=== PATIENT | female | born 1980 | race Caucasian/White ===

== ENCOUNTER 2020-08-24 21:46 | Emergency (ER) | payer MEDICAID ==
[2020-08-24] MEDS ORDERED: ONDANSETRON 4 MG/2 ML VIAL ONE (22:30)
[2020-08-24] MEDS ORDERED: NA CHLORIDE 0.9% 1,000 ML ONE (22:45)
[2020-08-24 22:52] LABS: Absolute Lymphocytes (CBC) 3.9 K/uL (0.7-4.9); Basophils % 1.1 % (0-1.3); Hematocrit 37.7 % (36.0-45.0); MPV 8.1 fL (7.6-11.3); RBC Red Blood Cell Count 4.06 M/uL (3.86-4.86)
[2020-08-24 23:05] LABS: ALT/SGPT 19 U/L (12-78); AST/SGOT 12 U/L (15-37); Albumin 3.7 g/dL (3.4-5.0); Alkaline Phosphatase 95 U/L (45-117); BUN Blood Urea Nitrogen 17 mg/dL (7-18); Bicarbonate 21 mmol/L (21-32); Bilirubin Direct < 0.1 mg/dL (0-0.2); Bilirubin Total 0.2 mg/dL (0.2-1.0); Glucose Level 115 mg/dL (74-106); Lipase 78 U/L (73-393); Potassium 3.8 mmol/L (3.5-5.1); Sodium Level 143 mmol/L (136-145)
[2020-08-24] MEDS ORDERED: MORPHINE 2 MG/ML SYR ONE ×2 (23:09→23:48)
[2020-08-24] MEDS ORDERED: CEFTRIAXONE/SWI 1gm 1 GM/10 ML SYR ONE ×2 (23:43→23:50)
[2020-08-25 00:19] LABS: Urine Blood TRACE (NEG); Urine Glucose NEGATIVE (NEG); Urine Protein NEGATIVE (NEG); Urine Specific Gravity 1.025 (1.005-1.030); Urine pH 5.5 (5.0-7.0)
--- NOTE | 2020-08-25 00:58 | ER ---
Nurse's Notes [facility] Name: Lauren Chand Age: 40 yrs Sex: Female : 1980 Arrival Date: 08/24/2020 Time: 21:49 Bed 6 Private MD: Diagnosis: Hydronephrosis with renal and ureteral calculous obstruction;Elevated white blood cell count;Urinary tract infection, site not specified Presentation: 08/24 21:56 Chief complaint: Patient states: L flankl pain started 3 hrs [employer], getting worse, ca1 constant, radiating all across the back now. Reports urinary urgency and frequency. Reports N/V. Coronavirus screen: Client denies travel out of the [place] in the last 14 days. nausea, vomiting. Client presents with at least one sign or symptom that may indicate coronavirus-19. Standard/surgical mask placed on the client. Provider contacted for isolation considerations. Ebola Screen: Patient negative for fever greater than or equal to 101.5 degrees Fahrenheit, and additional compatible Ebola Virus Disease symptoms Patient denies exposure to infectious person. Patient denies travel to an Ebola-affected area in the 21 days before illness onset. No symptoms or risks identified at this time. Initial Sepsis Screen: Does the patient meet any 2 criteria? No. Patient's initial sepsis screen is negative. Does the patient have a suspected source of infection? No. Patient's initial sepsis screen is negative. Risk Assessment: Do you want to hurt yourself or someone else? Patient reports no desire to harm self or others. Onset of symptoms was August 24, 2020 at 19:00. 21:56 Method Of Arrival: Wheelchair ca1 21:56 Acuity: CHRISTINE 3 ca1 Triage Assessment: 22:18 General: Appears uncomfortable, Behavior is appropriate for age. Pain: Complains of ea pain in suprapubic area and posterior aspect of left lateral abdomen. Neuro: Level of Consciousness is awake, alert, obeys commands, Oriented to person, place, time, situation. Respiratory: Airway is patent Respiratory effort is even, unlabored, Respiratory pattern is regular, symmetrical. GI: Reports nausea, vomiting, since Pt reports it started this afternoon left flank pain and lower abdominal pain. Derm: Skin is pink, warm \T\ dry. 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 - Social history:: Smoking status: Patient reports the use of cigarette tobacco products, smokes one pack cigarettes per day. - Family history:: not pertinent. Screenin:04 Abuse screen: Denies threats or abuse. Nutritional screening: No deficits noted. ea Tuberculosis screening: No symptoms or risk factors identified. Fall Risk IV access (20 points). Assessment: 22:21 Reassessment: see triage assessment. ea 08/25 02:32 Reassessment: Patient and/or family updated on plan of care and expected duration. Pain ea level reassessed. Patient is alert, oriented x 3, equal unlabored respirations, skin warm/dry/pink. Pt admitted to ER hold. 03:04 Reassessment: Patient and/or family updated on plan of care and expected duration. Pain ea level reassessed. Patient is alert, oriented x 3, equal unlabored respirations, skin warm/dry/pink. Discharge instruction given to patient, verbalized the understanding of instruction, pt left ED via wheelchair per family. Pt tolerating well. Vital Signs: 12/ 21:56 BP 157 / 83; Pulse 74; Resp 16 S; Temp 97.6(TE); Pulse Ox 93% on R/A; Weight 68.04 kg ca1 (R); Height 5 ft. 4 in. (162.56 cm) (R); Pain 9/10; 12 00:00 BP 138 / 82; Pulse 84; Resp 18; Pulse Ox 95% on R/A; ea 03:03 BP 107 / 59; Pulse 80; Resp 18; Temp 97.8; Pulse Ox 98% on R/A; ea 12 21:56 Body Mass Index 25.75 (68.04 kg, 162.56 cm) ca1 ED Course: 12 21:49 Patient arrived in ED. ag3 21:54 Venkata Barry MD is Attending Physician. froy 21:59 Triage completed. ca1 22:01 Arm band placed on right wrist. ca1 22:04 Cr Crisostomo RN is Primary Nurse. rv 22:20 Patient has correct armband on for positive identification. Bed in low position. Call ea light in reach. Side rails up X2. 22:20 Inserted saline lock: 20 gauge in left antecubital area, using aseptic technique. Blood ea collected. 23:26 Chest Single View XRAY In Process Unspecified. EDMS 12 00:04 Urine Culture Sent. ds4 00:27 CT Stone Protocol In Process Unspecified. EDMS 00:57 Torrey Mccullough MD is Hospitalizing Provider. froy 01:21 Javier Woodall DO is Hospitalizing Provider. froy 02:04 CT Abd/Pelvis - IV Contrast Only In Process Unspecified. EDMS 02:25 No provider procedures requiring assistance completed. Patient admitted, IV remains in ea place. 02:49 Dariel De MD is Referral Physician. froy Administered Medications: 08/24 22:21 Drug: Zofran (Ondansetron) 4 mg Route: IVP; Site: left antecubital; ea 23:00 Follow up: Response: No adverse reaction ea 22:33 Drug: NS 0.9% 1000 ml Route: IV; Rate: 1 bolus; Site: left antecubital; ea 08/25 00:30 Follow up: Response: No adverse reaction; IV Status: Completed infusion; IV Intake: ea 1000ml 08/24 22:56 Drug: morphine 2 mg {Note: rass 1.} Route: IVP; Site: left antecubital; rv 23:34 Drug: Rocephin 2 grams Route: IV; Rate: per protocol; Site: left antecubital; ea 08/25 00:00 Follow up: Response: No adverse reaction; IV Status: Completed infusion; IV Intake: 20mlea 08/24 23:50 Drug: morphine 2 mg Route: IVP; Site: left antecubital; ea 08/25 02:32 Follow up: Response: No adverse reaction; Pain is decreased ea 01:38 Drug: Flomax 0.4 mg Route: PO; rv 02:32 Follow up: Response: No adverse reaction ea 02:45 Drug: Nicoderm CQ 21 mg/24 hr 1 patches Route: Transdermal; Site: affected area; ea 02:54 Drug: morphine 2 mg Route: IVP; Site: left antecubital; ea 03:03 Follow up: Response: No adverse reaction; RASS: Alert and Calm (0) ea 02:54 Drug: morphine 2 mg Route: IVP; Site: left antecubital; ea 03:03 Drug: LevOfloxacin 500 mg Route: PO; ea 03:03 Follow up: Response: No adverse reaction ea Intake: 00:00 IV: 20ml; Total: 20ml. ea 00:30 IV: 1000ml; Total: 1020ml. ea Outcome: 00:58 Decision to Hospitalize by Provider. froy 02:25 Admitted to ER Hold. Please see [facility] for further documentation. ea 02:25 Condition: stable 02:25 Instructed on the need for admit, Demonstrated understanding of instructions. 02:50 Discharge ordered by . froy 03:05 Patient left the ED. ea Signatures: Dispatcher [employer] EDMS Los Mclean, RN RN Venkata Garcia MD MD cha Swanson, Donovan ds4 Kenia Hinton RN Cr Tian ea RN Kathia Galicia ag3 Phuong Christie RN RN ca1
--- NOTE | 2020-08-25 00:59 | EDPHYS ---
Physician Documentation [facility] Name: Lauren Chand Age: 40 yrs Sex: Female : 1980 Arrival Date: 08/24/2020 Time: 21:49 Bed 6 Private MD: ANANYA Physician Venkata Barry HPI: 08/24 23:15 This 40 yrs old Female presents to ER via Wheelchair with complaints of Flank froy Pain, Nausea. 23:15 The patient complains of pain in the left low back and left mid back. The pain radiates froy to the left low back and left mid back. Onset: The symptoms/episode began/occurred just prior to arrival, today. Modifying factors: The symptoms are alleviated by nothing. the symptoms are aggravated by nothing. Associated signs and symptoms: The patient has no apparent associated signs or symptoms. Severity of pain: At its worst the pain was moderate in the emergency department the pain is unchanged. The patient has not experienced similar symptoms in the past. 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 - Social history:: Smoking status: Patient reports the use of cigarette tobacco products, smokes one pack cigarettes per day. - Family history:: not pertinent. ROS: 23:15 Constitutional: Negative for fever, chills, and weight loss, Eyes: Negative for injury, froy pain, redness, and discharge, ENT: Negative for injury, pain, and discharge, Neck: Negative for injury, pain, and swelling, Cardiovascular: Negative for chest pain, palpitations, and edema, Respiratory: Negative for shortness of breath, cough, wheezing, and pleuritic chest pain, : Negative for injury, bleeding, discharge, and swelling, MS/Extremity: Negative for injury and deformity, Skin: Negative for injury, rash, and discoloration, Neuro: Negative for headache, weakness, numbness, tingling, and seizure, Psych: Negative for depression, anxiety, suicide ideation, homicidal ideation, and hallucinations, Allergy/Immunology: Negative for hives, rash, and allergies, Endocrine: Negative for neck swelling, polydipsia, polyuria, polyphagia, and marked weight changes, Hematologic/Lymphatic: Negative for swollen nodes, abnormal bleeding, and unusual bruising. 23:15 Abdomen/GI: Positive for abdominal pain, of the posterior aspect of left lateral abdomen, anterior aspect of left lateral abdomen and left upper quadrant. Exam: 23:15 Constitutional: This is a well developed, well nourished patient who is awake, alert, froy and in no acute distress. Head/Face: Normocephalic, atraumatic. Eyes: Pupils equal round and reactive to light, extra-ocular motions intact. Lids and lashes normal. Conjunctiva and sclera are non-icteric and not injected. Cornea within normal limits. Periorbital areas with no swelling, redness, or edema. ENT: Nares patent. No nasal discharge, no septal abnormalities noted. Tympanic membranes are normal and external auditory canals are clear. Oropharynx with no redness, swelling, or masses, exudates, or evidence of obstruction, uvula midline. Mucous membranes moist. Neck: Trachea midline, no thyromegaly or masses palpated, and no cervical lymphadenopathy. Supple, full range of motion without nuchal rigidity, or vertebral point tenderness. No Meningismus. Chest/axilla: Normal chest wall appearance and motion. Nontender with no deformity. No lesions are appreciated. Cardiovascular: Regular rate and rhythm with a normal S1 and S2. No gallops, murmurs, or rubs. Normal PMI, no JVD. No pulse deficits. Abdomen/GI: Soft, non-tender, with normal bowel sounds. No distension or tympany. No guarding or rebound. No evidence of tenderness throughout. Back: No spinal tenderness. No costovertebral tenderness. Full range of motion. Pelvic Exam: Normal external genitalia. Speculum exam with closed cervical os, no discharge or bleeding noted. Bimanual exam with normal adnexa, no adnexal or cervical motion tenderness. Normal uterus. Skin: Warm, dry with normal turgor. Normal color with no rashes, no lesions, and no evidence of cellulitis. MS/ Extremity: Pulses equal, no cyanosis. Neurovascular intact. Full, normal range of motion. Neuro: Awake and alert, GCS 15, oriented to person, place, time, and situation. Cranial nerves II-XII grossly intact. Motor strength 5/5 in all extremities. Sensory grossly intact. Cerebellar exam normal. Normal gait. 23:15 Respiratory: 23:15 Abdomen/GI: Inspection: abdomen appears normal, Bowel sounds: normal, Palpation: mild abdominal tenderness, in the left upper quadrant, Liver: no appreciated palpable abnormalities, Hernia: not appreciated. Vital Signs: 21:56 BP 157 / 83; Pulse 74; Resp 16 S; Temp 97.6(TE); Pulse Ox 93% on R/A; Weight 68.04 kg ca1 (R); Height 5 ft. 4 in. (162.56 cm) (R); Pain 9/10; 08/25 00:00 BP 138 / 82; Pulse 84; Resp 18; Pulse Ox 95% on R/A; ea 03:03 BP 107 / 59; Pulse 80; Resp 18; Temp 97.8; Pulse Ox 98% on R/A; ea 08/24 21:56 Body Mass Index 25.75 (68.04 kg, 162.56 cm) ca1 MDM: 08/24 21:54 Patient medically screened. froy 23:18 Differential diagnosis: nephrolithiasis, pyelonephritis, diverticulitis, pancreatitis. froy Data reviewed: vital signs, nurses notes, lab test result(s), radiologic studies, CT scan, plain films. Data interpreted: hall monitor: rate is 74 beats/min, rhythm is regular, Pulse oximetry: on room air is 93 %. Test interpretation: by ED physician or midlevel provider: plain radiologic studies. Counseling: I had a detailed discussion with the patient and/or guardian regarding: the historical points, exam findings, and any diagnostic results supporting the discharge/admit diagnosis, lab results, radiology results. 08/25 02:51 Physician consultation: Dariel De MD and will see patient in office, no reason to froy admit if pain is controlled, have follow up. 08/24 22:22 Order name: Basic Metabolic Panel ea 08/24 22:22 Order name: CBC with Diff ea 08/24 22:22 Order name: Hepatic Function ea 08/24 22:22 Order name: Lipase ea 08/24 23:06 Order name: Basic Metabolic Panel; Complete Time: 23:10 EDMS 08/24 23:06 Order name: Liver (Hepatic) Function; Complete Time: 23:10 EDMS 08/24 23:06 Order name: Lipase; Complete Time: 23:10 EDIN 08/24 23:09 Order name: CBC with Automated Diff; Complete Time: 23:10 EDMS 08/24 23:10 Order name: Urine Culture [facility] 08/24 23:10 Order name: CT Stone Protocol [facility] 08/24 23:56 Order name: Urine --Ancillary (enter results) ds4 08/24 23:56 Order name: Urine Dipstick--Ancillary (enter results) 4 08/25 00:19 Order name: Urine --Ancillary; Complete Time: 00:21 EDMS 08/25 00:19 Order name: Urine Dipstick-Ancillary; Complete Time: 00:21 EDMS 08/24 22:22 Order name: IV Saline Lock; Complete Time: 22:22 08/24 22:22 Order name: Labs collected and sent; Complete Time: 22:22 08/24 22:25 Order name: Urine Dipstick-Ancillary (obtain specimen); Complete Time: 23:54 08/24 23:12 Order name: Chest Single View XRAY [facility] 08/24 23:15 Order name: Urine Test (obtain specimen); Complete Time: 23:54 [facility] 08/25 00:59 Order name: CT Abd/Pelvis - IV Contrast Only [facility] Administered Medications: 08/24 22:21 Drug: Zofran (Ondansetron) 4 mg Route: IVP; Site: left antecubital; ea 23:00 Follow up: Response: No adverse reaction ea 22:33 Drug: NS 0.9% 1000 ml Route: IV; Rate: 1 bolus; Site: left antecubital; ea 08/25 00:30 Follow up: Response: No adverse reaction; IV Status: Completed infusion; IV Intake: ea 1000ml 08/24 22:56 Drug: morphine 2 mg {Note: rass 1.} Route: IVP; Site: left antecubital; rv 23:34 Drug: Rocephin 2 grams Route: IV; Rate: per protocol; Site: left antecubital; ea 08/25 00:00 Follow up: Response: No adverse reaction; IV Status: Completed infusion; IV Intake: 20mlea 08/24 23:50 Drug: morphine 2 mg Route: IVP; Site: left antecubital; ea 08/25 02:32 Follow up: Response: No adverse reaction; Pain is decreased ea 01:38 Drug: Flomax 0.4 mg Route: PO; rv 02:32 Follow up: Response: No adverse reaction ea 02:45 Drug: Nicoderm CQ 21 mg/24 hr 1 patches Route: Transdermal; Site: affected area; ea 02:54 Drug: morphine 2 mg Route: IVP; Site: left antecubital; ea 03:03 Follow up: Response: No adverse reaction; RASS: Alert and Calm (0) ea 02:54 Drug: morphine 2 mg Route: IVP; Site: left antecubital; ea 03:03 Drug: LevOfloxacin 500 mg Route: PO; ea 03:03 Follow up: Response: No adverse reaction ea Disposition: 08/25/20 02:50 Discharged to Home. Impression: Hydronephrosis with renal and ureteral calculous obstruction, Elevated white blood cell count, Urinary tract infection, site not specified. - Condition is Stable. - Discharge Instructions: Dysuria, Kidney Stones, Urinary Tract Infection, Adult, Kidney Stones, [id number], Urinary Tract Infection, Adult, [id number], Hydronephrosis. - Prescriptions for Levaquin 500 mg Oral Tablet - take 1 tablet by ORAL route once daily for 7 days; 7 tablet. Tylenol- Codeine #3 300-30 mg Oral Tablet - take 2 tablet by ORAL route every 6 hours As needed; 30 tablet. Zofran 4 mg Oral Tablet - take 1 tablet by ORAL route every 12 hours As needed; 20 tablet. Flomax 0.4 mg Oral Capsule, Sust. Release 24 hr - take 1 capsule by ORAL route once daily 1/2 hour following the same meal each day; 30 capsule. - Medication Reconciliation Form, Thank You Letter, Antibiotic Education, Prescription Opioid Use form. - Follow up: Private Physician; When: 2 - 3 days; Reason: Recheck today's complaints, Continuance of care, Re-evaluation by your physician. Follow up: Dariel De MD; When: 2 - 3 days; Reason: Recheck today's complaints, Re-evaluation by your physician. - Problem is new. - Symptoms have improved. Signatures: Dispatcher [employer] EDMS Cheri Nava RN RN mw Gay, Steven, RN RN sg Anderson, Corey, MD MD cha Antunez, Elena, RN RN ea Vicente, Ronaldo RN RN rv Acob, Phuong, RN RN ca1 Corrections: (The following items were deleted from the chart) 01:01 00:58 Hospitalization Ordered by Torrey Mccullough MD for Inpatient Admission. Preliminary mw diagnosis is Acute tubulo-interstitial nephritis; Elevated white blood cell count. Bed requested for Telemetry/MedSurg (Inpatient). Status is Inpatient Admission. Condition is Fair. Problem is new. Symptoms have improved. froy 01:21 01:01 08/25/2020 00:58 Hospitalization Ordered by Torrey Mccullough MD for Inpatient froy Admission. Preliminary diagnosis is Acute tubulo-interstitial nephritis; Elevated white blood cell count. Bed requested for [facility] ER HOLD. Status is Inpatient Admission. Condition is Fair. Problem is new. Symptoms have improved. mw 02:47 01:21 08/25/2020 00:58 Hospitalization Ordered by Javier Woodall DO for Inpatient froy Admission. Preliminary diagnosis is Acute tubulo-interstitial nephritis; Elevated white blood cell count. Bed requested for [facility] ER HOLD. Status is Inpatient Admission. Condition is Fair. Problem is new. Symptoms have improved. froy 03:05 02:50 08/25/2020 02:50 Discharged to Home. Impression: Hydronephrosis with renal and ea ureteral calculous obstruction; Elevated white blood cell count; Urinary tract infection, site not specified. Condition is Stable. Forms are Medication Reconciliation Form, Thank You Letter, Antibiotic Education, Prescription Opioid Use. Follow up: Private Physician; When: 2 - 3 days; Reason: Recheck today's complaints, Continuance of care, Re-evaluation by your physician. Follow up: Dariel De; When: 2 - 3 days; Reason: Recheck today's complaints, Re-evaluation by your physician. Problem is new. Symptoms have improved. froy
[2020-08-25] MEDS ORDERED: TAMSULOSIN 0.4 MG SR CAP ONE (01:41)
[2020-08-25] MEDS ORDERED: NICOTINE 21 MG/PAT TD ONE (02:57)
[2020-08-25] MEDS ORDERED: levoFLOXacin 500 MG TAB ONE (03:08)
[2020-08-25] MEDS ORDERED: MORPHINE 4 MG/ML SYR ONE (03:08)
--- NOTE | 2020-08-25 08:25 | RAD REPORT ---
EXAM DESCRIPTION: RAD - Chest Single View - 08/24/2020 11:26 pm CLINICAL HISTORY: Cough;Pain COMPARISON: Two view chest June 2019 TECHNIQUE: AP portable chest image was obtained 08/24/2020 11:26 pm . FINDINGS: Lung volumes are low. No peripheral mass or consolidation. Interstitial pattern is accentu ated by the low lung volumes. This potentially masks minimal edema or infiltrate though this is not l ikely. Heart and vasculature are normal. No measurable pleural effusion and no pneumothorax. No acute bony abnormality seen. No acute aortic findings suspected. IMPRESSION: Limited portable study without acute cardiopulmonary finding.
--- NOTE | 2020-08-25 10:51 | RAD REPORT ---
EXAM DESCRIPTION: CT - Stone Protocol - 08/25/2020 6:56 am CLINICAL HISTORY: Abdominal pain. Pyelonephritis. COMPARISON: None. TECHNIQUE: Axial unenhanced CT imaging of the abdomen and pelvis performed. Reformatted coronal and sagittal images reviewed. A dose reduction technique was utilized with automated exposure control according to patient size. FINDINGS: Clear lung bases. Heart is normal in size. The liver is normal in size, contour, and attenuation. There are several layering stones within the proximal gallbladder with a small calcified stone in the gallbladder neck. No evidence of cholecys titis or biliary dilatation. 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 The mcguire creas appears normal. Normal adrenal glands. There is mild fullness of the left renal pelvis. AP pelvis is 1 cm. There is a 5 mm calculus in t he left hemipelvis which could be in the left distal ureter or a dystrophic calcification in the danae phery of the left ovary. There is mild left perinephric edema. Normal right kidney. Normal caliber aorta and inferior vena cava. Mild aortic atherosclerosis. No retroperitoneal lymp hadenopathy. Unremarkable stomach. Small bowel loops appear normal. There is a normal caliber appendix in the right lower quadrant with intraluminal appendicoliths without appendicitis. Unremarkable colon. N o ascites or free air. Bladder appears normal with no bladder stone. No adjacent edema. No wall thickening evident. No rmal uterus. The changes are present within the ovaries. There are dystrophic calcifications ann g the periphery of the right ovary. There are pelvic phleboliths present. No perivesicle edema. No pelvic free fluid. Unremarkable cervical spine. Bony pelvis and hips are unremarkable. There is an intramedullary cassy cency in the proximal left femur from prior hardware placement. IMPRESSION: 1. Mild left renal pelvic dilatation and perinephric edema. There are phleboliths in the pelvis. There is a 5 mm calcification along the lateral periphery of the left hemipelvis which could be in the left ureter or within the left ovary. The left renal findings could also be second josse to pyelonephritis which cannot be fully characterized on this unenhanced exam. 2. Cholelithiasis without cholecystitis. Electronically signed by: Stacy Lindsey DO 08/25/2020 12:44 AM SKETCH MAKER Due to temporary technical issues with the PACS/Fluency reporting system, reports are being signed by the in house radiologist without review as a courtesy to ensure prompt reporting. The interpreting r adiologist is fully responsible for the content of the report.
--- NOTE | 2020-08-25 10:52 | RAD REPORT ---
EXAM DESCRIPTION: CT - Abdomen Pelvis W Contrast - 08/25/2020 6:55 am CLINICAL HISTORY: Abdominal pain, flank pain, fever. COMPARISON: CT abdomen and pelvis without contrast 08/25/2020 TECHNIQUE: Axial CT imaging of the abdomen and pelvis performed with intravenous contrast. Reformatt ed coronal and sagittal images reviewed. A dose reduction technique was utilized with automated exposure control according to patient size. FINDINGS: Minimal left lower lobe atelectasis. Normal cardiac contour. Normal attenuation of the liver. The gallbladder contains several calcified stones without cholecys titis. No biliary dilatation. The spleen is absent. Normal pancreas and adrenal glands. Brenna l right kidney. There is persistent dilatation of the left renal pelvis without interval change. AP pelvis is 1 cm. Mild left perinephric edema. There is normal enhancement of the left kidney wi th no evidence of pyelonephritis. Left ureter is mildly dilated diffusely. A 4 mm calcification o verlying the left pelvic sidewall is unchanged in position and may be in the distal left ureter. No renal pelvic stones are seen. Normal aorta and inferior vena cava. Mesenteric vessels appear normal. The stomach, small bowel loops and colon appear normal. There is no ascites. The bladder contains a 3 mm calcification in the dependent right posterior lumen. No bladder wall t hickening or adjacent edema. Normal uterus. There are follicular changes within the ovaries. No acute bony abnormality. IMPRESSION: 1. Stable mild left hydronephrosis with mild left perinephric edema. Possible 4 mm d istal left ureteral stone versus dystrophic ovarian calcification. There is a 3 mm bladder stone wh ich may have recently passed. 2. Cholelithiasis without cholecystitis. Electronically signed by: Stacy Lindsey DO 08/25/2020 2:26 AM CABLE INSTALLATION MANAGER Due to temporary technical issues with the PACS/Fluency reporting system, reports are being signed by the in house radiologist without review as a courtesy to ensure prompt reporting. The interpreting r adiologist is fully responsible for the content of the report.
== END 2020-08-25 03:05 | disposition home or self-care (01) ==
LOC: ER 21:46
DX: N13.2 Hydronephrosis with renal and ureteral calculous obstruction (principal); N39.0 Urinary tract infection, site not specified; D72.829 Elevated white blood cell count, unspecified; F17.210 Nicotine dependence, cigarettes, uncomplicated; Z87.820 Personal history of traumatic brain injury; Z88.5 Allergy status to narcotic agent; Z88.6 Allergy status to analgesic agent
CPT/HCPCS: 87088; 85025; 87086; 80048; 36415; 81025; 80076; 81003; 83690; 76377; 74176; 74177; 71045; Q9967; J2270 ×2; J0696 ×2; J7030; J2405; 96361; 96365; 96375; 99285

== ENCOUNTER 2021-12-15 09:32 | Emergency (ER) | payer OTHER ==
[2021-12-15 10:44] LABS: Urine Blood 2+ (Negative); Urine Glucose Negative (Negative); Urine Protein 1+ (Negative); Urine Specific Gravity >=1.030 (1.005-1.030)
[2021-12-15] MEDS ORDERED: ONDANSETRON 4 MG/2 ML VIAL ONE (10:48)
[2021-12-15] MEDS ORDERED: MORPHINE 4 MG/ML SYR ONE (10:48)
[2021-12-15] MEDS ORDERED: NA CHLORIDE 0.9% 1,000 ML ONE (10:48)
[2021-12-15 11:00] LABS: Absolute Lymphocytes (CBC) 1.7 K/uL (0.7-4.9); Hematocrit 39.4 % (36.0-45.0); Lymphocytes % 7.6 % (15.3-44.8); MPV 6.7 fL (7.6-11.3); RBC Red Blood Cell Count 4.14 M/uL (3.86-4.86)
[2021-12-15 11:21] LABS: Blood Morphology Comment NOT SEEN (NOT SEEN); Platelet Estimate ADEQ
[2021-12-15 11:32] LABS: Urine Specific Gravity/Preg >1.030 (1.005-1.030)
--- NOTE | 2021-12-15 11:55 | RAD REPORT ---
EXAM DESCRIPTION: CT - Stone Protocol - 12/15/2021 11:28 am CLINICAL HISTORY: Abdominal pain. Right flank pain COMPARISON: 2019 TECHNIQUE: Computed axial tomography of the abdomen pelvis was obtained without oral or IV contrast. Lack of IV and oral contrast limits evaluation of solid organs, bowel, and vessels. Coronal reformat junie images were obtained and reviewed. All CT scans are performed using dose optimization technique as appropriate and may include automated exposure control or mA/KV adjustment according to patient size. FINDINGS: Mild to moderate right hydronephrosis. 3 millimeter calculus right UVJ. The right kidney i s enlarged Multiple left renal calculi. No hydronephrosis. Cholelithiasis. Gallbladder wall is not thickened. The liver,, pancreas and adrenals appear grossly normal. Splenectomy There is no evidence of diverticulitis. The appendix appears normal IMPRESSION: 3 millimeter calculus right UVJ resulting [id number] right hydronephrosis
[2021-12-15] MEDS ORDERED: DIPHENHYDRAMINE 50 MG/ML VIAL ONE (12:08)
[2021-12-15] MEDS ORDERED: METOCLOPRAMIDE 10 MG/2mL INJ ONE (12:08)
[2021-12-15] MEDS ORDERED: KETOROLAC 30 MG/ML INJ ONE (12:08)
[2021-12-15] MEDS ORDERED: MORPHINE 2 MG/ML SYR ONE (12:09)
[2021-12-15 12:12] LABS: Albumin 3.7 g/dL (3.4-5.0); Bilirubin Total 0.2 mg/dL (0.2-1.0); Potassium 3.4 mmol/L (3.5-5.1); Protein, Total 7.5 g/dL (6.4-8.2)
[2021-12-15] MEDS ORDERED: TAMSULOSIN 0.4 MG SR CAP ONE (12:37)
[2021-12-15] MEDS ORDERED: CEFTRIAXONE 1000 MG/VIAL ONE (12:37)
--- NOTE | 2021-12-15 14:20 | ER ---
Nurse's Notes [facility] Name: Lauren Chand Age: 41 yrs Sex: Female : 1980 Arrival Date: 12/15/2021 Time: 09:34 Bed 13 Private MD: Diagnosis: Calculus of ureter Presentation: 12/15 09:46 Chief complaint: Patient states: she woke up this morning with right lower back pain. ap3 Patient states this is new onset, sharp pain. Patient reports also having urinary frequency. Coronavirus screen: At this time, the client does not indicate any symptoms associated with coronavirus-19. Ebola Screen: No symptoms or risks identified at this time. Initial Sepsis Screen: Does the patient meet any 2 criteria? No. Patient's initial sepsis screen is negative. Does the patient have a suspected source of infection? No. Patient's initial sepsis screen is negative. Risk Assessment: Do you want to hurt yourself or someone else? Patient reports no desire to harm self or others. Onset of symptoms was December 15, 2021. 09:46 Method Of Arrival: Wheelchair ap3 09:46 Acuity: CHRISTINE 3 ap3 Triage Assessment: 09:49 General: Appears uncomfortable, Behavior is calm, cooperative. Pain: Complains of pain ap3 in right low back Pain currently is 10 out of 10 on a pain scale. Quality of pain is described as sharp, Pain began suddenly, this morning when she woke up. Neuro: Level of Consciousness is awake, alert, obeys commands, Oriented to person, place, time, situation. Cardiovascular: Patient's skin is warm and dry. Respiratory: Airway is patent Respiratory effort is even, unlabored. GI: Reports nausea, vomiting. : Reports urinary frequency. Musculoskeletal: Range of motion: limited in all extremities, from pts hx of TBI. 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 Flu vaccine is not up to date. - Social history:: Smoking status: Patient reports the use of cigarette tobacco products, smokes one pack cigarettes per day. Screenin:50 Abuse screen: Denies threats or abuse. Nutritional screening: No deficits noted. ap3 Tuberculosis screening: No symptoms or risk factors identified. 11:06 Fall Risk No fall in past 12 months (0 pts). Secondary diagnosis (15 points) IV access ab2 (20 points). Ambulatory Aid- None/Bed Rest/Nurse Assist (0 pts). Gait- Normal/Bed Rest/Wheelchair (0 pts) Mental Status- Oriented to own ability (0 pts). Total Acevedo Fall Scale indicates Low Risk Score (25-44 pts). Fall prevention measures have been instituted. Side Rails Up X 2 Frequent Obs/Assesments occuring Family Present and informed to notify staff if they need to leave bedside As available Patient and Family Educated on Fall Prevention Program and strategies. Assessment: 11:04 General: Appears in no apparent distress. uncomfortable, Behavior is calm, cooperative, ab2 appropriate for age. Pain: Complains of pain in right low back. Neuro: Level of Consciousness is awake, alert, obeys commands, Oriented to person, place, time, situation, Appropriate for age. Cardiovascular: No deficits noted. Denies chest pain, shortness of breath, Heart tones S1 S2 present Patient's skin is warm and dry. Respiratory: Airway is patent Respiratory effort is even, unlabored, Respiratory pattern is regular, symmetrical. GI: No deficits noted. Abdomen is round non-distended, Bowel sounds present X 4 quads. : No deficits noted. Urine is cloudy. EENT: No deficits noted. No signs and/or symptoms were reported regarding the EENT system. Derm: Skin is thin, Skin is pale. 12:13 Reassessment: Patient appears in no apparent distress at this time. Pt states pain came ab2 back, another dose of morphine given per order. Pt resting. Lights dimmed. Denies any further needs. 14:12 Reassessment: Patient appears in no apparent distress at this time. Fluids still ab2 infusing, pt tolerating well. friend remains at bedside, denies any needs. Awaiting disposition. Vital Signs: 09:46 BP 125 / 76; Pulse 66; Temp 97.7; Pulse Ox 99% on R/A; Weight 65.77 kg; Height 5 ft. 4 ap3 in. (162.56 cm); Pain 10/10; 11:00 BP 130 / 72; Pulse 84; Resp 17; Pulse Ox 100% on R/A; ab2 12:13 BP 128 / 76; Pulse 77; Resp 17; Pulse Ox 98% on R/A; ab2 13:10 BP 112 / 52; Pulse 74; Resp 16; Pulse Ox 98% ; ab2 14:11 BP 109 / 65; Pulse 87; Resp 16; Pulse Ox 98% on R/A; ab2 09:46 Body Mass Index 24.89 (65.77 kg, 162.56 cm) ap3 ED Course: 09:34 Patient arrived in ED. mr 09:41 Ramses Palacios PA is PHCP. jmm 09:42 Rd Mccullough MD is Attending Physician. jmm 09:48 Triage completed. ap3 09:51 Arm band placed on left wrist. ap3 10:12 Cecelia Hassan, RN is Primary Nurse. weiss 10:48 Initial lab(s) drawn, by me, sent to lab. Inserted saline lock: 22 gauge in left 3 antecubital area, using aseptic technique. Blood collected. 11:06 Patient has correct armband on for positive identification. Bed in low position. Call ab2 light in reach. Side rails up X2. Adult w/ patient. 11:06 No provider procedures requiring assistance completed. ab2 11:07 Notified Nurse Practitioner and/or Physician Switchboard Installer of a critical lab result(s), wbc ab2 22.6. 11:30 CT Stone Protocol In Process Unspecified. EDMS 11:39 Lab(s) recollected, by me, sent to lab. 3 14:18 Dariel De MD is Referral Physician. jmm 14:36 IV discontinued, intact, bleeding controlled, No redness/swelling at site. Pressure ab2 dressing applied. Administered Medications: 10:58 Drug: Zofran (Ondansetron) 4 mg Route: IVP; Site: left antecubital; ab2 12:13 Follow up: Response: No adverse reaction ab2 10:58 Drug: NS 0.9% 1000 ml Route: IV; Rate: 1 bolus; Site: left antecubital; ab2 14:36 Follow up: Response: No adverse reaction; IV Status: Completed infusion ab2 10:59 Drug: morphine 4 mg Route: IVP; Site: left antecubital; ab2 12:13 Follow up: Response: No adverse reaction ab2 12:12 Drug: morphine 2 mg Route: IVP; Site: left antecubital; ab2 12:41 Follow up: Response: No adverse reaction ab2 12:12 Drug: Reglan (metoCLOPramide) 10 mg Route: IVP; Site: left antecubital; ab2 12:41 Follow up: Response: No adverse reaction ab2 12:12 Drug: diphenhydrAMINE 25 mg Route: IVP; Site: left antecubital; ab2 12:41 Follow up: Response: No adverse reaction ab2 12:12 Drug: Ketorolac 30 mg Route: IVP; Site: left antecubital; ab2 12:41 Follow up: Response: No adverse reaction ab2 12:40 Drug: Flomax (tamsulosin) 0.4 mg Route: PO; ab2 12:42 Follow up: Response: No adverse reaction ab2 12:40 Drug: Rocephin (cefTRIAXone) 1 grams Route: IV; Rate: calculated rate; Site: left ab2 antecubital; 12:42 Follow up: Response: No adverse reaction; IV Status: Completed infusion ab2 Outcome: 14:19 Discharge ordered by MD. rivers 14:36 Discharged to home ambulatory. ab2 14:36 Condition: good 14:36 Discharge instructions given to patient, Instructed on discharge instructions, follow up and referral plans. medication usage, Demonstrated understanding of instructions, follow-up care, medications, Prescriptions given X 5 14:36 Patient left the ED. ab2 Signatures: Dispatcher [employer] EDMS Ramses Palacios PA PA jm Maria E Godinez, Janet 3 Martha Cam RN RN ap3 Cecelia Hassan RN RN ha Bleininger, Alexis ab2
--- NOTE | 2021-12-15 14:20 | EDPHYS ---
Physician Documentation [facility] Name: Lauren Chand Age: 41 yrs Sex: Female : 1980 Arrival Date: 12/15/2021 Time: 09:34 Bed 13 Private MD: ED Physician Rd Mccullough HPI: 12/15 10:03 This 41 yrs old Female presents to ER via Wheelchair with complaints of Back Pain. jmm 10:03 The patient presents with pain that is acute. Onset: The symptoms/episode jmm began/occurred acutely, today. The pain radiates to the abdomen. Associated signs and symptoms: Pertinent positives: vomiting, Pertinent negatives: fever. This is a 41 year old female with a history of tbi that presents to the ED with complaints of right flank pain, vomiting. Symptoms began this morning. Patient does have a history of kidney stones. . 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 Flu vaccine is not up to date. - Social history:: Smoking status: Patient reports the use of cigarette tobacco products, smokes one pack cigarettes per day. ROS: 10:03 Constitutional: Negative for fever, chills, and weight loss, Cardiovascular: Negative jmm for chest pain, palpitations, and edema, Respiratory: Negative for shortness of breath, cough, wheezing, and pleuritic chest pain. 10:03 Abdomen/GI: Positive for abdominal pain. 10:03 Back: Positive for flank pain, on the right. 10:03 All other systems are negative. Exam: 10:03 Constitutional: This is a well developed, well nourished patient who is awake, alert, jmm and in no acute distress. Head/Face: atraumatic. Eyes: EOMI, no conjunctival erythema appreciated ENT: Moist Mucus Membranes Neck: Trachea midline, Supple Chest/axilla: Normal chest wall appearance and motion. Cardiovascular: Regular rate and rhythm. No edema appreciated Respiratory: Normal respirations, no respiratory distress appreciated 10:03 Skin: General appearance color normal MS/ Extremity: Moves all extremities, no obvious deformities appreciated, no edema noted to the lower extremities Neuro: Awake and alert Psych: Behavior is normal, Mood is normal, Patient is cooperative and pleasant 10:03 Abdomen/GI: Inspection: abdomen appears normal, Bowel sounds: normal, Palpation: soft, mild abdominal tenderness, in the suprapubic area. 10:03 Back: CVA tenderness, that is moderate, is noted on the right. Vital Signs: 09:46 BP 125 / 76; Pulse 66; Temp 97.7; Pulse Ox 99% on R/A; Weight 65.77 kg; Height 5 ft. 4 ap3 in. (162.56 cm); Pain 10/10; 11:00 BP 130 / 72; Pulse 84; Resp 17; Pulse Ox 100% on R/A; ab2 12:13 BP 128 / 76; Pulse 77; Resp 17; Pulse Ox 98% on R/A; ab2 13:10 BP 112 / 52; Pulse 74; Resp 16; Pulse Ox 98% ; ab2 14:11 BP 109 / 65; Pulse 87; Resp 16; Pulse Ox 98% on R/A; ab2 09:46 Body Mass Index 24.89 (65.77 kg, 162.56 cm) ap3 MDM: 10:03 Patient medically screened. [facility] 14:16 Data reviewed: vital signs, nurses notes. Counseling: I had a detailed discussion with tita the patient and/or guardian regarding: the historical points, exam findings, and any diagnostic results supporting the discharge/admit diagnosis, lab results, radiology results, the need for outpatient follow up, to return to the emergency department if symptoms worsen or persist or if there are any questions or concerns that arise at home. 12/15 10:09 Order name: CBC with Diff; Complete Time: 11:23 [facility] 12/15 10:09 Order name: CMP; Complete Time: 12:27 [facility] 12/15 10:09 Order name: Lipase; Complete Time: 12:27 [facility] 12/15 10:44 Order name: Urine Dipstick-Ancillary; Complete Time: 10:47 [facility] 12/15 11:20 Order name: Urine --Ancillary (enter results); Complete Time: 11:35 em1 12/15 11:21 Order name: Manual Differential; Complete Time: 11:23 [facility] 12/15 10:10 Order name: CT Stone Protocol; Complete Time: 11:57 [facility] 12/15 10:09 Order name: IV Saline Lock; Complete Time: 10:54 [facility] 12/15 10:10 Order name: Labs collected and sent; Complete Time: 10:54 [facility] 12/15 10:10 Order name: Urine Dipstick-Ancillary (obtain specimen); Complete Time: 10:44 [facility] 12/15 10:10 Order name: Urine Test (obtain specimen); Complete Time: 10:44 [facility] Administered Medications: 10:58 Drug: Zofran (Ondansetron) 4 mg Route: IVP; Site: left antecubital; ab2 12:13 Follow up: Response: No adverse reaction ab2 10:58 Drug: NS 0.9% 1000 ml Route: IV; Rate: 1 bolus; Site: left antecubital; ab2 14:36 Follow up: Response: No adverse reaction; IV Status: Completed infusion ab2 10:59 Drug: morphine 4 mg Route: IVP; Site: left antecubital; ab2 12:13 Follow up: Response: No adverse reaction ab2 12:12 Drug: morphine 2 mg Route: IVP; Site: left antecubital; ab2 12:41 Follow up: Response: No adverse reaction ab2 12:12 Drug: Reglan (metoCLOPramide) 10 mg Route: IVP; Site: left antecubital; ab2 12:41 Follow up: Response: No adverse reaction ab2 12:12 Drug: diphenhydrAMINE 25 mg Route: IVP; Site: left antecubital; ab2 12:41 Follow up: Response: No adverse reaction ab2 12:12 Drug: Ketorolac 30 mg Route: IVP; Site: left antecubital; ab2 12:41 Follow up: Response: No adverse reaction ab2 12:40 Drug: Flomax (tamsulosin) 0.4 mg Route: PO; ab2 12:42 Follow up: Response: No adverse reaction ab2 12:40 Drug: Rocephin (cefTRIAXone) 1 grams Route: IV; Rate: calculated rate; Site: left ab2 antecubital; 12:42 Follow up: Response: No adverse reaction; IV Status: Completed infusion ab2 Disposition: 18:47 Co-signature as Attending Physician, Rd Mccullough MD. rn Disposition Summary: 12/15/21 14:19 Discharge Ordered Location: Home [facility] Condition: Stable [facility] Diagnosis - Calculus of ureter [facility] Followup: [facility] - With: Dariel De MD - When: 2 - 3 days - Reason: Recheck today's complaints, Continuance of care, Re-evaluation by your physician Discharge Instructions: - Discharge Summary Sheet [facility] - Kidney Stones [facility] - Dietary Guidelines to Help Prevent Kidney Stones [facility] Forms: - Medication Reconciliation Form [facility] - Thank You Letter [facility] - Antibiotic Education [facility] - Prescription Opioid Use [facility] Prescriptions: - ondansetron 4 mg Oral tablet,disintegrating - place 1 tablet by TRANSLINGUAL route every 4-6 hours; 30 tablet; Refills: 0, [facility] Product Selection Permitted - Cephalexin 500 mg Oral Capsule - take 1 capsule by ORAL route every 8 hours for 10 days; 30 capsule; Refills: 0, [facility] Product Selection Permitted - Flomax 0.4 mg Oral capsule - take 1 capsule by ORAL route once daily 1/2 hour following the same meal each [facility] day; 10 capsule; Refills: 0, Product Selection Permitted - Ibuprofen 800 mg Oral Tablet - take 1 tablet by ORAL route every 8 hours As needed take with food; 30 tablet; [facility] Refills: 0, Product Selection Permitted - orphenadrine citrate 100 mg Oral Tablet Sustained Release - take 1 tablet by ORAL route 2 times per day As needed; 20 tablet; Refills: 0, [facility] Product Selection Permitted Signatures: Dispatcher [employer] Ramses Winkler PA PA [facility] Rd Mccullough MD MD rn Prokisch, Amanda, RN RN ap3 Khanh Trejo
[2021-12-15 15:07] VITALS: TEMP 97.7
[2021-12-15 15:10] VITALS: O2SAT 98
[2021-12-15 15:12] VITALS: BP 109/65
== END 2021-12-15 14:36 | disposition home or self-care (01) ==
LOC: ER 09:32
DX: N20.1 Calculus of ureter (principal); F17.210 Nicotine dependence, cigarettes, uncomplicated; R56.9 Unspecified convulsions; Z87.820 Personal history of traumatic brain injury; Z88.5 Allergy status to narcotic agent; Z88.6 Allergy status to analgesic agent
CPT/HCPCS: 96361; 85025; 36415; 81025; 81003; 83690; 80053; 76377; 74176; 96375; 96374; 99284; J2765; J1200; J2270; J7030; J2405

== ENCOUNTER 2023-03-06 22:31 | Emergency (ER) | payer OTHER ==
--- OUTSIDE RECORDS SUMMARY | 2023-03-06 22:41 | XMS REPORT | Continuity of Care Document ---
:1980 Author Organization [facility] t Address [address] [facility] [address] [place] [address] Care Team Providers Name Role Phone AbhinavDee Dee Davion Primary Care Physician Marisol Crespo MD Attending Clinician MARISOL CRESPO Attending Clinician Unavailable Griffin Thompson MD Attending Clinician [phone] Sergo Mueller MD Attending Clinician Pob, [facility] Main Attending Clinician Unavailable Doctor Unassigned, Mcarthur Attending Clinician Unavailable Brittany Hansen NP Attending Clinician Ultrasound, Emilio-Mfsharon Attending Clinician Unavailable Ashley Crandall DO Attending Clinician ASHLEY CRANDALL Attending Clinician Unavailable Faculty, [facility] Attending Clinician Unavailable Andreea Chu MD Attending Clinician ANDREEA CHU Attending Clinician Unavailable ANDREEA CHU Attending Clinician Unavailable Abe Blas MD Attending Clinician Viktoria Michaels DO Attending Clinician 2, [facility] Attending Clinician Unavailable NEETU DO Attending Clinician Unavailable Neetu Do MD Attending Clinician [phone] Stacey Floyd MD Attending Clinician Haim Huertas MD Attending Clinician DENISE, STACEY Attending Clinician Unavailable HAIM HUERTAS Attending Clinician Unavailable HAIM HUERTAS Attending Clinician Unavailable MARISOL CRESPO Admitting Clinician Unavailable Marisol Crespo MD Admitting Clinician Payers Payer Name Policy Type Policy Number Effective Date Expiration Date S ource Problems Condition Condition Condition Status Onset Resolution Last Treating Co mments Source Name Details Category Date Date Treatment Clinician Date Normal Normal Disease Active Univers labor labor 02-14 ity of 00:00: [place] 00 [facility] 37 weeks 37 weeks Disease Active Unive rs gestation gestation 02-14 ity of of of 00:00: [place] [facility] 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 02-14 ity of 00:00: 00 [facility] Maternal Maternal Disease Active Unive rs tobacco tobacco 02-14 ity of use in use in 00:00: [place] third third 00 Medical trimester trimester Bran ch Chronic Chronic Disease Active Univers post-traum post-traum 02-14 it y of atic atic 00:00: [place] headache, headache, 00 [facility] not not Branch intractabl intractabl e e Liveborn Liveborn Disease Active Unive rs infant of of 31 ity of sextuplet sextuplet 00:[place] [facility] born in born in [facility] by vaginal by vaginal delivery delivery Low lying Low lying Disease Active Uni vers placenta placenta 3-21 ity of nos or nos or 00:00: [place] without without 00 Medical hemorrhage hemorrhage Br anch , second , second trimester trimester 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 Screened positive for intermedi ate allele size detected on [facility] carrier screening Pre-eclamp Pre-eclamp Disease Active U nivers emre in emre in 05-18 ity of third third 00:00: [place] trimester trimester 00 [facility] Elevated Elevated Disease Active Unive rs blood blood 8-28 ity of pressure pressure 00:00: Medical Branch H/O H/O Disease Active Univers splenectom splenectom 05-13 it y of y y 00:00: Medical Branch Seizure Seizure Disease Active Univers disorder disorder 05-13 ity of 00:00: Medical Branch Rubella Rubella Disease Active Univers non-immune non-immune 05-13 it y of status, status, 00:00: [place] antepartum antepartum 00 Me dical Branch History of History of Disease Active U nivers stroke stroke 05-13 ity of 00:00: Medical Branch Headache Headache Disease Active Overview: Un keerthi in in 05-13 Formattin ity of , , 00:00: g of this [place] antepartum antepartum 00 note Me dical might be Branch different from the original. ICD10 Diagnosis Term Drafter Seismograph Utility Esophageal Esophageal Disease Active U nivers reflux reflux 05-13 ity of 00:00: Medical Branch Allergies, Adverse Reactions, Alerts Allergy Allergy Status Severity Reaction(s) Onset Inactive Treating Comm ents Source Name Type Date Date Clinician Aspirin Propensi Active Unknown - Contraind U nivers ty to See comments 05-13 icated ity of adverse 00:00: [place] reaction 00 Medical s Branch Propoxyp Propensi Active Hives Per Pt-- Univ ers hene ty to 05-13 she is ity of N-Acetam adverse 00:00: only [place] inophen reaction 00 allergic Medic al s to Branch Darvocet- given at the dentist. She takes Tylenol and Tylenol PM daily. No allergies to Tylenol per Pt. ASPIRIN DRUG Active Unknown-Cmnt Uni vers INGREDI 05-13 ity of 00:00: Medical Branch PROPOXYP DRUG Active Low Hives Univers HENE 05-13 ity of N-ACETAM 00:00: [place] INOPHEN 00 Medical Branch Social History Social Habit Start Date Stop Date Quantity Comments Source ASSERTION 2022-06-14 University of 00:00:00 [facility] Exposure to 2023-02-04 2023-02-14 Not sure University of SARS-CoV-2 (event) 00:00:00 09:21:00 [facility] Alcohol intake 2023-02-14 2023-02-14 Current University of 00:00:00 00:00:00 non-drinker of [facility] alcohol Branch (finding) Cigarettes smoked 2023-02-14 2023-02-14 Univers ity of current (pack per 00:00:00 00:00:00 [place] ) - Reported Branch Cigarette 2023-02-14 2023-02-14 University of pack-years 00:00:00 00:00:00 [facility] Tobacco use and 2023-02-14 2023-02-14 Smokeless Universit y of exposure 00:00:00 00:00:00 tobacco non-user [facility] of tobacco 2022-04-02 Passive smoker Un iversity of use 00:00:00 [facility] Sex Ass[birth year] At [birth year] Universit y of 00:00:00 00:00:00 [facility] Smoking Status Start Date Stop Date Source Smokes tobacco daily 2023-02-14 00:00:00 Univers ity [facility] Ex-smoker 2022-04-03 00:00:00 2022-04-03 00:00:00 Universi ty [facility] Medications Ordered Filled Start Stop Current Ordering Indication Dosage Frequency Signature Comments Components Source Medication Medication Date Date Medication? Clinician (SIG) Name Name BUTALBITAL- Yes [id number] TAKE ONE Univers ACETAMINOPH 6-08 TABLET BY ity of EN-CAFF 00:00: MOUTH [place] 50-325-40 00 EVERY 4 Medical mg tablet HOURS Branch NEEDED FOR HEADACHES BUTALBITAL- 2022-0 Yes [id number] TAKE ONE Univers ACETAMINOPH 6-08 TABLET BY ity of EN-CAFF 00:00: MOUTH [place] 50-325-40 00 EVERY 4 Medical mg tablet HOURS Branch NEEDED FOR HEADACHES BUTALBITAL- 2022-0 Yes [id number] TAKE ONE Univers ACETAMINOPH 6-08 TABLET BY ity of EN-CAFF 00:00: MOUTH [place] 50-325-40 00 EVERY 4 Medical mg tablet HOURS Branch NEEDED FOR HEADACHES enoxaparin 2022-0 Yes [id number] 40mg inject 0.4 Univers 40 mg/0.4 6-02 mL under ity of mL 00:00: the skin [place] injection 00 in the Medical morning. Branch 0 Yes [id number] 1{tbl} Take 1 Univers vitamin 6-02 tablet by ity of w/FA tablet 00:00: mouth in [place] 00 the Medical morning. Branch docusate 0 Yes [id number] 200mg Take 2 U nivers 100 mg 6-02 capsules ity of capsule 00:00: by mouth [place] 00 once daily Medical as needed Branch for Constipati on. ferrous Yes [id number] 325mg Take 1 Un keerthi sulfate 325 6-02 tablet by ity of mg (65 mg 00:00: mouth in [facility] s iron) 00 the Medical tablet morning Branch and 1 tablet in the evening. ibuprofen Yes [id number] 600mg Take 1 Univers 600 mg 6-02 tablet by ity of tablet 00:00: mouth [place] 00 every 6 Medical (six) Branch hours as needed (Pain). Take with food or milk. norethindro Yes [id number] .35mg Take 1 Univers ne 0.35 mg 6-02 tablet by ity of tablet 00:00: mouth in [place] 00 the Medical morning. Branch enoxaparin Yes [id number] 40mg inject 0.4 Univers 40 mg/0.4 6-02 mL under ity of mL 00:00: the skin [place] injection 00 in the Medical morning. Branch 0 Yes [id number] 1{tbl} Take 1 Univers vitamin 6-02 tablet by ity of w/FA tablet 00:00: mouth [place] 00 the Medical morning. Branch docusate 0 Yes [id number] 200mg Take 2 U nivers 100 mg 6-02 capsules ity of capsule 00:00: by mouth [place] 00 once daily Medical as needed Branch for Constipati on. ferrous 2022-0 Yes [id number] 325mg Take 1 Un keerthi sulfate 325 6-02 tablet by ity of mg (65 mg 00:00: mouth in [facility] iron) 00 the Medical tablet morning Branch and 1 tablet in the evening. ibuprofen 0 Yes [id number] 600mg Take 1 Univers 600 mg 6-02 tablet by ity of tablet 00:00: mouth [place] 00 every 6 Medical (six) Branch hours as needed (Pain). Take with food or milk. norethindro 2022-0 Yes [id number] .35mg Take 1 Univers ne 0.35 mg 6-02 tablet by ity of tablet 00:00: mouth in [place] 00 the Medical morning. Branch enoxaparin 2022-0 Yes [id number] 40mg inject 0.4 Univers 40 mg/0.4 6-02 mL under ity of mL 00:00: the skin [place] injection 00 in the Medical morning. Branch 2022-0 Yes [id number] 1{tbl} Take 1 Univers vitamin 6-02 tablet by ity of w/FA tablet 00:00: mouth [place] 00 the Medical morning. Branch docusate 2022-0 Yes [id number] 200mg Take 2 U nivers 100 mg 6-02 capsules ity of capsule 00:00: by mouth [place] 00 once daily Medical as needed Branch for Constipati on. ferrous 2022-0 Yes [id number] 325mg Take 1 Un keerthi sulfate 325 6-02 tablet by ity of mg (65 mg 00:00: mouth in [facility]) 00 the Medical tablet morning Branch and 1 tablet in the evening. ibuprofen 0 Yes [id number] 600mg Take 1 Univers 600 mg 6-02 tablet by ity of tablet 00:00: mouth [place] 00 every 6 Medical (six) Branch hours as needed (Pain). Take with food or milk. norethindro 0 Yes [id number] .35mg Take 1 Univers ne 0.35 mg 6-02 tablet by ity of tablet 00:00: mouth in [place] 00 the Medical morning. Branch enoxaparin 2022-0 Yes [id number] 40mg inject 0.4 Univers 40 mg/0.4 6-02 mL under ity of mL 00:00: the skin [place] injection 00 in the Medical morning. Branch 2022-0 Yes [id number] 1{tbl} Take 1 Univers vitamin 6-02 tablet by ity of w/FA tablet 00:00: mouth in [place] 00 the Medical morning. Branch docusate 2022-0 Yes [id number] 200mg Take 2 U nivers 100 mg 6-02 capsules ity of capsule 00:00: by mouth [place] 00 once daily Medical as needed Branch for Constipati on. ferrous 2022-0 Yes [id number] 325mg Take 1 Un keerthi sulfate 325 - tablet by ity of mg (65 mg 00:00: mouth in [facility] s iron) 00 the Medical tablet morning Branch and 1 tablet in the evening. ibuprofen 2022-0 Yes [id number] 600mg Take 1 Univers 600 mg -02 tablet by ity of tablet 00:00: mouth [place] 00 every 6 Medical (six) Branch hours as needed (Pain). Take with food or milk. norethindro 202-0 Yes [id number] .35mg Take 1 Univers ne 0.35 mg - tablet by ity of tablet 00:00: mouth in [place] 00 the Medical morning. Branch sodium 2022-0 202- No 30mL 30 mL, Univers citrate-cit 02-15 Oral, ONCE i ty of anju acid 23:15: 23:17 NOW, 1 [place] (BICITRA) 00 :00 dose, On Medica l 500-[address] [facility] 02/15/23 Branch mg/5 mL at 1815, solution 30 Routine mL enoxaparin 2022-0 Yes 40mg 40 mg, Unive rs (LOVENOX) 02-15 Subcutaneo ity of injection 23:00: [place], DAILY, [place] 40 mg 00 First dose Medical on [facility] 02/15/23 at 1800, Until Discontinu ed, Routine pantoprazol 2022-0 Yes 40mg 40 mg, Univ ers e 02-15 Oral, ity of (PROTONIX) 14:00: DAILY, [place] EC tablet 00 First dose Medi [place] 40 mg on [place] [place] 02/15/23 at 0900, Until Discontinu ed, Routine amitriptyli 2022-0 Yes 50mg 50 mg, Univ ers ne (ELAVIL) 02-15 Oral, QHS, it y of tablet 50 02:00: First dose [place] mg 00 on [place] [facility] 02/14/23 at Branch 2100, Until Discontinu ed, Routine ferrous 3-0 Yes 325mg 325 mg, Univer s sulfate 02-15 Oral, BID, ity of tablet 325 01:00: First dose [place] mg 00 on Sun [facility] 02/14/23 at Branch 2000, Until Discontinu ed, Routine ascorbic 3-0 Yes 500mg 500 mg, Unive rs acid 02-15 Oral, BID, ity of (vitamin C) 01:00: First dose [place] (VITAMIN C) 00 on Sun Medica l tablet 500 02/14/23 at [facility] mg 2000, Until Discontinu ed, Routine topiramate 2022-0 Yes 100mg 100 mg, Uni vers (TOPAMAX) 02-14 Oral, BID, ity of tablet 100 23:00: First dose [place] mg 00 on Sun Medical 02/14/23 at Branch 1800, Until Discontinu ed, Routine
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 acetaminoph 2022-0 Yes 1{tbl} 1 tablet, Univers en-codeine 02-14 Oral, ity of (TYLENOL 22:53: Q4HPRN, [place] #3) 300-30 35 Starting Medic al mg tablet 1 on Sun Branch tablet 02/14/23 at 1753, Until Discontinu ed, Routine, Pain (scale 7-10) OXcarbazepi 2022-0 Yes 600mg 600 mg, Un keerthi ne 02-14 Oral, TID, ity of (TRILEPTAL) 20:30: First dose [place] tablet 600 00 on Sun Medical mg 02/14/23 at Branch 1530, Until Discontinu ed, Routine ibuprofen 2022-0 Yes 600mg 600 mg, Univ ers (IBU) 02-14 Oral, ity of tablet 600 20:15: Q6HPRN, [place] mg 23 Starting Medical on Sun Branch 02/14/23 at 1515, Until Discontinu ed, Routine, Pain (scale 4-6) acetaminoph 2022-0 Yes 650mg 650 mg, Un keerthi en 02-14 Oral, ity of (TYLENOL) 20:15: Q6HPRN, [place] tablet 650 23 Starting Medic al mg on Sun Branch 02/14/23 at 1515, Until Discontinu ed, Routine, Pain (scale 1-3) diphenhydrA 2022-0 Yes 25mg 25 mg, Univ ers MINE 02-14 Oral, ity of (BENADRYL) 20:15: Q6HPRN, [place] tablet 25 23 Starting Medica l mg on Sun Branch 02/14/23 at 1515, Until Discontinu ed, Routine, Sleep, Itching ondansetron 2022-0 Yes 4mg 4 mg, Slow Univers (ZOFRAN 02-14 IV Push, ity of (PF)) 20:15: Q8HPRN, [place] injection 4 23 Starting Medi [place] mg on Wed Branch 02/14/23 at 1515, Until Discontinu ed, Routine, Nausea and Vomiting (N/V) simethicone 2022-0 Yes 160mg 160 mg, Un keerthi (GAS RELIEF 02-14 Oral, ity of (SIMETHICON 20:15: PC+HSPRN, [place] E)) 23 Starting Medical chewable on Wed Branch tablet 160 02/14/23 at mg 1515, Until Discontinu ed, Routine, Gas docusate 2022-0 Yes 200mg 200 mg, Unive rs (COLACE) 02-14 Oral, ity of capsule 200 20:15: QDAILYPRN, [place] mg 23 Starting Medical on Wed Branch 02/14/23 at 1515, Until Discontinu ed, Routine, Constipati on magnesium 2022-0 Yes 30mL 30 mL, Univer s hydroxide 02-14 Oral, ity of (MILK OF 20:15: QDAILYPRN, [place] as MAGNESIA) 23 Starting Medica l 400 mg/5 mL on Wed Branch suspension 02/14/23 at 30 mL 1515, Until Discontinu ed, Routine, Constipati on benzocaine- 0 Yes Topical, Un keerthi menthol 02-14 PRN, ity of (DERMOPLAST 20:15: Starting [place] ) 20-0.5 % 23 on Wed Medical topical 02/14/23 at Branch spray 1515, Until Discontinu ed, Routine, Perineum discomfort butalbital- 0 Yes 1{tbl} 1 tablet, Univers acetaminoph 02-14 Oral, ity of en-caff 20:12: [place], [place] (ESGIC) 31 Starting Medical 50-325-40 on Wed Branch mg tablet 1 02/14/23 at tablet 1512, Until Discontinu ed, Routine, Headaches butalbital- 2022- No 1{tbl} 1 tablet, Univers acetaminoph 5-31 05-31 Oral, ity of en-caff 15:21: 20:18 [place], [place] (ESGIC) 01 :23 Starting Medical 50-325-40 on Wed Branch mg tablet 1 02/14/23 at tablet 1021, Until Sun02/14/23 at 1518, Routine, Pain (scale 4-6) oxytocin 2022- No 2mU/min at 2-40 Un keerthi (PITOCIN) 02-14 mL/hr, IV ity of 30 units in 13:15: 20:18 Infusion, [place] NS 500 mL 00 :23 TITRATE, Medica l IV infusion Starting Bran ch on Sun02/14/23 at 0815, Until Sun02/14/23 at 1518, YOLANDA fentaNYL-ro 2022- No Epidural, Univers pivacaine 2 02-14 ONCE INTRA i ty of mcg/mL-0.1 11:29: 23:18 PROCEDURE, [place] % (PF) in 00 :36 Starting Medica l NS 200 mL on Sun Branch epidural 02/14/23 at infusion 0629, RTU Until Discontinu ed, Routine, Intra-op fentaNYL-ro 2022- No Epidural, Univers pivacaine 2 02-14 CONTINUOUS i ty of mcg/mL-0.1 11:29: 23:18 PRN, [place] % (PF) in 00 :36 Starting Medica l NS 200 mL on Sun Branch epidural 02/14/23 at infusion 0629, RTU Until Discontinu ed, Routine, Intra-op fentaNYL-ro 2022- No Epidural, Univers pivacaine 2 02-14 ONCE INTRA i ty of mcg/mL-0.1 11:29: 23:18 PROCEDURE, [place] % (PF) in 00 :36 Starting Medica l NS 200 mL on Sun Branch epidural 02/14/23 at infusion 0629, RTU Until Discontinu ed, Routine, Intra-op fentaNYL-ro 2022- No Epidural, Univers pivacaine 2 02-14 CONTINUOUS i ty of mcg/mL-0.1 11:29: 23:18 PRN, [place] % (PF) in 00 :36 Starting Medica l NS 200 mL on Sun Branch epidural 02/14/23 at infusion 0629, RTU Until Discontinu ed, Routine, Intra-op lidocaine-e 2022- No Intraderma Univers pinephrine 02-14 l, ONCE ity o f (XYLOCAINE 11:22: 23:18 INTRA [place] W/EPINEPHRI 00 :36 PROCEDURE, Me dical NE) 1.5 Starting Branch %-1:200,000 on Sun injection 02/14/23 at 0622, Until Discontinu ed, Routine, Intra-op lidocaine-e 2022- No Intraderma Univers pinephrine 02-14 l, ONCE ity o f (XYLOCAINE 11:22: 23:18 INTRA [place] W/EPINEPHRI 00 :36 PROCEDURE, Me dical NE) 1.5 Starting Branch %-1:200,000 on Sun injection 02/14/23 at 0622, Until Discontinu ed, Routine, Intra-op FENTanyl PF 2022- No 100ug 100 mcg, Univers (SUBLIMAZE 02-14 Slow IV ity o f (PF)) 09:27: 20:18 Push, [place] injection 15 :23 Q1HPRN, Medical 100 mcg Starting Branch on Sun02/14/23 at 0427, Until Sun02/14/23 at 1518, Routine, Pain (scale 4-6), Pain (scale 7-10) lactated 2022- No 500mL at 999 Unive rs ringers IV 02-14 mL/hr, 500 it y of infusion 08:15: 20:18 mL, IV [place] 500 mL 33 :23 Infusion, Medical PRN - SEE Branch INSTRUCTIO NS, Starting on Sun02/14/23 at 0315, Until Sun02/14/23 at 1518, Routine D5W-LR IV 2022- No 1000mL at 1-125 U nivers infusion 02-14 mL/hr, IV ity o f 1,000 mL 08:15: 20:18 Infusion, [place] 33 :23 TITRATE, Medical Starting Branch on Sun02/14/23 at 0315, Until Sun02/14/23 at 1518, Routine butalbital- Yes [id number] 1{tbl} Take 1 Univers acetaminoph 5-10 tablet by ity of en-caff 00:00: mouth [place] (ESGIC) 00 every 4 Medical 50-325-40 (four) Branch mg tablet hours as needed (Headaches ). butalbital- Yes [id number] 1{tbl} Take 1 Univers acetaminoph 5-10 tablet by ity of en-caff 00:00: mouth [place] (ESGIC) 00 every 4 Medical 50-325-40 (four) Branch mg tablet hours as needed (Headaches ). butalbital- Yes [id number] 1{tbl} Take 1 Univers acetaminoph 5-10 tablet by ity of en-caff 00:00: mouth [place] (ESGIC) 00 every 4 Medical 50-325-40 (four) Branch mg tablet hours as needed (Headaches ). butalbital- Yes [id number] 1{tbl} Take 1 Univers acetaminoph 5-10 tablet by ity of en-caff 00:00: mouth [place] (ESGIC) 00 every 4 Medical 50-325-40 (four) Branch mg tablet hours as needed (Headaches ). butalbital- Yes [id number] 1{tbl} Take 1 Univers acetaminoph 5-10 tablet by ity of en-caff 00:00: mouth [place] (ESGIC) 00 every 4 Medical 50-325-40 (four) Branch mg tablet hours as needed (Headaches ). butalbital- Yes [id number] 1{tbl} Take 1 Univers acetaminoph 5-10 tablet by ity of en-caff 00:00: mouth [place] (ESGIC) 00 every 4 Medical 50-325-40 (four) Branch mg tablet hours as needed (Headaches ). butalbital- Yes [id number] 1{tbl} Take 1 Univers acetaminoph 5-10 tablet by ity of en-caff 00:00: mouth [place] (ESGIC) 00 every 4 Medical 50-325-40 (four) Branch mg tablet hours as needed (Headaches ). butalbital- 2022- No [id number] 1{tbl} Take 1 Univers acetaminoph 5-10 06-08 tablet by it y of en-caff 00:00: 00:00 mouth [place] (ESGIC) 00 :00 every 4 Medical 50-325-40 (four) Branch mg tablet hours as needed (Headaches ). butalbital- 2022- No [id number] 1{tbl} Take 1 Univers acetaminoph 5-10 06-08 tablet by it y of en-caff 00:00: 00:00 mouth [place] (ESGIC) 00 :00 every 4 Medical 50-325-40 (four) Branch mg tablet hours as needed (Headaches ). butalbital- Yes [id number] 1{tbl} Take 1 Univers acetaminoph 4-20 tablet by ity of en-caff 00:00: mouth [place] (ESGIC) 00 every 4 Medical 50-325-40 (four) Branch mg tablet hours as needed (Headaches ). butalbital- Yes [id number] 1{tbl} Take 1 Univers acetaminoph 4-20 tablet by ity of en-caff 00:00: mouth [place] (ESGIC) 00 every 4 Medical 50-325-40 (four) Branch mg tablet hours as needed (Headaches ). butalbital- Yes [id number] 1{tbl} Take 1 Univers acetaminoph 4-20 tablet by ity of en-caff 00:00: mouth [place] (ESGIC) 00 every 4 Medical 50-325-40 (four) Branch mg tablet hours as needed (Headaches ). butalbital- Yes [id number] 1{tbl} Take 1 Univers acetaminoph 4-20 tablet by ity of en-caff 00:00: mouth [place] (ESGIC) 00 every 4 Medical 50-325-40 (four) Branch mg tablet hours as needed (Headaches ). butalbital- Yes [id number] 1{tbl} Take 1 Univers acetaminoph 4-20 tablet by ity of en-caff 00:00: mouth [place] (ESGIC) 00 every 4 Medical 50-325-40 (four) Branch mg tablet hours as needed (Headaches ). butalbital- Yes [id number] 1{tbl} Take 1 Univers acetaminoph 4-20 tablet by ity of en-caff 00:00: mouth [place] (ESGIC) 00 every 4 Medical 50-325-40 (four) Branch mg tablet hours as needed (Headaches ). butalbital- 0 2022- No [id number] 1{tbl} Take 1 Univers acetaminoph 4-20 05-10 tablet by it y of en-caff 00:00: 00:00 mouth [place] (ESGIC) 00 :00 every 4 Medical 50-325-40 (four) Branch mg tablet hours as needed (Headaches ). AMITRIPTYLI 2022-0 Yes [id number] TAKE TWO Univers NE 25 mg 4-19 TABLETS BY ity o f tablet 00:00: MOUTH AT [place] BEDTIME Medical Branch AMITRIPTYLI 2022-0 Yes [id number] TAKE TWO Univers NE 25 mg 4-19 TABLETS BY ity o f tablet 00:00: MOUTH AT [place] BEDTIME Medical Branch AMITRIPTYLI 2022-0 Yes [id number] TAKE TWO Univers NE 25 mg 4-19 TABLETS BY ity o f tablet 00:00: MOUTH AT [place] BEDTIME Medical Branch AMITRIPTYLI 2022-0 Yes [id number] TAKE TWO Univers NE 25 mg 4-19 TABLETS BY ity o f tablet 00:00: [facility] [place] [facility] AMITRIPTYLI 2022-0 Yes [id number] TAKE TWO Univers NE 25 mg 4-19 TABLETS BY ity o f tablet 00:00: MOUTH AT [place] [facility] Medical Branch AMITRIPTYLI 2022-0 Yes [id number] TAKE TWO Univers NE 25 mg 4-19 TABLETS BY ity o f tablet 00:00: MOUTH AT [place] [facility] Branch AMITRIPTYLI 2022-0 Yes [id number] TAKE TWO Univers NE 25 mg 4-19 TABLETS BY ity o f tablet 00:00: MOUTH AT [place] [facility] Branch AMITRIPTYLI 2022-0 Yes [id number] TAKE TWO Univers NE 25 mg 4-19 TABLETS BY ity o f tablet 00:00: MOUTH AT [place] BEDTIME Medical Branch AMITRIPTYLI 2022-0 Yes [id number] TAKE TWO Univers NE 25 mg 4-19 TABLETS BY ity o f tablet 00:00: MOUTH AT [place] [facility] Branch AMITRIPTYLI 2022-0 Yes [id number] TAKE TWO Univers NE 25 mg 4-19 TABLETS BY ity o f tablet 00:00: MOUTH AT [place] [facility] Medical Branch AMITRIPTYLI 2022-0 Yes [id number] TAKE TWO Univers NE 25 mg 4-19 TABLETS BY ity o f tablet 00:00: MOUTH AT [place] [facility] Medical Branch AMITRIPTYLI 2022-0 Yes [id number] TAKE TWO Univers NE 25 mg 4-19 TABLETS BY ity o f tablet 00:00: MOUTH AT [place] BEDTIME Medical Branch AMITRIPTYLI 2022-0 Yes [id number] TAKE TWO Univers NE 25 mg 4-19 TABLETS BY ity o f tablet 00:00: MOUTH AT [place] BEDTIME Medical Branch AMITRIPTYLI 2022-0 Yes [id number] TAKE TWO Univers NE 25 mg 4-19 TABLETS BY ity o f tablet 00:00: MOUTH AT [place] BEDTIME Medical Branch AMITRIPTYLI 2022-0 Yes [id number] TAKE TWO Univers NE 25 mg 4-19 TABLETS BY ity o f tablet 00:00: MOUTH AT [place] BEDTIME Medical Branch AMITRIPTYLI 2022-0 Yes [id number] TAKE TWO Univers NE 25 mg 4-19 TABLETS BY ity o f tablet 00:00: MOUTH AT [place] BEDTIME Medical Branch ferrous 2022-0 Yes [id number] 325mg Take 1 Un keerthi sulfate 3-30 tablet by ity of (IRON, 00:00: mouth in [place] FERROUS 00 the Medical SULFATE,) morning Branch 325 mg (65 and 1 mg iron) tablet in tablet the evening. ascorbic 2022-0 Yes [id number] 500mg Take 1 U nivers acid, 3-30 tablet by ity of vitamin C, 00:00: mouth in [facility] as 500 mg 00 the Medical tablet morning Branch and 1 tablet in the evening. ferrous 2022-0 Yes [id number] 325mg Take 1 Un keerthi sulfate 3-30 tablet by ity of (IRON, 00:00: mouth in [place] FERROUS 00 the Medical SULFATE,) morning Branch 325 mg (65 and 1 mg iron) tablet in tablet the evening. ascorbic 2022-0 Yes [id number] 500mg Take 1 U nivers acid, 3-30 tablet by [facility] of vitamin C, 00:00: mouth in [place] 500 mg 00 the Medical tablet morning Branch and 1 tablet in the evening. ferrous 2022-0 Yes [id number] 325mg Take 1 [facility] sulfate 3-30 tablet by ity of (IRON, 00:00: mouth in [place] FERROUS 00 the Medical SULFATE,) morning Branch 325 mg (65 and 1 mg iron) tablet in tablet the evening. ascorbic 202-0 Yes [id number] 500mg Take 1 [facility] acid, 3-30 tablet by it[facility] of vitamin C, 00:00: mouth in [place] 500 mg 00 the Medical tablet morning Branch and 1 tablet in the evening. ferrous 2022-0 Yes [id number] 325mg Take 1 [facility] sulfate 3-30 tablet by [facility] of (IRON, 00:00: mouth in [place] FERROUS 00 the Medical SULFATE,) morning Branch 325 mg (65 and 1 mg iron) tablet in tablet the evening. ascorbic 2022-0 Yes [id number] 500mg Take 1 [facility] acid, 3-30 tablet by ity of vitamin C, 00:00: mouth in [place] 500 mg 00 the Medical tablet morning Branch and 1 tablet in the evening. ferrous 2022-0 Yes [id number] 325mg Take 1 [facility] sulfate 3-30 tablet by [facility] of (IRON, 00:00: mouth in [place] FERROUS 00 the Medical SULFATE,) morning Branch 325 mg (65 and 1 mg iron) tablet in tablet the evening. ascorbic 2022-0 Yes [id number] 500mg Take 1 [facility] acid, 3-30 tablet by [facility] of vitamin C, 00:00: mouth in [place] 500 mg 00 the Medical tablet morning Branch and 1 tablet in the evening. ferrous 2022-0 Yes [id number] 325mg Take 1 [facility] sulfate 3-30 tablet by [facility]y of (IRON, 00:00: mouth in [place] FERROUS 00 the Medical SULFATE,) morning Branch 325 mg (65 and 1 mg iron) tablet in tablet the evening. ascorbic 2022-0 Yes [id number] 500mg Take 1 [facility] acid, 3-30 tablet by [facility] of vitamin C, 00:00: mouth in [place] 500 mg 00 the Medical tablet morning Branch and 1 tablet in the evening. ferrous 2022-0 Yes [id number] 325mg Take 1 [facility] sulfate 3-30 tablet by [facility] of (IRON, 00:00: mouth in [place] FERROUS 00 the Medical SULFATE,) morning Branch 325 mg (65 and 1 mg iron) tablet in tablet the evening. ascorbic 2022-0 Yes [id number] 500mg Take 1 [facility] acid, 3-30 tablet by [facility]y of vitamin C, 00:00: mouth in [place] 500 mg 00 the Medical tablet morning Branch and 1 tablet in the evening. ferrous 202-0 Yes [id number] 325mg Take 1 [facility] sulfate 3-30 tablet by [facility]y of (IRON, 00:00: mouth in [place] FERROUS 00 the Medical SULFATE,) morning Branch 325 mg (65 and 1 mg iron) tablet in tablet the evening. ascorbic 202-0 Yes [id number] 500mg Take 1 [facility] acid, 3-30 tablet by [facility] of vitamin C, 00:00: mouth in [place] 500 mg 00 the Medical tablet morning Branch and 1 tablet in the evening. ferrous 202-0 Yes [id number] 325mg Take 1 [facility] sulfate 3-30 tablet by [facility] of (IRON, 00:00: mouth in [place] FERROUS 00 the Medical SULFATE,) morning Branch 325 mg (65 and 1 mg iron) tablet in tablet the evening. ascorbic 2022-0 Yes [id number] 500mg Take 1 [facility] acid, 3-30 tablet by ity of vitamin C, 00:00: mouth in [place] 500 mg 00 the Medical tablet morning Branch and 1 tablet in the evening. ferrous 2022-0 Yes [id number] 325mg Take 1 [facility] sulfate 3-30 tablet by ity of (IRON, 00:00: mouth in [place] FERROUS 00 the Medical SULFATE,) morning Branch 325 mg (65 and 1 mg iron) tablet in tablet the evening. ascorbic 2022-0 Yes [id number] 500mg Take 1 [facility] acid, 3-30 tablet by [facility]y of vitamin C, 00:00: mouth in [place] 500 mg 00 the Medical tablet morning Branch and 1 tablet in the evening. ferrous 2022-0 Yes [id number] 325mg Take 1 [facility] [place] sulfate 3-30 tablet by [facility]y of (IRON, 00:00: mouth in [place] FERROUS 00 the Medical SULFATE,) morning Branch 325 mg (65 and 1 mg iron) tablet in tablet the evening. ascorbic 2022-0 Yes [id number] 500mg Take 1 [facility] acid, 3-30 tablet by ity of vitamin C, 00:00: mouth in [place] 500 mg 00 the Medical tablet morning Branch and 1 tablet in the evening. ferrous 202-0 Yes [id number] 325mg Take 1 [facility] [place] sulfate 3-30 tablet by ity of (IRON, 00:00: mouth in [place] FERROUS 00 the Medical SULFATE,) morning Branch 325 mg (65 and 1 mg iron) tablet in tablet the evening. ascorbic 2023-0 Yes [id number] 500mg Take 1 [facility] acid, 3-30 tablet by ity of vitamin C, 00:00: mouth in [place] 500 mg 00 the Medical tablet morning Branch and 1 tablet in the evening. ferrous 2022-0 Yes [id number] 325mg Take 1 [facility] [place] sulfate 3-30 tablet by ity of (IRON, 00:00: mouth in [place] FERROUS 00 the Medical SULFATE,) morning Branch 325 mg (65 and 1 mg iron) tablet in tablet the evening. ascorbic 2022-0 Yes [id number] 500mg Take 1 [facility] acid, 3-30 tablet by ity of vitamin C, 00:00: mouth in [place] 500 mg 00 the Medical tablet morning Branch and 1 tablet in the evening. ferrous 2022-0 Yes [id number] 325mg Take 1 [facility] [place] sulfate 3-30 tablet by [facility]y of (IRON, 00:00: mouth in [place] FERROUS 00 the Medical SULFATE,) morning Branch 325 mg (65 and 1 mg iron) tablet in tablet the evening. ascorbic 2022-0 Yes [id number] 500mg Take 1 [facility] acid, 3-30 tablet by ity of vitamin C, 00:00: mouth in [place] 500 mg 00 the Medical tablet morning Branch and 1 tablet in the evening. ferrous 2022-0 Yes [id number] 325mg Take 1 [facility] [place] sulfate 3-30 tablet by [facility] of (IRON, 00:00: mouth in [place] FERROUS 00 the Medical SULFATE,) morning Branch 325 mg (65 and 1 mg iron) tablet in tablet the evening. ascorbic 2022-0 Yes [id number] 500mg Take 1 [facility] acid, 3-30 tablet by it[facility] of vitamin C, 00:00: mouth in [place] 500 mg 00 the Medical tablet morning Branch and 1 tablet in the evening. ferrous 2022-0 Yes [id number] 325mg Take 1 [facility] [place] sulfate 3-30 tablet by [facility]y of (IRON, 00:00: mouth in [place] FERROUS 00 the Medical SULFATE,) morning Branch 325 mg (65 and 1 mg iron) tablet in tablet the evening. ascorbic 2022-0 Yes [id number] 500mg Take 1 [facility] acid, 3-30 tablet by [facility]y of vitamin C, 00:00: mouth in [place] 500 mg 00 the Medical tablet morning Branch and 1 tablet in the evening. ferrous 2022-0 Yes [id number] 325mg Take 1 [facility] [place] sulfate 3-30 tablet by [facility] of (IRON, 00:00: mouth in [place] FERROUS 00 the Medical SULFATE,) morning Branch 325 mg (65 and 1 mg iron) tablet in tablet the evening. ascorbic 2022-0 Yes [id number] 500mg Take 1 [facility] acid, 3-30 tablet by [facility] of vitamin C, 00:00: mouth in [place] 500 mg 00 the Medical tablet morning Branch and 1 tablet in the evening. ferrous 2022-0 Yes [id number] 325mg Take 1 [facility] [place] sulfate 3-30 tablet by [facility] of (IRON, 00:00: mouth in [place] FERROUS 00 the Medical SULFATE,) morning Branch 325 mg (65 and 1 mg iron) tablet in tablet the evening. ascorbic 2022-0 Yes [id number] 500mg Take 1 [facility] acid, 3-30 tablet by [facility]y of vitamin C, 00:00: mouth in [place] 500 mg 00 the Medical tablet morning Branch and 1 tablet in the evening. ferrous 2022-0 Yes [id number] 325mg Take 1 [facility] [place] sulfate 3-30 tablet by [facility]y of (IRON, 00:00: mouth in [place] FERROUS 00 the Medical SULFATE,) morning Branch 325 mg (65 and 1 mg iron) tablet in tablet the evening. ascorbic 0 Yes [id number] 500mg Take 1 [facility] acid, 3-30 tablet by ity of vitamin C, 00:00: mouth in [place] 500 mg 00 the Medical tablet morning Branch and 1 tablet in the evening. ferrous 2022-0 Yes [id number] 325mg Take 1 [facility] [place] sulfate 3-30 tablet by [facility]y of (IRON, 00:00: mouth in [place] FERROUS 00 the Medical SULFATE,) morning Branch 325 mg (65 and 1 mg iron) tablet in tablet the evening. ascorbic Yes [id number] 500mg Take 1 [facility] acid, 3-30 tablet by ity of vitamin C, 00:00: mouth in [place] 500 mg 00 the Medical tablet morning Branch and 1 tablet in the evening. amitriptyli 2022- No [id number] 50mg Take 2 [facility] 25 mg 2-17 -19 tablets by [facility] of tablet 00:00: 04:59 mouth at [place] 00 :00 bedtime Medical for 60 Branch days. amitriptyli 2022- No [id number] 50mg Take 2 [facility] ne 25 mg 2-17 04-19 tablets by ity of tablet 00:00: 04:59 mouth at [place] 00 :00 bedtime Medical for 60 Branch days. amitriptyli 2022- No [id number] 50mg Take 2 [facility] ne 25 mg 2-17 04-19 tablets by [facility]y of tablet 00:00: 04:59 mouth at [place] 00 :00 bedtime Medical for 60 Branch days. amitriptyli 2022- No [id number] 50mg Take 2 [facility] ne 25 mg 2-17 04-19 tablets by ity of tablet 00:00: 04:59 mouth at [place] 00 :00 bedtime Medical for 60 Branch days. amitriptyli 2022- No [id number] 50mg Take 2 [facility] ne 25 mg 2-17 -19 tablets by ity of tablet 00:00: 04:59 mouth at [place] 00 :00 bedtime Medical for 60 Branch days. amitriptyli 2022- No [id number] 50mg Take 2 [facility] ne 25 mg 2-17 -19 tablets by [facility]y of tablet 00:00: 04:59 mouth at [place] 00 :00 bedtime Medical for 60 Branch days. amitriptyli 2022- No [id number] 50mg Take 2 [facility] ne 25 mg 2-17 04-05 tablets by ity of tablet 00:00: 00:00 mouth at [place] 00 :00 bedtime Medical for 60 Branch days. PROMETHAZIN 2022-0 Yes [id number] TAKE ONE [facility] 25 mg 1-17 TABLET BY ity of tablet 00:00: MOUTH [place] 00 EVERY 6 Medical HOURS Branch NEEDED FOR NAUSEA AND VOMITING PROMETHAZIN 2022-0 Yes [id number] TAKE ONE [facility] E 25 mg 1-17 TABLET BY ity of tablet 00:00: MOUTH [place] 00 EVERY 6 Medical HOURS Branch NEEDED FOR NAUSEA AND VOMITING PROMETHAZIN 2022-0 Yes [id number] TAKE ONE [facility] E 25 mg 1-17 TABLET BY ity of tablet 00:00: MOUTH [place] 00 EVERY 6 Medical HOURS Branch NEEDED FOR NAUSEA AND VOMITING PROMETHAZIN 2022-0 Yes [id number] TAKE ONE [facility] E 25 mg 1-17 TABLET BY ity of tablet 00:00: MOUTH [place] 00 EVERY 6 Medical HOURS Branch NEEDED FOR NAUSEA AND VOMITING PROMETHAZIN 2023-0 Yes [id number] TAKE ONE [facility] E 25 mg 1-17 TABLET BY ity of tablet 00:00: MOUTH [place] 00 EVERY 6 Medical HOURS Branch NEEDED FOR NAUSEA AND VOMITING PROMETHAZIN 3-0 Yes [id number] TAKE ONE [facility] E 25 mg 1-17 TABLET BY ity of tablet 00:00: MOUTH [place] 00 EVERY 6 Medical HOURS Branch NEEDED FOR NAUSEA AND VOMITING PROMETHAZIN 3-0 Yes [id number] TAKE ONE [facility] E 25 mg 1-17 TABLET BY ity of tablet 00:00: MOUTH [place] 00 EVERY 6 Medical HOURS Branch NEEDED FOR NAUSEA AND VOMITING PROMETHAZIN 3-0 Yes [id number] TAKE ONE [facility] E 25 mg 1-17 TABLET BY ity of tablet 00:00: MOUTH [place] 00 EVERY 6 Medical HOURS Branch NEEDED FOR NAUSEA AND VOMITING PROMETHAZIN 2022-0 Yes [id number] TAKE ONE [facility] E 25 mg 1-17 TABLET BY ity of tablet 00:00: MOUTH [place] 00 EVERY 6 Medical HOURS Branch NEEDED FOR NAUSEA AND VOMITING PROMETHAZIN 3-0 Yes [id number] TAKE ONE [facility] E 25 mg 1-17 TABLET BY ity of tablet 00:00: MOUTH [place] 00 EVERY 6 Medical HOURS Branch NEEDED FOR NAUSEA AND VOMITING PROMETHAZIN 3-0 Yes [id number] TAKE ONE [facility] E 25 mg 1-17 TABLET BY ity of tablet 00:00: MOUTH [place] 00 EVERY 6 Medical HOURS Branch NEEDED FOR NAUSEA AND VOMITING PROMETHAZIN 3-0 Yes [id number] TAKE ONE [facility] E 25 mg 1-17 TABLET BY ity of tablet 00:00: MOUTH [place] 00 EVERY 6 Medical HOURS Branch NEEDED FOR NAUSEA AND VOMITING PROMETHAZIN 3-0 Yes [id number] TAKE ONE [facility] E 25 mg 1-17 TABLET BY ity of tablet 00:00: MOUTH [place] 00 EVERY 6 Medical HOURS Branch NEEDED FOR NAUSEA AND VOMITING PROMETHAZIN 3-0 Yes [id number] TAKE ONE [facility] E 25 mg 1-17 TABLET BY ity of tablet 00:00: MOUTH [place] 00 EVERY 6 Medical HOURS Branch NEEDED FOR NAUSEA AND VOMITING PROMETHAZIN 3-0 Yes [id number] TAKE ONE [facility] E 25 mg 1-17 TABLET BY ity of tablet 00:00: MOUTH [place] 00 EVERY 6 Medical HOURS Branch NEEDED FOR NAUSEA AND VOMITING PROMETHAZIN 2023-0 Yes [id number] TAKE ONE [facility] E 25 mg 1-17 TABLET BY ity of tablet 00:00: MOUTH [place] 00 EVERY 6 Medical HOURS Branch NEEDED FOR NAUSEA AND VOMITING PROMETHAZIN 2023-0 Yes [id number] TAKE ONE [facility] E 25 mg 1-17 TABLET BY ity of tablet 00:00: MOUTH [place] 00 EVERY 6 Medical HOURS Branch NEEDED FOR NAUSEA AND VOMITING PROMETHAZIN 2023-0 Yes [id number] TAKE ONE [facility] E 25 mg 1-17 TABLET BY ity of tablet 00:00: MOUTH [place] 00 EVERY 6 Medical HOURS Branch NEEDED FOR NAUSEA AND VOMITING PROMETHAZIN 2023-0 Yes [id number] TAKE ONE [facility] E 25 mg 1-17 TABLET BY ity of tablet 00:00: MOUTH [place] 00 EVERY 6 Medical HOURS Branch NEEDED FOR NAUSEA AND VOMITING PROMETHAZIN 3-0 Yes [id number] TAKE ONE [facility] E 25 mg 1-17 TABLET BY ity of tablet 00:00: MOUTH [place] 00 EVERY 6 Medical HOURS Branch NEEDED FOR NAUSEA AND VOMITING PROMETHAZIN 2023-0 Yes [id number] TAKE ONE [facility] E 25 mg 1-17 TABLET BY ity of tablet 00:00: MOUTH [place] 00 EVERY 6 Medical HOURS Branch NEEDED FOR NAUSEA AND VOMITING PROMETHAZIN 2023-0 Yes [id number] TAKE ONE [facility] E 25 mg 1-17 TABLET BY ity of tablet 00:00: MOUTH [place] 00 EVERY 6 Medical HOURS Branch NEEDED FOR NAUSEA AND VOMITING PROMETHAZIN 2023-0 Yes [id number] TAKE ONE [facility] 25 mg 1-17 TABLET BY ity of tablet 00:00: MOUTH [place] 00 EVERY 6 Medical HOURS Branch NEEDED FOR NAUSEA AND VOMITING PROMETHAZIN 2023-0 Yes [id number] TAKE ONE [facility] 25 mg 1-17 TABLET BY ity of tablet 00:00: MOUTH [place] 00 EVERY 6 Medical HOURS Branch NEEDED FOR NAUSEA AND VOMITING PROMETHAZIN 2023-0 Yes [id number] TAKE ONE [facility] 25 mg 1-17 TABLET BY ity of tablet 00:00: MOUTH [place] 00 EVERY 6 Medical HOURS Branch NEEDED FOR NAUSEA AND VOMITING PROMETHAZIN 2023-0 Yes [id number] TAKE ONE [facility] 25 mg 1-17 TABLET BY ity of tablet 00:00: MOUTH [place] 00 EVERY 6 Medical HOURS Branch NEEDED FOR NAUSEA AND VOMITING PROMETHAZIN 2023-0 Yes [id number] TAKE ONE [facility] 25 mg 1-17 TABLET BY ity of tablet 00:00: MOUTH [place] 00 EVERY 6 Medical HOURS Branch NEEDED FOR NAUSEA AND VOMITING PROMETHAZIN 2023-0 Yes [id number] TAKE ONE [facility] 25 mg 1-17 TABLET BY ity of tablet 00:00: MOUTH [place] 00 EVERY 6 Medical HOURS Branch NEEDED FOR NAUSEA AND VOMITING PROMETHAZIN 3-0 Yes [id number] TAKE ONE [facility] E 25 mg 1-17 TABLET BY ity of tablet 00:00: MOUTH [place] 00 EVERY 6 Medical HOURS Branch NEEDED FOR NAUSEA AND VOMITING PROMETHAZIN 2023-0 Yes [id number] TAKE ONE [facility] E 25 mg 1-17 TABLET BY ity of tablet 00:00: MOUTH [place] 00 EVERY 6 Medical HOURS Branch NEEDED FOR NAUSEA AND VOMITING PROMETHAZIN 3-0 Yes [id number] TAKE ONE [facility] E 25 mg 1-17 TABLET BY ity of tablet 00:00: MOUTH [place] 00 EVERY 6 Medical HOURS Branch NEEDED FOR NAUSEA AND VOMITING enoxaparin 2023-0 Yes [id number] 40mg inject 0.4 [facility] 40 mg/0.4 1-10 mL under ity of mL 00:00: the skin [place] injection 00 in the Medical morning. Branch enoxaparin 2023-0 Yes [id number] 40mg inject 0.4 [facility] 40 mg/0.4 1-10 mL under ity of mL 00:00: the skin [place] injection 00 in the Medical morning. Branch enoxaparin 2023-0 Yes [id number] 40mg inject 0.4 [facility] 40 mg/0.4 1-10 mL under ity of mL 00:00: the skin [place] injection 00 in the Medical morning. Branch enoxaparin 2023-0 Yes [id number] 40mg inject 0.4 [facility] 40 mg/0.4 1-10 mL under ity of mL 00:00: the skin [place] injection 00 in the Medical morning. Branch enoxaparin 2023-0 Yes [id number] 40mg inject 0.4 [facility] 40 mg/0.4 1-10 mL under ity of mL 00:00: the skin [place] injection 00 in the Medical morning. Branch enoxaparin 2023-0 Yes [id number] 40mg inject 0.4 [facility] 40 mg/0.4 1-10 mL under ity of mL 00:00: the skin [place] injection 00 in the Medical morning. Branch enoxaparin 2023-0 Yes [id number] 40mg inject 0.4 [facility] 40 mg/0.4 1-10 mL under ity of mL 00:00: the skin [place] injection 00 in the Medical morning. Branch enoxaparin 2023-0 Yes [id number] 40mg inject 0.4 [facility] 40 mg/0.4 1-10 mL under ity of mL 00:00: the skin [place] injection 00 in the Medical morning. Branch enoxaparin 2023-0 Yes [id number] 40mg inject 0.4 [facility] 40 mg/0.4 1-10 mL under ity of mL 00:00: the skin [place] injection 00 in the Medical morning. Branch enoxaparin 2023-0 Yes [id number] 40mg inject 0.4 [facility] 40 mg/0.4 1-10 mL under ity of mL 00:00: the skin [place] injection 00 in the Medical morning. Branch enoxaparin 2023-0 Yes [id number] 40mg inject 0.4 [facility] 40 mg/0.4 1-10 mL under ity of mL 00:00: the skin [place] injection 00 in the Medical morning. Branch enoxaparin 2023-0 Yes [id number] 40mg inject 0.4 [facility] 40 mg/0.4 1-10 mL under ity of mL 00:00: the skin [place] injection 00 in the Medical morning. Branch enoxaparin 2023-0 Yes [id number] 40mg inject 0.4 [facility] 40 mg/0.4 1-10 mL under ity of mL 00:00: the skin [place] injection 00 in the Medical morning. Branch enoxaparin 2023-0 Yes [id number] 40mg inject 0.4 [facility] 40 mg/0.4 1-10 mL under ity of mL 00:00: the skin [place] injection 00 in the Medical morning. Branch enoxaparin 2023-0 Yes [id number] 40mg inject 0.4 [facility] 40 mg/0.4 1-10 mL under ity of mL 00:00: the skin [place] injection 00 in the Medical morning. Branch enoxaparin 2023-0 Yes [id number] 40mg inject 0.4 [facility] 40 mg/0.4 1-10 mL under ity of mL 00:00: the skin [place] injection 00 in the Medical morning. Branch enoxaparin 2023-0 Yes [id number] 40mg inject 0.4 [facility] 40 mg/0.4 1-10 mL under ity of mL 00:00: the skin [place] injection 00 in the Medical morning. Branch enoxaparin 2023-0 Yes [id number] 40mg inject 0.4 [facility] 40 mg/0.4 1-10 mL under ity of mL 00:00: the skin [place] injection 00 in the Medical morning. Branch enoxaparin 2023-0 Yes [id number] 40mg inject 0.4 [facility] 40 mg/0.4 1-10 mL under ity of mL 00:00: the skin [place] injection 00 in the Medical morning. Branch enoxaparin 2023-0 Yes [id number] 40mg inject 0.4 [facility] 40 mg/0.4 1-10 mL under ity of mL 00:00: the skin [place] injection 00 in the Medical morning. Branch enoxaparin 2023-0 Yes [id number] 40mg inject 0.4 [facility] 40 mg/0.4 1-10 mL under ity of mL 00:00: the skin [place] injection 00 in the Medical morning. Branch enoxaparin 2023-0 Yes [id number] 40mg inject 0.4 [facility] 40 mg/0.4 1-10 mL under ity of mL 00:00: the skin [place] injection 00 in the Medical morning. Branch enoxaparin 2023-0 Yes [id number] 40mg inject 0.4 [facility] 40 mg/0.4 1-10 mL under ity of mL 00:00: the skin [place] injection 00 in the Medical morning. Branch enoxaparin 2023-0 Yes [id number] 40mg inject 0.4 [facility] 40 mg/0.4 1-10 mL under ity of mL 00:00: the skin [place] injection 00 in the Medical morning. Branch enoxaparin 2023-0 Yes [id number] 40mg inject 0.4 [facility] 40 mg/0.4 1-10 mL under ity of mL 00:00: the skin [place] injection 00 in the Medical morning. Branch enoxaparin 2023-0 Yes [id number] 40mg inject 0.4 [facility] 40 mg/0.4 1-10 mL under ity of mL 00:00: the skin [place] injection 00 in the Medical morning. Branch enoxaparin 2023-0 Yes [id number] 40mg inject 0.4 [facility] 40 mg/0.4 1-10 mL under ity of mL 00:00: the skin [place] injection 00 in the Medical morning. Branch enoxaparin Yes [id number] 40mg inject 0.4 [facility] 40 mg/0.4 1-10 mL under ity of mL 00:00: the skin [place] injection 00 in the Medical morning. Branch enoxaparin 2022- No [id number] 40mg inject 0.4 [facility] 40 mg/0.4 -10 06-02 mL under ity o f mL 00:00: 00:00 the skin [place] injection 00 :00 in the Medical morning. Branch meningococc 2022- No [id number] .5mL 0.5 mL by [facility] al B 09-26 [facility] ity of vaccine,4-c 00:00: 05:59 lar route [place] omp 00 :00 once now Medical 50-50-50-25 for 1 Branch mcg/0.5 mL dose. injection pneumoc 2022- No [id number] .5mL 0.5 mL by [facility] 20-trinity 09-26 [facility] ity of conj-dip 00:00: 05:59 lar route [place] cr,PF, 0.5 00 :00 once now Medic al mL for 1 Branch injection dose. Diphenhydra 2021-09- No Take by [facility] mine-Acetam 15 11-15 mouth. ity o f inophen 17:55: 00:00 [place] 25-500 mg 22 :00 Medical Tab Branch Diphenhydra 2021-09- No Take by [facility] mine-Acetam -15 11-15 mouth. ity o f inophen 17:55: 00:00 [place] 25-500 mg 22 :00 Medical Tab Branch Diphenhydra 2021-09- No Take by [facility] mine-Acetam -15 11-15 mouth. ity o f inophen 17:55: 00:00 [place] 25-500 mg 22 :00 Medical Tab Branch Diphenhydra 2021-09- No Take by [facility] mine-Acetam 15 11-15 mouth. ity o f inophen 17:55: 00:00 [place] 25-500 mg 22 :00 Medical Tab Branch Diphenhydra 2021-09 No Take by [facility] mine-Acetam 1-15 11-15 mouth. ity o f inophen 17:55: 00:00 [place] 25-500 mg 22 :00 Medical Tab Branch PNV 67-iron 2021-09 Yes [id number] 1{capsu Take 1 [facility] ps-folate 1-15 le} capsule by ity of no.1-dha 00:00: mouth [place] (VITAFOL 00 daily. Medical ULTRA) 29 Branch mg iron- 1 mg-200 mg Cap PNV 67-iron 2021-09 Yes [id number] 1{capsu Take 1 [facility] ps-folate 1-15 le} capsule by ity of no.1-dha 00:00: mouth [place] (VITAFOL 00 daily. Medical ULTRA) 29 Branch mg iron- 1 mg-200 mg Cap PNV 67-iron 2021-09 Yes [id number] 1{capsu Take 1 [facility] ps-folate 1-15 le} capsule by ity of no.1-dha 00:00: mouth [place] (VITAFOL 00 daily. Medical ULTRA) 29 Branch mg iron- 1 mg-200 mg Cap PNV 67-iron 2021-09 Yes [id number] 1{capsu Take 1 [facility] ps-folate 1-15 le} capsule by ity of no.1-dha 00:00: mouth [place] (VITAFOL 00 daily. Medical ULTRA) 29 Branch mg iron- 1 mg-200 mg Cap PNV 67-iron 2021-09 Yes [id number] 1{capsu Take 1 [facility] ps-folate 1-15 le} capsule by ity of no.1-dha 00:00: mouth [place] (VITAFOL 00 daily. Medical ULTRA) 29 Branch mg iron- 1 mg-200 mg Cap PNV 67-iron 2021-09 Yes [id number] 1{capsu Take 1 [facility] ps-folate 1-15 le} capsule by ity of no.1-dha 00:00: mouth [place] (VITAFOL 00 daily. Medical ULTRA) 29 Branch mg iron- 1 mg-200 mg Cap PNV 67-iron 2021-09 Yes [id number] 1{capsu Take 1 [facility] ps-folate 1-15 le} capsule by ity of no.1-dha 00:00: mouth [place] (VITAFOL 00 daily. Medical ULTRA) 29 Branch mg iron- 1 mg-200 mg Cap PNV 67-iron 2021-09 Yes [id number] 1{capsu Take 1 [facility] ps-folate 1-15 le} capsule by ity of no.1-dha 00:00: mouth [place] (VITAFOL 00 daily. Medical ULTRA) 29 Branch mg iron- 1 mg-200 mg Cap PNV 67-iron 2021-09 Yes [id number] 1{capsu Take 1 [facility] ps-folate 1-15 le} capsule by ity of no.1-dha 00:00: mouth [place] (VITAFOL 00 daily. Medical ULTRA) 29 Branch mg iron- 1 mg-200 mg Cap PNV 67-iron 2021-09 Yes [id number] 1{capsu Take 1 [facility] ps-folate 1-15 le} capsule by ity of no.1-dha 00:00: mouth [place] (VITAFOL 00 daily. Medical ULTRA) 29 Branch mg iron- 1 mg-200 mg Cap PNV 67-iron 2021-09 Yes [id number] 1{capsu Take 1 [facility] ps-folate 1-15 le} capsule by ity of no.1-dha 00:00: mouth [place] (VITAFOL 00 daily. Medical ULTRA) 29 Branch mg iron- 1 mg-200 mg Cap PNV 67-iron 2021-09 Yes [id number] 1{capsu Take 1 [facility] ps-folate 1-15 le} capsule by ity of no.1-dha 00:00: mouth [place] (VITAFOL 00 daily. Medical ULTRA) 29 Branch mg iron- 1 mg-200 mg Cap PNV 67-iron 2021-09 Yes [id number] 1{capsu Take 1 [facility] ps-folate 1-15 le} capsule by ity of no.1-dha 00:00: mouth [place] (VITAFOL 00 daily. Medical ULTRA) 29 Branch mg iron- 1 mg-200 mg Cap PNV 67-iron 2021-09 Yes [id number] 1{capsu Take 1 [facility] ps-folate 1-15 le} capsule by ity of no.1-dha 00:00: mouth [place] (VITAFOL 00 daily. Medical ULTRA) 29 Branch mg iron- 1 mg-200 mg Cap PNV 67-iron 2021-09 Yes [id number] 1{capsu Take 1 [facility] ps-folate 1-15 le} capsule by ity of no.1-dha 00:00: mouth [place] (VITAFOL 00 daily. Medical ULTRA) 29 Branch mg iron- 1 mg-200 mg Cap PNV 67-iron 2021-09 Yes [id number] 1{capsu Take 1 [facility] ps-folate 1-15 le} capsule by ity of no.1-dha 00:00: mouth [place] (VITAFOL 00 daily. Medical ULTRA) 29 Branch mg iron- 1 mg-200 mg Cap PNV 67-iron 2021-09 Yes [id number] 1{capsu Take 1 [facility] ps-folate 1-15 le} capsule by ity of no.1-dha 00:00: mouth [place] (VITAFOL 00 daily. Medical ULTRA) 29 Branch mg iron- 1 mg-200 mg Cap PNV 67-iron 2021-09 Yes [id number] 1{capsu Take 1 [facility] ps-folate 1-15 le} capsule by ity of no.1-dha 00:00: mouth [place] (VITAFOL 00 daily. Medical ULTRA) 29 Branch mg iron- 1 mg-200 mg Cap PNV 67-iron 2021-09 Yes [id number] 1{capsu Take 1 [facility] ps-folate 1-15 le} capsule by ity of no.1-dha 00:00: mouth [place] (VITAFOL 00 daily. Medical ULTRA) 29 Branch mg iron- 1 mg-200 mg Cap PNV 67-iron 2021-09 Yes [id number] 1{capsu Take 1 [facility] ps-folate 1-15 le} capsule by ity of no.1-dha 00:00: mouth [place] (VITAFOL 00 daily. Medical ULTRA) 29 Branch mg iron- 1 mg-200 mg Cap PNV 67-iron 2021-09 Yes [id number] 1{capsu Take 1 [facility] ps-folate 1-15 le} capsule by ity of no.1-dha 00:00: mouth [place] (VITAFOL 00 daily. Medical ULTRA) 29 Branch mg iron- 1 mg-200 mg Cap PNV 67-iron 2021-09 Yes [id number] 1{capsu Take 1 [facility] ps-folate 1-15 le} capsule by ity of no.1-dha 00:00: mouth [place] (VITAFOL 00 daily. Medical ULTRA) 29 Branch mg iron- 1 mg-200 mg Cap PNV 67-iron 2021-09 Yes [id number] 1{capsu Take 1 [facility] ps-folate 1-15 le} capsule by ity of no.1-dha 00:00: mouth [place] (VITAFOL 00 daily. Medical ULTRA) 29 Branch mg iron- 1 mg-200 mg Cap PNV 67-iron 2021-09 Yes [id number] 1{capsu Take 1 [facility] ps-folate 1-15 le} capsule by ity of no.1-dha 00:00: mouth [place] (VITAFOL 00 daily. Medical ULTRA) 29 Branch mg iron- 1 mg-200 mg Cap PNV 67-iron 2021-09 Yes [id number] 1{capsu Take 1 [facility] ps-folate 1-15 le} capsule by [facility] of no.1-dha 00:00: mouth [place] (VITAFOL 00 daily. Medical ULTRA) 29 Branch mg iron- 1 mg-200 mg Cap PNV 67-iron 2021-09 Yes [id number] 1{capsu Take 1 [facility] ps-folate 1-15 le} capsule by ity of no.1-dha 00:00: mouth [place] (VITAFOL 00 daily. Medical ULTRA) 29 Branch mg iron- 1 mg-200 mg Cap PNV 67-iron 2021-09 Yes [id number] 1{capsu Take 1 [facility] ps-folate 1-15 le} capsule by ity of no.1-dha 00:00: mouth [place] (VITAFOL 00 daily. Medical ULTRA) 29 Branch mg iron- 1 mg-200 mg Cap proMETHazin 2021-09 Yes [id number] 25mg Take 1 [facility] e 25 mg 1-15 tablet by ity of tablet 00:00: mouth [place] 00 every 6 Medical (six) Branch hours as needed for Nausea and Vomiting (N/V). PNV 67-iron 2021-09 Yes [id number] 1{capsu Take 1 [facility] ps-folate 1-15 le} capsule by ity of no.1-dha 00:00: mouth [place] (VITAFOL 00 daily. Medical ULTRA) 29 Branch mg iron- 1 mg-200 mg Cap proMETHazin 2021-09 Yes [id number] 25mg Take 1 [facility] e 25 mg 1-15 tablet by ity of tablet 00:00: mouth [place] 00 every 6 Medical (six) Branch hours as needed for Nausea and Vomiting (N/V). PNV 67-iron 2021-09 Yes [id number] 1{capsu Take 1 [facility] ps-folate 1-15 le} capsule by ity of no.1-dha 00:00: mouth [place] (VITAFOL 00 daily. Medical ULTRA) 29 Branch mg iron- 1 mg-200 mg Cap proMETHazin 2021-09 Yes [id number] 25mg Take 1 [facility] e 25 mg 1-15 tablet by ity of tablet 00:00: mouth [place] 00 every 6 Medical (six) Branch hours as needed for Nausea and Vomiting (N/V). PNV 67-iron 2021-09 Yes [id number] 1{capsu Take 1 [facility] ps-folate 1-15 le} capsule by ity of no.1-dha 00:00: mouth [place] (VITAFOL 00 daily. Medical ULTRA) 29 Branch mg iron- 1 mg-200 mg Cap proMETHazin 2021-09 Yes [id number] 25mg Take 1 [facility] e 25 mg 1-15 tablet by ity of tablet 00:00: mouth [place] 00 every 6 Medical (six) Branch hours as needed for Nausea and Vomiting (N/V). PNV 67-iron 2021-09 Yes [id number] 1{capsu Take 1 [facility] ps-folate 1-15 le} capsule by ity of no.1-dha 00:00: mouth [place] (VITAFOL 00 daily. Medical ULTRA) 29 Branch mg iron- 1 mg-200 mg Cap proMETHazin 2021-09 Yes [id number] 25mg Take 1 [facility] e 25 mg 1-15 tablet by ity of tablet 00:00: mouth [place] 00 every 6 Medical (six) Branch hours as needed for Nausea and Vomiting (N/V). PNV 67-iron 2021-09 Yes [id number] 1{capsu Take 1 [facility] ps-folate 1-15 le} capsule by ity of no.1-dha 00:00: mouth [place] (VITAFOL 00 daily. Medical ULTRA) 29 Branch mg iron- 1 mg-200 mg Cap proMETHazin 2021-09 Yes [id number] 25mg Take 1 [facility] e 25 mg 1-15 tablet by ity of tablet 00:00: mouth [place] 00 every 6 Medical (six) Branch hours as needed for Nausea and Vomiting (N/V). PNV 67-iron 2021-09 Yes [id number] 1{capsu Take 1 [facility] ps-folate 1-15 le} capsule by ity of no.1-dha 00:00: mouth [place] (VITAFOL 00 daily. Medical ULTRA) 29 Branch mg iron- 1 mg-200 mg Cap proMETHazin 2021-09 Yes [id number] 25mg Take 1 [facility] e 25 mg 1-15 tablet by ity of tablet 00:00: mouth [place] 00 every 6 Medical (six) Branch hours as needed for Nausea and Vomiting (N/V). PNV 67-iron 2021-09 Yes [id number] 1{capsu Take 1 [facility] ps-folate 1-15 le} capsule by ity of no.1-dha 00:00: mouth [place] (VITAFOL 00 daily. Medical ULTRA) 29 Branch mg iron- 1 mg-200 mg Cap proMETHazin 2021-09 Yes [id number] 25mg Take 1 [facility] e 25 mg 1-15 tablet by ity of tablet 00:00: mouth [place] 00 every 6 Medical (six) Branch hours as needed for Nausea and Vomiting (N/V). PNV 67-iron 2021-09 Yes [id number] 1{capsu Take 1 [facility] ps-folate 1-15 le} capsule by ity of no.1-dha 00:00: mouth [place] (VITAFOL 00 daily. Medical ULTRA) 29 Branch mg iron- 1 mg-200 mg Cap proMETHazin 2021-09 Yes [id number] 25mg Take 1 [facility] e 25 mg 1-15 tablet by ity of tablet 00:00: mouth [place] 00 every 6 Medical (six) Branch hours as needed for Nausea and Vomiting (N/V). PNV 67-iron 2021-09 Yes [id number] 1{capsu Take 1 [facility] ps-folate 1-15 le} capsule by ity of no.1-dha 00:00: mouth [place] (VITAFOL 00 daily. Medical ULTRA) 29 Branch mg iron- 1 mg-200 mg Cap proMETHazin 2021-09 Yes [id number] 25mg Take 1 [facility] e 25 mg 1-15 tablet by ity of tablet 00:00: mouth [place] 00 every 6 Medical (six) Branch hours as needed for Nausea and Vomiting (N/V). PNV 67-iron 2021-09 Yes [id number] 1{capsu Take 1 [facility] ps-folate 1-15 le} capsule by ity of no.1-dha 00:00: mouth [place] (VITAFOL 00 daily. Medical ULTRA) 29 Branch mg iron- 1 mg-200 mg Cap proMETHazin 2021-09 Yes [id number] 25mg Take 1 [facility] e 25 mg 1-15 tablet by ity of tablet 00:00: mouth [place] 00 every 6 Medical (six) Branch hours as needed for Nausea and Vomiting (N/V). PNV 67-iron 2021-09 Yes [id number] 1{capsu Take 1 [facility] ps-folate 1-15 le} capsule by [facility] of no.1-dha 00:00: mouth [place] (VITAFOL 00 daily. Medical ULTRA) 29 Branch mg iron- 1 mg-200 mg Cap proMETHazin 2021-09 Yes [id number] 25mg Take 1 [facility] e 25 mg 1-15 tablet by ity of tablet 00:00: mouth [place] 00 every 6 Medical (six) Branch hours as needed for Nausea and Vomiting (N/V). PNV 67-iron 2021-09 Yes [id number] 1{capsu Take 1 [facility] ps-folate 1-15 le} capsule by ity of no.1-dha 00:00: mouth [place] (VITAFOL 00 daily. Medical ULTRA) 29 Branch mg iron- 1 mg-200 mg Cap proMETHazin 2021-09 Yes [id number] 25mg Take 1 [facility] e 25 mg 1-15 tablet by ity of tablet 00:00: mouth [place] 00 every 6 Medical (six) Branch hours as needed for Nausea and Vomiting (N/V). PNV 67-iron 2021-09 Yes [id number] 1{capsu Take 1 [facility] ps-folate 1-15 le} capsule by ity of no.1-dha 00:00: mouth [place] (VITAFOL 00 daily. Medical ULTRA) 29 Branch mg iron- 1 mg-200 mg Cap proMETHazin 2021-09 Yes [id number] 25mg Take 1 [facility] e 25 mg 1-15 tablet by ity of tablet 00:00: mouth [place] 00 every 6 Medical (six) Branch hours as needed for Nausea and Vomiting (N/V). PNV 67-iron 2021-09 Yes [id number] 1{capsu Take 1 [facility] ps-folate 1-15 le} capsule by ity of no.1-dha 00:00: mouth [place] (VITAFOL 00 daily. Medical ULTRA) 29 Branch mg iron- 1 mg-200 mg Cap proMETHazin 2021-09 Yes [id number] 25mg Take 1 [facility] e 25 mg 1-15 tablet by ity of tablet 00:00: mouth [place] 00 every 6 Medical (six) Branch hours as needed for Nausea and Vomiting (N/V). PNV 67-iron 2021-09 Yes [id number] 1{capsu Take 1 [facility] ps-folate 1-15 le} capsule by ity of no.1-dha 00:00: mouth [place] (VITAFOL 00 daily. Medical ULTRA) 29 Branch mg iron- 1 mg-200 mg Cap proMETHazin 2021-09 Yes [id number] 25mg Take 1 [facility] e 25 mg 1-15 tablet by ity of tablet 00:00: mouth [place] 00 every 6 Medical (six) Branch hours as needed for Nausea and Vomiting (N/V). PNV 67-iron 2021-09 Yes [id number] 1{capsu Take 1 [facility] ps-folate 1-15 le} capsule by ity of no.1-dha 00:00: mouth [place] (VITAFOL 00 daily. Medical ULTRA) 29 Branch mg iron- 1 mg-200 mg Cap proMETHazin 2021-09 Yes [id number] 25mg Take 1 [facility] e 25 mg 1-15 tablet by ity of tablet 00:00: mouth [place] 00 every 6 Medical (six) Branch hours as needed for Nausea and Vomiting (N/V). PNV 67-iron 2021-09 Yes [id number] 1{capsu Take 1 [facility] ps-folate 1-15 le} capsule by ity of no.1-dha 00:00: mouth [place] (VITAFOL 00 daily. Medical ULTRA) 29 Branch mg iron- 1 mg-200 mg Cap proMETHazin 2021-09 Yes [id number] 25mg Take 1 [facility] e 25 mg 1-15 tablet by ity of tablet 00:00: mouth [place] 00 every 6 Medical (six) Branch hours as needed for Nausea and Vomiting (N/V). PNV 67-iron 2021-09 Yes [id number] 1{capsu Take 1 [facility] ps-folate 1-15 le} capsule by ity of no.1-dha 00:00: mouth [place] (VITAFOL 00 daily. Medical ULTRA) 29 Branch mg iron- 1 mg-200 mg Cap proMETHazin 2021-09 Yes [id number] 25mg Take 1 [facility] e 25 mg 1-15 tablet by ity of tablet 00:00: mouth [place] 00 every 6 Medical (six) Branch hours as needed for Nausea and Vomiting (N/V). PNV 67-iron 2021-09 Yes [id number] 1{capsu Take 1 [facility] ps-folate 1-15 le} capsule by ity of no.1-dha 00:00: mouth [place] (VITAFOL 00 daily. Medical ULTRA) 29 Branch mg iron- 1 mg-200 mg Cap proMETHazin 2021-09 Yes [id number] 25mg Take 1 [facility] e 25 mg 1-15 tablet by ity of tablet 00:00: mouth [place] 00 every 6 Medical (six) Branch hours as needed for Nausea and Vomiting (N/V). PNV 67-iron 2021-09 Yes [id number] 1{capsu Take 1 [facility] ps-folate 1-15 le} capsule by ity of no.1-dha 00:00: mouth [place] (VITAFOL 00 daily. Medical ULTRA) 29 Branch mg iron- 1 mg-200 mg Cap proMETHazin 2021-09 Yes [id number] 25mg Take 1 [facility] e 25 mg 1-15 tablet by ity of tablet 00:00: mouth [place] 00 every 6 Medical (six) Branch hours as needed for Nausea and Vomiting (N/V). PNV 67-iron 2021-09 Yes [id number] 1{capsu Take 1 [facility] ps-folate 1-15 le} capsule by ity of no.1-dha 00:00: mouth [place] (VITAFOL 00 daily. Medical ULTRA) 29 Branch mg iron- 1 mg-200 mg Cap PNV 67-iron 2021-09 Yes [id number] 1{capsu Take 1 [facility] ps-folate 1-15 le} capsule by ity of no.1-dha 00:00: mouth [place] (VITAFOL 00 daily. Medical ULTRA) 29 Branch mg iron- 1 mg-200 mg Cap PNV 67-iron 2021-09 Yes [id number] 1{capsu Take 1 [facility] ps-folate 1-15 le} capsule by ity of no.1-dha 00:00: mouth [place] (VITAFOL 00 daily. Medical ULTRA) 29 Branch mg iron- 1 mg-200 mg Cap PNV 67-iron 2021-09 Yes [id number] 1{capsu Take 1 [facility] ps-folate 1-15 le} capsule by ity of no.1-dha 00:00: mouth [place] (VITAFOL 00 daily. Medical ULTRA) 29 Branch mg iron- 1 mg-200 mg Cap PNV 67-iron 2021-09 Yes [id number] 1{capsu Take 1 [facility] ps-folate 1-15 le} capsule by ity of no.1-dha 00:00: mouth [place] (VITAFOL 00 daily. Medical ULTRA) 29 Branch mg iron- 1 mg-200 mg Cap proMETHazin 2021-09- No [id number] 25mg Take 1 [facility] e 25 mg 1-15 01-17 tablet by ity of tablet 00:00: 00:00 mouth [place] 00 :00 every 6 Medical (six) Branch hours as needed for Nausea and Vomiting (N/V). ibuprofen Yes [id number] 600mg Take 1 [facility] 600 mg 7-22 tablet by ity of tablet 00:00: mouth [place] 00 every 6 Medical (six) Branch hours as needed for Pain (scale 1-3). ibuprofen Yes [id number] 600mg Take 1 [facility] n[facility] 600 mg 7-22 tablet by ity of tablet 00:00: mouth [place] 00 every 6 Medical (six) Branch hours as needed for Pain (scale 1-3). ibuprofen 2021- No [id number] 600mg Take 1 [facility] 600 mg 7-22 11-15 tablet by ity of tablet 00:00: 00:00 mouth [place] 00 :00 every 6 Medical (six) Branch hours as needed for Pain (scale 1-3). ibuprofen 2021- No [id number] 600mg Take 1 [facility] 600 mg 7-22 11-15 tablet by ity of tablet 00:00: 00:00 mouth [place] 00 :00 every 6 Medical (six) Branch hours as needed for Pain (scale 1-3). ibuprofen 2021- No [id number] 600mg Take 1 [facility] 600 mg 7-22 11-15 tablet by ity of tablet 00:00: 00:00 mouth [place] 00 :00 every 6 Medical (six) Branch hours as needed for Pain (scale 1-3). ibuprofen 2021- No [id number] 600mg Take 1 [facility] 600 mg 7-22 11-15 tablet by ity of tablet 00:00: 00:00 mouth [place] 00 :00 every 6 Medical (six) Branch hours as needed for Pain (scale 1-3). ibuprofen 2021- No [id number] 600mg Take 1 [facility] 600 mg 7-22 11-15 tablet by ity of tablet 00:00: 00:00 mouth [place] 00 :00 every 6 Medical (six) Branch hours as needed for Pain (scale 1-3). acetaminoph 2021- No [id number] 1{tbl} Take 1 U nivers en-codeine 04-07 07-30 tablet by ity of (TYLENOL-CO 00:00: 04:59 [place] DEINE #3[place] 00 :00 every 4 Medical 300-30 mg (four) Branch tablet hours as needed for Pain (scale 7-10) for up to 7 days. Indication s: acute pain Diphenhydra Yes Take by [facility] vers mine-Acetam 7-18 mouth. ity of inophen 09:25: [place] (TYLENOL PM 10 Medical EXTRA Branch STRENGTH) 25-500 mg Tab Diphenhydra Yes Take by [facility] vers mine-Acetam 7-18 mouth. ity of inophen 09:25: [place] (TYLENOL PM 10 Medical EXTRA Branch STRENGTH) 25-500 mg Tab pyridoxine, Yes [id number] 25mg Take 1 [facility] VITAMIN 7-18 tablet by ity of B-6, 25 mg 00:00: mouth in [place] tablet 00 the Medical morning Branch and 1 tablet at noon and 1 tablet in the evening. doxylamine Yes [id number] 25mg Take 1 [facility] nivers 25 mg 7-18 tablet by ity of tablet 00:00: mouth at [place] 00 bedtime. Medical Branch pyridoxine, Yes [id number] 25mg Take 1 [facility] VITAMIN 7-18 tablet by ity of B-6, 25 mg 00:00: mouth in [place] as tablet 00 the Medical morning Branch and 1 tablet at noon and 1 tablet in the evening. doxylamine Yes [id number] 25mg Take 1 [facility] nivers 25 mg 7-18 tablet by ity of tablet 00:00: mouth at [place] 00 bedtime. Medical Branch pyridoxine, 2021- No [id number] 25mg Take 1 [facility] VITAMIN 7-18 11-15 tablet by ity of B-6, 25 mg 00:00: 00:00 mouth in [place] tablet 00 :00 the Medical morning Branch and 1 tablet at noon and 1 tablet in the evening. doxylamine 2021- No [id number] 25mg Take 1 [facility] 25 mg 7-18 11-15 tablet by ity of tablet 00:00: 00:00 mouth at [place] 00 :00 bedtime. Medical Branch pyridoxine, 2021- No [id number] 25mg Take 1 [facility] VITAMIN 7-18 11-15 tablet by ity of B-6, 25 mg 00:00: 00:00 mouth in [place] tablet 00 :00 the Medical morning Branch and 1 tablet at noon and 1 tablet in the evening. doxylamine 2021- No [id number] 25mg Take 1 [facility] 25 mg 7-18 11-15 tablet by ity of tablet 00:00: 00:00 mouth at [place] 00 :00 bedtime. Medical Branch pyridoxine, 2021- No [id number] 25mg Take 1 [facility] VITAMIN 7-18 11-15 tablet by ity of B-6, 25 mg 00:00: 00:00 mouth in [place] tablet 00 :00 the Medical morning Branch and 1 tablet at noon and 1 tablet in the evening. doxylamine 2021- No [id number] 25mg Take 1 [facility] 25 mg 7-18 11-15 tablet by ity of tablet 00:00: 00:00 mouth at [place] 00 :00 bedtime. Medical Branch pyridoxine, 2021- No [id number] 25mg Take 1 [facility] VITAMIN 7-18 11-15 tablet by ity of B-6, 25 mg 00:00: 00:00 mouth in [place] tablet 00 :00 the Medical morning Branch and 1 tablet at noon and 1 tablet in the evening. doxylamine 2021- No [id number] 25mg Take 1 [facility] 25 mg 7-18 11-15 tablet by ity of tablet 00:00: 00:00 mouth at [place] 00 :00 bedtime. Medical Branch pyridoxine, 2021- No [id number] 25mg Take 1 [facility] VITAMIN 7-18 11-15 tablet by ity of B-6, 25 mg 00:00: 00:00 mouth in [place] tablet 00 :00 the Medical morning Branch and 1 tablet at noon and 1 tablet in the evening. doxylamine 0 2- No [id number] 25mg Take 1 [facility] 25 mg 7-18 11-15 tablet by ity of tablet 00:00: 00:00 mouth at [place] 00 :00 bedtime. [facility] Branch foLIC acid 2021-0 2- No [id number] 4mg Take 4 Univers 1 mg tablet 18 08-18 tablets by i ty of 00:00: 04:59 mouth in [place] 00 :00 the Medical morning Branch for 30 days. pantoprazol 2021-0 Yes Univer s e 40 mg EC 6-04 ity of tablet 00:00: [place] [facility] Branch pantoprazol 2021-0 Yes Univer s e 40 mg EC 6-04 ity of tablet 00:00: [address] Branch pantoprazol 2021-0 Yes Univer s e 40 mg EC 6-04 ity of tablet 00:00: [address] Branch pantoprazol 2021-0 Yes Univer s e 40 mg EC 6-04 ity of tablet 00:00: [address] Branch pantoprazol 2021-0 Yes Univer s e 40 mg EC 6-04 ity of tablet 00:00: [address] Branch pantoprazol 2021-0 Yes Univer s e 40 mg EC 6-04 ity of tablet 00:00: [address] pantoprazol 2021-0 Yes Univer s e 40 mg EC 6-04 ity of tablet 00:00: [address] Branch pantoprazol 2021-0 Yes Univer s e 40 mg EC 6-04 ity of tablet 00:00: [address] Branch pantoprazol 2021-0 Yes Univer s e 40 mg EC 6-04 ity of tablet 00:00: [address] Branch pantoprazol 2021-0 Yes Univer s e 40 mg EC 6-04 ity of tablet 00:00: [address] pantoprazol 2021-0 Yes Univer s e 40 mg EC 6-04 ity of tablet 00:00: [address] Branch pantoprazol 2021-0 Yes Univer s e 40 mg EC 6-04 ity of tablet 00:00: [address] Branch pantoprazol 2022-0 Yes Univer s e 40 mg EC 6-04 ity of tablet 00:00: [place] 00 Medical Branch pantoprazol 2022-0 Yes Univer s e 40 mg EC 6-04 ity of tablet 00:00: [place] 00 Medical Branch pantoprazol 2022-0 Yes Univer s e 40 mg EC 6-04 ity of tablet 00:00: [place] [facility] Branch pantoprazol 2022-0 Yes Univer s e 40 mg EC 6-04 ity of tablet 00:00: [place] 00 Medical Branch pantoprazol 2022-0 Yes Univer s e 40 mg EC 6-04 ity of tablet 00:00: [place] [facility] Branch pantoprazol 2022-0 Yes Univer s e 40 mg EC 6-04 ity of tablet 00:00: [place] [facility] Branch pantoprazol 2022-0 Yes Univer s e 40 mg EC 6-04 ity of tablet 00:00: [place] [facility] Branch pantoprazol 2022-0 Yes Univer s e 40 mg EC 6-04 ity of tablet 00:00: [place] [facility] Branch pantoprazol 2022-0 Yes Univer s e 40 mg EC 6-04 ity of tablet 00:00: [place] [facility] Branch pantoprazol 2022-0 Yes Univer s e 40 mg EC 6-04 ity of tablet 00:00: [place] [facility] Branch pantoprazol 2022-0 Yes Univer s e 40 mg EC 6-04 ity of tablet 00:00: [place] [facility] Branch pantoprazol 2022-0 Yes Univer s e 40 mg EC 6-04 ity of tablet 00:00: [place] [facility] Branch pantoprazol 2022-0 Yes Univer s e 40 mg EC 6-04 ity of tablet 00:00: [place] [facility] Branch pantoprazol 2022-0 Yes Univer s e 40 mg EC 6-04 ity of tablet 00:00: [place] [facility] Branch pantoprazol 2022-0 Yes Univer s e 40 mg EC 6-04 ity of tablet 00:00: [place] [facility] Branch pantoprazol 2022-0 Yes Univer s e 40 mg EC 6-04 ity of tablet 00:00: [place] [facility] Branch pantoprazol 2022-0 Yes Univer s e 40 mg EC 6-04 ity of tablet 00:00: [place] 00 Medical Branch pantoprazol 2022-0 Yes Univer s e 40 mg EC 6-04 ity of tablet 00:00: [place] 00 Medical Branch pantoprazol 2022-0 Yes Univer s e 40 mg EC 6-04 ity of tablet 00:00: [place] [facility] Branch pantoprazol 2022-0 Yes Univer s e 40 mg EC 6-04 ity of tablet 00:00: [place] [facility] Branch pantoprazol 2022-0 Yes Univer s e 40 mg EC 6-04 ity of tablet 00:00: [place] [facility] Branch pantoprazol 2022-0 Yes Univer s e 40 mg EC 6-04 ity of tablet 00:00: [place] [facility] Branch pantoprazol 2022-0 Yes Univer s e 40 mg EC 6-04 ity of tablet 00:00: [place] [facility] Branch pantoprazol 2022-0 Yes Univer s e 40 mg EC 6-04 ity of tablet 00:00: [place] [facility] Branch pantoprazol 2022-0 Yes Univer s e 40 mg EC 6-04 ity of tablet 00:00: [place] [facility] Branch pantoprazol 2022-0 Yes Univer s e 40 mg EC 6-04 ity of tablet 00:00: [place] [facility] Branch pantoprazol 2022-0 Yes Univer s e 40 mg EC 6-04 ity of tablet 00:00: [place] [facility] Branch pantoprazol 2022-0 Yes Univer s e 40 mg EC 6-04 ity of tablet 00:00: [place] [facility] Branch pantoprazol 2022-0 Yes Univer s e 40 mg EC 6-04 ity of tablet 00:00: [place] [facility] Branch pantoprazol 2022-0 Yes Univer s e 40 mg EC 6-04 ity of tablet 00:00: [place] [facility] Branch pantoprazol 2022-0 Yes Univer s e 40 mg EC 6-04 ity of tablet 00:00: [place] [facility] Branch pantoprazol 2022-0 Yes Univer s e 40 mg EC 6-04 ity of tablet 00:00: [place] [facility] Branch pantoprazol 2022-0 Yes Univer s e 40 mg EC 6-04 ity of tablet 00:00: [place] [facility] Branch pantoprazol 2022-0 Yes Univer s e 40 mg EC 6-04 ity of tablet 00:00: [place] 00 Medical Branch pantoprazol 2022-0 Yes Univer s e 40 mg EC 6-04 ity of tablet 00:00: [place] [facility] Branch pantoprazol 2022-0 Yes Univer s e 40 mg EC 6-04 ity of tablet 00:00: [place] [facility] Branch pantoprazol 2022-0 Yes Univer s e 40 mg EC 6-04 ity of tablet 00:00: [place] [facility] Branch pantoprazol 2022-0 Yes Univer s e 40 mg EC 6-04 ity of tablet 00:00: [place] [facility] Branch pantoprazol 2022-0 Yes Univer s e 40 mg EC 6-04 ity of tablet 00:00: [place] [facility] Branch pantoprazol 2022-0 Yes Univer s e 40 mg EC 6-04 ity of tablet 00:00: [place] [facility] Branch pantoprazol 2022-0 Yes Univer s e 40 mg EC 6-04 ity of tablet 00:00: [place] [facility] Branch pantoprazol 2022-0 Yes Univer s e 40 mg EC 6-04 ity of tablet 00:00: [place] [facility] Branch OXcarbazepi 2021-0 Yes [id number] TAKE ONE [facility] ne 600 mg 8-18 TABLET BY ity o f tablet 00:00: [facility] EVERY Medical MORNING Branch AND TAKE TWO TABLETS BY MOUTH EVERY NIGHT AT BEDTIME OXcarbazepi 2021-0 Yes [id number] TAKE ONE [facility] ne 600 mg 8-18 TABLET BY ity o f tablet 00:00: [facility] EVERY Medical MORNING Branch AND TAKE TWO TABLETS BY MOUTH EVERY NIGHT AT BEDTIME OXcarbazepi 2021-0 Yes [id number] TAKE ONE [facility] ne 600 mg 8-18 TABLET BY ity o f tablet 00:00: MOUTH [place] EVERY Medical MORNING Branch AND TAKE TWO TABLETS BY MOUTH EVERY NIGHT AT BEDTIME OXcarbazepi 2021-0 Yes [id number] TAKE ONE [facility] ne 600 mg 8-18 TABLET BY ity o f tablet 00:00: [facility] EVERY Medical MORNING Branch AND TAKE TWO TABLETS BY MOUTH EVERY NIGHT AT BEDTIME OXcarbazepi 2021-0 Yes [id number] TAKE ONE [facility] ne 600 mg 8-18 TABLET BY ity o f tablet 00:00: MOUTH [place] 00 EVERY Medical MORNING Branch AND TAKE TWO TABLETS BY MOUTH EVERY NIGHT AT BEDTIME OXcarbazepi 2021-0 Yes [id number] TAKE ONE [facility] ne 600 mg 8-18 TABLET BY ity o f tablet 00:00: MOUTH [place] 00 EVERY Medical MORNING Branch AND TAKE TWO TABLETS BY MOUTH EVERY NIGHT AT BEDTIME OXcarbazepi 2021-0 Yes [id number] TAKE ONE [facility] ne 600 mg 8-18 TABLET BY ity o f tablet 00:00: MOUTH [place] 00 EVERY Medical MORNING Branch AND TAKE TWO TABLETS BY MOUTH EVERY NIGHT AT BEDTIME OXcarbazepi 2021-0 Yes [id number] TAKE ONE [facility] ne 600 mg 8-18 TABLET BY ity o f tablet 00:00: MOUTH [place] 00 EVERY Medical MORNING Branch AND TAKE TWO TABLETS BY MOUTH EVERY NIGHT AT BEDTIME OXcarbazepi 2021-0 Yes [id number] TAKE ONE [facility] ne 600 mg 8-18 TABLET BY ity o f tablet 00:00: MOUTH [place] 00 EVERY Medical MORNING Branch AND TAKE TWO TABLETS BY MOUTH EVERY NIGHT AT BEDTIME OXcarbazepi 2021-0 Yes [id number] TAKE ONE [facility] ne 600 mg 8-18 TABLET BY ity o f tablet 00:00: MOUTH [place] 00 EVERY Medical MORNING Branch AND TAKE TWO TABLETS BY MOUTH EVERY NIGHT AT BEDTIME OXcarbazepi 2021-0 Yes [id number] TAKE ONE [facility] ne 600 mg 8-18 TABLET BY ity o f tablet 00:00: MOUTH [place] 00 EVERY Medical MORNING Branch AND TAKE TWO TABLETS BY MOUTH EVERY NIGHT AT BEDTIME OXcarbazepi 2021-0 Yes [id number] TAKE ONE [facility] ne 600 mg 8-18 TABLET BY ity o f tablet 00:00: MOUTH [place] 00 EVERY Medical MORNING Branch AND TAKE TWO TABLETS BY MOUTH EVERY NIGHT AT BEDTIME OXcarbazepi 2021-0 Yes [id number] TAKE ONE [facility] ne 600 mg 8-18 TABLET BY ity o f tablet 00:00: MOUTH [place] 00 EVERY Medical MORNING Branch AND TAKE TWO TABLETS BY MOUTH EVERY NIGHT AT BEDTIME OXcarbazepi 2021-0 Yes [id number] TAKE ONE [facility] ne 600 mg 8-18 TABLET BY ity o f tablet 00:00: MOUTH [place] 00 EVERY Medical MORNING Branch AND TAKE TWO TABLETS BY MOUTH EVERY NIGHT AT BEDTIME OXcarbazepi 2021-0 Yes [id number] TAKE ONE [facility] ne 600 mg 8-18 TABLET BY ity o f tablet 00:00: MOUTH [place] 00 EVERY Medical MORNING Branch AND TAKE TWO TABLETS BY MOUTH EVERY NIGHT AT BEDTIME OXcarbazepi 2021-0 Yes [id number] TAKE ONE [facility] ne 600 mg 8-18 TABLET BY ity o f tablet 00:00: MOUTH [place] 00 EVERY Medical MORNING Branch AND TAKE TWO TABLETS BY MOUTH EVERY NIGHT AT BEDTIME OXcarbazepi 2021-0 Yes [id number] TAKE ONE [facility] ne 600 mg 8-18 TABLET BY ity o f tablet 00:00: MOUTH [place] 00 EVERY Medical MORNING Branch AND TAKE TWO TABLETS BY MOUTH EVERY NIGHT AT BEDTIME OXcarbazepi 2021-0 Yes [id number] TAKE ONE [facility] ne 600 mg 8-18 TABLET BY ity o f tablet 00:00: MOUTH [place] 00 EVERY Medical MORNING Branch AND TAKE TWO TABLETS BY MOUTH EVERY NIGHT AT BEDTIME OXcarbazepi 2021-0 Yes [id number] TAKE ONE [facility] ne 600 mg 8-18 TABLET BY ity o f tablet 00:00: MOUTH [place] 00 EVERY Medical MORNING Branch AND TAKE TWO TABLETS BY MOUTH EVERY NIGHT AT BEDTIME OXcarbazepi 2021-0 Yes [id number] TAKE ONE [facility] ne 600 mg 8-18 TABLET BY ity o f tablet 00:00: MOUTH [place] 00 EVERY Medical MORNING Branch AND TAKE TWO TABLETS BY MOUTH EVERY NIGHT AT BEDTIME OXcarbazepi 2021-0 Yes [id number] TAKE ONE [facility] ne 600 mg 8-18 TABLET BY ity o f tablet 00:00: MOUTH [place] 00 EVERY Medical MORNING Branch AND TAKE TWO TABLETS BY MOUTH EVERY NIGHT AT BEDTIME OXcarbazepi 2021-0 Yes [id number] TAKE ONE [facility] ne 600 mg 8-18 TABLET BY ity o f tablet 00:00: MOUTH [place] 00 EVERY Medical MORNING Branch AND TAKE TWO TABLETS BY MOUTH EVERY NIGHT AT BEDTIME OXcarbazepi 2021-0 Yes [id number] TAKE ONE [facility] ne 600 mg 8-18 TABLET BY ity o f tablet 00:00: MOUTH [place] 00 EVERY Medical MORNING Branch AND TAKE TWO TABLETS BY MOUTH EVERY NIGHT AT BEDTIME OXcarbazepi 2021-0 Yes [id number] TAKE ONE [facility] ne 600 mg 8-18 TABLET BY ity o f tablet 00:00: MOUTH [place] 00 EVERY Medical MORNING Branch AND TAKE TWO TABLETS BY MOUTH EVERY NIGHT AT BEDTIME OXcarbazepi 2021-0 Yes [id number] TAKE ONE [facility] ne 600 mg 8-18 TABLET BY ity o f tablet 00:00: MOUTH [place] 00 EVERY Medical MORNING Branch AND TAKE TWO TABLETS BY MOUTH EVERY NIGHT AT BEDTIME OXcarbazepi 2021-0 Yes [id number] TAKE ONE [facility] ne 600 mg 8-18 TABLET BY ity o f tablet 00:00: MOUTH [place] 00 EVERY Medical MORNING Branch AND TAKE TWO TABLETS BY MOUTH EVERY NIGHT AT BEDTIME OXcarbazepi 2021-0 Yes [id number] TAKE ONE [facility] 600 mg 8-18 TABLET BY [facility] o f tablet 00:00: MOUTH [place] 00 EVERY Medical MORNING Branch AND TAKE TWO TABLETS BY MOUTH EVERY NIGHT AT BEDTIME OXcarbazepi 2021-0 Yes [id number] TAKE ONE [facility] 600 mg 8-18 TABLET BY ity o f tablet 00:00: MOUTH [place] 00 EVERY Medical MORNING Branch AND TAKE TWO TABLETS BY MOUTH EVERY NIGHT AT BEDTIME OXcarbazepi 2021-0 Yes [id number] TAKE ONE [facility] 600 mg 8-18 TABLET BY ity o f tablet 00:00: MOUTH [place] 00 EVERY Medical MORNING Branch AND TAKE TWO TABLETS BY MOUTH EVERY NIGHT AT BEDTIME OXcarbazepi 2021-0 Yes [id number] TAKE ONE [facility] 600 mg 8-18 TABLET BY ity o f tablet 00:00: MOUTH [place] 00 EVERY Medical MORNING Branch AND TAKE TWO TABLETS BY MOUTH EVERY NIGHT AT BEDTIME OXcarbazepi 2021-0 Yes [id number] TAKE ONE [facility] 600 mg 8-18 TABLET BY ity o f tablet 00:00: MOUTH [place] 00 EVERY Medical MORNING Branch AND TAKE TWO TABLETS BY MOUTH EVERY NIGHT AT BEDTIME OXcarbazepi 2021-0 Yes [id number] TAKE ONE [facility] 600 mg 8-18 TABLET BY ity o f tablet 00:00: MOUTH [place] 00 EVERY Medical MORNING Branch AND TAKE TWO TABLETS BY MOUTH EVERY NIGHT AT BEDTIME OXcarbazepi 2021-0 Yes [id number] TAKE ONE [facility] 600 mg 8-18 TABLET BY ity o f tablet 00:00: MOUTH [place] 00 EVERY Medical MORNING Branch AND TAKE TWO TABLETS BY MOUTH EVERY NIGHT AT BEDTIME OXcarbazepi 2021-0 Yes [id number] TAKE ONE [facility] 600 mg 8-18 TABLET BY ity o f tablet 00:00: MOUTH [place] 00 EVERY Medical MORNING Branch AND TAKE TWO TABLETS BY MOUTH EVERY NIGHT AT BEDTIME OXcarbazepi 2021-0 Yes [id number] TAKE ONE [facility] 600 mg 8-18 TABLET BY ity o f tablet 00:00: MOUTH [place] 00 EVERY Medical MORNING Branch AND TAKE TWO TABLETS BY MOUTH EVERY NIGHT AT BEDTIME OXcarbazepi 2021-0 Yes [id number] TAKE ONE [facility] 600 mg 8-18 TABLET BY ity o f tablet 00:00: MOUTH [place] 00 EVERY Medical MORNING Branch AND TAKE TWO TABLETS BY MOUTH EVERY NIGHT AT BEDTIME OXcarbazepi 2021-0 Yes [id number] TAKE ONE [facility] 600 mg 8-18 TABLET BY ity o f tablet 00:00: MOUTH [place] 00 EVERY Medical MORNING Branch AND TAKE TWO TABLETS BY MOUTH EVERY NIGHT AT BEDTIME OXcarbazepi 2021-0 Yes [id number] TAKE ONE [facility] 600 mg 8-18 TABLET BY ity o f tablet 00:00: MOUTH [place] 00 EVERY Medical MORNING Branch AND TAKE TWO TABLETS BY MOUTH EVERY NIGHT AT BEDTIME OXcarbazepi 2021-0 Yes [id number] TAKE ONE [facility] 600 mg 8-18 TABLET BY ity o f tablet 00:00: MOUTH [place] 00 EVERY Medical MORNING Branch AND TAKE TWO TABLETS BY MOUTH EVERY NIGHT AT BEDTIME OXcarbazepi 2021-0 Yes [id number] TAKE ONE [facility] 600 mg 8-18 TABLET BY ity o f tablet 00:00: MOUTH [place] 00 EVERY Medical MORNING Branch AND TAKE TWO TABLETS BY MOUTH EVERY NIGHT AT BEDTIME OXcarbazepi 2021-0 Yes [id number] TAKE ONE [facility] 600 mg 8-18 TABLET BY ity o f tablet 00:00: MOUTH [place] 00 EVERY Medical MORNING Branch AND TAKE TWO TABLETS BY MOUTH EVERY NIGHT AT BEDTIME OXcarbazepi 2021-0 Yes [id number] TAKE ONE [facility] 600 mg 8-18 TABLET BY ity o f tablet 00:00: MOUTH [place] 00 EVERY Medical MORNING Branch AND TAKE TWO TABLETS BY MOUTH EVERY NIGHT AT BEDTIME OXcarbazepi 2021-0 Yes [id number] TAKE ONE [facility] 600 mg 8-18 TABLET BY ity o f tablet 00:00: MOUTH [place] 00 EVERY Medical MORNING Branch AND TAKE TWO TABLETS BY MOUTH EVERY NIGHT AT BEDTIME OXcarbazepi 2021-0 Yes [id number] TAKE ONE [facility] 600 mg 8-18 TABLET BY ity o f tablet 00:00: MOUTH [place] 00 EVERY Medical MORNING Branch AND TAKE TWO TABLETS BY MOUTH EVERY NIGHT AT BEDTIME OXcarbazepi 2021-0 Yes [id number] TAKE ONE [facility] 600 mg 8-18 TABLET BY ity o f tablet 00:00: MOUTH [place] 00 EVERY Medical MORNING Branch AND TAKE TWO TABLETS BY MOUTH EVERY NIGHT AT BEDTIME OXcarbazepi 2021-0 Yes [id number] TAKE ONE [facility] 600 mg 8-18 TABLET BY ity o f tablet 00:00: MOUTH [place] 00 EVERY Medical MORNING Branch AND TAKE TWO TABLETS BY MOUTH EVERY NIGHT AT BEDTIME OXcarbazepi 2021-0 Yes [id number] TAKE ONE [facility] 600 mg 8-18 TABLET BY ity o f tablet 00:00: MOUTH [place] 00 EVERY Medical MORNING Branch AND TAKE TWO TABLETS BY MOUTH EVERY NIGHT AT BEDTIME OXcarbazepi 2021-0 Yes [id number] TAKE ONE [facility] 600 mg 8-18 TABLET BY ity o f tablet 00:00: MOUTH [place] 00 EVERY Medical MORNING Branch AND TAKE TWO TABLETS BY MOUTH EVERY NIGHT AT BEDTIME OXcarbazepi 2021-0 Yes [id number] TAKE ONE [facility] 600 mg 8-18 TABLET BY ity o f tablet 00:00: MOUTH [place] 00 EVERY Medical MORNING Branch AND TAKE TWO TABLETS BY MOUTH EVERY NIGHT AT BEDTIME OXcarbazepi 2021-0 Yes [id number] TAKE ONE [facility] 600 mg 8-18 TABLET BY ity o f tablet 00:00: MOUTH [place] 00 EVERY Medical MORNING Branch AND TAKE TWO TABLETS BY MOUTH EVERY NIGHT AT BEDTIME OXcarbazepi 2021-0 Yes [id number] TAKE ONE [facility] 600 mg 8-18 TABLET BY ity o f tablet 00:00: MOUTH [place] 00 EVERY Medical MORNING Branch AND TAKE TWO TABLETS BY MOUTH EVERY NIGHT AT BEDTIME OXcarbazepi 2021-0 Yes [id number] TAKE ONE [facility] 600 mg 8-18 TABLET BY ity o f tablet 00:00: MOUTH [place] 00 EVERY Medical MORNING Branch AND TAKE TWO TABLETS BY MOUTH EVERY NIGHT AT BEDTIME OXcarbazepi 2021-0 Yes [id number] TAKE ONE [facility] 600 mg 8-18 TABLET BY ity o f tablet 00:00: MOUTH [place] 00 EVERY Medical MORNING Branch AND TAKE TWO TABLETS BY MOUTH EVERY NIGHT AT BEDTIME OXcarbazepi 2020-0 Yes [id number] TAKE ONE [facility] 600 mg 8-18 TABLET BY ity o f tablet 00:00: MOUTH [place] 00 EVERY Medical MORNING Branch AND TAKE TWO TABLETS BY MOUTH EVERY NIGHT AT BEDTIME amitriptyli 2020-0 Yes [id number] 50mg Take 2 [facility] ne 25 mg 7-07 tablets by it[facility] o f tablet 00:00: mouth at [place] 00 bedtime. [facility] amitriptyli 2020-0 Yes [id number] 50mg Take 2 [facility] 25 mg 7-07 tablets by it[facility] o f tablet 00:00: mouth at [place] 00 bedtime. [facility] amitriptyli 2020-0 Yes [id number] 50mg Take 2 [facility] 25 mg 7-07 tablets by [facility]y o f tablet 00:00: mouth at [place] [address] bedtime. [facility] amitriptyli 2020-0 Yes [id number] 50mg Take 2 [facility] 25 mg 7-07 tablets by [facility] o f tablet 00:00: mouth at [place] [address] bedtime. [facility] amitriptyli 2020-0 Yes [id number] 50mg Take 2 [facility] 25 mg 7-07 tablets by [facility] o f tablet 00:00: mouth at [place] [address] bedtime. [facility] amitriptyli 2020-0 Yes [id number] 50mg Take 2 [facility] 25 mg 7-07 tablets by [facility] o f tablet 00:00: mouth at [place] [address] bedtime. [facility] amitriptyli 2020-0 Yes [id number] 50mg Take 2 [facility] 25 mg 7-07 tablets by [facility] o f tablet 00:00: mouth at [place] [address] bedtime. [facility] amitriptyli 2020-0 Yes [id number] 50mg Take 2 [facility] 25 mg 7-07 tablets by [facility] o f tablet 00:00: mouth at [place] [address] bedtime. [facility] amitriptyli 2020-0 Yes [id number] 50mg Take 2 [facility] 25 mg 7-07 tablets by [facility] o f tablet 00:00: mouth at [place] [address] bedtime. [facility] amitriptyli 2020-0 Yes [id number] 50mg Take 2 [facility] 25 mg 7-07 tablets by [facility] o f tablet 00:00: mouth at [place] 00 bedtime. [facility] amitriptyli 0 Yes [id number] 50mg Take 2 [facility] 25 mg 7-07 tablets by [facility] o f tablet 00:00: mouth at [place] 00 bedtime. [facility] amitriptyli 2020-0 Yes [id number] 50mg Take 2 [facility] 25 mg 7-07 tablets by [facility] o [facility] tablet 00:00: mouth at [place] 00 bedtime. [facility] amitriptyli 2020-0 Yes [id number] 50mg Take 2 [facility] 25 mg 7-07 tablets by [facility] o [facility] tablet 00:00: mouth at [place] 00 bedtime. [facility] amitriptyli 2020- Yes [id number] 50mg Take 2 [facility] 25 mg 7-07 tablets by [facility] o [facility] tablet 00:00: mouth at [place] 00 bedtime. [facility] amitriptyli Yes [id number] 50mg Take 2 [facility] 25 mg 7-07 tablets by [facility] o [facility] tablet 00:00: mouth at [place] 00 bedtime. [facility] amitriptyli 0 Yes [id number] 50mg Take 2 [facility] 25 mg 7-07 tablets by [facility] o f tablet 00:00: mouth at [place] [address] bedtime. [facility] amitriptyli 0 Yes [id number] 50mg Take 2 [facility] 25 mg 7-07 tablets by [facility] o f tablet 00:00: mouth at [place] [address] bedtime. [facility] amitriptyli 0 Yes [id number] 50mg Take 2 [facility] 25 mg 7-07 tablets by [facility] o f tablet 00:00: mouth at [place] [address] bedtime. [facility] amitriptyli 2020-0 Yes [id number] 50mg Take 2 [facility] 25 mg 7-07 tablets by [facility] o f tablet 00:00: mouth at [place] 00 bedtime. [facility] amitriptyli 2020-0 Yes [id number] 50mg Take 2 [facility] 25 mg 7-07 tablets by [facility] o f tablet 00:00: mouth at [place] 00 bedtime. [facility] amitriptyli 2020-0 Yes [id number] 50mg Take 2 [facility] 25 mg 7-07 tablets by [facility] o f tablet 00:00: mouth at [place] 00 bedtime. [facility] amitriptyli 2020-0 Yes [id number] 50mg Take 2 [facility] 25 mg 7-07 tablets by [facility] o f tablet 00:00: mouth at [place] 00 bedtime. [facility] amitriptyli 2020-0 Yes [id number] 50mg Take 2 [facility] 25 mg 7-07 tablets by [facility] o f tablet 00:00: mouth at [place] 00 bedtime. [facility] amitriptyli 2020-0 Yes [id number] 50mg Take 2 [facility] 25 mg 7-07 tablets by [facility] o f tablet 00:00: mouth at [place] 00 bedtime. [facility] amitriptyli 2020-0 Yes [id number] 50mg Take 2 [facility] 25 mg 7-07 tablets by [facility] o f tablet 00:00: mouth at [place] 00 bedtime. [facility] amitriptyli 2020-0 Yes [id number] 50mg Take 2 [facility] 25 mg 7-07 tablets by [facility] o f tablet 00:00: mouth at [place] 00 bedtime. [facility] amitriptyli 2020-0 Yes [id number] 50mg Take 2 [facility] 25 mg 7-07 tablets by [facility] o f tablet 00:00: mouth at [place] 00 bedtime. [facility] amitriptyli 2020-0 Yes [id number] 50mg Take 2 [facility] 25 mg 7-07 tablets by [facility] o f tablet 00:00: mouth at [place] 00 bedtime. [facility] amitriptyli 2020-0 Yes [id number] 50mg Take 2 [facility] 25 mg 7-07 tablets by [facility] o f tablet 00:00: mouth at [place] 00 bedtime. [facility] amitriptyli 2020-0 Yes [id number] 50mg Take 2 [facility] 25 mg 7-07 tablets by [facility] o f tablet 00:00: mouth at [place] 00 bedtime. [facility] amitriptyli 2020-0 Yes [id number] 50mg Take 2 [facility] 25 mg 7-07 tablets by [facility] o f tablet 00:00: mouth at [place] 00 bedtime. [facility] amitriptyli 2020-0 Yes [id number] 50mg Take 2 [facility] 25 mg 7-07 tablets by [facility] o f tablet 00:00: mouth at [place] 00 bedtime. [facility] amitriptyli 2020-0 Yes [id number] 50mg Take 2 [facility] 25 mg 7-07 tablets by [facility] o f tablet 00:00: mouth at [place] [address] bedtime. [facility] amitriptyli 2020-0 Yes [id number] 50mg Take 2 [facility] 25 mg 7-07 tablets by [facility]y o f tablet 00:00: mouth at [place] 00 bedtime. [facility] amitriptyli 2020-0 Yes [id number] 50mg Take 2 [facility] 25 mg 7-07 tablets by [facility]y o f tablet 00:00: mouth at [place] [address] bedtime. [facility] amitriptyli 2020-0 Yes [id number] 50mg Take 2 [facility] 25 mg 7-07 tablets by [facility] o f tablet 00:00: mouth at [place] [address] bedtime. [facility] amitriptyli 2020-0 Yes [id number] 50mg Take 2 [facility] 25 mg 7-07 tablets by [facility]y o f tablet 00:00: mouth at [place] [address] bedtime. [facility] amitriptyli 2020-0 3- No [id number] 50mg Take 2 [facility] 25 mg 7-07 04-19 tablets by [facility]y of tablet 00:00: 00:00 mouth at [place] 00 :00 bedtime. [facility] amitriptyli 2020-0 3- No [id number] 50mg Take 2 [facility] 25 mg 7-07 04-19 tablets by [facility] of tablet 00:00: 00:00 mouth at [place] 00 :00 bedtime. [facility] topiramate 1-0 Yes [facility] 100 mg 4-12 ity of tablet 00:00: [place] 00 [facility] topiramate 2021-0 Yes [facility] 100 mg 4-12 ity of tablet 00:00: [place] 00 [facility] topiramate 1-0 Yes [facility] 100 mg 4-12 ity of tablet 00:00: [place] 00 [facility] topiramate 2021-0 Yes [facility] 100 mg 4-12 ity of tablet 00:00: [place] 00 [facility] topiramate 2021-0 Yes [facility] 100 mg 4-12 ity of tablet 00:00: [place] 00 [facility] topiramate 2021-0 Yes [facility] 100 mg 4-12 ity of tablet 00:00: [place] 00 [facility] topiramate 2021-0 Yes [facility] 100 mg 4-12 ity of tablet 00:00: [place] 00 [facility] topiramate 2021-0 Yes [facility] 100 mg 4-12 ity of tablet 00:00: [place] 00 [facility] topiramate 2021-0 Yes [facility] 100 mg 4-12 ity of tablet 00:00: [place] [facility] topiramate 2021-0 Yes [facility] 100 mg 4-12 ity of tablet 00:00: [place] [facility] topiramate 2021-0 Yes [facility] 100 mg 4-12 ity of tablet 00:00: [place] [facility] topiramate 2021-0 Yes [facility] 100 mg 4-12 ity of tablet 00:00: [place] [facility] topiramate 2021-0 Yes [facility] 100 mg 4-12 ity of tablet 00:00: [place] [facility] topiramate 2021-0 Yes [facility] 100 mg 4-12 ity of tablet 00:00: [place] [facility] topiramate 2021-0 Yes [facility] 100 mg 4-12 ity of tablet 00:00: [place] [facility] topiramate 2021-0 Yes [facility] 100 mg 4-12 ity of tablet 00:00: [place] [facility] topiramate 2021-0 Yes [facility] 100 mg 4-12 ity of tablet 00:00: [place] [facility] topiramate 2021-0 Yes [facility] 100 mg 4-12 ity of tablet 00:00: [place] [facility] topiramate 2021-0 Yes [facility] 100 mg 4-12 ity of tablet 00:00: [place] [facility] topiramate 2021-0 Yes [facility] 100 mg 4-12 ity of tablet 00:00: [place] [address] [facility] Branch topiramate 2021-0 Yes [facility] 100 mg 4-12 ity of tablet 00:00: [place] [facility] topiramate 2021-0 Yes [facility] 100 mg 4-12 ity of tablet 00:00: [place] [facility] topiramate 2021-0 Yes [facility] 100 mg 4-12 ity of tablet 00:00: [place] [facility] topiramate 2021-0 Yes [facility] 100 mg 4-12 ity of tablet 00:00: [place] [facility] topiramate 2021-0 Yes [facility] 100 mg 4-12 ity of tablet 00:00: [place] [facility] topiramate 2021-0 Yes [facility] 100 mg 4-12 ity of tablet 00:00: [place] [facility] topiramate 2021-0 Yes [facility] 100 mg 4-12 ity of tablet 00:00: [place] [address] [facility] Branch topiramate 2021-0 Yes [facility] 100 mg 4-12 ity of tablet 00:00: [place] [facility] topiramate 2021-0 Yes [facility] 100 mg 4-12 ity of tablet 00:00: [place] [facility] topiramate 2021-0 Yes [facility] 100 mg 4-12 ity of tablet 00:00: [place] [facility] topiramate 2021-0 Yes [facility] 100 mg 4-12 ity of tablet 00:00: [place] [facility] topiramate 2021-0 Yes [facility] 100 mg 4-12 ity of tablet 00:00: [place] [facility] topiramate 2021-0 Yes [facility] 100 mg 4-12 ity of tablet 00:00: [place] [facility] topiramate 2021-0 Yes [facility] 100 mg 4-12 ity of tablet 00:00: [place] [facility] topiramate 2021-0 Yes [facility] 100 mg 4-12 ity of tablet 00:00: [place] [facility] topiramate 2021-0 Yes [facility] 100 mg 4-12 ity of tablet 00:00: [place] [facility] topiramate 2021-0 Yes [facility] 100 mg 4-12 ity of tablet 00:00: [place] [facility] topiramate 2021-0 Yes [facility] 100 mg 4-12 ity of tablet 00:00: [place] [facility] topiramate 2021-0 Yes [facility] 100 mg 4-12 ity of tablet 00:00: [place] [facility] topiramate 2021-0 Yes [facility] 100 mg 4-12 ity of tablet 00:00: [place] [facility] topiramate 2021-0 Yes [facility] 100 mg 4-12 ity of tablet 00:00: [place] [facility] topiramate 2021-0 Yes [facility] 100 mg 4-12 ity of tablet 00:00: [place] [facility] topiramate 2021-0 Yes [facility] 100 mg 4-12 ity of tablet 00:00: [place] [facility] topiramate 2021-0 Yes [facility] 100 mg 4-12 ity of tablet 00:00: [place] [facility] topiramate 2021-0 Yes [facility] 100 mg 4-12 ity of tablet 00:00: [place] [facility] topiramate 2021-0 Yes [facility] 100 mg 4-12 ity of tablet 00:00: [place] [facility] topiramate 2021-0 Yes [facility] 100 mg 4-12 ity of tablet 00:00: [place] [facility] topiramate 2020-0 Yes [facility] 100 mg 4-12 ity of tablet 00:00: [facility] topiramate 2020-0 Yes [facility] 100 mg 4-12 ity of tablet 00:00: [place] [facility] topiramate 2020-0 Yes [facility] 100 mg 4-12 ity of tablet 00:00: [place] [facility] topiramate 2020-0 Yes [facility] 100 mg 4-12 ity of tablet 00:00: [facility] topiramate 2020-0 Yes [facility] 100 mg 4-12 ity of tablet 00:00: [place] [facility] topiramate 2020-0 Yes [facility] 100 mg 4-12 ity of tablet 00:00: [place] [facility] topiramate 2020-0 Yes [facility] 100 mg 4-12 ity of tablet 00:00: [place] [facility] atorvastati 2020-0 Yes Univer s n 40 mg 4-09 ity of tablet 00:00: [place] [facility] atorvastati 2020-0 Yes Un[facility] s n 40 mg 4-09 ity of tablet 00:00: [place] [facility] atorvastati 2020-0 Yes Un[facility] s n 40 mg 4-09 ity of tablet 00:00: [place] [facility] atorvastati 2020-0 Yes Un[facility] s n 40 mg 4-09 ity of tablet 00:00: [place] [facility] atorvastati 2020-0 Yes Un[facility] s n 40 mg 4-09 ity of tablet 00:00: [place] [facility] atorvastati 2020-0 Yes Un[facility] s n 40 mg 4-09 ity of tablet 00:00: [place] [facility] atorvastati 2020-0 Yes Un[facility] s n 40 mg 4-09 ity of tablet 00:00: [place] [facility] atorvastati 2020-0 Yes Un[facility] s n 40 mg 4-09 ity of tablet 00:00: [place] [facility] atorvastati 2020-0 Yes Un[facility] s n 40 mg 4-09 ity of tablet 00:00: [place] [facility] atorvastati 2020-0 Yes Univer s n 40 mg 4-09 ity of tablet 00:00: [place] [address] [facility] Branch atorvastati 2020-0 Yes Univer s n 40 mg 4-09 ity of tablet 00:00: [place] [facility] atorvastati 2020-0 Yes Univer s n 40 mg 4-09 ity of tablet 00:00: [place] [facility] atorvastati 2020-0 Yes Un[facility] s n 40 mg 4-09 ity of tablet 00:00: [place] [facility] atorvastati 2020-0 Yes Un[facility] s n 40 mg 4-09 ity of tablet 00:00: [place] [facility] atorvastati 2020-0 Yes Un[facility] s n 40 mg 4-09 ity of tablet 00:00: [place] [facility] atorvastati 2020-0 Yes Un[facility] s n 40 mg 4-09 ity of tablet 00:00: [place] [facility] atorvastati 2020-0 Yes Un[facility] s n 40 mg 4-09 ity of tablet 00:00: [place] [facility] atorvastati 2020-0 Yes Un[facility] s n 40 mg 4-09 ity of tablet 00:00: [place] [facility] atorvastati 2020-0 Yes Un[facility] s n 40 mg 4-09 ity of tablet 00:00: [place] [facility] atorvastati 2020-0 Yes Un[facility] s n 40 mg 4-09 ity of tablet 00:00: [place] [facility] atorvastati 2020-0 Yes Univer s n 40 mg 4-09 ity of tablet 00:00: [place] [facility] atorvastati 2020-0 Yes Un[facility] s n 40 mg 4-09 ity of tablet 00:00: [place] [facility] atorvastati 2020-0 Yes Univer s n 40 mg 4-09 ity of tablet 00:00: [place] [facility] atorvastati 2020-0 Yes Un[facility] s n 40 mg 4-09 ity of tablet 00:00: [place] [facility] atorvastati 2020-0 Yes Univer s n 40 mg 4-09 ity of tablet 00:00: [place] [facility] atorvastati 2020-0 Yes Un[facility] s n 40 mg 4-09 ity of tablet 00:00: [place] [facility] atorvastati 2020-0 Yes Un[facility] s n 40 mg 4-09 ity of tablet 00:00: [place] 00 [facility] atorvastati 2020-0 Yes Univer s n 40 mg 4-09 ity of tablet 00:00: [place] [facility] atorvastati 2020-0 Yes Univer s n 40 mg 4-09 ity of tablet 00:00: [place] [facility] atorvastati 2020-0 Yes Un[facility] s n 40 mg 4-09 ity of tablet 00:00: [place] [facility] atorvastati 2020-0 Yes [facility] s n 40 mg 4-09 ity of tablet 00:00: [place] [facility] atorvastati 2020-0 Yes Un[facility] s n 40 mg 4-09 ity of tablet 00:00: [place] [facility] atorvastati 2020-0 Yes [facility] s n 40 mg 4-09 ity of tablet 00:00: [place] [facility] atorvastati 2020-0 Yes [facility] s n 40 mg 4-09 ity of tablet 00:00: [place] [facility] atorvastati 2020-0 Yes [facility] n 40 mg 4-09 ity of tablet 00:00: [place] [facility] atorvastati 2020-0 Yes [facility] s n 40 mg 4-09 ity of tablet 00:00: [place] [facility] atorvastati 2020-0 Yes [facility] n 40 mg 4-09 ity of tablet 00:00: [place] [facility] atorvastati 2020-0 Yes [facility] s n 40 mg 4-09 ity of tablet 00:00: [place] [facility] atorvastati 2020-0 Yes [facility] n 40 mg 4-09 ity of tablet 00:00: [place] [facility] atorvastati 2020-0 Yes [facility] n 40 mg 4-09 ity of tablet 00:00: [place] [facility] atorvastati 2020-0 Yes [facility] s n 40 mg 4-09 ity of tablet 00:00: [place] [facility] atorvastati 2020-0 Yes Un[facility] s n 40 mg 4-09 ity of tablet 00:00: [place] [facility] atorvastati 2020-0 Yes [facility] s n 40 mg 4-09 ity of tablet 00:00: [place] [facility] atorvastati 2020-0 Yes [facility] n 40 mg 4-09 ity of tablet 00:00: 00 [facility] atorvastati 2020-0 Yes [facility] s n 40 mg 4-09 ity of tablet 00:00: [facility] atorvastati 2020-0 Yes [facility] n 40 mg 4-09 ity of tablet 00:00: [facility] atorvastati 2020-0 Yes [facility] n 40 mg 4-09 ity of tablet 00:00: [facility] atorvastati 2020-0 Yes [facility] n 40 mg 4-09 ity of tablet 00:00: [facility] atorvastati 2020-0 Yes [facility] n 40 mg 4-09 ity of tablet 00:00: [facility] atorvastati 2020-0 Yes [facility] s n 40 mg -09 ity of tablet 00:00: [facility] atorvastati 2020-0 3- No Unive rs n 40 mg -02-16 ity of tablet 00:00: 00:00 [place] 00 :00 [facility] Branch BUTALBITAL- 0 Yes TAKE ONE [facility] ACETAMINOPH 1-11 CAPSULE BY it y of EN-CAFF 00:00: MOUTH [place] 50-300-40 00 EVERY 6 Medical mg per HOURS Branch capsule NEEDED FOR PAIN (SCALE 7-10) BUTALBITAL- Yes TAKE ONE [facility] ACETAMINOPH 1-11 CAPSULE BY it y of EN-CAFF 00:00: MOUTH [place] 50-300-40 00 EVERY 6 Medical mg per HOURS Branch capsule NEEDED FOR PAIN (SCALE 7-10) BUTALBITAL- 0 Yes TAKE ONE [facility] ACETAMINOPH 1-11 CAPSULE BY it y of EN-CAFF 00:00: MOUTH [place] 50-300-40 00 EVERY 6 Medical mg per HOURS Branch capsule NEEDED FOR PAIN (SCALE 7-10) BUTALBITAL- 0 Yes TAKE ONE [facility] ACETAMINOPH 1-11 CAPSULE BY it y of EN-CAFF 00:00: MOUTH [place] 50-300-40 00 EVERY 6 Medical mg per HOURS Branch capsule NEEDED FOR PAIN (SCALE 7-10) BUTALBITAL- 0 Yes TAKE ONE [facility] ACETAMINOPH 1-11 CAPSULE BY it y of EN-CAFF 00:00: MOUTH [place] 50-300-40 00 EVERY 6 Medical mg per HOURS Branch capsule NEEDED FOR PAIN (SCALE 7-10) BUTALBITAL- 202-0 Yes TAKE ONE [facility] ACETAMINOPH 1-11 CAPSULE BY it y of EN-CAFF 00:00: MOUTH [place] 50-300-40 00 EVERY 6 Medical mg per HOURS Branch capsule NEEDED FOR PAIN (SCALE 7-10) BUTALBITAL- 2020-0 Yes TAKE ONE [facility] ACETAMINOPH 1-11 CAPSULE BY it y of EN-CAFF 00:00: MOUTH [place] 50-300-40 00 EVERY 6 Medical mg per HOURS Branch capsule NEEDED FOR PAIN (SCALE 7-10) BUTALBITAL- 202-0 Yes TAKE ONE [facility] ACETAMINOPH 1-11 CAPSULE BY it y of EN-CAFF 00:00: MOUTH [place] 50-300-40 00 EVERY 6 Medical mg per HOURS Branch capsule NEEDED FOR PAIN (SCALE 7-10) BUTALBITAL- 2020-0 Yes TAKE ONE [facility] ACETAMINOPH 1-11 CAPSULE BY it y of EN-CAFF 00:00: MOUTH [place] 50-300-40 00 EVERY 6 Medical mg per HOURS Branch capsule NEEDED FOR PAIN (SCALE 7-10) BUTALBITAL- 202-0 Yes TAKE ONE [facility] ACETAMINOPH 1-11 CAPSULE BY it y of EN-CAFF 00:00: MOUTH [place] 50-300-40 00 EVERY 6 Medical mg per HOURS Branch capsule NEEDED FOR PAIN (SCALE 7-10) BUTALBITAL- 202-0 Yes TAKE ONE [facility] ACETAMINOPH 1-11 CAPSULE BY it y of EN-CAFF 00:00: MOUTH [place] 50-300-40 00 EVERY 6 Medical mg per HOURS Branch capsule NEEDED FOR PAIN (SCALE 7-10) BUTALBITAL- 202-0 Yes TAKE ONE [facility] ACETAMINOPH 1-11 CAPSULE BY it y of EN-CAFF 00:00: MOUTH [place] 50-300-40 00 EVERY 6 Medical mg per HOURS Branch capsule NEEDED FOR PAIN (SCALE 7-10) BUTALBITAL- 2020-0 Yes TAKE ONE [facility] ACETAMINOPH 1-11 CAPSULE BY it y of EN-CAFF 00:00: MOUTH [place] 50-300-40 00 EVERY 6 Medical mg per HOURS Branch capsule NEEDED FOR PAIN (SCALE 7-10) BUTALBITAL- 202-0 Yes TAKE ONE [facility] ACETAMINOPH 1-11 CAPSULE BY it y of EN-CAFF 00:00: MOUTH [place] 50-300-40 00 EVERY 6 Medical mg per HOURS Branch capsule NEEDED FOR PAIN (SCALE 7-10) BUTALBITAL- 2020-0 Yes TAKE ONE [facility] ACETAMINOPH 1-11 CAPSULE BY it y of EN-CAFF 00:00: MOUTH [place] 50-300-40 00 EVERY 6 Medical mg per HOURS Branch capsule NEEDED FOR PAIN (SCALE 7-10) BUTALBITAL- 2020-0 Yes TAKE ONE [facility] ACETAMINOPH 1-11 CAPSULE BY it y of EN-CAFF 00:00: MOUTH [place] 50-300-40 00 EVERY 6 Medical mg per HOURS Branch capsule NEEDED FOR PAIN (SCALE 7-10) BUTALBITAL- 2020-0 Yes TAKE ONE [facility] ACETAMINOPH 1-11 CAPSULE BY it y of EN-CAFF 00:00: MOUTH [place] 50-300-40 00 EVERY 6 Medical mg per HOURS Branch capsule NEEDED FOR PAIN (SCALE 7-10) BUTALBITAL- 2020-0 Yes TAKE ONE [facility] ACETAMINOPH 1-11 CAPSULE BY it y of EN-CAFF 00:00: MOUTH [place] 50-300-40 00 EVERY 6 Medical mg per HOURS Branch capsule NEEDED FOR PAIN (SCALE 7-10) BUTALBITAL- 2020-0 Yes TAKE ONE [facility] ACETAMINOPH 1-11 CAPSULE BY it y of EN-CAFF 00:00: MOUTH [place] 50-300-40 00 EVERY 6 Medical mg per HOURS Branch capsule NEEDED FOR PAIN (SCALE 7-10) BUTALBITAL- 2020-0 Yes TAKE ONE Un keerthi ACETAMINOPH 1-11 CAPSULE BY it y of EN-CAFF 00:00: MOUTH [place] 50-300-40 00 EVERY 6 Medical mg per HOURS Branch capsule NEEDED FOR PAIN (SCALE 7-10) BUTALBITAL- 2020-0 Yes TAKE ONE Un keerthi ACETAMINOPH 1-11 CAPSULE BY it y of EN-CAFF 00:00: MOUTH [place] 50-300-40 00 EVERY 6 Medical mg per HOURS Branch capsule NEEDED FOR PAIN (SCALE 7-10) BUTALBITAL- 2020-0 Yes TAKE ONE Un keerthi ACETAMINOPH 1-11 CAPSULE BY it y of EN-CAFF 00:00: MOUTH [place] 50-300-40 00 EVERY 6 Medical mg per HOURS Branch capsule NEEDED FOR PAIN (SCALE 7-10) BUTALBITAL- 2020-0 Yes TAKE ONE Un keerthi ACETAMINOPH 1-11 CAPSULE BY it y of EN-CAFF 00:00: MOUTH [place] 50-300-40 00 EVERY 6 Medical mg per HOURS Branch capsule NEEDED FOR PAIN (SCALE 7-10) BUTALBITAL- 2020-0 Yes TAKE ONE Un keerthi ACETAMINOPH 1-11 CAPSULE BY it y of EN-CAFF 00:00: MOUTH [place] 50-300-40 00 EVERY 6 Medical mg per HOURS Branch capsule NEEDED FOR PAIN (SCALE 7-10) BUTALBITAL- 2020-0 Yes TAKE ONE Un keerthi ACETAMINOPH 1-11 CAPSULE BY it y of EN-CAFF 00:00: MOUTH [place] 50-300-40 00 EVERY 6 Medical mg per HOURS Branch capsule NEEDED FOR PAIN (SCALE 7-10) BUTALBITAL- 2020-0 Yes TAKE ONE Un keerthi ACETAMINOPH 1-11 CAPSULE BY it y of EN-CAFF 00:00: MOUTH [place] 50-300-40 00 EVERY 6 Medical mg per HOURS Branch capsule NEEDED FOR PAIN (SCALE 7-10) BUTALBITAL- 2020-0 Yes TAKE ONE Un keerthi ACETAMINOPH 1-11 CAPSULE BY it y of EN-CAFF 00:00: MOUTH [place] 50-300-40 00 EVERY 6 Medical mg per HOURS Branch capsule NEEDED FOR PAIN (SCALE 7-10) BUTALBITAL- 2020-0 Yes TAKE ONE Un keerthi ACETAMINOPH 1-11 CAPSULE BY it y of EN-CAFF 00:00: MOUTH [place] 50-300-40 00 EVERY 6 Medical mg per HOURS Branch capsule NEEDED FOR PAIN (SCALE 7-10) BUTALBITAL- 2020-0 Yes TAKE ONE Un keerthi ACETAMINOPH 1-11 CAPSULE BY it y of EN-CAFF 00:00: MOUTH [place] 50-300-40 00 EVERY 6 Medical mg per HOURS Branch capsule NEEDED FOR PAIN (SCALE 7-10) BUTALBITAL- 2020-0 Yes TAKE ONE Un keerthi ACETAMINOPH 1-11 CAPSULE BY it y of EN-CAFF 00:00: MOUTH [place] 50-300-40 00 EVERY 6 Medical mg per HOURS Branch capsule NEEDED FOR PAIN (SCALE 7-10) BUTALBITAL- 2020-0 2022- No TAKE ONE U nivers ACETAMINOPH 1-11 03-07 CAPSULE BY i ty of EN-CAFF 00:00: 00:00 MOUTH [place] 50-300-40 00 :00 EVERY 6 Medical mg per HOURS Branch capsule NEEDED FOR PAIN (SCALE 7-10) topiramate 0 Yes Univers 25 mg 8-28 ity of tablet 00:00: [place] 00 Medical Branch topiramate 2018-0 Yes Univers 25 mg 8-28 ity of tablet 00:00: [place] 00 Medical Branch topiramate 2018-0 2021- No Univer s 25 mg 8-28 11-15 ity of tablet 00:00: 00:00 [place] 00 :00 Medical Branch topiramate 2019-0 2021- No Univer s 25 mg 8-28 11-15 ity of tablet 00:00: 00:00 [place] 00 :00 Medical Branch topiramate 2019-0 2021- No Univer s 25 mg 8-28 11-15 ity of tablet 00:00: 00:00 [place] 00 :00 Medical Branch topiramate 2019-0 2021- No Univer s 25 mg 8-28 11-15 ity of tablet 00:00: 00:00 [place] 00 :00 Medical Branch topiramate 2019-0 2021- No Univer s 25 mg 8-28 11-15 ity of tablet 00:00: 00:00 [place] 00 :00 Medical Branch docusate 0 Yes 240mg Take 1 Cap Un keerthi calcium 9-03 by mouth ity of (SURFAK) 00:00: once daily Vivek as 240 mg 00 as needed Medical capsule for Branch Constipati on. docusate Yes 240mg Take 1 Cap Un keerthi calcium 9-03 by mouth ity of (SURFAK) 00:00: once daily Vivek as 240 mg 00 as needed Medical capsule for Branch Constipati on. docusate Yes 240mg Take 1 Cap Un keerthi calcium 9-03 by mouth ity of (SURFAK) 00:00: once daily Vivek as 240 mg 00 as needed Medical capsule for Branch Constipati on. docusate Yes 240mg Take 1 Cap Un keerthi calcium 9-03 by mouth ity of (SURFAK) 00:00: once daily Vivek as 240 mg 00 as needed Medical capsule for Branch Constipati on. docusate 0 Yes 240mg Take 1 Cap Un keerthi calcium 9-03 by mouth ity of (SURFAK) 00:00: once daily Vivek as 240 mg 00 as needed Medical capsule for Branch Constipati on. docusate Yes 240mg Take 1 Cap Un keerthi calcium 9-03 by mouth ity of (SURFAK) 00:00: once daily Vivek as 240 mg 00 as needed Medical capsule for Branch Constipati on. docusate Yes 240mg Take 1 Cap Un keerthi calcium 9-03 by mouth ity of (SURFAK) 00:00: once daily Vivek as 240 mg 00 as needed Medical capsule for Branch Constipati on. docusate Yes 240mg Take 1 Cap Un keerthi calcium 9-03 by mouth ity of (SURFAK) 00:00: once daily Vivek as 240 mg 00 as needed Medical capsule for Branch Constipati on. docusate Yes 240mg Take 1 Cap Un keerthi calcium 9-03 by mouth ity of (SURFAK) 00:00: once daily Vivek as 240 mg 00 as needed Medical capsule for Branch Constipati on. docusate Yes 240mg Take 1 Cap Un ke[place]thi calcium 9-03 by mouth ity of (SURFAK) 00:00: once daily Vivek as 240 mg 00 as needed Medical capsule for Branch Constipati on. docusate Yes 240mg Take 1 Cap Un ke[place]thi calcium 9-03 by mouth ity of (SURFAK) 00:00: once daily Vivek as 240 mg 00 as needed Medical capsule for Branch Constipati on. docusate 0 Yes 240mg Take 1 Cap Un keerthi calcium 9-03 by mouth ity of (SURFAK) 00:00: once daily Vivek as 240 mg 00 as needed Medical capsule for Branch Constipati on. docusate 0 Yes 240mg Take 1 Cap Un keerthi calcium 9-03 by mouth ity of (SURFAK) 00:00: once daily Vivek as 240 mg 00 as needed Medical capsule for Branch Constipati on. docusate 2014-0 Yes 240mg Take 1 Cap Un keerthi calcium 9-03 by mouth ity of (SURFAK) 00:00: once daily Vivek as 240 mg 00 as needed Medical capsule for Branch Constipati on. docusate Yes 240mg Take 1 Cap Un keerthi calcium 9-03 by mouth ity of (SURFAK) 00:00: once daily Vivek as 240 mg 00 as needed Medical capsule for Branch Constipati on. docusate 0 Yes 240mg Take 1 Cap Un keerthi calcium 9-03 by mouth ity of (SURFAK) 00:00: once daily Vivek as 240 mg 00 as needed Medical capsule for Branch Constipati on. docusate Yes 240mg Take 1 Cap Un keerthi calcium 9-03 by mouth ity of (SURFAK) 00:00: once daily Vivek as 240 mg 00 as needed Medical capsule for Branch Constipati on. docusate Yes 240mg Take 1 Cap Un keerthi calcium 9-03 by mouth ity of (SURFAK) 00:00: once daily Vivek as 240 mg 00 as needed Medical capsule for Branch Constipati on. docusate Yes 240mg Take 1 Cap Un keerthi calcium 9-03 by mouth ity of (SURFAK) 00:00: once daily Vivek as 240 mg 00 as needed Medical capsule for Branch Constipati on. docusate 0 Yes 240mg Take 1 Cap Un keerthi calcium 9-03 by mouth ity of (SURFAK) 00:00: once daily Vivek as 240 mg 00 as needed Medical capsule for Branch Constipati on. docusate 0 Yes 240mg Take 1 Cap Un [place]thi calcium 9-03 by mouth ity of (SURFAK) 00:00: once daily Vive[place] as 240 mg 00 as needed Medical capsule for Branch Constipati on. docusate 0 Yes 240mg Take 1 Cap Un keerthi calcium 9-03 by mouth ity of (SURFAK) 00:00: once daily Vivek as 240 mg 00 as needed Medical capsule for Branch Constipati on. docusate 0 Yes 240mg Take 1 Cap Un keerthi calcium 9-03 by mouth ity of (SURFAK) 00:00: once daily Vivek as 240 mg 00 as needed Medical capsule for Branch Constipati on. docusate 0 Yes 240mg Take 1 Cap Un keerthi calcium 9-03 by mouth ity of (SURFAK) 00:00: once daily Vivek as 240 mg 00 as needed Medical capsule for Branch Constipati on. docusate Yes 240mg Take 1 Cap Un keerthi calcium 9-03 by mouth ity of (SURFAK) 00:00: once daily Vivek as 240 mg 00 as needed Medical capsule for Branch Constipati on. docusate Yes 240mg Take 1 Cap Un keerthi calcium 9-03 by mouth ity of (SURFAK) 00:00: once daily Vivek as 240 mg 00 as needed Medical capsule for Branch Constipati on. docusate Yes 240mg Take 1 Cap Un keerthi calcium 9-03 by mouth ity of (SURFAK) 00:00: once daily Vivek as 240 mg 00 as needed Medical capsule for Branch Constipati on. docusate Yes 240mg Take 1 Cap Un keerthi calcium 9-03 by mouth ity of (SURFAK) 00:00: once daily Vivek as 240 mg 00 as needed Medical capsule for Branch Constipati on. docusate Yes 240mg Take 1 Cap Un keerthi calcium 9-03 by mouth ity of (SURFAK) 00:00: once daily Vivek as 240 mg 00 as needed Medical capsule for Branch Constipati on. docusate Yes 240mg Take 1 Cap Un keerthi calcium 9-03 by mouth ity of (SURFAK) 00:00: once daily Vivek as 240 mg 00 as needed Medical capsule for Branch Constipati on. docusate 2022- No 240mg Take 1 Cap U nivers calcium 9-03 03-07 by mouth ity of (SURFAK) 00:00: 00:00 [place] 240 mg 00 :00 as needed Medical capsule for Branch Constipati on. Vital Signs Vital Name Observation Time Observation Value Comments Source Systolic blood 2023-02-16 13:00:00 119 mm[Hg] [facility] [place] Diastolic blood 2023-02-16 13:00:00 76 mm[Hg] [facility] Body temperature 2023-02-16 13:00:00 36.5 Rocio [facility] Respiratory rate 2023-02-16 13:00:00 18 /min [facility] Oxygen saturation 2023-02-16 13:00:00 100 /min Uni versity of in Arterial blood [facility] by Pulse oximetry Branch Heart rate 2023-02-16 02:00:00 92 /min Universi ty of [facility] Body height 2023-02-14 08:18:00 162.6 cm Universi ty of [place] [facility] Body weight 2023-02-14 08:18:00 74.844 kg Universi ty of [facility] Branch BMI 2023-02-14 08:18:00 28.32 kg/m2 Universi ty of [facility] Branch Systolic blood 2023-02-09 21:19:00 108 mm[Hg] Univer sity of pressure [facility] Branch Diastolic blood 2023-02-09 21:19:00 68 mm[Hg] Unive rsity of pressure [facility] Branch Heart rate 2023-02-09 21:19:00 89 /min Universi ty of [facility] Branch Respiratory rate 2023-02-09 21:19:00 19 /min Univ ersity of [facility] Body height 2023-02-09 21:19:00 162.6 cm Universi ty of [place] [facility] Systolic blood 2023-01-24 18:38:00 111 mm[Hg] Univer sity of pressure [place] [facility] Diastolic blood 2023-01-24 18:38:00 65 mm[Hg] Unive rsity of pressure [place] [facility] Heart rate 2023-01-24 18:38:00 112 /min Universi ty of [place] [facility] Respiratory rate 2023-01-24 18:38:00 18 /min Univ ersity of [facility] Body height 2023-01-24 18:38:00 162.6 cm Universi ty of [place] [facility] Body weight 2023-01-24 18:38:00 73.029 kg Universi ty of [place] [facility] BMI 2023-01-24 18:38:00 27.64 kg/m2 Universi ty of [place] [facility] Systolic blood 2023-01-03 18:25:00 128 mm[Hg] Univer sity of pressure [place] [facility] Diastolic blood 2023-01-03 18:25:00 73 mm[Hg] Unive rsity of pressure [facility] Branch Heart rate 2023-01-03 18:25:00 93 /min Universi ty of [place] [facility] Respiratory rate 2023-01-03 18:25:00 18 /min Univ ersity of [facility] Branch Systolic blood 2022-12-19 18:02:00 102 mm[Hg] Univer sity of pressure [place] [facility] Diastolic blood 2022-12-19 18:02:00 68 mm[Hg] Unive rsity of pressure [facility] Branch Heart rate 2022-12-19 18:02:00 89 /min Universi ty of [facility] Branch Respiratory rate 2022-12-19 18:02:00 16 /min Univ ersity of [place] [facility] Body height 2022-12-19 18:02:00 162.6 cm Universi ty of [facility] Oxygen saturation 2022-12-19 18:02:00 96 /min Uni versity of in Arterial blood [facility] by Pulse oximetry Branch Systolic blood 2022-12-05 16:08:00 102 mm[Hg] Univer sity of pressure [facility] Branch Diastolic blood 2022-12-05 16:08:00 60 mm[Hg] Unive rsity of pressure [facility] Branch Heart rate 2022-12-05 16:08:00 93 /min Universi ty of [place] [facility] Body temperature 2022-12-05 16:08:00 36.72 Rocio Univ ersity of [facility] Branch Respiratory rate 2022-12-05 16:08:00 16 /min Univ ersity of [facility] Body height 2022-12-05 16:08:00 162.6 cm Universi ty of [facility] Body weight 2022-12-05 16:08:00 67.132 kg Universi ty of [facility] Branch BMI 2022-12-05 16:08:00 25.40 kg/m2 Universi ty of [facility] Branch Systolic blood 2022-11-01 17:05:00 128 mm[Hg] Univer sity of pressure [facility] Branch Diastolic blood 2022-11-01 17:05:00 78 mm[Hg] Unive rsity of pressure [facility] Branch Heart rate 2022-11-01 17:05:00 85 /min Universi ty of [place] [facility] Body temperature 2022-11-01 17:05:00 36.72 Rocio Univ ersity of [facility] Branch Respiratory rate 2022-11-01 17:05:00 18 /min Univ ersity of [facility] Body height 2022-11-01 17:05:00 162.6 cm Universi ty of [place] [facility] Systolic blood 2022-09-26 16:36:00 122 mm[Hg] Univer sity of pressure [facility] Branch Diastolic blood 2022-09-26 16:36:00 66 mm[Hg] Unive rsity of pressure [facility] Branch Heart rate 2022-09-26 16:36:00 92 /min Universi ty of [facility] Body temperature 2022-09-26 16:36:00 36.67 Rocio Univ ersity of [facility] Branch Respiratory rate 2022-09-26 16:36:00 18 /min Univ ersity of [facility] Body height 2022-09-26 16:36:00 162.6 cm Universi ty of [facility] Systolic blood 2022-08-29 17:24:00 110 mm[Hg] Univer sity of pressure [facility] Diastolic blood 2022-08-29 17:24:00 66 mm[Hg] Unive rsity of [facility] Heart rate 2022-08-29 17:24:00 95 /min Universi ty of [facility] Body temperature 2022-08-29 17:24:00 36.94 Rocio Univ ersity of [facility] Respiratory rate 2022-08-29 17:24:00 16 /min Univ ersity of [facility] Body height 2022-08-29 17:24:00 162.6 cm Universi ty of [facility] Body weight 2022-08-29 17:24:00 60.419 kg Universi ty of [facility] BMI 2022-08-29 17:24:00 22.86 kg/m2 Universi ty of [facility] Oxygen saturation 2022-08-29 17:24:00 99 /min Uni versity of in Arterial blood [facility] by Pulse oximetry Branch Systolic blood 2022-08-28 19:31:00 116 mm[Hg] Univer sity of pressure [facility] Diastolic blood 2022-08-28 19:31:00 71 mm[Hg] Unive rsity of pressure [facility] Heart rate 2022-08-28 19:31:00 90 /min Universi ty of [facility] Body temperature 2022-08-28 19:31:00 36.56 Rocio Univ ersity of [facility] Respiratory rate 2022-08-28 19:31:00 18 /min [facility] 2022-08-28 19:31:00 162.6 cm [facility] Systolic blood 2022-08-01 20:45:00 115 mm[Hg] Univer sity of pressure [facility] Diastolic blood 2022-08-01 20:45:00 74 mm[Hg] Unive rsity of pressure [facility] Heart rate 2022-08-01 20:45:00 94 /min [facility] Body temperature 2022-08-01 20:45:00 36.67 Rocio [facility] Respiratory rate 2022-08-01 20:45:00 18 /min [facility] Body height 2022-08-01 20:45:00 162.6 cm [facility] Body weight 2022-08-01 20:45:00 68.04 kg per partner [facility] BMI 2022-08-01 20:45:00 25.75 kg/m2 [facility] Procedures Procedure Date / Time Performing Clinician Source Performed CBC WITH DIFF 2023-02-15 11:13:00 Adum, Marisol Lua [facility] CENTRAL NEURAXIAL BLOCK 2023-02-14 11:00:[facility] 2023-02-14 10:05:00 Adum, Marisol Lua [facility] SCREEN CBC WITH DIFF 2023-02-14 09:25:00 Adum, Marisol Lua [facility] HEPATITIS B SURFACE 2023-02-14 09:25:00 Adum, Marisol Lua [facility] ANTIGEN [facility] HB ABO GROUPING 2023-02-14 09:25:00 Adum, Marisol Lua [facility] ADC OR BAKARI ONLY - 2023-02-14 09:25:00 [facility] HIV 1/2 AG-AB WITH 2023-02-14 09:25:00 Adum, Marisol Lua [facility] REFLEX Medical Branch POCT URINALYSIS W/O 2023-02-09 21:24:00 [facility] SPECIFIC GRAVITY [facility] DSU PRE-OP 2023-02-09 05:01:00 Doctor Unassigned, Ely kaur [facility] POCT URINALYSIS W/O 2023-01-24 00:00:00 Adum, [facility] SPECIFIC [place] [facility] URINE CULTURE 2023-01-03 21:31:00 Adum, Marisol Lua [facility] POCT URINALYSIS W/O 2023-01-03 21:30:00 Adum, [facility] [place]CIFIC [place] Medical Branch POCT URINALYSIS W/O 2023-01-03 19:21:00 Adum, [facility] SPECIFIC GRAVITY [facility] POCT URINALYSIS W/O 2022-12-19 00:00:00 [facility]um[facility] 3 HR GLUCOSE TOLERANCE 2022-12-12 16:55:00 [facility] GLUCOSE TOLERANCE 2022-12-12 15:53:00 Britt[facility] HB ABO GROUPING 2022-12-12 15:00:00 Adum, Marisol Lua [place] [facility] 1 HR GLUCOSE TOLERANCE 2022-12-12 15:00:00 [facility] 2022-12-12 13:49:00 Brittany Hansen Universi ty [facility] CBC WITH DIFF 2022-12-12 13:49:00 Brittany Hansen Universi ty [facility] 3 HR GLUCOSE TOLERANCE 2022-12-12 13:49:00 [facility] PANEL [facility] HIV 1/2 AG-AB WITH 2022-12-12 13:49:00 Brittany Hansen Unive [facility] REFLEX [facility] Branch POCT URINALYSIS W/O 2022-12-05 00:00:00 Adum, [facility] SPECIFIC GRAVITY Medical Branch POCT URINALYSIS W/O 2022-11-01 00:00:00 Brittany Hansen [facility] SPECIFIC GRAVITY [facility] AUTHORIZATION FOR 2022-10-09 06:01:00 Doctor Unassigned, No Univ [facility] RELEASE OF PHI Name Medical Branch POCT URINALYSIS W/O 2022-09-26 00:00:00 Adum, Marisol Lua [facility] SPECIFIC [facility] 1 HR GLUCOSE TOLERANCE 2022-08-28 16:55:00 Adum, Marisol [facility]ua [facility] TEST [facility] GLUCOSE FASTING 2022-08-28 15:49:00 Adum, Marisol Lua [facility] CONSENT/REFUSAL FOR 2022-08-28 14:58:00 Doctor Unassigned, No [facility] DIAGNOSIS AND TREATMENT Name [facility] GLUCOSE 1 HOUR POST 2022-08-03 19:22:00 Adum, Marisol Lua [facility] URINE CULTURE 2022-08-03 19:18:00 Adum, Marisol Lua [facility] CREATININE U 24 HR 2022-08-03 18:16:00 Adum, Marisol Lua [facility] PROTEIN QUANT U/24H 2022-08-03 18:16:00 Adum, Marisol Lua [facility] CBC WITH DIFF 2022-08-03 18:16:00 Adum, Marisol Lua [facility] LACTATE DEHYDROGENASE 2022-08-03 18:16:00 Adum, Marisol Lua [facility] URIC ACID 2022-08-03 18:16:00 Adum, Marisol Lua [facility] COMP. METABOLIC PANEL 2022-08-03 18:16:00 Adum, Marisol Lua [facility] ([id number]) [facility] URINE DRUG (IMMUNOASSAY) 2022-08-03 18:16:00 Adum, Marisol Lua [facility] DRUG Medical [facility] nc SCREEN RUBELLA SCREEN IGG 2022-08-03 18:16:00 Adum, Marisol Lua [facility] VZV ANTIBODY SCREEN 2022-08-03 18:16:00 Adum, Marisol Lua [facility] HEPATITIS B SURFACE 2022-08-03 18:16:00 Adum, Marisol Lua [facility] ANTIGEN [facility] HCV ANTIBODY 2022-08-03 18:16:00 Adum, Marisol Lua [facility] ADC OR BAKARI ONLY - 2022-08-03 18:16:00 Adum, Marisol Lua [facility] RPR [facility] HIV 1/2 AG-AB WITH 2022-08-03 18:16:00 Adum, Marisol Lua [facility] REFLEX [facility] HB ABO GROUPING 2022-08-03 18:11:00 Adum, Marisol Lua [facility] US OB TRANSVAGINAL 2022-08-01 23:58:59 Adum, Marisol Lua [facility] GC & CHLAMYDIA AMPLIFIED 2022-08-01 22:24:00 Adum, Marisol L[facility] 2022-08-01 22:24:00 Adum, Marisol Lua [facility] FL[facility] ULTRASOUND 2022-08-01 06:01:00 Doctor Unassigned, No [facility] POCT TEST 2022-08-01 00:00:00 Adum, Marisol Lua [facility] POCT URINALYSIS W/O 2022-08-01 00:00:00 Adum, Marisol Lua [facility] SPECIFIC GRAVITY [facility] Encounters Start End Encounter Admission Attending Care Care Encounter Source Date/Time Date/Time Type Type Clinicians Facility Department ID 2023-02-23 2023-02-23 Telephone Adum, [facility] 1..[id number] Univers 00:00:00 00:00:00 Marisol DAVIS [id number] ity [facility] [place] [phone] [place] dical [address] BUILDING 2023-02-20 2023-02-20 [facility] [id number] Univers 00:00:00 00:00:00 Marisol GUTIÉRREZ [id number] i ty of [place] [id number] [facility] [address] 2023-02-14 2023-02-[address] [facility], [facility] REZA [id number] Univers 02:39:00 13:30:00 MARISOL álvarez [facility] 2023-02-14 2023-02-16 Hospital [facility] [id number] Univers 02:39:00 13:30:00 Encounter Marisol DAVIS [id number] ity of [facility] 4.2.7.2.686 [facility] [id number] [place] [id number] [place] 2023-02-14 2023-02-14 Anesthesia Griffin Thompson [facility] [id number] Univers 05:35:00 18:10:00 Event Sergo Mueller 350.1.13. 10 ity of [facility] 4.2.7.2.686 [facility] [id number] [address] 2023-02-09 2023-02-09 Application Spec Margy, Chip Lab Main [facility] [id number] Univers 17:15:00 17:30:00 Visit ZakKavithaMarisol Chanell DAVIS [id number] ity of [facility] 4.2.7.2.686 [facility] PROFESSIO [id number] Me dical NAL [address] [facility] 2023-02-09 2023-02-09 [facility] [id number] Univers 16:00:00 17:07:46 MARISOL álvarez [facility] 2023-02-09 2023-02-09 [facility] [id number] Univers 16:00:00 17:07:46 Marisol DAVIS [id number] ity of Visit MARCUS HOOK 4.2.7.2.686 [facility] PROFESSIO [phone] Me dical NAL 134 [facility] 2023-02-09 2023-02-09 Orders Doctor KIRK [id number] Univers 00:00:00 00:00:00 Only Unassigned, MISAEL [id number] ity of [place] [facility] 4.2.7.2.686 Vivek as [id number] [address] 2023-01-24 2023-01-24 [facility]patient [facility] [id number] Univers 13:15:00 14:06:27 MARISOL ity [facility] 2023-01-24 2023-01-24 [facility] [id number] Univers 13:15:00 14:06:27 Marisol GUTIÉRREZ [id number] ity of [place] [facility] [id number] [address] 2023-01-17 2023-01-17 [facility] [id number] Univers 10:00:00 10:00:00 MARISOL [facility] 2023-01-16 Telephone [place] [address].2.840.11 [id number] Univers 00:00:00 00:00:00 Brittany GUTIÉRREZ 350.1.13.10 it y of [place] [id number] [address] 2023-01-08 2023-01-08 Application Spec [facility], [facility] 1.2 .840.114 [id number] Univers 08:00:00 08:45:00 Visit Ashley Crandall FLIGHT CONTROLS ENGINEER 350.1.13.10 ity of REGIONAL 4.2.7.2.686 [place] as MATERNAL [phone] Med ical & CHILD [address] [place] [address] 2023-01-08 2023-01-08 Outpatient P ASHLEY CRANDALL [facility] [id number] Univers 08:00:00 08:00:00 ASHLEY CRANDALL itnancy [facility] 2023-01-08 2023-01-08 [facility] 1.2.840.114 [id number] Univers 00:00:00 00:00:00 Marisol GUTIÉRREZ 350.1.13.10 i ty of [place] [id number] [address] 2023-01-03 2023-01-03 [facility] [id number] Univers 13:15:00 14:20:40 MARISOL álvarez [facility] 2023-01-03 2023-01-03 [facility] 1.2.340.010 [id number] Univers 13:15:00 14:20:40 Marisol GUTIÉRREZ 350.1.13.10 ity of [place] [id number] [address] 2022-12-29 2022-12-29 Refill [facility] 1.2.840.114 [id number] Univers 00:00:00 00:00:00 Brittany GUTIÉRREZ 350.1.13.10 it y of [place] [id number] [address] 2022-12-19 2022-12-19 [facility] [id number] Univers 13:15:00 14:05:06 MARISOL álvarez [facility] 2022-12-19 2022-12-19 Routine [facility] 1.2.662.886 [id number] Univers 13:15:00 14:05:06 Marisol Lua BROCK 350.1.13.10 ity of [place] [id number] [address] 2022-12-14 2022-12-14 Telephone [facility] 12.840.11 4 [id number] Univers 00:00:00 00:00:00 Brittany GUTIÉRREZ 350.1.13.10 it y of [place] [id number] [address] 2022-12-14 2022-12-14 Telephone [facility] 1.2.840.11 4 [id number] Univers 00:00:00 00:00:00 Brittany GUTIÉRREZ 350.1.13.10 it y of [place] [id number] [address] 2022-12-12 2022-12-12 Application Spec Margy, Chip [facility] Main [facility] 1.2.8 40.114 [id number] Univers 08:45:00 09:00:00 Visit Adum, Marisol DAVIS 350.1.13.10 ity of [place] [id number] Ga dical [address] 2022-12-12 2022-12-12 Outpatient R ADUM, [facility] [id number] Univers 08:45:00 08:45:00 MARISOL álvarez [facility] 2022-12-06 2022-12-06 [address] [facility] 1.2.840.114 10 [id number] Univers 00:00:00 00:00:00 Marisol GUTIÉRREZ 350.1.13.10 i [place] [id number] [address] 2022-12-05 2022-12-05 Outpatient R ADUM, [facility] [id number] Univers 11:00:00 11:40:54 MARISOL álvarez [facility] 2022-12-05 2022-12-05 Routine Adum, [facility] 1.2.812.734 [id number] Univers 11:00:00 11:40:54 Marisol GUTIÉRRZE 350.1.13.10 ity of [place] [id number] [address] 2022-11-29 2022-11-29 Outpatient R ADUM, [facility] [id number] Univers 10:30:00 10:30:00 MARISOL álvarez [facility] 2022-11-01 2022-11-01 Routine Tritschler, [facility] 1.2. 840.114 [id number] Univers 10:45:00 11:52:50 AdumMarisol 350.1.13.10 ity of Visit [place] [id number] [address] 2022-11-01 2022-11-01 Outpatient R ZAK [facility] [id number] Univers 10:45:00 11:52:50 MARISOL ity [facility] 2022-11-01 2022-11-01 Telephone Tyrone [facility] 1.2.840.11 4 [id number] Univers 00:00:00 00:00:00 Brittany GUTIÉRREZ 350.1.13.10 it y of [place] 4.2.[place].2.[place] [id number] [address] 2022-10-25 2022-10-25 Outpatient R ZAK [facility] [id number] Univers 10:30:00 10:30:00 [facility] 2022-10-09 2022-10-09 Telemedici Faculty, Emilio [facility] 1..840.114 [id number] Univers 13:00:00 13:30:00 ne Visit Andreea Chu FLIGHT CONTROLS ENGINEER 350.1.13.10 ity of [facility] 4.2.7.2.686 [place]ivek as MATERNAL [id number] Med ical & CHILD 107 [facility] 2022-10-09 2022-10-09 Outpatient R ANDREEA CHU [facility] [id number] Univers 13:00:00 13:00:00 ANDREEA CHU [facility] 2022-10-09 2022-10-09 Application Spec [facility]trasound, [facility] 1.2 .840.114 [id number] Univers 10:00:00 11:15:00 Visit Andreea Chu FLIGHT CONTROLS ENGINEER 350.1.13.10 ity of [place] Blas [place] 4.2.7.2.686 [place] MATERNAL [phone] Med ical & CHILD 369 [facility] 2022-10-09 2022-10-09 Orders Doctor KIRK 1.2.840.114 [id number] Univers 00:00:00 00:00:00 Only Unassigned, MISAEL 350.1.13.10 ity of [place] [facility] 4.2.7.2.686 Vivek as [id number] [address] 2022-09-28 2022-09-28 [facility] 1.2.464.701 [id number] Univers 00:00:00 00:00:00 Marisol GUTIÉRREZ 350.1.13.10 i ty of [place] [id number] [address] 2022-09-26 2022-09-26 Outpatient R AD, [facility] [id number] Univers 10:45:00 11:17:04 MARISOL ity of [facility] 2022-09-26 2022-09-26 [address] [facility] 1.2.967.437 [id number] Univers 10:45:00 11:17:04 Marisol GUTIÉRREZ 350.1.13.10 ity of [place] [id number] [address] 2022-09-20 2022-09-20 Telephone [facility] 1.2.840.114 [id number] Univers 00:00:00 00:00:00 Marisol GUTIÉRREZ 350.1.13.10 i ty [place] [id number] [address] 2022-09-13 2022-09-13 Telephone [facility] 1.2.840.114 [id number] Univers 00:00:00 00:00:00 Marisol GUTIÉRREZ 350.1.13.10 i ty [place] [id number] [address] 2022-09-06 2022-09-06 Telephone [facility] 1.2.680.983 [id number] Univers 00:00:00 00:00:00 Viktoria FLIGHT CONTROLS ENGINEER 350.1.13.10 it y of REGIONAL 4.2.7.2.686 [place] as MATERNAL [id number] [facility] ical & CHILD [address] [place] [address] 2022-09-04 2022-09-04 Application Spec 2, Adc Lab [facility] 1.2.840.114 [id number] Univers 10:45:00 10:52:52 Visit AdMarisol montelongo SUSAN 350.1.13.10 ity of [place] [id number] Ga dical [address] 2022-09-04 2022-09-04 Outpatient R ADUM, [facility] [id number] Univers 10:45:00 10:45:00 MARISOL itnancy [facility] 2022-09-01 2022-09-01 [facility] 1.2.102.110 [id number] Univers 00:00:00 00:00:00 Viktoria FLIGHT CONTROLS ENGINEER 350.1.13.10 it y of [facility] 4.2.7.2.686 [place]ivek as MATERNAL [id number] Med ical & CHILD 124 [facility] 2022-08-29 2022-08-29 Outpatient R ZAK, [facility] [id number] Univers 10:30:00 11:57:49 MARISOL itnancy [facility] 2022-08-29 2022-08-29 Routine Adum, [facility] 1.2.345.501 [id number] Univers 10:30:00 11:57:49 Marisol Lua BROCK 350.1.13.10 ity of [place] [id number] [address] 2022-08-28 2022-08-28 Outpatient R ERNESTINA [facility] [id number] Univers 13:00:00 14:38:27 NEETU ity [facility] 2022-08-28 2022-08-28 Office Faculty, Emilio Naranjo [facility] 1.2 .840.114 [id number] Univers 13:00:00 14:38:27 Visit Ernestina Nashnancy Dudley FLIGHT CONTROLS ENGINEER 350.1. 13.10 ity of [facility] 4.2.7.2.686 [place]k as MATERNAL [id number] Med ical & CHILD 107 [facility] 2022-08-28 2022-08-28 Application Spec Margy, Adc Lab Main [facility] 1.2.8 40.114 [id number] Univers 09:00:00 09:15:00 Visit Adum, Marisol DAVIS 350.1.13.10 ity [facility] [place] [id number] [facility] 353 [facility] 2022-08-28 2022-08-28 Orders Doctor REAGAN 1.2.840.114 [id number] Univers 00:00:00 00:00:00 Only Unassigned, MISAEL 350.1.13.10 ity of [place] [facility] 4.2.7.2.686 V[place] as [id number] [address] 2022-08-18 2022-08-18 Case Adum, [facility] 1.2.840.114 [id number] Univers 00:00:00 00:00:00 Management Marisol Chanell DAVIS 350.1.13.10 ity of [facility] [place].2.[place] [id number] [facility] 134 [facility] 2022-08-18 2022-08-18 [address] [facility] 1.2.840.114 [id number] Univers 00:00:00 00:00:00 Marisol GUTIÉRREZ 350.1.13.10 i ty of [place] [id number] [facility] [address] 2022-08-03 2022-08-03 Application Spec Margy, Adc Lab Main [facility] 1.2.8 40.114 [id number] Univers 12:15:00 12:30:00 Visit Adum, Marisol DAVILAKAILEE 350.1.13.10 ity of [facility] 4.2.7.2.[place] [id number] [facility] 353 [facility] 2022-08-03 2022-08-03 [facility] [id number] Univers 12:15:00 12:15:00 MARISOL álvarez [facility] 2022-08-01 2022-08-01 [facility] [id number] Univers 14:30:00 16:17:41 MARISOL álvarez [facility] 2022-08-01 2022-08-01 Initial Adum, [facility] 1.2.136.909 [id number] Univers 14:30:00 16:17:41 Marisol GUTIÉRREZ 350.1.13.10 ity of [place] [id number] [address] 2022-08-01 2022-08-01 Orders Doctor REAGAN 1.2.840.114 [id number] Univers 00:00:00 00:00:00 Only Unassigned, MISAEL 350.1.13.10 ity of [place] [facility] 4.2.7.2.686 [place] as [id number] [address] 2022-07-26 2022-07-26 Outpatient R ADUM, [facility] [id number] Univers 14:00:00 14:00:00 MARISOL álvarez [facility] 2022-04-29 2022-04-[address] [facility] 1.2.840.114 [id number] Univers 00:00:00 00:00:00 BROCK 350.1.13.10 it y [place] [id number] [address] 2022-04-10 2022-04-[address] [facility] 1.2.840.114 [id number] Univers 00:00:00 00:00:00 BROCK 350.1.13.10 it y [place] [id number] [address] 2022-04-10 2022-04-[address] [facility] 1.2.840.114 [id number] Univers 00:00:00 00:00:00 BROCK 350.1.13.10 it y of [place] [id number] [address] 2022-04-10 2022-04-[address] [facility] 1.2.840.11 4 [id number] Univers 00:00:00 00:00:00 BROCK 350.1.13.10 it y of [place] 4[place] [id number] [address] 2022-04-07 2022-04-07 Telephone Stacey Floyd [place] 1.2.840.11 4 [id number] Univers 00:00:00 00:00:00 BROCK 350.1.13.10 it y of [place] [id number] [address] 2022-04-06 2022-04-06 Case Stacey Floyd [place] 1.2.840.114 [id number] Univers 00:00:00 00:00:00 Management BROCK 350.1.13.10 it[place] [id number] [address] 2022-04-06 2022-04-06 Telephone Stacey Floyd CAJULIET [place] 1.2.840.11 4 [id number] Univers 00:00:00 00:00:00 BROCK 350.1.13.10 it y of [place] [id number] [address] 2022-04-05 2022-04-05 Telephone Aleksandar [facility] 1.2.840.114 [id number] Univers 00:00:00 00:00:00 [facility] 350.1.13.10 ity of [place] 4.2.7.2.686 Vivek as JOSHUA?BLEA [id number] Ga maya MARIALUISA [address] [place] [address] MEDICAL OFFICE BUILDING 2022-04-03 2022-04-03 Outpatient R STACEY FLOYD [facility] [id number] Univers 09:30:00 10:18:14 ity of [facility] 2022-04-03 2022-04-03 Initial Stacey Floyd CAJULIET [place] 1.2.840.114 [id number] Univers 09:30:00 10:18:14 BROCK 350.1.13.10 i ty of Visit [place] [id number] [address] 2022-04-03 2022-04-03 Outpatient R STACEY FLOYD [facility] [id number] Univers 09:30:00 10:18:14 ity of [facility] 2022-04-03 2022-04-03 Orders Doctor KIRK 1.2.840.114 [id number] Univers 00:00:00 00:00:00 Only Unassigned, MISAEL 350.1.13.10 [facility] 4.2.7.2.686 V[place]k as [id number] [facility] [address] 2021-05-04 2021-05-04 [facility] 1.2.840.114 [id number] Univers 00:00:00 00:00:00 Haim Davis 350.1.13.10 ity of [place] [id number] Ga dic[address] 2021-03-17 2021-03-17 [facility]karsten [facility] 1.2.840.114 [id number] Univers 00:00:00 00:00:00 Haim Davis 350.1.13.10 ity of [place] [id number] [address] 2021-01-03 2021-01-03 Office Aleksandar [facility] 1.2.840.114 [id number] Univers 10:48:34 11:40:47 Visit Haim Davis 350.1.13.10 ity of [place] [id number] Ga dic[address] 2021-01-03 2021-01-03 Outpatient R HAIM HUERTAS [facility] [id number] Univers 11:00:00 11:00:00 HAIM HUERTAS of [facility] 2020-12-31 2020-12-31 Refkarsten Huertas [facility] 1.2.840.114 [id number] Univers 00:00:00 00:00:00 Haim Davis 350.1.13.10 ity of [place] [id number] Ga dicde nal 2 [facility] 2020-12-28 2020-12-28 Outpatient HAIM WATERS [facility] [id number] Univers 11:00:00 11:00:00 HAIM HUERTAS [facility] 2020-12-21 2020-12-21 Outpatient HAIM WATERS [facility] [id number] Univers 15:40:00 15:40:00 HAIM HUERTAS nancy [facility] 2020-12-15 2020-12-15 [facility] 1.2.840.114 [id number] Univers 00:00:00 00:00:00 Haim Davis 350.1.13.10 ity of [place] [id number] [address] 2020-09-26 2020-09-26 [facility] 1.2.840.114 [id number] Univers 00:00:00 00:00:00 Haim Davis 350.1.13.10 ity of [place] [id number] [address] 2020-04-14 2020-04-14 Cal [facility] 1.2.840.114 [id number] Univers 00:00:00 00:00:00 Haim Davis 350.1.13.10 ity of [place] [phone] Ga dicde nal [address] [place] [address] 2020-04-13 2020-04-13 Cal [facility] 1.2.840.114 [id number] Univers 00:00:00 00:00:00 Haim Davis 350.1.13.10 ity of [place] [id number] [address] 2020-02-20 2020-02-20 Telemedici [facility] 1.2.840.114 [id number] Univers 09:53:16 10:13:16 ne Visit Haim Davis 350.1.13.10 ity of [place] [id number] [address] 2020-02-20 2020-02-20 Luis Antonio KESSLERHAIM Hassan [facility] [id number] Univers 09:40:00 09:40:00 ALEKSANDAR, HAIM ity [facility] 2020-02-13 2020-02-13 Telephone Aleksandar [facility] 1.2.840.114 [id number] Univers 00:00:00 00:00:00 Haim Davis 350.1.13.10 ity of [place] [id number] [address] 2020-02-13 2020-02-13 Refkarsten [facility] 1.2.840.114 [id number] Univers 00:00:00 00:00:00 Haim Davis 350.1.13.10 ity of [place] [phone] [address] 2019-12-05 2019-12-05 Refkarsten [facility] 1.2.840.114 [id number] Univers 00:00:00 00:00:00 Haim Davis 350.1.13.10 ity of [place] [phone] [address] 2019-10-03 2019-10-03 Refkarsten [facility] 1.2.840.114 [id number] Univers 00:00:00 00:00:00 Haim Davis 350.1.13.10 ity of [place] [phone] [address] Results Test Description Test Time Test Comments Results Result Comments Source CBC with Differential 2023-02-15 11:44:36 Test Item Value Reference Range Interpretation Comme nts WBC (test code = 6690-2) 16.75 See_Comment H [A utomated message] The system which ge nerated this result transmit junie reference range: 4.30 - 1 1.10 10*3/?L. The reference r julia was not used to interpr et this result as normal/abnor mal. RBC (test code = 789-8) 2.99 See_Comment L [Au tomated message] The system which Zipcar nerated this result transmit junie reference range: 3.93 - 5 .25 10*6/?L. The reference r julia was not used to interpr et this result as normal/abnor mal. HGB (test code = 718-7) 9.4 g/dL 11.6-15.0 L HCT (test code = 4544-3) 28.8 % 35.7-45.2 L MCV (test code = 787-2) 96.3 fL 80.6-95.5 H MCH (test code = 785-6) 31.4 pg 25.9-32.8 MCHC (test code = 786-4) 32.6 g/dL 31.6-35.1 RDW-SD (test code = 86604-2) 49.9 fL 39.0-49.9 RDW-CV (test code = 788-0) 14.2 % 12.0-15.5 PLT (test code = 777-3) 359 See_Comment H [Au tomated message] The system which Zipcar nerated this result transmit junie reference range: 166 - 35 8 10*3/?L. The reference range was not used to interpret th is result as normal/abnormal . MPV (test code = 21189-3) 10.9 fL 9.5-12.9 NRBC/100 WBC (test code = 0.0 See_Comment [ Automated message] The [id number]) system which Zipcar nerated this result transmit junie reference range: 0.0 - 10 .0 /100 WBCs. The reference r julia was not used to interpr et this result as normal/abnor mal. NRBC x10^3 (test code = See_Comment [Au tomated message] The [id number]) system which Zipcar nerated this result transmit junie reference range: 10*3/?L. The reference range was not u sed to interpret this result as normal/abnormal . GRAN MAT (NEUT) % (test code 71.7 % = 770-8) IMM GRAN % (test code = 0.70 % [id number]) LYMPH % (test code = 736-9) 18.0 % MONO % (test code = 5905-5) 7.8 % EOS % (test code = 713-8) 1.3 % BASO % (test code = 706-2) 0.5 % GRAN MAT x10^3(ANC) (test 12.02 10*3/uL 1.88-7.09 H code = 3480288137) IMM GRAN x10^3 (test code = 0.11 10*3/uL 0.00-0.06 H 6334133972) LYMPH x10^3 (test code = 3.02 10*3/uL 1.32-3.29 731-0) MONO x10^3 (test code = 1.30 10*3/uL 0.33-0.92 H 742-7) EOS x10^3 (test code = 0.21 10*3/uL 0.03-0.39 711-2) BASO x10^3 (test code = 0.09 10*3/uL 0.01-0.07 H 704-7) Lab Interpretation (test Abnormal code = 69856-7) [facility] BAKARI CARLOS - [id number] 09:36:38 Test Item Value Reference Range Interpretation Comments RPR (Qualitative) (test code = Nonreactive Nonreactive 73134-9) Lab Interpretation (test code = Normal 06300-6) [facility] [id number] 15:51:25 Test Item Value Reference Range Interpretation Comments HBsAg Semi-Quantitative (test code = 0.05 Negative 5195-3) [facility] AG-AB WITH [id number] 11:40:44 Test Item Value Reference Range Interpretation Comments HIV 0.10 Negative Semi-quantitative (test code = 85741-0) PILAR (test code = Non-reactive for HIV-1 PILAR) antigen and HIV-1/HIV-2 antibodies. ?No laboratory evidence of HIV infection. ?Repeat in 2-4 weeks if acute HIV infection is suspected. [facility] with [id number] 09:53:55 Test Item Value Reference Range Interpretation Comments WBC (test code = 10.82 See_Comment [Automated 6690-2) message] The sy stem which generated this result transmitted reference range : 4.30 - 11.10 10*3/?L. The reference range was not used to interpret this result as normal/abnormal . RBC (test code = 3.37 See_Comment L [Automated 789-8) message] The sy stem which generated this result transmitted reference range : 3.93 - 5.25 10*6/?L. The reference range was not used to interpret this result as normal/abnormal . HGB (test code = 10.6 g/dL 11.6-15.0 L 718-7) HCT (test code = 34.1 % 35.7-45.2 L 4544-3) MCV (test code = 101.2 fL 80.6-95.5 H 787-2) MCH (test code = 31.5 pg 25.9-32.8 785-6) MCHC (test code = 31.1 g/dL 31.6-35.1 L 786-4) RDW-SD (test code = 53.7 fL 39.0-49.9 H 75094-9) RDW-CV (test code = 14.5 % 12.0-15.5 788-0) PLT (test code = 369 See_Comment H [Automated 777-3) message] The sy stem which generated this result transmitted reference range : 166 - 358 10*3/ ?L. The reference r julia was not used to interpret this result as normal/abnormal . MPV (test code = 10.5 fL 9.5-12.9 47344-6) NRBC/100 WBC (test 0.2 See_Comment [Automat ed code = [id number]) message] The system which generated this result transmitted reference range : 0.0 - 10.0 /100 WBCs. The refer ence range was not u sed to interpret th is result as normal/abnormal . NRBC x10^3 (test code 0.02 See_Comment [Auto mated = [id number]) message] The s ystem which generated this result transmitted reference range : 10*3/?L. The reference range was not used to interpret this result as normal/abnormal . GRAN MAT (NEUT) % 67.1 % (test code = 770-8) IMM GRAN % (test code 1.20 % = [id number]) LYMPH % (test code = 22.3 % 736-9) MONO % (test code = 7.9 % 5905-5) EOS % (test code = 1.0 % 713-8) BASO % (test code = 0.5 % 706-2) GRAN MAT x10^3(ANC) 7.26 10*3/uL 1.88-7.09 H (test code = [id number]) IMM GRAN x10^3 (test 0.13 10*3/uL 0.00-0.06 H code = [id number]) LYMPH x10^3 (test code 2.41 10*3/uL 1.32-3.29 = 731-0) MONO x10^3 (test code 0.86 10*3/uL 0.33-0.92 = 742-7) EOS x10^3 (test code = 0.11 10*3/uL 0.03-0.39 711-2) BASO x10^3 (test code 0.05 10*3/uL 0.01-0.07 = 704-7) Lab Interpretation Abnormal (test code = 61517-5) [facility] [id number] 09:51:00 Test Item Value Reference Range Interpretation Comments ABO & RH (test code = 20) O Positive IAT (test code = 1185) Negative [facility]/O SPECIFIC [id number] 21:30:00 Test Item Value Reference Range Interpretation Comments POCT PH U (test code = 3254) n/a 5-8 POCT U LEUK EST (test code = n/a Negative - Negative 3263) POCT U NIT (test code = 3262) n/a Negative - Negative POCT U PROT (test code = 3259) negative Negative - Negative POCT U GLU (test code = 3256) negative Negative - Negative POCT U KETONE (test code = 3258) n/a Negative - Negative POCT U BLD (test code = 3257) n/a Negative - Negative Lab Interpretation (test code = Normal 26871-0) [facility] URINALYSIS W/O SPECIFIC [id number] 19:03:00 Test Item Value Reference Range Interpretation Comments POCT PH U (test code = 3254) N/A 5-8 POCT U LEUK EST (test code = N/A Negative - Negative 3263) POCT U NIT (test code = 3262) N/A Negative - Negative POCT U PROT (test code = 3259) Negative Negative - Negative POCT U GLU (test code = 3256) Negative Negative - Negative POCT U KETONE (test code = 3258) N/A Negative - Negative POCT U BLD (test code = 3257) N/A Negative - Negative [facility] URINALYSIS W/O SPECIFIC [id number] 21:30:00 Test Item Value Reference Range Interpretation Comments POCT PH U (test code = 6 mg/dl 5-8 3254) POCT U LEUK EST (test 1+ Negative - code = 3263) Negative POCT U NIT (test code negative Negative - = 3262) Negative POCT U PROT (test code negative Negative - = 3259) Negative POCT U GLU (test code negative Negative - = 3256) Negative POCT U KETONE (test negative Negative - code = 3258) Negative POCT U BLD (test code trace Negative - = 3257) Negative PILAR (test code = PILAR) accurate development and interpretation of all internal controls' Lab Interpretation Abnormal (test code = 27609-8) [facility] URINALYSIS W/O SPECIFIC [id number] 19:22:00 Test Item Value Reference Range Interpretation Comments POCT PH U (test code = na 5-8 3254) POCT U LEUK EST (test na Negative - code = 3263) Negative POCT U NIT (test code na Negative - = 3262) Negative POCT U PROT (test code negative Negative - = 3259) Negative POCT U GLU (test code negative Negative - = 3256) Negative POCT U KETONE (test na Negative - code = 3258) Negative POCT U BLD (test code na Negative - = 3257) Negative PILAR (test code = PILAR) accurate development and interpretation of all internal controls Lab Interpretation Normal (test code = 81599-8) [facility]/O SPECIFIC [id number] 18:12:00 Test Item Value Reference Range Interpretation Comments POCT PH U (test code = 3254) n/a 5-8 POCT U LEUK EST (test code = n/a Negative - Negative 3263) POCT U NIT (test code = 3262) n/a Negative - Negative POCT U PROT (test code = 3259) negative Negative - Negative POCT U GLU (test code = 3256) negative Negative - Negative POCT U KETONE (test code = 3258) n/a Negative - Negative POCT U BLD (test code = 3257) n/a Negative - Negative [facility] HR GLUCOSE TOLERANCE [id number] 18:01:01 Test Item Value Reference Range Interpretation Comments GLUC 3 HR (test code = 8542899147) 106 mg/dL 70-110 Lab Interpretation (test code = Normal 91424-4) [facility] HR GLUCOSE TOLERANCE [id number] 17:15:55 Test Item Value Reference Range Interpretation Comments GLUC 2 HR (test code = 5708594224) 103 mg/dL 70-120 Lab Interpretation (test code = Normal 14124-4) [facility] HR GLUCOSE TOLERANCE [id number] 16:22:51 Test Item Value Reference Range Interpretation Comments GLUC 1 HR (test code = 1578707639) 153 mg/dL 120-170 Lab Interpretation (test code = Normal 53663-9) [facility] AG-AB WITH [id number] 16:06:07 Test Item Value Reference Range Interpretation Comments HIV 0.09 Negative Semi-quantitative (test code = 28100-8) PILAR (test code = Non-reactive for HIV-1 PILAR) antigen and HIV-1/HIV-2 antibodies. ?No laboratory evidence of HIV infection. ?Repeat in 2-4 weeks if acute HIV infection is suspected. [facility] WITH [id number] 15:56:44 Test Item Value Reference Range Interpretation Comments WBC (test code = 17.52 See_Comment H [Automated 9771-2) message] The system which generated this result transmit junie reference range : 4.30 - 11.10 10*3/?L. The reference range was not used to interpret this result as normal/abnormal . RBC (test code = 3.06 See_Comment L [Automated 789-8) message] The system which generated this result transmit junie reference range : 3.93 - 5.25 10*6/?L. The reference range was not used to interpret this result as normal/abnormal . HGB (test code = 9.7 g/dL 11.6-15.0 L 718-7) HCT (test code = 29.0 % 35.7-45.2 L 4544-3) MCV (test code = 94.8 fL 80.6-95.5 787-2) MCH (test code = 31.7 pg 25.9-32.8 785-6) MCHC (test code = 33.4 g/dL 31.6-35.1 786-4) RDW-SD (test code = 43.8 fL 39.0-49.9 77063-9) RDW-CV (test code = 12.7 % 12.0-15.5 788-0) PLT (test code = 460 See_Comment H [Automated 777-3) message] The system which generated this result transmit junie reference range : 166 - 358 10*3/ ?L. The reference range was not u sed to interpret th is result as normal/abnormal . MPV (test code = 9.1 fL 9.5-12.9 L 81499-5) NRBC/100 WBC (test 0.0 See_Comment [Automat ed code = 3648828559) message] The system which generated this result transmit junie reference range : 0.0 - 10.0 /100 WBCs. The reference range was not used to interpret this result as normal/abnormal . NRBC x10^3 (test code See_Comment [Auto mated = 1343349466) message] The system which generated this result transmit junie reference range : 10*3/?L. The reference range was not used to interpret this result as normal/abnormal . GRAN MAT (NEUT) % 69.1 % (test code = 770-8) IMM GRAN % (test code 1.00 % = 1497208416) LYMPH % (test code = 19.3 % 736-9) MONO % (test code = 8.7 % 5905-5) EOS % (test code = 1.3 % 713-8) BASO % (test code = 0.6 % 706-2) GRAN MAT x10^3(ANC) 12.11 10*3/uL 1.88-7.09 H (test code = 4253570836) IMM GRAN x10^3 (test 0.17 10*3/uL 0.00-0.06 H code = 2405698278) LYMPH x10^3 (test code 3.39 10*3/uL 1.32-3.29 H = 731-0) MONO x10^3 (test code 1.52 10*3/uL 0.33-0.92 H = 742-7) EOS x10^3 (test code = 0.22 10*3/uL 0.03-0.39 711-2) BASO x10^3 (test code 0.11 10*3/uL 0.01-0.07 H = 704-7) ACANTHOCYTES (test 2+ See_Comment A [Automat ed code = 7789-1) message] The system which generated this result transmit junie reference range : 1+. The referen ce range was not u sed to interpret th is result as normal/abnormal . JACKIE CELLS (test code 2+ See_Comment A [Auto mated = 7790-9) message] The system which generated this result transmit junie reference range : (none). The reference range was not used to interpret this result as normal/abnormal . BANDS (test code = Increased A 2436769935) REACT LYMPHS (test Rare code = 1812601034) TOXIC CHANGES (test Present A code = 803-7) GIANT PLATELETS (test Present See_Comment A [Auto mated code = 5908-9) message] The system which generated this result transmit junie reference range : (none). The reference range was not used to interpret this result as normal/abnormal . Lab Interpretation Abnormal (test code = 76888-6) [facility] TaylorGLUCOSE [id number] 15:27:02 Test Item Value Reference Range Interpretation Comments GLU FASTNG (test code = 5432526343) 81 mg/dL 70-110 Lab Interpretation (test code = Normal 34697-6) [facility] TaylorPRENAT[facility] WORKUP, BLOOD [id number] 15:00:00 Test Item Value Reference Range Interpretation Comments ABO & RH (test code = 20) O Positive IAT (test code = 1185) Negative [facility] URINALYSIS W/O SPECIFIC [id number] 16:31:00 Test Item Value Reference Range Interpretation Comments POCT PH U (test code = 3254) n/a 5-8 POCT U LEUK EST (test code = n/a Negative - Negative 3263) POCT U NIT (test code = 3262) n/a Negative - Negative POCT U PROT (test code = 3259) negative Negative - Negative POCT U GLU (test code = 3256) negative Negative - Negative POCT U KETONE (test code = 3258) n/a Negative - Negative POCT U BLD (test code = 3257) n/a Negative - Negative [facility] TaylorPONE URINALYSIS W/O SPECIFIC [id number] 17:09:00 Test Item Value Reference Range Interpretation Comments POCT PH U (test code = 3254) 6 mg/dl 5-8 POCT U LEUK EST (test code = negative Negative - Negative 3263) POCT U NIT (test code = 3262) negative Negative - Negative POCT U PROT (test code = 3259) negative Negative - Negative POCT U GLU (test code = 3256) negative Negative - Negative POCT U KETONE (test code = 3258) negative Negative - Negative POCT U BLD (test code = 3257) negative Negative - Negative [facility] W/O SPECIFIC [id number] 16:35:00 Test Item Value Reference Range Interpretation Comments POCT PH U (test code = 3254) N/A 5-8 POCT U LEUK EST (test code = N/A Negative - Negative 3263) POCT U NIT (test code = 3262) N/A Negative - Negative POCT U PROT (test code = 3259) Negative Negative - Negative POCT U GLU (test code = 3256) Negative Negative - Negative POCT U KETONE (test code = 3258) N/A Negative - Negative POCT U BLD (test code = 3257) N/A Negative - Negative [facility] HR GLUCOSE TOLERANCE [id number] 18:07:41 Test Item Value Reference Range Interpretation Comments GLUC 1 HR (test code = 5806522044) 178 mg/dL 120-170 H Lab Interpretation (test code = Abnormal 94105-4) [facility] TaylorGLUCOSE [id number] 16:53:30 Test Item Value Reference Range Interpretation Comments GLU FASTNG (test code = 0221883723) 88 mg/dL 70-110 Lab Interpretation (test code = Normal 00200-0) [facility] TaylorRUBELLA SCREEN [id number] 17:44:14 Test Item Value Reference Range Interpretation Comments Rubella screen IgG Negative Negative (test code = 1911482089) PILAR (test code = PILAR) Positive - Indicates the patient was exposed to Rubella through infection or vaccination.Negative - Indicates the patient could be susceptible to Rubella infection.Equivocal - A second specimen should be sent. [facility] TaylorVZV ANTIBODY [id number] 17:44:14 Test Item Value Reference Range Interpretation Comments VZV IgG antibody Negative Negative (test code = 10186-3) PILAR (test code = PILAR) Positive - Indicates the patient was exposed to VZV through infection or vaccination.Negative - Indicates the patient could be susceptible to VZV infection.Equivocal - A second specimen should be sent for testing. [facility] TaylorADC OR [facility] ONLY - [id number] 09:25:53 Test Item Value Reference Range Interpretation Comments RPR (Qualitative) (test code = Nonreactive Nonreactive 48991-7) Lab Interpretation (test code = Normal 58826-7) [facility] TaylorHCV [id number] 22:43:11 Test Item Value Reference Range Interpretation Comments HCV Ab (test code = 31924-6) Negative HCV Semi-Quantitative (test code = 13794-7) [facility] TaylorHEPATITIS B SURFACE [id number] 22:26:11 Test Item Value Reference Range Interpretation Comments HBsAg Semi-Quantitative (test code = Negative Negative 5195-3) [facility] TaylorHI [facility]/2 AG-AB WITH [id number] 20:40:15 Test Item Value Reference Range Interpretation Comments HIV Negative Negative Semi-quantitative (test code = 35567-2) PILAR (test code = Non-reactive for HIV-1 PILAR) antigen and HIV-1/HIV-2 antibodies. ?No laboratory evidence of HIV infection. ?Repeat in 2-4 weeks if acute HIV infection is suspected. [facility] TaylorPRENAT[facility] WORK[facility], BLOOD [id number] 20:17:21 Test Item Value Reference Range Interpretation Comments ABO & RH (test code O Positive Performe d at [facility] = 20) Laboratory Serv [facility] [address] [place], [place] [id number] Free: [phone] A No. [id number] IAT (test code = Negative Performed a t [facility] 1185) Laboratory Serv [facility] [address] [place], [place] [address]Toll Free: [phone] A No. [id number] [facility] TaylorCOMP. METABOLIC PANEL (43425)2022-08-03 20:01:30 Test Item Value Reference Range Interpretation Comments NA (test code = 139 mmol/L 135-145 4433046948) K (test code = 4.7 mmol/L 3.5-5.0 8726717194) CL (test code = 109 mmol/L 98-108 H 6945795667) CO2 TOTAL (test code = 22 mmol/L 23-31 L 7188521240) AGAP (test code = 2-16 9059267771) BUN (test code = 7 mg/dL 7-23 4073476952) GLUCOSE (test code = 87 mg/dL 70-110 7633426013) CREATININE (test code = 0.45 mg/dL 0.50-1.04 L 2120051026) TOTAL BILI (test code = 0.3 mg/dL 0.1-1.1 9664519676) CALCIUM (test code = 10.3 mg/dL 8.6-10.6 6961964125) T PROTEIN (test code = 7.2 g/dL 6.3-8.2 8094794376) ALBUMIN (test code = 4.3 g/dL 3.5-5.0 7253298794) ALK PHOS (test code = 69 U/L 34-122 9360472067) ALTv (test code = 17 U/L 5-35 1742-6) AST(SGOT) (test code = 17 U/L 13-40 2030497594) eGFR (test code = mL/min/1.73m2 7138101943) PILAR (test code = PILAR) Association of Glomerular Filtration Rate (GFR) and Staging of Kidney Disease* + --+ --+ ------+| GFR (mL/min/1.73 m2) ?| With Kidney Damage ?| ?Without Kidney Damage+ --------+ --------+ +| ?>90 ?| ?Stage one ?| ? Normal ?+ ---+ ---+ -------+| ?60-89 ?| ?Stage two ?| ? Decreased GFR ? + --+ --+ ------+| ?30-59 ?| ?Stage three ?| ? Stage three ? + --+ --+ ------+| ?15-29 ?| ?Stage four ? | ? Stage four ?+ ---+ ---+ -------+| ?<15 (or dialysis) ? ?| ?Stage five ? | ? Stage five ?+ ---+ ---+ -------+ *Each stage assumes the associated GFR level has been in effect for at least three months. ?Stages 1 to 5, with or without kidney disease, indicate chronic kidney disease. Notes: Determination of stages one and two (with eGFR >59mL/min/1.73 m2) requires estimation of kidney damage for at least three months as defined by structural or functional abnormalities of the kidney, manifested by either:Pathological abnormalities or Markers of kidney damage (including abnormalities in the composition of the blood or urine or abnormalities in imaging tests). Lab Interpretation Abnormal (test code = 86206-1) [facility] TaylorURIC [id number] 20:01:10 Test Item Value Reference Range Interpretation Comments URIC ACID (test code = 7101388814) 1.6 mg/dL 2.9-6.0 L Lab Interpretation (test code = Abnormal 66544-4) [facility] TaylorLACTATE [id number] 19:59:29 Test Item Value Reference Range Interpretation Comments LDH (test code = 4047788032) 144 U/L 120-246 Lab Interpretation (test code = Normal 22490-6) [facility] WITH [id number] 18:37:17 Test Item Value Reference Range Interpretation Comments WBC (test code = See_Comment H [Automated 2690-2) message] The sy stem which generated this result transmitted reference range : 4.30 - 11.10 10*3/?L. The reference range was not used to interpret this result as normal/abnormal . RBC (test code = See_Comment [Automated 789-8) message] The sy stem which generated this result transmitted reference range : 3.93 - 5.25 10*6/?L. The reference range was not used to interpret this result as normal/abnormal . HGB (test code = 13.0 g/dL 11.6-15.0 718-7) HCT (test code = 37.8 % 35.7-45.2 4544-3) MCV (test code = 92.4 fL 80.6-95.5 787-2) MCH (test code = 31.8 pg 25.9-32.8 785-6) MCHC (test code = 34.4 g/dL 31.6-35.1 786-4) RDW-SD (test code = 46.0 fL 39.0-49.9 38022-8) RDW-CV (test code = 13.5 % 12.0-15.5 788-0) PLT (test code = See_Comment H [Automated 777-3) message] The sy stem which generated this result transmitted reference range : 166 - 358 10*3/ ?L. The reference r julia was not used to interpret this result as normal/abnormal . MPV (test code = 9.1 fL 9.5-12.9 L 92942-7) NRBC/100 WBC (test See_Comment [Automat ed code = 3860282757) message] The system which generated this result transmitted reference range : 0.0 - 10.0 /100 WBCs. The refer ence range was not u sed to interpret th is result as normal/abnormal . NRBC x10^3 (test code See_Comment [Auto mated = 9462390657) message] The s ystem which generated this result transmitted reference range : 10*3/?L. The reference range was not used to interpret this result as normal/abnormal . GRAN MAT (NEUT) % 68.1 % (test code = 770-8) IMM GRAN % (test code 0.40 % = 8781763097) LYMPH % (test code = 23.3 % 736-9) MONO % (test code = 6.6 % 5905-5) EOS % (test code = 1.0 % 713-8) BASO % (test code = 0.6 % 706-2) GRAN MAT x10^3(ANC) 8.86 10*3/uL 1.88-7.09 H (test code = 8765999699) IMM GRAN x10^3 (test 0.05 10*3/uL 0.00-0.06 code = 0837995751) LYMPH x10^3 (test code 3.04 10*3/uL 1.32-3.29 = 731-0) MONO x10^3 (test code 0.86 10*3/uL 0.33-0.92 = 742-7) EOS x10^3 (test code = 0.13 10*3/uL 0.03-0.39 711-2) BASO x10^3 (test code 0.08 10*3/uL 0.01-0.07 H = 704-7) Lab Interpretation Abnormal (test code = 46967-1) [facility] WITH [id number] 18:37:17 Test Item Value Reference Range Interpretation Comments WBC (test code = See_Comment H [Automated 6290-2) message] The sy stem which generated this result transmitted reference range : 4.30 - 11.10 10*3/?L. The reference range was not used to interpret this result as normal/abnormal . RBC (test code = See_Comment [Automated 559-8) message] The sy stem which generated this result transmitted reference range : 3.93 - 5.25 10*6/?L. The reference range was not used to interpret this result as normal/abnormal . HGB (test code = 13.0 g/dL 11.6-15.0 718-7) HCT (test code = 37.8 % 35.7-45.2 4544-3) MCV (test code = 92.4 fL 80.6-95.5 787-2) MCH (test code = 31.8 pg 25.9-32.8 785-6) MCHC (test code = 34.4 g/dL 31.6-35.1 786-4) RDW-SD (test code = 46.0 fL 39.0-49.9 12237-0) RDW-CV (test code = 13.5 % 12.0-15.5 788-0) PLT (test code = See_Comment H [Automated 777-3) message] The sy stem which generated this result transmitted reference range : 166 - 358 10*3/ ?L. The reference r julia was not used to interpret this result as normal/abnormal . MPV (test code = 9.1 fL 9.5-12.9 L 37688-3) NRBC/100 WBC (test See_Comment [Automat ed code = 2980200139) message] The system which generated this result transmitted reference range : 0.0 - 10.0 /100 WBCs. The refer ence range was not u sed to interpret th is result as normal/abnormal . NRBC x10^3 (test code See_Comment [Auto mated = 3402001966) message] The s ystem which generated this result transmitted reference range : 10*3/?L. The reference range was not used to interpret this result as normal/abnormal . GRAN MAT (NEUT) % 68.1 % (test code = 770-8) IMM GRAN % (test code 0.40 % = 8110774973) LYMPH % (test code = 23.3 % 736-9) MONO % (test code = 6.6 % 5905-5) EOS % (test code = 1.0 % 713-8) BASO % (test code = 0.6 % 706-2) GRAN MAT x10^3(ANC) 8.86 10*3/uL 1.88-7.09 H (test code = 0499923753) IMM GRAN x10^3 (test 0.05 10*3/uL 0.00-0.06 code = 6145095284) LYMPH x10^3 (test code 3.04 10*3/uL 1.32-3.29 = 731-0) MONO x10^3 (test code 0.86 10*3/uL 0.33-0.92 = 742-7) EOS x10^3 (test code = 0.13 10*3/uL 0.03-0.39 711-2) BASO x10^3 (test code 0.08 10*3/uL 0.01-0.07 H = 704-7) Lab Interpretation Abnormal (test code = 52881-4) [facility] [id number] 21:11:00 Test Item Value Reference Range Interpretation Comments POCT PREG (test code = 1605) Positive On board controls acceptable with C No Line (test code = 3574) POCT PREG LOT # (test code = 3575) POCT PREG TEST DATE (test code = 3576) [facility] [id number] 21:11:00 Test Item Value Reference Range Interpretation Comments POCT PREG (test code = 1605) Positive On board controls acceptable with C No Line (test code = 3574) POCT PREG LOT # (test code = 3575) POCT PREG TEST DATE (test code = 3576) [facility] [id number] 21:11:00 Test Item Value Reference Range Interpretation Comments POCT PREG (test code = 1605) Positive On board controls acceptable with C No Line (test code = 3574) POCT PREG LOT # (test code = 3575) POCT PREG TEST DATE (test code = 3576) [facility] [id number] 21:11:00 Test Item Value Reference Range Interpretation Comments POCT PREG (test code = 1605) Positive On board controls acceptable with C No Line (test code = 3574) POCT PREG LOT # (test code = 3575) POCT PREG TEST DATE (test code = 3576) [facility] [id number] 21:11:00 Test Item Value Reference Range Interpretation Comments POCT PREG (test code = 1605) Positive On board controls acceptable with C No Line (test code = 3574) POCT PREG LOT # (test code = 3575) POCT PREG TEST DATE (test code = 3576) [facility] URINALYSIS W/O SPECIFIC [id number] 21:10:00 Test Item Value Reference Range Interpretation Comments POCT PH U (test code = 3254) N/A 5-8 POCT U LEUK EST (test code = N/A Negative - Negative 3263) POCT U NIT (test code = 3262) N/A Negative - Negative POCT U PROT (test code = 3259) Negative Negative - Negative POCT U GLU (test code = 3256) Negative Negative - Negative POCT U KETONE (test code = 3258) N/A Negative - Negative POCT U BLD (test code = 3257) N/A Negative - Negative [facility] URINALYSIS W/O SPECIFIC [id number] 21:10:00 Test Item Value Reference Range Interpretation Comments POCT PH U (test code = 3254) N/A 5-8 POCT U LEUK EST (test code = N/A Negative - Negative 3263) POCT U NIT (test code = 3262) N/A Negative - Negative POCT U PROT (test code = 3259) Negative Negative - Negative POCT U GLU (test code = 3256) Negative Negative - Negative POCT U KETONE (test code = 3258) N/A Negative - Negative POCT U BLD (test code = 3257) N/A Negative - Negative [facility] URINALYSIS W/O SPECIFIC [id number] 21:10:00 Test Item Value Reference Range Interpretation Comments POCT PH U (test code = 3254) N/A 5-8 POCT U LEUK EST (test code = N/A Negative - Negative 3263) POCT U NIT (test code = 3262) N/A Negative - Negative POCT U PROT (test code = 3259) Negative Negative - Negative POCT U GLU (test code = 3256) Negative Negative - Negative POCT U KETONE (test code = 3258) N/A Negative - Negative POCT U BLD (test code = 3257) N/A [facility] [id number] 21:10:00 Test Item Value Reference Range Interpretation Comments POCT PH U (test code = 3254) N/A 5-8 POCT U LEUK EST (test code = N/A Negative - Negative 3263) POCT U NIT (test code = 3262) N/A Negative - Negative POCT U PROT (test code = 3259) Negative Negative - Negative POCT U GLU (test code = 3256) Negative Negative - Negative POCT U KETONE (test code = 3258) N/A Negative - Negative POCT U BLD (test code = 3257) N/A Negative - Negative [facility]/O SPECIFIC [id number] 21:10:00 Test Item Value Reference Range Interpretation Comments POCT PH U (test code = 3254) N/A 5-8 POCT U LEUK EST (test code = N/A Negative - Negative 3263) POCT U NIT (test code = 3262) N/A Negative - Negative POCT U PROT (test code = 3259) Negative Negative - Negative POCT U GLU (test code = 3256) Negative Negative - Negative POCT U KETONE (test code = 3258) N/A Negative - Negative POCT U BLD (test code = 3257) N/A Negative - Negative [facility]
--- NOTE | 2023-03-06 22:47 | EDPHYS ---
Physician Documentation [facility] Name: Lauren Chand Age: 42 yrs Sex: Female : 1980 Arrival Date: 03/06/2023 Time: 22:31 Bed IW1 Private MD: ED Physician Noemi Akins HPI: 03/06 23:19 This 42 yrs old Female presents to ER via Ambulatory with complaints of Hives. kb 23:19 The patient's rash thought to be caused by an unknown cause. The rash is located on the kb scattered. The rash can be described as urticarial. Onset: The symptoms/episode began/occurred 1.5 week(s) ago. Associated signs and symptoms: Pertinent positives: itching. Severity of symptoms: At their worst the symptoms were moderate in the emergency department the symptoms are unchanged. The patient has not experienced similar symptoms in the past. The patient has not recently seen a physician. 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 - Social history:: Smoking status: Patient reports the use of cigarette tobacco products, smokes .5 packs per day, Patient/guardian denies using alcohol, street drugs. - : The history from the nurse's notes was reviewed. ROS: 23:13 Constitutional: Negative for fever, chills, and weight loss. kb 23:13 Skin: Positive for rash, diffusely. 23:13 All other systems are negative. Exam: 23:13 Constitutional: This is a well developed, well nourished patient who is awake, alert, kb and in no acute distress. Head/Face: Normocephalic, atraumatic. ENT: Moist Mucous membranes Cardiovascular: Regular rate and rhythm with a normal S1 and S2. No gallops, murmurs, or rubs. No pulse deficits. Respiratory: Respirations even and unlabored. No increased work of breathing. Talking in full sentences MS/ Extremity: Pulses equal, no cyanosis. Neurovascular intact. Full, normal range of motion. Neuro: Awake and alert, GCS 15, oriented to person, place, time, and situation. Moves all extremities. Normal gait. 23:13 Skin: consistent with urticaria, on the scattered. Vital Signs: 22:40 BP 146 / 89; Pulse 89; Resp 18; Temp 97.9; Pulse Ox 98% ; Weight 68.04 kg; Height 5 ft. jj7 4 in. ; Pain 0/10; 22:40 Body Mass Index 25.75 (68.04 kg, 162.56 cm) jj7 22:40 Pain Scale: Adult jj7 MDM: 22:35 Patient medically screened. kb 23:13 Data reviewed: vital signs, nurses notes. kb 23:19 Differential diagnosis: impetigo, allergic reaction. 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 Administered Medications: 22:50 Drug: predniSONE PO 40 mg Route: PO; jj7 23:00 Follow up: Response: No adverse reaction jj7 22:50 Drug: Famotidine PO 20 mg Route: PO; jj7 23:00 Follow up: Response: No adverse reaction jj7 22:55 Drug: diphenhydrAMINE PO 25 mg Route: PO; jj7 23:00 Follow up: Response: No adverse reaction jj7 Disposition Summary: 03/06/23 22:46 Discharge Ordered Location: Home kb Condition: Stable kb Diagnosis - Urticaria, unspecified kb Followup: kb - With: Emergency Department - When: As needed - Reason: Worsening of condition Followup: kb - With: Private Physician - When: 2 - 3 days - Reason: Recheck today's complaints, Continuance of care, Re-evaluation by your physician Discharge Instructions: - Discharge Summary Sheet kb - Hives, Cybu-ty-Vlps kb Forms: - Medication Reconciliation Form kb - Thank You Letter kb - Antibiotic Education kb - Prescription Opioid Use kb Prescriptions: - Pepcid 20 mg Oral Tablet - take 1 tablet by ORAL route every 12 hours for 5 days; 10 tablet; Refills: 0, kb Product Selection Permitted - Prednisone 20 mg Oral Tablet - take 2 tablets by ORAL route once daily for 5 days; 10 tablet; Refills: 0, kb Product Selection Permitted Signatures: Radha Loomis FNP-C TERRITORY SALES EXECUTIVE-Clarence Delgado RN RN jj7 Corrections: (The following items were deleted from the chart) 23:13 The history from the nurse's notes was reviewed. kellee jj7 23:17 Immunization history: Adult Immunizations unknown, jj7 jj7 23:17 Social history: Smoking status: Patient reports the use of cigarette tobacco jj7 products, smokes .5 packs per day, Patient/guardian denies using alcohol, street drugs, jj7
[2023-03-06] MEDS ORDERED: predniSONE 20 MG TAB ONE (23:00)
[2023-03-06] MEDS ORDERED: FAMOTIDINE 20 MG TAB ONE (23:00)
[2023-03-06] MEDS ORDERED: DIPHENHYDRAMINE 25 MG TAB/CAP ONE (23:00)
--- NOTE | 2023-03-06 23:32 | ER ---
Nurse's Notes [facility] Name: Luaren Chand Age: 42 yrs Sex: Female : 1980 Arrival Date: 03/06/2023 Time: 22:31 Bed IW1 Private MD: Diagnosis: Urticaria, unspecified Presentation: 03/06 22:40 Chief complaint: Patient states: HIVES ON ARMS AND LEGS. THINKS IT COULD BE FROM [facility]. Coronavirus screen: At this time, the client does not indicate any symptoms associated with coronavirus-19. Ebola Screen: No symptoms or risks identified at this time. Onset: The symptoms/episode began/occurred 1 week(s) ago. Anaphylaxis evaluation, no signs or symptoms of anaphylaxis were noted. Initial Sepsis Screen: Does the patient meet any 2 criteria? No. Patient's initial sepsis screen is negative. Does the patient have a suspected source of infection? No. Patient's initial sepsis screen is negative. Risk Assessment: Do you want to hurt yourself or someone else? Patient reports no desire to harm self or others. Onset of symptoms was February 28, 2023. 22:40 Method Of Arrival: Ambulatory [facility] 22:40 Acuity: CHRISTINE 4 j7 22:40 Acuity: CHRISTINE 5 j7 Triage Assessment: 22:40 General: Appears in no apparent distress. comfortable, Behavior is calm, cooperative, jj7 appropriate for age. Pain: Denies pain. 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 - Social history:: Smoking status: Patient reports the use of cigarette tobacco products, smokes .5 packs per day, Patient/guardian denies using alcohol, street drugs. - : The history from the nurse's notes was reviewed. Screenin:40 [facility] ED Fall Risk Assessment (Adult) History of falling in the last 3 months, jj7 including since admission No falls in past 3 months (0 pts) Confusion or Disorientation No (0 pts) Intoxicated or Sedated No (0 pts) Impaired Gait No (0 pts) Mobility Assist Device Used No (0 pt) Altered Elimination No (0 pt) Score/Fall Risk Level 0 - 2 = Low Risk Oriented to surroundings, Maintained a safe environment. Abuse screen: Denies threats or abuse. Nutritional screening: No deficits noted. Tuberculosis screening: No symptoms or risk factors identified. Assessment: 22:40 Reassessment: SEE TRIAGE ASSESSMENT. jj7 23:00 Respiratory: Airway is patent Respiratory effort is even, unlabored. jj7 Vital Signs: 22:40 BP 146 / 89; Pulse 89; Resp 18; Temp 97.9; Pulse Ox 98% ; Weight 68.04 kg; Height 5 ft. jj7 4 in. ; Pain 0/10; 22:40 Body Mass Index 25.75 (68.04 kg, 162.56 cm) jj7 22:40 Pain Scale: Adult jj7 ED Course: 22:34 Patient arrived in ED. ag3 22:35 Radha Loomis FNP-C is PHCP. kb 22:35 Noemi Akins MD is Attending Physician. kb 22:40 Triage completed. jj7 22:40 Arm band placed on right wrist. jj7 22:40 Patient has correct armband on for positive identification. jj7 22:40 No provider procedures requiring assistance completed. Patient did not have IV access jj7 during this emergency room visit. Administered Medications: 22:50 Drug: predniSONE PO 40 mg Route: PO; jj7 23:00 Follow up: Response: No adverse reaction jj7 22:50 Drug: Famotidine PO 20 mg Route: PO; jj7 23:00 Follow up: Response: No adverse reaction jj7 22:55 Drug: diphenhydrAMINE PO 25 mg Route: PO; jj7 23:00 Follow up: Response: No adverse reaction jj7 Medication: 22:40 VIS not applicable for this client. jj7 Outcome: 22:46 Discharge ordered by . kb 23:00 Discharged to home via wheelchair, with significant other. jj7 23:00 Condition: good 23:00 Discharge instructions given to patient, significant other, Instructed on discharge instructions, medication usage. 23:00 Prescriptions given X 2. jj7 23:32 Patient left the ED. jj7 Signatures: Radha Loomis, INSTRUCTOR APPAREL MANUFACTURE-C INSTRUCTOR APPAREL MANUFACTURE-Ckb Kathia Hines ag3 Clarence Schmitt RN RN jj7 Corrections: (The following items were deleted from the chart) 23:24 23:13 The history from the nurse's notes was reviewed. kb jj7 : 23:17 Immunization history: Adult Immunizations unknown, jj7 jj7 23:17 Social history: Smoking status: Patient reports the use of cigarette tobacco jj7 products, smokes .5 packs per day, Patient/guardian denies using alcohol, street drugs, jj7 : 23:17 General: Appears in no apparent distress. comfortable, Behavior is calm, jj7 cooperative, appropriate for age, jj7 :25 23:17 Pain: Denies pain. jj7 jj7 23:30 23:17 Triage completed. jj7 jj7
[2023-03-06 23:42] VITALS: BP 146/89; TEMP 97.9; O2SAT 98
== END 2023-03-06 23:32 | disposition home or self-care (01) ==
LOC: ER 22:31
DX: L50.9 Urticaria, unspecified (principal); F17.210 Nicotine dependence, cigarettes, uncomplicated; Z88.5 Allergy status to narcotic agent; Z88.6 Allergy status to analgesic agent
CPT/HCPCS: J7512

== ENCOUNTER 2023-03-11 16:21 | Emergency (ER) | payer OTHER ==
--- OUTSIDE RECORDS SUMMARY | 2023-03-11 16:30 | XMS REPORT | Continuity of Care Document ---
:1980 Author Organization [facility] t Address [address] [facility] [address] [place] [address] Care Team Providers Name Role Phone AbhinavDee Dee downs [place] Primary Care Physician Marisol Crespo MD Attending Clinician MARISOL CRESPO Attending Clinician Unavailable Griffin Thompson MD Attending Clinician [phone] Sergo Mueller MD Attending Clinician Pob, [facility] Main Attending Clinician Unavailable Doctor Unassigned, [place] Attending Clinician Unavailable Brittany Hansen NP Attending Clinician Ultrasound, Ang-Mfsharon Attending Clinician Unavailable Venkata Crandall DO Attending Clinician VENKATA CRADNALL Attending Clinician Unavailable Faculty, [facility] Attending Clinician Unavailable Marcus Chu MD Attending Clinician MARCUS CHU Attending Clinician Unavailable MARCUS CHU Attending Clinician Unavailable Abe Blas MD Attending Clinician Viktoria Michaels DO Attending Clinician 2, [facility] Attending Clinician Unavailable MAHSA DO Attending Clinician Unavailable Mahsa Do MD Attending Clinician [phone] Stacey Floyd MD Attending Clinician Haim [...] labor 02-14 ity of 00:00: [place] 00 [facility] 37 weeks 37 weeks Disease Active Unive rs gestation gestation 02-14 ity of of of 00:00: [place] [facility] 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 02-14 ity of 00:00: 00 [facility] Maternal Maternal Disease Active Unive rs tobacco tobacco 02-14 ity of use in use in 00:00: [place] third third 00 Medical trimester trimester Bran ch Chronic Chronic Disease Active Univers post-traum post-traum 02-14 it y of atic atic 00:00: [place] headache, headache, 00 [facility] not not Branch intractabl intractabl e e Liveborn Liveborn Disease Active Unive rs infant of of 02-14 ity of sextup[place] [facility] born [place] born in [facility] by vaginal by vaginal delivery delivery Low [...] for intermedi ate allele size detected on [employer] carrier screening Pre-eclamp Pre-eclamp Disease Active U nivers emre in emre in 05-18 ity of third third 00:00: [place] trimester trimester 00 [facility] Elevated Elevated Disease Active Unive rs [...] different from the original. 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 Esophageal Esophageal Disease Active U nivers [...] Comments Source ASSERTION 2022-06-14 University of 00:00:00 [facility] Exposure to 2023-02-04 2023-02-14 Not sure University of SARS-CoV-2 (event) 00:00:00 09:21:00 [place] [facility] Alcohol intake 2023-02-14 2023-02-14 Current University of 00:00:00 00:00:00 non-drinker of [facility] [place] alcohol Branch (finding) Cigarettes smoked 2023-02-14 2023-02-14 Univers ity of current (pack per 00:00:00 00:00:00 [place] ) - Reported Branch Cigarette 2023-02-14 2023-02-14 University of pack-years 00:00:00 00:00:00 [facility] Tobacco use and 2023-02-14 2023-02-14 Smokeless Universit y of exposure 00:00:00 00:00:00 tobacco [facility]-user [facility] History of tobacco 2022-04-02 Passive smoker Un iversity of use 00:00:00 [facility] [birth year] [place] [facility]00 [facility] Smoking Status Start Date Stop Date Source Smokes tobacco daily 2023-02-14 00:00:00 Univers ity [facility] Ex-smoker 2022-04-03 00:00:00 2022-04-03 00:00:00 Universi ty [facility] Medications Ordered Filled Start Stop Current Ordering Indication Dosage Frequency Signature Comments Components Source Medication Medication Date Date Medication? Clinician (SIG) Name Name BUTALBITAL- 0 Yes [id number] TAKE ONE Univers ACETAMINOPH 6-08 TABLET BY ity of EN-CAFF 00:00: MOUTH [place] 50-325-40 00 EVERY 4 Medical mg tablet HOURS Branch NEEDED FOR HEADACHES BUTALBITAL- 2022-0 Yes [id number] TAKE ONE Univers ACETAMINOPH 6-08 TABLET BY ity of EN-CAFF 00:00: MOUTH [place] 50-325-40 00 EVERY 4 Medical mg tablet HOURS Branch NEEDED FOR HEADACHES BUTALBITAL- 2022-0 Yes [id number] TAKE ONE Univers ACETAMINOPH 6-08 TABLET BY ity of EN-CAFF 00:00: MOUTH [place] 50-325-40 00 EVERY 4 Medical mg tablet HOURS Branch NEEDED FOR HEADACHES enoxaparin 2022-0 Yes [id number] 40mg inject 0.4 Univers 40 mg/0.4 6-02 mL under ity of mL 00:00: the skin [place] injection 00 in the Medical morning. Branch 0 Yes [id number] 1{tbl} Take 1 Univers vitamin 6-02 tablet by ity of w/FA tablet 00:00: mouth [place] 00 the Medical morning. Branch docusate 0 Yes [id number] 200mg Take 2 U nivers 100 mg 6-02 capsules ity of capsule 00:00: by mouth [place] 00 once daily Medical as needed Branch for Constipati on. ferrous 0 Yes [id number] 325mg Take 1 Un keerthi sulfate 325 6-02 tablet by ity of mg (65 mg 00:00: mouth in [place] [facility] the Medical tablet morning Branch and 1 tablet in the evening. ibuprofen Yes [id number] 600mg Take 1 Univers 600 mg 6-02 tablet by ity of tablet 00:00: mouth [place] 00 every 6 Medical (six) Branch hours as needed (Pain). Take with food or milk. norethindro Yes [id number] .35mg Take 1 Univers ne 0.35 mg 6-02 tablet by ity of tablet 00:00: mouth in [place] 00 the Medical morning. Branch enoxaparin Yes [id number] 40mg inject 0.4 Univers 40 mg/0.4 6-02 mL under ity of mL 00:00: the skin [place] injection 00 in the Medical morning. Branch 0 Yes [id number] 1{tbl} Take 1 Univers vitamin 6-02 tablet by ity of w/FA tablet 00:00: mouth [place] 00 the Medical morning. Branch docusate 0 Yes [id number] 200mg Take 2 U nivers 100 mg 6-02 capsules ity of capsule 00:00: by mouth [place] 00 once daily Medical as needed Branch for Constipati on. ferrous 2022-0 Yes [id number] 325mg Take 1 Un [place] sulfate 325 6-02 tablet by ity of mg (65 mg 00:00: [place] 00 the Medical tablet morning Branch and 1 tablet in the evening. ibuprofen 2022-0 Yes [id number] 600mg Take 1 Univers 600 mg 6-02 tablet by ity of tablet 00:00: mouth [place] 00 every 6 Medical (six) Branch hours as needed (Pain). Take with food or milk. norethindro 2022-0 Yes [id number] .35mg Take 1 Univers ne 0.35 mg 6-02 tablet by ity of tablet 00:00: mouth in [place] 00 the Medical morning. Branch enoxaparin 2022-0 Yes [id number] 40mg inject 0.4 Univers 40 mg/0.4 6-02 mL under ity of mL 00:00: the skin [place] injection 00 in the Medical morning. Branch 2022-0 Yes [id number] 1{tbl} Take 1 Univers vitamin 6-02 tablet by ity of w/FA tablet 00:00: mouth [place] 00 the Medical morning. Branch docusate 2022-0 Yes [id number] 200mg Take 2 U nivers 100 mg 6-02 capsules ity of capsule 00:00: by mouth [place] 00 once daily Medical as needed Branch for Constipati on. ferrous 2022-0 Yes [id number] 325mg Take 1 Un keerthi sulfate 325 6-02 tablet by ity of mg (65 mg 00:00: mouth in [facility]) 00 the Medical tablet morning Branch and 1 tablet in the evening. ibuprofen 2022-0 Yes [id number] 600mg Take 1 Univers 600 mg 6-02 tablet by ity of tablet 00:00: mouth [place] 00 every 6 Medical (six) Branch hours as needed (Pain). Take with food or milk. norethindro 2022-0 Yes [id number] .35mg Take 1 Univers ne 0.35 mg 6-02 tablet by ity of tablet 00:00: mouth in [place] 00 the Medical morning. Branch enoxaparin 2022-0 Yes [id number] 40mg inject 0.4 Univers 40 mg/0.4 6-02 mL under ity of mL 00:00: the skin [place] injection 00 in the Medical morning. Branch 2022-0 Yes [id number] 1{tbl} Take 1 Univers vitamin 6-02 tablet by ity of w/FA tablet 00:00: mouth in [place] 00 the Medical morning. Branch docusate 2022-0 Yes [id number] 200mg Take 2 U nivers 100 mg 6-02 capsules ity of capsule 00:00: by mouth [place] 00 once daily Medical as needed Branch for Constipati on. ferrous 2022-0 Yes [id number] 325mg Take 1 Un keerthi sulfate 325 - tablet by ity of mg (65 mg 00:00: mouth in [facility] s iron) 00 the Medical tablet morning Branch and 1 tablet in the evening. ibuprofen 2022-0 Yes [id number] 600mg Take 1 Univers 600 mg -02 tablet by ity of tablet 00:00: mouth [place] 00 every 6 Medical (six) Branch hours as needed (Pain). Take with food or milk. norethindro 2023-0 Yes [id number] .35mg Take 1 Univers ne 0.35 mg -02 tablet by ity of tablet 00:00: mouth in [place] 00 the Medical morning. Branch sodium 2022-0 202- No 30mL 30 mL, Univers citrate-cit 02-15 Oral, ONCE i ty of anju acid 23:15: 23:17 NOW, 1 [place] (BICITRA) 00 :00 dose, On Medica l [id number] [facility] 02/15/23 Branch mg/5 mL at 1815, solution 30 Routine mL enoxaparin 2022-0 Yes 40mg 40 mg, Unive rs (LOVENOX) 02-15 Subcutaneo ity of injection 23:00: [place], DAILY, [place] 40 mg 00 First dose Medical on Ysabel Cardinal 02/15/23 at 1800, Until Discontinu ed, Routine pantoprazol 2022-0 Yes 40mg 40 mg, Univ ers e 02-15 Oral, ity of (PROTONIX) 14:00: DAILY, [place] EC tablet 00 First dose Medi [place] 40 mg on Ysabel Cardinal 02/15/23 at 0900, Until Discontinu ed, Routine amitriptyli 2022-0 Yes 50mg 50 mg, Univ ers ne (ELAVIL) 02-15 Oral, QHS, it y of tablet 50 02:00: First dose [place] mg 00 on Sun [facility] 02/14/23 at Branch 2100, Until Discontinu ed, Routine ferrous 3-0 Yes 325mg 325 mg, Univer s sulfate 02-15 Oral, BID, ity of tablet 325 01:00: First dose [place] mg 00 on Sun [facility] 02/14/23 at Branch 2000, Until Discontinu ed, Routine ascorbic 3-0 Yes 500mg 500 mg, Unive rs acid 02-15 Oral, BID, ity of (vitamin C) 01:00: First dose [place] (VITAMIN C) 00 on Sun Medica l tablet 500 02/14/23 at [facility] mg 2000, Until Discontinu ed, Routine topiramate 2022-0 Yes 100mg 100 mg, Uni vers (TOPAMAX) 02-14 Oral, BID, ity of tablet 100 23:00: First dose [place] mg 00 on Sun Medical 02/14/23 at Branch 1800, Until Discontinu ed, Routine
cafe team member approving Restricted medication : LOSS PREVENTION LEAD acetaminoph 2022-0 Yes 1{tbl} 1 tablet, Univers en-codeine 02-14 Oral, ity of (TYLENOL 22:53: Q4HPRN, [place] #3) 300-30 35 Starting Medic al mg [...] 02-14 Oral, ity of (TYLENOL) 20:15: Q6HPRN, [place] tablet 650 23 Starting Medic al mg [...] IV Push, ity of (PF)) 20:15: Q8HPRN, [place] injection 4 23 Starting Medi [place] mg on Wed Branch 02/14/23 at 1515, Until Discontinu ed, Routine, Nausea and Vomiting (N/V) simethicone 3-0 Yes 160mg 160 mg, Un keerthi (GAS RELIEF 02-14 Oral, ity of (SIMETHICON 20:15: PC+HSPRN, [place] E)) 23 Starting Medical chewable on Sun Branch tablet 160 02/14/23 at mg 1515, Until Discontinu ed, Routine, Gas docusate 2022-0 Yes 200mg 200 mg, Unive rs (COLACE) 02-14 Oral, ity of capsule 200 20:15: QDAILYPRN, [place] mg 23 Starting Medical on Wed Branch 02/14/23 at 1515, Until Discontinu ed, Routine, Constipati on magnesium 2022-0 Yes 30mL 30 mL, Univer s hydroxide 02-14 Oral, ity of (MILK OF 20:15: QDAILYPRN, [place] as MAGNESIA) 23 Starting Medica l 400 mg/5 mL on Sun Branch suspension 02/14/23 at 30 mL 1515, Until Discontinu ed, Routine, Constipati on benzocaine- 0 Yes Topical, Un keerthi menthol 02-14 PRN, ity of (DERMOPLAST 20:15: [place] ) 20-0.5 % 23 on Sun Medical topical 02/14/23 at Branch spray 1515, Until Discontinu ed, Routine, Perineum discomfort butalbital- 0 Yes 1{tbl} 1 tablet, Univers acetaminoph 02-14 Oral, ity of en-caff 20:12: Q4HPRNDrumright, [place] (ESGIC) 31 Starting Medical 50-325-40 on Wed Branch mg tablet 1 02/14/23 at tablet 1512, Until Discontinu ed, Routine, Headaches butalbital- 2022-0 2022- No 1{tbl} 1 tablet, Univers acetaminoph 5-31 05-31 Oral, ity of en-caff 15:21: 20:18 Q4HPRNDrumright, [place] (ESGIC) 01 :23 Starting Medical 50-325-40 [...] Until Sun02/14/23 at 1518, Routine butalbital- Yes [id number] 1{tbl} Take 1 Univers acetaminoph 5-10 tablet by ity of en-caff 00:00: mouth [place] (ESGIC) 00 every 4 Medical 50-325-40 (four) Branch mg tablet hours as needed (Headaches ). butalbital- Yes [id number] 1{tbl} Take 1 Univers acetaminoph 5-10 tablet by ity of en-caff 00:00: mouth [place] (ESGIC) 00 every 4 Medical 50-325-40 (four) Branch mg tablet hours as needed (Headaches ). butalbital- Yes [id number] 1{tbl} Take 1 Univers acetaminoph 5-10 tablet by ity of en-caff 00:00: mouth [place] (ESGIC) 00 every 4 Medical 50-325-40 (four) Branch mg tablet hours as needed (Headaches ). butalbital- Yes [id number] 1{tbl} Take 1 Univers acetaminoph 5-10 tablet by ity of en-caff 00:00: mouth [place] (ESGIC) 00 every 4 Medical 50-325-40 (four) Branch mg tablet hours as needed (Headaches ). butalbital- Yes [id number] 1{tbl} Take 1 Univers acetaminoph 5-10 tablet by ity of en-caff 00:00: mouth [place] (ESGIC) 00 every 4 Medical 50-325-40 (four) Branch mg tablet hours as needed (Headaches ). butalbital- Yes [id number] 1{tbl} Take 1 Univers acetaminoph 5-10 tablet by ity of en-caff 00:00: mouth [place] (ESGIC) 00 every 4 Medical 50-325-40 (four) Branch mg tablet hours as needed (Headaches ). butalbital- Yes [id number] 1{tbl} Take 1 Univers acetaminoph 5-10 tablet by ity of en-caff 00:00: mouth [place] (ESGIC) 00 every 4 Medical 50-325-40 (four) Branch mg tablet hours as needed (Headaches ). butalbital- 0 2022- No [id number] 1{tbl} Take 1 Univers acetaminoph 5-10 06-08 tablet by it y of en-caff 00:00: 00:00 mouth [place] (ESGIC) 00 :00 every 4 Medical 50-325-40 (four) Branch mg tablet hours as needed (Headaches ). butalbital- 2022-0 2022- No [id number] 1{tbl} Take 1 Univers acetaminoph 5-10 06-08 tablet by it y of en-caff 00:00: 00:00 mouth [place] (ESGIC) 00 :00 every 4 Medical 50-325-40 (four) Branch mg tablet hours as needed (Headaches ). butalbital- Yes [id number] 1{tbl} Take 1 Univers acetaminoph 4-20 tablet by ity of en-caff 00:00: mouth [place] (ESGIC) 00 every 4 Medical 50-325-40 (four) Branch mg tablet hours as needed (Headaches ). butalbital- Yes [id number] 1{tbl} Take 1 Univers acetaminoph 4-20 tablet by ity of en-caff 00:00: mouth [place] (ESGIC) 00 every 4 Medical 50-325-40 (four) Branch mg tablet hours as needed (Headaches ). butalbital- Yes [id number] 1{tbl} Take 1 Univers acetaminoph 4-20 tablet by ity of en-caff 00:00: mouth [place] (ESGIC) 00 every 4 Medical 50-325-40 (four) Branch mg tablet hours as needed (Headaches ). butalbital- Yes [id number] 1{tbl} Take 1 Univers acetaminoph 4-20 tablet by ity of en-caff 00:00: mouth [place] (ESGIC) 00 every 4 Medical 50-325-40 (four) Branch mg tablet hours as needed (Headaches ). butalbital- Yes [id number] 1{tbl} Take 1 Univers acetaminoph 4-20 tablet by ity of en-caff 00:00: mouth [place] (ESGIC) 00 every 4 Medical 50-325-40 (four) Branch mg tablet hours as needed (Headaches ). butalbital- Yes [id number] 1{tbl} Take 1 Univers acetaminoph 4-20 tablet by ity of en-caff 00:00: mouth [place] (ESGIC) 00 every 4 Medical 50-325-40 (four) Branch mg tablet hours as needed (Headaches ). butalbital- 0 2022- No [id number] 1{tbl} Take 1 Univers acetaminoph 4-20 05-10 tablet by it y of en-caff 00:00: 00:00 mouth [place] (ESGIC) 00 :00 every 4 Medical 50-325-40 (four) Branch mg tablet hours as needed (Headaches ). AMITRIPTYLI 2022-0 Yes [id number] TAKE TWO Univers NE 25 mg 4-19 TABLETS BY ity o f tablet 00:00: MOUTH AT [place] BEDTIME Medical Branch AMITRIPTYLI 2022-0 Yes [id number] TAKE TWO Univers NE 25 mg 4-19 TABLETS BY ity o f tablet 00:00: MOUTH AT [place] BEDTIME Medical Branch AMITRIPTYLI 2022-0 Yes [id number] TAKE TWO Univers NE 25 mg 4-19 TABLETS BY ity o f tablet 00:00: MOUTH AT [place] BEDTIME Medical Branch AMITRIPTYLI 2022-0 Yes [id number] TAKE TWO Univers NE 25 mg 4-19 TABLETS BY ity o f tablet 00:00: MOUTH AT [place] BEDTIME Medical Branch AMITRIPTYLI 2022-0 Yes [id number] TAKE TWO Univers NE 25 mg 4-19 TABLETS BY ity o f tablet 00:00: MOUTH AT [place] [facility] Medical Branch AMITRIPTYLI 2022-0 Yes [id number] TAKE TWO Univers NE 25 mg 4-19 TABLETS BY ity o f tablet 00:00: [facility]TH AT [place] [facility] AMITRIPTYLI 2022-0 Yes [id number] TAKE TWO Univers NE 25 mg 4-19 TABLETS BY ity o f tablet 00:00: MOUTH AT [place] [facility] AMITRIPTYLI 2022-0 Yes [id number] TAKE TWO Univers NE 25 mg 4-19 TABLETS BY ity o f tablet 00:00: MOUTH AT [place] [facility] AMITRIPTYLI 2022-0 Yes [id number] TAKE TWO Univers NE 25 mg 4-19 TABLETS BY ity o f tablet 00:00: MOUTH AT [place] [facility] AMITRIPTYLI 2022-0 Yes [id number] TAKE TWO Univers NE 25 mg 4-19 TABLETS BY ity o f tablet 00:00: MOUTH AT [place] [facility] Medical Branch AMITRIPTYLI 2022-0 Yes [id number] TAKE TWO Univers NE 25 mg 4-19 TABLETS BY ity o f tablet 00:00: [facility] [place] [facility] AMITRIPTYLI 2022-0 Yes [id number] TAKE TWO Univers NE 25 mg 4-19 TABLETS BY ity o f tablet 00:00: MOUTH AT [place] BEDTIME Medical Branch AMITRIPTYLI 2022-0 Yes [id number] TAKE TWO Univers NE 25 mg 4-19 TABLETS BY ity o f tablet 00:00: MOUTH AT [place] BEDTIME Medical Branch AMITRIPTYLI 2022-0 Yes [id number] TAKE TWO Univers NE 25 mg 4-19 TABLETS BY ity o f tablet 00:00: MOUTH AT [place] BEDTIME Medical Branch AMITRIPTYLI 2022-0 Yes [id number] TAKE TWO Univers NE 25 mg 4-19 TABLETS BY ity o f tablet 00:00: MOUTH AT [place] BEDTIME Medical Branch AMITRIPTYLI 2022-0 Yes [id number] TAKE TWO Univers NE 25 mg 4-19 TABLETS BY ity o f tablet 00:00: MOUTH AT [place] BEDTIME Medical Branch ferrous 2022-0 Yes [id number] 325mg Take 1 Un keerthi sulfate 3-30 tablet by ity of (IRON, 00:00: mouth in [place] FERROUS 00 the Medical SULFATE,) morning Branch 325 mg (65 and 1 mg iron) tablet in tablet the evening. ascorbic 2022-0 Yes [id number] 500mg Take 1 U nivers acid, 3-30 tablet by ity of vitamin C, 00:00: mouth in [place] [facility] as 500 mg 00 the Medical tablet morning Branch and 1 tablet in the evening. ferrous 2022-0 Yes [id number] 325mg Take 1 Un keerthi sulfate 3-30 tablet by ity of (IRON, 00:00: mouth in [place] FERROUS 00 the Medical SULFATE,) morning Branch 325 mg (65 and 1 mg iron) tablet in tablet the evening. ascorbic 2022-0 Yes [id number] 500mg Take 1 U nivers acid, 3-30 tablet by ity of vitamin C, 00:00: mouth in [place] 500 mg 00 the Medical tablet morning Branch and 1 tablet in the evening. ferrous 2022-0 Yes [id number] 325mg Take 1 Un keerthi sulfate 3-30 tablet by ity of (IRON, 00:00: mouth in [place] FERROUS 00 the Medical SULFATE,) morning Branch 325 mg (65 and 1 mg iron) tablet in tablet the evening. ascorbic 2023-0 Yes [id number] 500mg Take 1 U nivers acid, 3-30 tablet by ity of vitamin C, 00:00: mouth in [place] 500 mg 00 the Medical tablet morning Branch and 1 tablet in the evening. ferrous 2023-0 Yes [id number] 325mg Take 1 Un keerthi sulfate 3-30 tablet by ity of (IRON, 00:00: mouth in [place] FERROUS 00 the Medical SULFATE,) morning Branch 325 mg (65 and 1 mg iron) tablet in tablet the evening. ascorbic 2022-0 Yes [id number] 500mg Take 1 U nivers acid, 3-30 tablet by ity of vitamin C, 00:00: mouth in [place] 500 mg 00 the Medical tablet morning Branch and 1 tablet in the evening. ferrous 2022-0 Yes [id number] 325mg Take 1 Un keerthi sulfate 3-30 tablet by ity of (IRON, 00:00: mouth in [place] FERROUS 00 the Medical SULFATE,) morning Branch 325 mg (65 and 1 mg iron) tablet in tablet the evening. ascorbic 2022-0 Yes [id number] 500mg Take 1 U nivers acid, 3-30 tablet by ity of vitamin C, 00:00: mouth in [place] 500 mg 00 the Medical tablet morning Branch and 1 tablet in the evening. ferrous 2022-0 Yes [id number] 325mg Take 1 Un keerthi sulfate 3-30 tablet by ity of (IRON, 00:00: mouth in [place] FERROUS 00 the Medical SULFATE,) morning Branch 325 mg (65 and 1 mg iron) tablet in tablet the evening. ascorbic 2022-0 Yes [id number] 500mg Take 1 U nivers acid, 3-30 tablet by ity of vitamin C, 00:00: mouth in [place] 500 mg 00 the Medical tablet morning Branch and 1 tablet in the evening. ferrous 2022-0 Yes [id number] 325mg Take 1 Un keerthi sulfate 3-30 tablet by ity of (IRON, 00:00: mouth in [place] FERROUS 00 the Medical SULFATE,) morning Branch 325 mg (65 and 1 mg iron) tablet in tablet the evening. ascorbic 2022-0 Yes [id number] 500mg Take 1 U nivers acid, 3-30 tablet by ity of vitamin C, 00:00: mouth in [place] 500 mg 00 the Medical tablet morning Branch and 1 tablet in the evening. ferrous 2023-0 Yes [id number] 325mg Take 1 Un keerthi sulfate 3-30 tablet by ity of (IRON, 00:00: mouth in [place] FERROUS 00 the Medical SULFATE,) morning Branch 325 mg (65 and 1 mg iron) tablet in tablet the evening. ascorbic 2022-0 Yes [id number] 500mg Take 1 U nivers acid, 3-30 tablet by ity of vitamin C, 00:00: mouth in [place] 500 mg 00 the Medical tablet morning Branch and 1 tablet in the evening. ferrous 2022-0 Yes [id number] 325mg Take 1 Un keerthi sulfate 3-30 tablet by ity of (IRON, 00:00: mouth in [place] FERROUS 00 the Medical SULFATE,) morning Branch 325 mg (65 and 1 mg iron) tablet in tablet the evening. ascorbic 2022-0 Yes [id number] 500mg Take 1 U nivers acid, 3-30 tablet by ity of vitamin C, 00:00: mouth in [place] 500 mg 00 the Medical tablet morning Branch and 1 tablet in the evening. ferrous 2022-0 Yes [id number] 325mg Take 1 Un keerthi sulfate 3-30 tablet by ity of (IRON, 00:00: mouth in [place] FERROUS 00 the Medical SULFATE,) morning Branch 325 mg (65 and 1 mg iron) tablet in tablet the evening. ascorbic 2022-0 Yes [id number] 500mg Take 1 U nivers acid, 3-30 tablet by ity of vitamin C, 00:00: mouth in [place] 500 mg 00 the Medical tablet morning Branch and 1 tablet in the evening. ferrous 2022-0 Yes [id number] 325mg Take 1 Un keerthi sulfate 3-30 tablet by ity of (IRON, 00:00: mouth in [place] FERROUS 00 the Medical SULFATE,) morning Branch 325 mg (65 and 1 mg iron) tablet in tablet the evening. ascorbic 2022-0 Yes [id number] 500mg Take 1 U nivers acid, 3-30 tablet by ity of vitamin C, 00:00: mouth in [place] 500 mg 00 the Medical tablet morning Branch and 1 tablet in the evening. ferrous 2022-0 Yes [id number] 325mg Take 1 Un keerthi sulfate 3-30 tablet by ity of (IRON, 00:00: mouth in [place] FERROUS 00 the Medical SULFATE,) morning Branch 325 mg (65 and 1 mg iron) tablet in tablet the evening. ascorbic 2023-0 Yes [id number] 500mg Take 1 U nivers acid, 3-30 tablet by ity of vitamin C, 00:00: mouth in [place] 500 mg 00 the Medical tablet morning Branch and 1 tablet in the evening. ferrous 2022-0 Yes [id number] 325mg Take 1 Un keerthi sulfate 3-30 tablet by ity of (IRON, 00:00: mouth in [place] FERROUS 00 the Medical SULFATE,) morning Branch 325 mg (65 and 1 mg iron) tablet in tablet the evening. ascorbic 2022-0 Yes [id number] 500mg Take 1 U nivers acid, 3-30 tablet by ity of vitamin C, 00:00: mouth in [place] 500 mg 00 the Medical tablet morning Branch and 1 tablet in the evening. ferrous 2022-0 Yes [id number] 325mg Take 1 Un keerthi sulfate 3-30 tablet by ity of (IRON, 00:00: mouth in [place] FERROUS 00 the Medical SULFATE,) morning Branch 325 mg (65 and 1 mg iron) tablet in tablet the evening. ascorbic 2022-0 Yes [id number] 500mg Take 1 U nivers acid, 3-30 tablet by ity of vitamin C, 00:00: mouth in [place] 500 mg 00 the Medical tablet morning Branch and 1 tablet in the evening. ferrous 2022-0 Yes [id number] 325mg Take 1 Un keerthi sulfate 3-30 tablet by ity of (IRON, 00:00: mouth in [place] FERROUS 00 the Medical SULFATE,) morning Branch 325 mg (65 and 1 mg iron) tablet in tablet the evening. ascorbic 2022-0 Yes [id number] 500mg Take 1 U nivers acid, 3-30 tablet by ity of vitamin C, 00:00: mouth in [place] 500 mg 00 the Medical tablet morning Branch and 1 tablet in the evening. ferrous 2022-0 Yes [id number] 325mg Take 1 Un keerthi sulfate 3-30 tablet by ity of (IRON, 00:00: mouth in [place] FERROUS 00 the Medical SULFATE,) morning Branch 325 mg (65 and 1 mg iron) tablet in tablet the evening. ascorbic 2022-0 Yes [id number] 500mg Take 1 U nivers acid, 3-30 tablet by ity of vitamin C, 00:00: mouth in [place] 500 mg 00 the Medical tablet morning Branch and 1 tablet in the evening. ferrous 202-0 Yes [id number] 325mg Take 1 [facility] keerthi sulfate 3-30 tablet by [facility] of (IRON, 00:00: mouth in [place] FERROUS 00 the Medical SULFATE,) morning Branch 325 mg (65 and 1 mg iron) tablet in tablet the evening. ascorbic 2022-0 Yes [id number] 500mg Take 1 U nivers acid, 3-30 tablet by ity of vitamin C, 00:00: mouth in [place] as 500 mg 00 the Medical tablet morning Branch and 1 tablet in the evening. ferrous 2022-0 Yes [id number] 325mg Take 1 Un keerthi sulfate 3-30 tablet by ity of (IRON, 00:00: mouth in [place] FERROUS 00 the Medical SULFATE,) morning Branch 325 mg (65 and 1 mg iron) tablet in tablet the evening. ascorbic Yes [id number] 500mg Take 1 U nivers acid, 3-30 tablet by ity of vitamin C, 00:00: mouth in [place] as 500 mg 00 the Medical tablet morning Branch and 1 tablet in the evening. ferrous 2022-0 Yes [id number] 325mg Take 1 Un keerthi sulfate 3-30 tablet by ity of (IRON, 00:00: mouth in [place] FERROUS 00 the Medical SULFATE,) morning Branch 325 mg (65 and 1 mg iron) tablet in tablet the evening. ascorbic Yes [id number] 500mg Take 1 U nivers acid, 3-30 tablet by ity of vitamin C, 00:00: mouth in [place] as 500 mg 00 the Medical tablet morning Branch and 1 tablet in the evening. ferrous Yes [id number] 325mg Take 1 Un keerthi sulfate 3-30 tablet by ity of (IRON, 00:00: mouth in [place] FERROUS 00 the Medical SULFATE,) morning Branch 325 mg (65 and 1 mg iron) tablet in tablet the evening. ascorbic Yes [id number] 500mg Take 1 U nivers acid, 3-30 tablet by ity of vitamin C, 00:00: mouth in [place] as 500 mg 00 the Medical tablet morning Branch and 1 tablet in the evening. amitriptyli 2022- No [id number] 50mg Take 2 [facility] 25 mg 2-01 01- tablets by ity of tablet 00:00: 04:59 mouth at [place] 00 :00 bedtime Medical for 60 Branch days. amitriptyli 2022- No [id number] 50mg Take 2 [facility] ne 25 mg 2-17 04-19 tablets by ity of tablet 00:00: 04:59 mouth at [place] 00 :00 bedtime Medical for 60 Branch days. amitriptyli 2022- No [id number] 50mg Take 2 [facility] ne 25 mg 2-17 04-19 tablets by ity of tablet 00:00: 04:59 mouth at [place] 00 :00 bedtime Medical for 60 Branch days. amitriptyli 2022- No [id number] 50mg Take 2 [facility] ne 25 mg 2-17 04-19 tablets by ity of tablet 00:00: 04:59 mouth at [place] 00 :00 bedtime Medical for 60 Branch days. amitriptyli 2022- No [id number] 50mg Take 2 [facility] ne 25 mg 2-17 04-19 tablets by ity of tablet 00:00: 04:59 mouth at [place] 00 :00 bedtime Medical for 60 Branch days. amitriptyli 2022- No [id number] 50mg Take 2 [facility] ne 25 mg 2-17 -19 tablets by ity of tablet 00:00: 04:59 mouth at [place] 00 :00 bedtime Medical for 60 Branch days. amitriptyli 2022- No [id number] 50mg Take 2 [facility] ne 25 mg 2-17 04-05 tablets by ity of tablet 00:00: 00:00 mouth at [place] 00 :00 bedtime Medical for 60 Branch days. PROMETHAZIN 2022-0 Yes [id number] TAKE ONE [facility] 25 mg 1-17 TABLET BY it[facility] of tablet 00:00: MOUTH [place] 00 EVERY 6 Medical HOURS Branch NEEDED FOR NAUSEA AND VOMITING PROMETHAZIN 2022-0 Yes [id number] TAKE ONE [facility] E 25 mg 1-17 TABLET BY it[facility] of tablet 00:00: MOUTH [place] 00 EVERY 6 Medical HOURS Branch NEEDED FOR NAUSEA AND VOMITING PROMETHAZIN 2022-0 Yes [id number] TAKE ONE [facility] E 25 mg 1-17 TABLET BY ity of tablet 00:00: MOUTH [place] 00 EVERY 6 Medical HOURS Branch NEEDED FOR NAUSEA AND VOMITING PROMETHAZIN 2022-0 Yes [id number] TAKE ONE [facility] E 25 mg 1-17 TABLET BY ity of tablet 00:00: MOUTH [place] 00 EVERY 6 Medical HOURS Branch NEEDED FOR NAUSEA AND VOMITING PROMETHAZIN 2023-0 Yes [id number] TAKE ONE [facility] E 25 mg 1-17 TABLET BY ity of tablet 00:00: MOUTH [place] 00 EVERY 6 Medical HOURS Branch NEEDED FOR NAUSEA AND VOMITING PROMETHAZIN 3-0 Yes [id number] TAKE ONE [facility] E 25 mg 1-17 TABLET BY ity of tablet 00:00: MOUTH [place] 00 EVERY 6 Medical HOURS Branch NEEDED FOR NAUSEA AND VOMITING PROMETHAZIN 3-0 Yes [id number] TAKE ONE [facility] E 25 mg 1-17 TABLET BY ity of tablet 00:00: MOUTH [place] 00 EVERY 6 Medical HOURS Branch NEEDED FOR NAUSEA AND VOMITING PROMETHAZIN 3-0 Yes [id number] TAKE ONE [facility] E 25 mg 1-17 TABLET BY ity of tablet 00:00: MOUTH [place] 00 EVERY 6 Medical HOURS Branch NEEDED FOR NAUSEA AND VOMITING PROMETHAZIN 2022-0 Yes [id number] TAKE ONE [facility] E 25 mg 1-17 TABLET BY ity of tablet 00:00: MOUTH [place] 00 EVERY 6 Medical HOURS Branch NEEDED FOR NAUSEA AND VOMITING PROMETHAZIN 3-0 Yes [id number] TAKE ONE [facility] E 25 mg 1-17 TABLET BY ity of tablet 00:00: MOUTH [place] 00 EVERY 6 Medical HOURS Branch NEEDED FOR NAUSEA AND VOMITING PROMETHAZIN 3-0 Yes [id number] TAKE ONE [facility] 25 mg 1-17 TABLET BY ity of tablet 00:00: MOUTH [place] 00 EVERY 6 Medical HOURS Branch NEEDED FOR NAUSEA AND VOMITING PROMETHAZIN 3-0 Yes [id number] TAKE ONE [facility] 25 mg 1-17 TABLET BY ity of tablet 00:00: MOUTH [place] 00 EVERY 6 Medical HOURS Branch NEEDED FOR NAUSEA AND VOMITING PROMETHAZIN 3-0 Yes [id number] TAKE ONE [facility] 25 mg 1-17 TABLET BY ity of tablet 00:00: MOUTH [place] 00 EVERY 6 Medical HOURS Branch NEEDED FOR NAUSEA AND VOMITING PROMETHAZIN 3-0 Yes [id number] TAKE ONE [facility] 25 mg 1-17 TABLET BY ity of tablet 00:00: MOUTH [place] 00 EVERY 6 Medical HOURS Branch NEEDED FOR NAUSEA AND VOMITING PROMETHAZIN 3-0 Yes [id number] TAKE ONE [facility] 25 mg 1-17 TABLET BY ity of tablet 00:00: MOUTH [place] 00 EVERY 6 Medical HOURS Branch NEEDED FOR NAUSEA AND VOMITING PROMETHAZIN 3-0 Yes [id number] TAKE ONE [facility] E 25 mg 1-17 TABLET BY ity of tablet 00:00: MOUTH [place] 00 EVERY 6 Medical HOURS Branch NEEDED FOR NAUSEA AND VOMITING PROMETHAZIN 2023-0 Yes [id number] TAKE ONE [facility] 25 mg 1-17 TABLET BY ity of tablet 00:00: MOUTH [place] 00 EVERY 6 Medical HOURS Branch NEEDED FOR NAUSEA AND VOMITING PROMETHAZIN 2023-0 Yes [id number] TAKE ONE [facility] 25 mg 1-17 TABLET BY ity of tablet 00:00: MOUTH [place] 00 EVERY 6 Medical HOURS Branch NEEDED FOR NAUSEA AND VOMITING PROMETHAZIN 2023-0 Yes [id number] TAKE ONE [facility] 25 mg 1-17 TABLET BY ity of tablet 00:00: MOUTH [place] 00 EVERY 6 Medical HOURS Branch NEEDED FOR NAUSEA AND VOMITING PROMETHAZIN 3-0 Yes [id number] TAKE ONE [facility] 25 mg 1-17 TABLET BY ity of tablet 00:00: MOUTH [place] 00 EVERY 6 Medical HOURS Branch NEEDED FOR NAUSEA AND VOMITING PROMETHAZIN 2023-0 Yes [id number] TAKE ONE [facility] 25 mg 1-17 TABLET BY ity of tablet 00:00: MOUTH [place] 00 EVERY 6 Medical HOURS Branch NEEDED FOR NAUSEA AND VOMITING PROMETHAZIN 2023-0 Yes [id number] TAKE ONE [facility] 25 mg 1-17 TABLET BY ity of tablet 00:00: MOUTH [place] 00 EVERY 6 Medical HOURS Branch NEEDED FOR NAUSEA AND VOMITING PROMETHAZIN 2023-0 Yes [id number] TAKE ONE [facility] 25 mg 1-17 TABLET BY ity of tablet 00:00: MOUTH [place] 00 EVERY 6 Medical HOURS Branch NEEDED FOR NAUSEA AND VOMITING PROMETHAZIN 2023-0 Yes [id number] TAKE ONE [facility] 25 mg 1-17 TABLET BY it[facility] of tablet 00:00: MOUTH [place] 00 EVERY 6 Medical HOURS Branch NEEDED FOR NAUSEA AND VOMITING PROMETHAZIN 2023-0 Yes [id number] TAKE ONE [facility] 25 mg 1-17 TABLET BY it[facility] of tablet 00:00: MOUTH [place] 00 EVERY 6 Medical HOURS Branch NEEDED FOR NAUSEA AND VOMITING PROMETHAZIN 2023-0 Yes [id number] TAKE ONE [facility] 25 mg 1-17 TABLET BY it[facility] of tablet 00:00: MOUTH [place] 00 EVERY 6 Medical HOURS Branch NEEDED FOR NAUSEA AND VOMITING PROMETHAZIN 2023-0 Yes [id number] TAKE ONE [facility] 25 mg 1-17 TABLET BY it[facility] of tablet 00:00: MOUTH [place] 00 EVERY 6 Medical HOURS Branch NEEDED FOR NAUSEA AND VOMITING PROMETHAZIN 2023-0 Yes [id number] TAKE ONE [facility] 25 mg 1-17 TABLET BY it[facility] of tablet 00:00: MOUTH [place] 00 EVERY 6 Medical HOURS Branch NEEDED FOR NAUSEA AND VOMITING PROMETHAZIN 2023-0 Yes [id number] TAKE ONE [facility] 25 mg 1-17 TABLET BY it[facility] of tablet 00:00: MOUTH [place] 00 EVERY 6 Medical HOURS Branch NEEDED FOR NAUSEA AND VOMITING PROMETHAZIN 2023-0 Yes [id number] TAKE ONE [facility] E 25 mg 1-17 TABLET BY ity of tablet 00:00: MOUTH [place] 00 EVERY 6 Medical HOURS Branch NEEDED FOR NAUSEA AND VOMITING PROMETHAZIN 3-0 Yes [id number] TAKE ONE [facility] E 25 mg 1-17 TABLET BY it[facility] of tablet 00:00: MOUTH [place] 00 EVERY 6 Medical HOURS Branch NEEDED FOR NAUSEA AND VOMITING enoxaparin 2023-0 Yes [id number] 40mg inject 0.4 [facility] 40 mg/0.4 1-10 mL under ity of mL 00:00: the skin [place] injection 00 in the Medical morning. Branch enoxaparin 2023-0 Yes [id number] 40mg inject 0.4 [facility] 40 mg/0.4 1-10 mL under ity of mL 00:00: the skin [place] injection 00 in the Medical morning. Branch enoxaparin 2023-0 Yes [id number] 40mg inject 0.4 [facility] 40 mg/0.4 1-10 mL under ity of mL 00:00: the skin [place] injection 00 in the Medical morning. Branch enoxaparin 2023-0 Yes [id number] 40mg inject 0.4 [facility] 40 mg/0.4 1-10 mL under ity of mL 00:00: the skin [place] injection 00 in the Medical morning. Branch enoxaparin 2023-0 Yes [id number] 40mg inject 0.4 [facility] 40 mg/0.4 1-10 mL under ity of mL 00:00: the skin [place] injection 00 in the Medical morning. Branch enoxaparin 2023-0 Yes [id number] 40mg inject 0.4 [facility] 40 mg/0.4 1-10 mL under ity of mL 00:00: the skin [place] injection 00 in the Medical morning. Branch enoxaparin 2023-0 Yes [id number] 40mg inject 0.4 [facility] 40 mg/0.4 1-10 mL under ity of mL 00:00: the skin [place] injection 00 in the Medical morning. Branch enoxaparin 2023-0 Yes [id number] 40mg inject 0.4 [facility] 40 mg/0.4 1-10 mL under ity of mL 00:00: the skin [place] injection 00 in the Medical morning. Branch enoxaparin 2023-0 Yes [id number] 40mg inject 0.4 [facility] 40 mg/0.4 1-10 mL under ity of mL 00:00: the skin [place] injection 00 in the Medical morning. Branch enoxaparin 2023-0 Yes [id number] 40mg inject 0.4 [facility] 40 mg/0.4 1-10 mL under ity of mL 00:00: the skin [place] injection 00 in the Medical morning. Branch enoxaparin 2023-0 Yes [id number] 40mg inject 0.4 [facility] 40 mg/0.4 1-10 mL under ity of mL 00:00: the skin [place] injection 00 in the Medical morning. Branch enoxaparin 2023-0 Yes [id number] 40mg inject 0.4 [facility] 40 mg/0.4 1-10 mL under ity of mL 00:00: the skin [place] injection 00 in the Medical morning. Branch enoxaparin 2023-0 Yes [id number] 40mg inject 0.4 [facility] 40 mg/0.4 1-10 mL under ity of mL 00:00: the skin [place] injection 00 in the Medical morning. Branch enoxaparin 2023-0 Yes [id number] 40mg inject 0.4 [facility] 40 mg/0.4 1-10 mL under ity of mL 00:00: the skin [place] injection 00 in the Medical morning. Branch enoxaparin 2023-0 Yes [id number] 40mg inject 0.4 [facility] 40 mg/0.4 1-10 mL under ity of mL 00:00: the skin [place] injection 00 in the Medical morning. Branch enoxaparin 2023-0 Yes [id number] 40mg inject 0.4 [facility] 40 mg/0.4 1-10 mL under ity of mL 00:00: the skin [place] injection 00 in the Medical morning. Branch enoxaparin 2023-0 Yes [id number] 40mg inject 0.4 [facility] 40 mg/0.4 1-10 mL under ity of mL 00:00: the skin [place] injection 00 in the Medical morning. Branch enoxaparin 2023-0 Yes [id number] 40mg inject 0.4 [facility] 40 mg/0.4 1-10 mL under ity of mL 00:00: the skin [place] injection 00 in the Medical morning. Branch enoxaparin 2023-0 Yes [id number] 40mg inject 0.4 [facility] 40 mg/0.4 1-10 mL under ity of mL 00:00: the skin [place] injection 00 in the Medical morning. Branch enoxaparin 2023-0 Yes [id number] 40mg inject 0.4 [facility] 40 mg/0.4 1-10 mL under ity of mL 00:00: the skin [place] injection 00 in the Medical morning. Branch enoxaparin 2023-0 Yes [id number] 40mg inject 0.4 [facility] 40 mg/0.4 1-10 mL under ity of mL 00:00: the skin [place] injection 00 in the Medical morning. Branch enoxaparin 2023-0 Yes [id number] 40mg inject 0.4 [facility] 40 mg/0.4 1-10 mL under ity of mL 00:00: the skin [place] injection 00 in the Medical morning. Branch enoxaparin 2023-0 Yes [id number] 40mg inject 0.4 [facility] 40 mg/0.4 1-10 mL under ity of mL 00:00: the skin [place] injection 00 in the Medical morning. Branch enoxaparin 2023-0 Yes [id number] 40mg inject 0.4 [facility] 40 mg/0.4 1-10 mL under ity of mL 00:00: the skin [place] injection 00 in the Medical morning. Branch enoxaparin 2023-0 Yes [id number] 40mg inject 0.4 [facility] 40 mg/0.4 1-10 mL under ity of mL 00:00: the skin [place] injection 00 in the Medical morning. Branch enoxaparin 2023-0 Yes [id number] 40mg inject 0.4 [facility] 40 mg/0.4 1-10 mL under ity of mL 00:00: the skin [place] injection 00 in the Medical morning. Branch enoxaparin 2023-0 Yes [id number] 40mg inject 0.4 [facility] 40 mg/0.4 1-10 mL under ity of mL 00:00: the skin [place] injection 00 in the Medical morning. Branch enoxaparin Yes [id number] 40mg inject 0.4 [facility] 40 mg/0.4 1-10 mL under ity of mL 00:00: the skin [place] injection 00 in the Medical morning. Branch enoxaparin 2022- No [id number] 40mg inject 0.4 [facility] 40 mg/0.4 -10 06-02 mL under ity o f mL 00:00: 00:00 the skin [place] injection 00 :00 in the Medical morning. Branch meningococc 2022- No [id number] .5mL 0.5 mL by [facility] al B 09-26 [facility] ity of vaccine,4-c 00:00: 05:59 lar route [place] omp 00 :00 once now Medical 50-50-50-25 for 1 Branch mcg/0.5 mL dose. injection pneumoc 2022- No [id number] .5mL 0.5 mL by [facility] 20-trinity 09-26 [facility] ity of conj-dip 00:00: [...] Medical Tab Branch PNV 67-iron 2021-09 Yes [id number] 1{capsu Take 1 [facility] ps-folate 1-15 le} capsule by ity of no.1-dha 00:00: mouth [place] (VITAFOL 00 daily. Medical ULTRA) 29 Branch mg iron- 1 mg-200 mg Cap PNV 67-iron 2021-09 Yes [id number] 1{capsu Take 1 [facility] ps-folate 1-15 le} capsule by ity of no.1-dha 00:00: mouth [place] (VITAFOL 00 daily. Medical ULTRA) 29 Branch mg iron- 1 mg-200 mg Cap PNV 67-iron 2021-09 Yes [id number] 1{capsu Take 1 [facility] ps-folate 1-15 le} capsule by ity of no.1-dha 00:00: mouth [place] (VITAFOL 00 daily. Medical ULTRA) 29 Branch mg iron- 1 mg-200 mg Cap PNV 67-iron 2021-09 Yes [id number] 1{capsu Take 1 [facility] ps-folate 1-15 le} capsule by ity of no.1-dha 00:00: mouth [place] (VITAFOL 00 daily. Medical ULTRA) 29 Branch mg iron- 1 mg-200 mg Cap PNV 67-iron 2021-09 Yes [id number] 1{capsu Take 1 [facility] ps-folate 1-15 le} capsule by ity of no.1-dha 00:00: mouth [place] (VITAFOL 00 daily. Medical ULTRA) 29 Branch mg iron- 1 mg-200 mg Cap PNV 67-iron 2021-09 Yes [id number] 1{capsu Take 1 [facility] ps-folate 1-15 le} capsule by ity of no.1-dha 00:00: mouth [place] (VITAFOL 00 daily. Medical ULTRA) 29 Branch mg iron- 1 mg-200 mg Cap PNV 67-iron 2021-09 Yes [id number] 1{capsu Take 1 [facility] ps-folate 1-15 le} capsule by ity of no.1-dha 00:00: mouth [place] (VITAFOL 00 daily. Medical ULTRA) 29 Branch mg iron- 1 mg-200 mg Cap PNV 67-iron 2021-09 Yes [id number] 1{capsu Take 1 [facility] ps-folate 1-15 le} capsule by ity of no.1-dha 00:00: mouth [place] (VITAFOL 00 daily. Medical ULTRA) 29 Branch mg iron- 1 mg-200 mg Cap PNV 67-iron 2021-09 Yes [id number] 1{capsu Take 1 [facility] ps-folate 1-15 le} capsule by ity of no.1-dha 00:00: mouth [place] (VITAFOL 00 daily. Medical ULTRA) 29 Branch mg iron- 1 mg-200 mg Cap PNV 67-iron 2021-09 Yes [id number] 1{capsu Take 1 [facility] ps-folate 1-15 le} capsule by ity of no.1-dha 00:00: mouth [place] (VITAFOL 00 daily. Medical ULTRA) 29 Branch mg iron- 1 mg-200 mg Cap PNV 67-iron 2021-09 Yes [id number] 1{capsu Take 1 [facility] ps-folate 1-15 le} capsule by ity of no.1-dha 00:00: mouth [place] (VITAFOL 00 daily. Medical ULTRA) 29 Branch mg iron- 1 mg-200 mg Cap PNV 67-iron 2021-09 Yes [id number] 1{capsu Take 1 [facility] ps-folate 1-15 le} capsule by ity of no.1-dha 00:00: mouth [place] (VITAFOL 00 daily. Medical ULTRA) 29 Branch mg iron- 1 mg-200 mg Cap PNV 67-iron 2021-09 Yes [id number] 1{capsu Take 1 [facility] ps-folate 1-15 le} capsule by ity of no.1-dha 00:00: mouth [place] (VITAFOL 00 daily. Medical ULTRA) 29 Branch mg iron- 1 mg-200 mg Cap PNV 67-iron 2021-09 Yes [id number] 1{capsu Take 1 [facility] ps-folate 1-15 le} capsule by ity of no.1-dha 00:00: mouth [place] (VITAFOL 00 daily. Medical ULTRA) 29 Branch mg iron- 1 mg-200 mg Cap PNV 67-iron 2021-09 Yes [id number] 1{capsu Take 1 [facility] ps-folate 1-15 le} capsule by ity of no.1-dha 00:00: mouth [place] (VITAFOL 00 daily. Medical ULTRA) 29 Branch mg iron- 1 mg-200 mg Cap PNV 67-iron 2021-09 Yes [id number] 1{capsu Take 1 [facility] ps-folate 1-15 le} capsule by ity of no.1-dha 00:00: mouth [place] (VITAFOL 00 daily. Medical ULTRA) 29 Branch mg iron- 1 mg-200 mg Cap PNV 67-iron 2021-09 Yes [id number] 1{capsu Take 1 [facility] ps-folate 1-15 le} capsule by ity of no.1-dha 00:00: mouth [place] (VITAFOL 00 daily. Medical ULTRA) 29 Branch mg iron- 1 mg-200 mg Cap PNV 67-iron 2021-09 Yes [id number] 1{capsu Take 1 [facility] ps-folate 1-15 le} capsule by ity of no.1-dha 00:00: mouth [place] (VITAFOL 00 daily. Medical ULTRA) 29 Branch mg iron- 1 mg-200 mg Cap PNV 67-iron 2021-09 Yes [id number] 1{capsu Take 1 [facility] ps-folate 1-15 le} capsule by ity of no.1-dha 00:00: mouth [place] (VITAFOL 00 daily. Medical ULTRA) 29 Branch mg iron- 1 mg-200 mg Cap PNV 67-iron 2021-09 Yes [id number] 1{capsu Take 1 [facility] ps-folate 1-15 le} capsule by ity of no.1-dha 00:00: mouth [place] (VITAFOL 00 daily. Medical ULTRA) 29 Branch mg iron- 1 mg-200 mg Cap PNV 67-iron 2021-09 Yes [id number] 1{capsu Take 1 [facility] ps-folate 1-15 le} capsule by ity of no.1-dha 00:00: mouth [place] (VITAFOL 00 daily. Medical ULTRA) 29 Branch mg iron- 1 mg-200 mg Cap PNV 67-iron 2021-09 Yes [id number] 1{capsu Take 1 [facility] ps-folate 1-15 le} capsule by ity of no.1-dha 00:00: mouth [place] (VITAFOL 00 daily. Medical ULTRA) 29 Branch mg iron- 1 mg-200 mg Cap PNV 67-iron 2021-09 Yes [id number] 1{capsu Take 1 [facility] ps-folate 1-15 le} capsule by ity of no.1-dha 00:00: mouth [place] (VITAFOL 00 daily. Medical ULTRA) 29 Branch mg iron- 1 mg-200 mg Cap PNV 67-iron 2021-09 Yes [id number] 1{capsu Take 1 [facility] ps-folate 1-15 le} capsule by ity of no.1-dha 00:00: mouth [place] (VITAFOL 00 daily. Medical ULTRA) 29 Branch mg iron- 1 mg-200 mg Cap PNV 67-iron 2021-09 Yes [id number] 1{capsu Take 1 [facility] ps-folate 1-15 le} capsule by ity of no.1-dha 00:00: mouth [place] (VITAFOL 00 daily. Medical ULTRA) 29 Branch mg iron- 1 mg-200 mg Cap PNV 67-iron 2021-09 Yes [id number] 1{capsu Take 1 [facility] ps-folate 1-15 le} capsule by ity of no.1-dha 00:00: mouth [place] (VITAFOL 00 daily. Medical ULTRA) 29 Branch mg iron- 1 mg-200 mg Cap PNV 67-iron 2021-09 Yes [id number] 1{capsu Take 1 [facility] ps-folate 1-15 le} capsule by ity of no.1-dha 00:00: mouth [place] (VITAFOL 00 daily. Medical ULTRA) 29 Branch mg iron- 1 mg-200 mg Cap proMETHazin 2021-09 Yes [id number] 25mg Take 1 [facility] e 25 mg 1-15 tablet by ity of tablet 00:00: mouth [place] 00 every 6 Medical (six) Branch hours as needed for Nausea and Vomiting (N/V). PNV 67-iron 2021-09 Yes [id number] 1{capsu Take 1 [facility] ps-folate 1-15 le} capsule by ity of no.1-dha 00:00: mouth [place] (VITAFOL 00 daily. Medical ULTRA) 29 Branch mg iron- 1 mg-200 mg Cap proMETHazin 2021-09 Yes [id number] 25mg Take 1 [facility] e 25 mg 1-15 tablet by ity of tablet 00:00: mouth [place] 00 every 6 Medical (six) Branch hours as needed for Nausea and Vomiting (N/V). PNV 67-iron 2021-09 Yes [id number] 1{capsu Take 1 [facility] ps-folate 1-15 le} capsule by ity of no.1-dha 00:00: mouth [place] (VITAFOL 00 daily. Medical ULTRA) 29 Branch mg iron- 1 mg-200 mg Cap proMETHazin 2021-09 Yes [id number] 25mg Take 1 [facility] e 25 mg 1-15 tablet by ity of tablet 00:00: mouth [place] 00 every 6 Medical (six) Branch hours as needed for Nausea and Vomiting (N/V). PNV 67-iron 2021-09 Yes [id number] 1{capsu Take 1 [facility] ps-folate 1-15 le} capsule by ity of no.1-dha 00:00: mouth [place] (VITAFOL 00 daily. Medical ULTRA) 29 Branch mg iron- 1 mg-200 mg Cap proMETHazin 2021-09 Yes [id number] 25mg Take 1 [facility] e 25 mg 1-15 tablet by ity of tablet 00:00: mouth [place] 00 every 6 Medical (six) Branch hours as needed for Nausea and Vomiting (N/V). PNV 67-iron 2021-09 Yes [id number] 1{capsu Take 1 [facility] ps-folate 1-15 le} capsule by ity of no.1-dha 00:00: mouth [place] (VITAFOL 00 daily. Medical ULTRA) 29 Branch mg iron- 1 mg-200 mg Cap proMETHazin 2021-09 Yes [id number] 25mg Take 1 [facility] e 25 mg 1-15 tablet by ity of tablet 00:00: mouth [place] 00 every 6 Medical (six) Branch hours as needed for Nausea and Vomiting (N/V). PNV 67-iron 2021-09 Yes [id number] 1{capsu Take 1 [facility] ps-folate 1-15 le} capsule by ity of no.1-dha 00:00: mouth [place] (VITAFOL 00 daily. Medical ULTRA) 29 Branch mg iron- 1 mg-200 mg Cap proMETHazin 2021-09 Yes [id number] 25mg Take 1 [facility] e 25 mg 1-15 tablet by ity of tablet 00:00: mouth [place] 00 every 6 Medical (six) Branch hours as needed for Nausea and Vomiting (N/V). PNV 67-iron 2021-09 Yes [id number] 1{capsu Take 1 [facility] ps-folate 1-15 le} capsule by ity of no.1-dha 00:00: mouth [place] (VITAFOL 00 daily. Medical ULTRA) 29 Branch mg iron- 1 mg-200 mg Cap proMETHazin 2021-09 Yes [id number] 25mg Take 1 [facility] e 25 mg 1-15 tablet by ity of tablet 00:00: mouth [place] 00 every 6 Medical (six) Branch hours as needed for Nausea and Vomiting (N/V). PNV 67-iron 2021-09 Yes [id number] 1{capsu Take 1 [facility] ps-folate 1-15 le} capsule by ity of no.1-dha 00:00: mouth [place] (VITAFOL 00 daily. Medical ULTRA) 29 Branch mg iron- 1 mg-200 mg Cap proMETHazin 2021-09 Yes [id number] 25mg Take 1 [facility] e 25 mg 1-15 tablet by ity of tablet 00:00: mouth [place] 00 every 6 Medical (six) Branch hours as needed for Nausea and Vomiting (N/V). PNV 67-iron 2021-09 Yes [id number] 1{capsu Take 1 [facility] ps-folate 1-15 le} capsule by ity of no.1-dha 00:00: mouth [place] (VITAFOL 00 daily. Medical ULTRA) 29 Branch mg iron- 1 mg-200 mg Cap proMETHazin 2021-09 Yes [id number] 25mg Take 1 [facility] e 25 mg 1-15 tablet by ity of tablet 00:00: mouth [place] 00 every 6 Medical (six) Branch hours as needed for Nausea and Vomiting (N/V). PNV 67-iron 2021-09 Yes [id number] 1{capsu Take 1 [facility] ps-folate 1-15 le} capsule by ity of no.1-dha 00:00: mouth [place] (VITAFOL 00 daily. Medical ULTRA) 29 Branch mg iron- 1 mg-200 mg Cap proMETHazin 2021-09 Yes [id number] 25mg Take 1 [facility] e 25 mg 1-15 tablet by ity of tablet 00:00: mouth [place] 00 every 6 Medical (six) Branch hours as needed for Nausea and Vomiting (N/V). PNV 67-iron 2021-09 Yes [id number] 1{capsu Take 1 [facility] ps-folate 1-15 le} capsule by ity of no.1-dha 00:00: mouth [place] (VITAFOL 00 daily. Medical ULTRA) 29 Branch mg iron- 1 mg-200 mg Cap proMETHazin 2021-09 Yes [id number] 25mg Take 1 [facility] e 25 mg 1-15 tablet by ity of tablet 00:00: mouth [place] 00 every 6 Medical (six) Branch hours as needed for Nausea and Vomiting (N/V). PNV 67-iron 2021-09 Yes [id number] 1{capsu Take 1 [facility] ps-folate 1-15 le} capsule by ity of no.1-dha 00:00: mouth [place] (VITAFOL 00 daily. Medical ULTRA) 29 Branch mg iron- 1 mg-200 mg Cap proMETHazin 2021-09 Yes [id number] 25mg Take 1 [facility] e 25 mg 1-15 tablet by ity of tablet 00:00: mouth [place] 00 every 6 Medical (six) Branch hours as needed for Nausea and Vomiting (N/V). PNV 67-iron 2021-09 Yes [id number] 1{capsu Take 1 [facility] ps-folate 1-15 le} capsule by ity of no.1-dha 00:00: mouth [place] (VITAFOL 00 daily. Medical ULTRA) 29 Branch mg iron- 1 mg-200 mg Cap proMETHazin 2021-09 Yes [id number] 25mg Take 1 [facility] e 25 mg 1-15 tablet by ity of tablet 00:00: mouth [place] 00 every 6 Medical (six) Branch hours as needed for Nausea and Vomiting (N/V). PNV 67-iron 2021-09 Yes [id number] 1{capsu Take 1 [facility] ps-folate 1-15 le} capsule by ity of no.1-dha 00:00: mouth [place] (VITAFOL 00 daily. Medical ULTRA) 29 Branch mg iron- 1 mg-200 mg Cap proMETHazin 2021-09 Yes [id number] 25mg Take 1 [facility] e 25 mg 1-15 tablet by ity of tablet 00:00: mouth [place] 00 every 6 Medical (six) Branch hours as needed for Nausea and Vomiting (N/V). PNV 67-iron 2021-09 Yes [id number] 1{capsu Take 1 [facility] ps-folate 1-15 le} capsule by ity of no.1-dha 00:00: mouth [place] (VITAFOL 00 daily. Medical ULTRA) 29 Branch mg iron- 1 mg-200 mg Cap proMETHazin 2021-09 Yes [id number] 25mg Take 1 [facility] e 25 mg 1-15 tablet by ity of tablet 00:00: mouth [place] 00 every 6 Medical (six) Branch hours as needed for Nausea and Vomiting (N/V). PNV 67-iron 2021-09 Yes [id number] 1{capsu Take 1 [facility] ps-folate 1-15 le} capsule by ity of no.1-dha 00:00: mouth [place] (VITAFOL 00 daily. Medical ULTRA) 29 Branch mg iron- 1 mg-200 mg Cap proMETHazin 2021-09 Yes [id number] 25mg Take 1 [facility] e 25 mg 1-15 tablet by ity of tablet 00:00: mouth [place] 00 every 6 Medical (six) Branch hours as needed for Nausea and Vomiting (N/V). PNV 67-iron 2021-09 Yes [id number] 1{capsu Take 1 [facility] ps-folate 1-15 le} capsule by ity of no.1-dha 00:00: mouth [place] (VITAFOL 00 daily. Medical ULTRA) 29 Branch mg iron- 1 mg-200 mg Cap proMETHazin 2021-09 Yes [id number] 25mg Take 1 [facility] e 25 mg 1-15 tablet by ity of tablet 00:00: mouth [place] 00 every 6 Medical (six) Branch hours as needed for Nausea and Vomiting (N/V). PNV 67-iron 2021-09 Yes [id number] 1{capsu Take 1 [facility] ps-folate 1-15 le} capsule by ity of no.1-dha 00:00: mouth [place] (VITAFOL 00 daily. Medical ULTRA) 29 Branch mg iron- 1 mg-200 mg Cap proMETHazin 2021-09 Yes [id number] 25mg Take 1 [facility] e 25 mg 1-15 tablet by ity of tablet 00:00: mouth [place] 00 every 6 Medical (six) Branch hours as needed for Nausea and Vomiting (N/V). PNV 67-iron 2021-09 Yes [id number] 1{capsu Take 1 [facility] ps-folate 1-15 le} capsule by ity of no.1-dha 00:00: mouth [place] (VITAFOL 00 daily. Medical ULTRA) 29 Branch mg iron- 1 mg-200 mg Cap proMETHazin 2021-09 Yes [id number] 25mg Take 1 [facility] e 25 mg 1-15 tablet by ity of tablet 00:00: mouth [place] 00 every 6 Medical (six) Branch hours as needed for Nausea and Vomiting (N/V). PNV 67-iron 2021-09 Yes [id number] 1{capsu Take 1 [facility] ps-folate 1-15 le} capsule by ity of no.1-dha 00:00: mouth [place] (VITAFOL 00 daily. Medical ULTRA) 29 Branch mg iron- 1 mg-200 mg Cap proMETHazin 2021-09 Yes [id number] 25mg Take 1 [facility] e 25 mg 1-15 tablet by ity of tablet 00:00: mouth [place] 00 every 6 Medical (six) Branch hours as needed for Nausea and Vomiting (N/V). PNV 67-iron 2021-09 Yes [id number] 1{capsu Take 1 [facility] ps-folate 1-15 le} capsule by ity of no.1-dha 00:00: mouth [place] (VITAFOL 00 daily. Medical ULTRA) 29 Branch mg iron- 1 mg-200 mg Cap proMETHazin 2021-09 Yes [id number] 25mg Take 1 [facility] e 25 mg 1-15 tablet by ity of tablet 00:00: mouth [place] 00 every 6 Medical (six) Branch hours as needed for Nausea and Vomiting (N/V). PNV 67-iron 2021-09 Yes [id number] 1{capsu Take 1 [facility] ps-folate 1-15 le} capsule by ity of no.1-dha 00:00: mouth [place] (VITAFOL 00 daily. Medical ULTRA) 29 Branch mg iron- 1 mg-200 mg Cap PNV 67-iron 2021-09 Yes [id number] 1{capsu Take 1 [facility] ps-folate 1-15 le} capsule by ity of no.1-dha 00:00: mouth [place] (VITAFOL 00 daily. Medical ULTRA) 29 Branch mg iron- 1 mg-200 mg Cap PNV 67-iron 2021-09 Yes [id number] 1{capsu Take 1 [facility] ps-folate 1-15 le} capsule by ity of no.1-dha 00:00: mouth [place] (VITAFOL 00 daily. Medical ULTRA) 29 Branch mg iron- 1 mg-200 mg Cap PNV 67-iron 2021-09 Yes [id number] 1{capsu Take 1 [facility] ps-folate 1-15 le} capsule by ity of no.1-dha 00:00: mouth [place] (VITAFOL 00 daily. Medical ULTRA) 29 Branch mg iron- 1 mg-200 mg Cap PNV 67-iron 2021-09 Yes [id number] 1{capsu Take 1 [facility] ps-folate 1-15 le} capsule by ity of no.1-dha 00:00: mouth [place] (VITAFOL 00 daily. Medical ULTRA) 29 Branch mg iron- 1 mg-200 mg Cap proMETHazin 2021-09- No [id number] 25mg Take 1 [facility] e 25 mg 1-15 -17 tablet by ity of tablet 00:00: 00:00 mouth [place] 00 :00 every 6 Medical (six) Branch hours as needed for Nausea and Vomiting (N/V). ibuprofen Yes [id number] 600mg Take 1 [facility] 600 mg 7-22 tablet by ity of tablet 00:00: mouth [place] 00 every 6 Medical (six) Branch hours as needed for Pain (scale 1-3). ibuprofen Yes [id number] 600mg Take 1 [facility] 600 mg 7-22 tablet by ity of tablet 00:00: mouth [place] 00 every 6 Medical (six) Branch hours as needed for Pain (scale 1-3). ibuprofen 2021- No [id number] 600mg Take 1 [facility] 600 mg 7-22 11-15 tablet by ity of tablet 00:00: 00:00 mouth [place] 00 :00 every 6 Medical (six) Branch hours as needed for Pain (scale 1-3). ibuprofen 2021- No [id number] 600mg Take 1 [facility] 600 mg 7-22 11-15 tablet by ity of tablet 00:00: 00:00 mouth [place] 00 :00 every 6 Medical (six) Branch hours as needed for Pain (scale 1-3). ibuprofen 2021- No [id number] 600mg Take 1 [facility] 600 mg 7-22 11-15 tablet by ity of tablet 00:00: 00:00 mouth [place] 00 :00 every 6 Medical (six) Branch hours as needed for Pain (scale 1-3). ibuprofen 2021- No [id number] 600mg Take 1 [facility] 600 mg 7-22 11-15 tablet by ity of tablet 00:00: 00:00 mouth [place] 00 :00 every 6 Medical (six) Branch hours as needed for Pain (scale 1-3). ibuprofen 2021- No [id number] 600mg Take 1 [facility] 600 mg 7-22 11-15 tablet by ity of tablet 00:00: 00:00 mouth [place] 00 :00 every 6 Medical (six) Branch hours as needed for Pain (scale 1-3). acetaminoph 2021- No [id number] 1{tbl} Take 1 U nivers en-codeine 22 07-30 tablet by ity of (TYLENOL-CO 00:00: [...] Branch STRENGTH) 25-500 mg Tab pyridoxine, Yes [id number] 25mg Take 1 [facility] VITAMIN 7-18 tablet by ity of B-6, 25 mg 00:00: mouth in [place] tablet 00 the Medical morning Branch and 1 tablet at noon and 1 tablet in the evening. doxylamine Yes [id number] 25mg Take 1 [facility] n[facility] 25 mg 7-18 tablet by ity of tablet 00:00: mouth at [place] 00 bedtime. Medical Branch pyridoxine, Yes [id number] 25mg Take 1 [facility] VITAMIN 7-18 tablet by ity of B-6, 25 mg 00:00: mouth in [place] tablet 00 the Medical morning Branch and 1 tablet at noon and 1 tablet in the evening. doxylamine Yes [id number] 25mg Take 1 [facility] 25 mg 7-18 tablet by ity of tablet 00:00: mouth at [place] 00 bedtime. Medical Branch pyridoxine, 2021- No [id number] 25mg Take 1 [facility] VITAMIN 7-18 11-15 tablet by ity of B-6, 25 mg 00:00: 00:00 mouth in [place] tablet 00 :00 the Medical morning Branch and 1 tablet at noon and 1 tablet in the evening. doxylamine 2021- No [id number] 25mg Take 1 [facility] 25 mg 7-18 11-15 tablet by ity of tablet 00:00: 00:00 mouth at [place] 00 :00 bedtime. Medical Branch pyridoxine, 2021- No [id number] 25mg Take 1 [facility] VITAMIN 7-18 11-15 tablet by ity of B-6, 25 mg 00:00: 00:00 mouth in [place] tablet 00 :00 the Medical morning Branch and 1 tablet at noon and 1 tablet in the evening. doxylamine 2021- No [id number] 25mg Take 1 [facility] 25 mg 7-18 11-15 tablet by ity of tablet 00:00: 00:00 mouth at [place] 00 :00 bedtime. Medical Branch pyridoxine, 2021- No [id number] 25mg Take 1 [facility] VITAMIN 7-18 11-15 tablet by ity of B-6, 25 mg 00:00: 00:00 mouth in [place] tablet 00 :00 the Medical morning Branch and 1 tablet at noon and 1 tablet in the evening. doxylamine 2021- No [id number] 25mg Take 1 [facility] 25 mg 7-18 11-15 tablet by ity of tablet 00:00: 00:00 mouth at [place] 00 :00 bedtime. Medical Branch pyridoxine, 2021- No [id number] 25mg Take 1 [facility] VITAMIN 7-18 11-15 tablet by ity of B-6, 25 mg 00:00: 00:00 mouth in [place] tablet 00 :00 the Medical morning Branch and 1 tablet at noon and 1 tablet in the evening. doxylamine 2021- No [id number] 25mg Take 1 [facility] 25 mg 7-18 11-15 tablet by ity of tablet 00:00: 00:00 mouth at [place] 00 :00 bedtime. Medical Branch pyridoxine, 2021- No [id number] 25mg Take 1 [facility] VITAMIN 7-18 11-15 tablet by ity of B-6, 25 mg 00:00: 00:00 mouth in [place] tablet 00 :00 the Medical morning Branch and 1 tablet at noon and 1 tablet in the evening. doxylamine 0 2- No [id number] 25mg Take 1 [facility] 25 mg 7-18 11-15 tablet by ity of tablet 00:00: 00:00 mouth at [place] 00 :00 bedtime. [facility] Branch foLIC acid 2021-0 2- No [id number] 4mg Take 4 [facility] 1 mg tablet 18 08-18 tablets by i ty of 00:00: 04:59 mouth in [place] 00 :00 the Medical morning Branch for 30 days. pantoprazol 2021-0 Yes Univer s e 40 mg EC 6-04 ity of tablet 00:00: [place] [facility] Branch pantoprazol 2021-0 Yes Univer s e 40 mg EC 6-04 ity of tablet 00:00: [address] Branch pantoprazol 2021-0 Yes Un[facility] s e 40 mg EC 6-04 ity of tablet 00:00: [address] Branch pantoprazol 2021-0 Yes Un[facility] s e 40 mg EC 6-04 ity of tablet 00:00: [address] Branch pantoprazol 2021-0 Yes Univer s e 40 mg EC 6-04 ity of tablet 00:00: [address] Branch pantoprazol 2021-0 Yes Univer s e 40 mg EC 6-04 ity of tablet 00:00: [address] Branch pantoprazol 2021-0 Yes Un[facility] s e 40 mg EC 6-04 ity of tablet 00:00: [address] Branch pantoprazol 2021-0 Yes Un[facility] s e 40 mg EC 6-04 ity of tablet 00:00: [address] Branch pantoprazol 2021-0 Yes Univer s e 40 mg EC 6-04 ity of tablet 00:00: [address] Branch pantoprazol 2021-0 Yes Univer s e 40 mg EC 6-04 ity of tablet 00:00: [address] Branch pantoprazol 2021-0 Yes Un[facility] s e 40 mg EC 6-04 ity of tablet 00:00: [address] Branch pantoprazol 2021-0 Yes Un[facility] s e 40 mg EC 6-04 ity of tablet 00:00: [address] Branch pantoprazol 2022-0 Yes Univer s e 40 mg EC 6-04 ity of tablet 00:00: [place] 00 Medical Branch pantoprazol 2022-0 Yes Univer s e 40 mg EC 6-04 ity of tablet 00:00: [place] 00 Medical Branch pantoprazol 2022-0 Yes Univer s e 40 mg EC 6-04 ity of tablet 00:00: [place] 00 Medical Branch pantoprazol 2022-0 Yes Univer s e 40 mg EC 6-04 ity of tablet 00:00: [place] 00 Medical Branch pantoprazol 2022-0 Yes Univer s e 40 mg EC 6-04 ity of tablet 00:00: [place] 00 Medical Branch pantoprazol 2022-0 Yes Univer s e 40 mg EC 6-04 ity of tablet 00:00: [place] Medical Branch pantoprazol 2022-0 Yes Univer s e 40 mg EC 6-04 ity of tablet 00:00: [place] [facility] Branch pantoprazol 2022-0 Yes Univer s e 40 mg EC 6-04 ity of tablet 00:00: [place] 00 Medical Branch pantoprazol 2022-0 Yes Univer s e 40 mg EC 6-04 ity of tablet 00:00: [place] 00 Medical Branch pantoprazol 2022-0 Yes Univer s e 40 mg EC 6-04 ity of tablet 00:00: [place] Medical Branch pantoprazol 2022-0 Yes Univer s e 40 mg EC 6-04 ity of tablet 00:00: [place] [facility] Branch pantoprazol 2022-0 Yes Univer s e 40 mg EC 6-04 ity of tablet 00:00: [place] 00 Medical Branch pantoprazol 2022-0 Yes Univer s e 40 mg EC 6-04 ity of tablet 00:00: [place] 00 Medical Branch pantoprazol 2022-0 Yes Univer s e 40 mg EC 6-04 ity of tablet 00:00: [place] 00 Medical Branch pantoprazol 2022-0 Yes Univer s e 40 mg EC 6-04 ity of tablet 00:00: [place] 00 Medical Branch pantoprazol 2022-0 Yes Univer s e 40 mg EC 6-04 ity of tablet 00:00: [place] 00 Medical Branch pantoprazol 2022-0 Yes Univer s e 40 mg EC 6-04 ity of tablet 00:00: [place] 00 Medical Branch pantoprazol 2022-0 Yes Univer s e 40 mg EC 6-04 ity of tablet 00:00: [place] [facility] Branch pantoprazol 2022-0 Yes Univer s e 40 mg EC 6-04 ity of tablet 00:00: [place] [facility] Branch pantoprazol 2022-0 Yes Univer s e 40 mg EC 6-04 ity of tablet 00:00: [place] [facility] Branch pantoprazol 2022-0 Yes Univer s e 40 mg EC 6-04 ity of tablet 00:00: [place] [facility] Branch pantoprazol 2022-0 Yes Univer s e 40 mg EC 6-04 ity of tablet 00:00: [place] [facility] Branch pantoprazol 2022-0 Yes Univer s e 40 mg EC 6-04 ity of tablet 00:00: [place] [facility] Branch pantoprazol 2022-0 Yes Univer s e 40 mg EC 6-04 ity of tablet 00:00: [place] [facility] Branch pantoprazol 2022-0 Yes Univer s e 40 mg EC 6-04 ity of tablet 00:00: [place] [facility] Branch pantoprazol 2022-0 Yes Univer s e 40 mg EC 6-04 ity of tablet 00:00: [place] [facility] Branch pantoprazol 2022-0 Yes Univer s e 40 mg EC 6-04 ity of tablet 00:00: [place] [facility] Branch pantoprazol 2022-0 Yes Univer s e 40 mg EC 6-04 ity of tablet 00:00: [place] [facility] Branch pantoprazol 2022-0 Yes Univer s e 40 mg EC 6-04 ity of tablet 00:00: [place] [facility] Branch pantoprazol 2022-0 Yes Univer s e 40 mg EC 6-04 ity of tablet 00:00: [place] [facility] Branch pantoprazol 2022-0 Yes Univer s e 40 mg EC 6-04 ity of tablet 00:00: [place] [facility] Branch pantoprazol 2022-0 Yes Univer s e 40 mg EC 6-04 ity of tablet 00:00: [place] [facility] Branch pantoprazol 2022-0 Yes Univer s e 40 mg EC 6-04 ity of tablet 00:00: [place] [facility] Branch pantoprazol 2022-0 Yes Univer s e 40 mg EC 6-04 ity of tablet 00:00: [place] 00 Medical Branch pantoprazol 2022-0 Yes Univer s e 40 mg EC 6-04 ity of tablet 00:00: [place] [facility] Branch pantoprazol 2022-0 Yes Univer s e 40 mg EC 6-04 ity of tablet 00:00: [place] [facility] Branch pantoprazol 2022-0 Yes Univer s e 40 mg EC 6-04 ity of tablet 00:00: [place] [facility] Branch pantoprazol 2022-0 Yes Univer s e 40 mg EC 6-04 ity of tablet 00:00: [place] [facility] Branch pantoprazol 2022-0 Yes Univer s e 40 mg EC 6-04 ity of tablet 00:00: [place] [facility] Branch pantoprazol 2022-0 Yes Univer s e 40 mg EC 6-04 ity of tablet 00:00: [place] [facility] Branch pantoprazol 2022-0 Yes Univer s e 40 mg EC 6-04 ity of tablet 00:00: [place] [facility] Branch pantoprazol 2022-0 Yes Univer s e 40 mg EC 6-04 ity of tablet 00:00: [place] [facility] Branch OXcarbazepi 2021-0 Yes [id number] TAKE ONE Univers ne 600 mg 8-18 TABLET BY ity o f tablet 00:00: [facility] EVERY Medical MORNING Branch AND TAKE TWO TABLETS BY MOUTH EVERY NIGHT AT BEDTIME OXcarbazepi 2021-0 Yes [id number] TAKE ONE Univers ne 600 mg 8-18 TABLET BY ity o f tablet 00:00: [facility] EVERY Medical MORNING Branch AND TAKE TWO TABLETS BY MOUTH EVERY NIGHT AT BEDTIME OXcarbazepi 2021-0 Yes [id number] TAKE ONE Univers ne 600 mg 8-18 TABLET BY ity o f tablet 00:00: [facility] EVERY Medical MORNING Branch AND TAKE TWO TABLETS BY MOUTH EVERY NIGHT AT BEDTIME OXcarbazepi 2021-0 Yes [id number] TAKE ONE Univers ne 600 mg 8-18 TABLET BY ity o f tablet 00:00: [facility] EVERY Medical MORNING Branch AND TAKE TWO TABLETS BY MOUTH EVERY NIGHT AT BEDTIME OXcarbazepi 2021-0 Yes [id number] TAKE ONE Univers ne 600 mg 8-18 TABLET BY ity o f tablet 00:00: MOUTH [place] 00 EVERY Medical MORNING Branch AND TAKE TWO TABLETS BY MOUTH EVERY NIGHT AT BEDTIME OXcarbazepi 2021-0 Yes [id number] TAKE ONE Univers ne 600 mg 8-18 TABLET BY ity o f tablet 00:00: MOUTH [place] 00 EVERY Medical MORNING Branch AND TAKE TWO TABLETS BY MOUTH EVERY NIGHT AT BEDTIME OXcarbazepi 2021-0 Yes [id number] TAKE ONE Univers ne 600 mg 8-18 TABLET BY ity o f tablet 00:00: MOUTH [place] 00 EVERY Medical MORNING Branch AND TAKE TWO TABLETS BY MOUTH EVERY NIGHT AT BEDTIME OXcarbazepi 2021-0 Yes [id number] TAKE ONE [facility] ne 600 mg 8-18 TABLET BY ity o f tablet 00:00: MOUTH [place] 00 EVERY Medical MORNING Branch AND TAKE TWO TABLETS BY MOUTH EVERY NIGHT AT BEDTIME OXcarbazepi 2021-0 Yes [id number] TAKE ONE [facility] ne 600 mg 8-18 TABLET BY ity o f tablet 00:00: MOUTH [place] 00 EVERY Medical MORNING Branch AND TAKE TWO TABLETS BY MOUTH EVERY NIGHT AT BEDTIME OXcarbazepi 2021-0 Yes [id number] TAKE ONE [facility] ne 600 mg 8-18 TABLET BY ity o f tablet 00:00: MOUTH [place] 00 EVERY Medical MORNING Branch AND TAKE TWO TABLETS BY MOUTH EVERY NIGHT AT BEDTIME OXcarbazepi 2021-0 Yes [id number] TAKE ONE Univers ne 600 mg 8-18 TABLET BY ity o f tablet 00:00: MOUTH [place] 00 EVERY Medical MORNING Branch AND TAKE TWO TABLETS BY MOUTH EVERY NIGHT AT BEDTIME OXcarbazepi 2021-0 Yes [id number] TAKE ONE Univers ne 600 mg 8-18 TABLET BY ity o f tablet 00:00: MOUTH [place] 00 EVERY Medical MORNING Branch AND TAKE TWO TABLETS BY MOUTH EVERY NIGHT AT BEDTIME OXcarbazepi 2021-0 Yes [id number] TAKE ONE Univers ne 600 mg 8-18 TABLET BY ity o f tablet 00:00: MOUTH [place] 00 EVERY Medical MORNING Branch AND TAKE TWO TABLETS BY MOUTH EVERY NIGHT AT BEDTIME OXcarbazepi 2021-0 Yes [id number] TAKE ONE Univers ne 600 mg 8-18 TABLET BY ity o f tablet 00:00: MOUTH [place] 00 EVERY Medical MORNING Branch AND TAKE TWO TABLETS BY MOUTH EVERY NIGHT AT BEDTIME OXcarbazepi 2021-0 Yes [id number] TAKE ONE [facility] ne 600 mg 8-18 TABLET BY ity o f tablet 00:00: MOUTH [place] 00 EVERY Medical MORNING Branch AND TAKE TWO TABLETS BY MOUTH EVERY NIGHT AT BEDTIME OXcarbazepi 2021-0 Yes [id number] TAKE ONE [facility] ne 600 mg 8-18 TABLET BY ity o f tablet 00:00: MOUTH [place] 00 EVERY Medical MORNING Branch AND TAKE TWO TABLETS BY MOUTH EVERY NIGHT AT BEDTIME OXcarbazepi 2021-0 Yes [id number] TAKE ONE [facility] ne 600 mg 8-18 TABLET BY ity o f tablet 00:00: MOUTH [place] 00 EVERY Medical MORNING Branch AND TAKE TWO TABLETS BY MOUTH EVERY NIGHT AT BEDTIME OXcarbazepi 2021-0 Yes [id number] TAKE ONE Univers ne 600 mg 8-18 TABLET BY ity o f tablet 00:00: MOUTH [place] 00 EVERY Medical MORNING Branch AND TAKE TWO TABLETS BY MOUTH EVERY NIGHT AT BEDTIME OXcarbazepi 2021-0 Yes [id number] TAKE ONE [facility] ne 600 mg 8-18 TABLET BY ity o f tablet 00:00: MOUTH [place] 00 EVERY Medical MORNING Branch AND TAKE TWO TABLETS BY MOUTH EVERY NIGHT AT BEDTIME OXcarbazepi 2021-0 Yes [id number] TAKE ONE Univers ne 600 mg 8-18 TABLET BY ity o f tablet 00:00: MOUTH [place] 00 EVERY Medical MORNING Branch AND TAKE TWO TABLETS BY MOUTH EVERY NIGHT AT BEDTIME OXcarbazepi 2021-0 Yes [id number] TAKE ONE [facility] ne 600 mg 8-18 TABLET BY ity o f tablet 00:00: MOUTH [place] 00 EVERY Medical MORNING Branch AND TAKE TWO TABLETS BY MOUTH EVERY NIGHT AT BEDTIME OXcarbazepi 2021-0 Yes [id number] TAKE ONE Univers ne 600 mg 8-18 TABLET BY ity o f tablet 00:00: MOUTH [place] 00 EVERY Medical MORNING Branch AND TAKE TWO TABLETS BY MOUTH EVERY NIGHT AT BEDTIME OXcarbazepi 2021-0 Yes [id number] TAKE ONE Univers ne 600 mg 8-18 TABLET BY ity o f tablet 00:00: MOUTH [place] 00 EVERY Medical MORNING Branch AND TAKE TWO TABLETS BY MOUTH EVERY NIGHT AT BEDTIME OXcarbazepi 2021-0 Yes [id number] TAKE ONE [facility] ne 600 mg 8-18 TABLET BY ity o f tablet 00:00: MOUTH [place] 00 EVERY Medical MORNING Branch AND TAKE TWO TABLETS BY MOUTH EVERY NIGHT AT BEDTIME OXcarbazepi 2021-0 Yes [id number] TAKE ONE [facility] ne 600 mg 8-18 TABLET BY ity o f tablet 00:00: MOUTH [place] 00 EVERY Medical MORNING Branch AND TAKE TWO TABLETS BY MOUTH EVERY NIGHT AT BEDTIME OXcarbazepi 2021-0 Yes [id number] TAKE ONE [facility] ne 600 mg 8-18 TABLET BY ity o f tablet 00:00: MOUTH [place] 00 EVERY Medical MORNING Branch AND TAKE TWO TABLETS BY MOUTH EVERY NIGHT AT BEDTIME OXcarbazepi 2021-0 Yes [id number] TAKE ONE [facility] ne 600 mg 8-18 TABLET BY ity o f tablet 00:00: MOUTH [place] 00 EVERY Medical MORNING Branch AND TAKE TWO TABLETS BY MOUTH EVERY NIGHT AT BEDTIME OXcarbazepi 2021-0 Yes [id number] TAKE ONE [facility] ne 600 mg 8-18 TABLET BY ity o f tablet 00:00: MOUTH [place] 00 EVERY Medical MORNING Branch AND TAKE TWO TABLETS BY MOUTH EVERY NIGHT AT BEDTIME OXcarbazepi 2021-0 Yes [id number] TAKE ONE Univers ne 600 mg 8-18 TABLET BY ity o f tablet 00:00: MOUTH [place] 00 EVERY Medical MORNING Branch AND TAKE TWO TABLETS BY MOUTH EVERY NIGHT AT BEDTIME OXcarbazepi 2021-0 Yes [id number] TAKE ONE Univers ne 600 mg 8-18 TABLET BY ity o f tablet 00:00: MOUTH [place] 00 EVERY Medical MORNING Branch AND TAKE TWO TABLETS BY MOUTH EVERY NIGHT AT BEDTIME OXcarbazepi 2021-0 Yes [id number] TAKE ONE [facility] ne 600 mg 8-18 TABLET BY ity o f tablet 00:00: MOUTH [place] 00 EVERY Medical MORNING Branch AND TAKE TWO TABLETS BY MOUTH EVERY NIGHT AT BEDTIME OXcarbazepi 2021-0 Yes [id number] TAKE ONE [facility] ne 600 mg 8-18 TABLET BY ity o f tablet 00:00: MOUTH [place] 00 EVERY Medical MORNING Branch AND TAKE TWO TABLETS BY MOUTH EVERY NIGHT AT BEDTIME OXcarbazepi 2021-0 Yes [id number] TAKE ONE [facility] ne 600 mg 8-18 TABLET BY ity o f tablet 00:00: MOUTH [place] 00 EVERY Medical MORNING Branch AND TAKE TWO TABLETS BY MOUTH EVERY NIGHT AT BEDTIME OXcarbazepi 2021-0 Yes [id number] TAKE ONE [facility] ne 600 mg 8-18 TABLET BY ity o f tablet 00:00: MOUTH [place] 00 EVERY Medical MORNING Branch AND TAKE TWO TABLETS BY MOUTH EVERY NIGHT AT BEDTIME OXcarbazepi 2021-0 Yes [id number] TAKE ONE [facility] ne 600 mg 8-18 TABLET BY ity o f tablet 00:00: MOUTH [place] 00 EVERY Medical MORNING Branch AND TAKE TWO TABLETS BY MOUTH EVERY NIGHT AT BEDTIME OXcarbazepi 2021-0 Yes [id number] TAKE ONE [facility] ne 600 mg 8-18 TABLET BY ity o f tablet 00:00: MOUTH [place] 00 EVERY Medical MORNING Branch AND TAKE TWO TABLETS BY MOUTH EVERY NIGHT AT BEDTIME OXcarbazepi 2021-0 Yes [id number] TAKE ONE [facility] ne 600 mg 8-18 TABLET BY ity o f tablet 00:00: MOUTH [place] 00 EVERY Medical MORNING Branch AND TAKE TWO TABLETS BY MOUTH EVERY NIGHT AT BEDTIME OXcarbazepi 2021-0 Yes [id number] TAKE ONE [facility] ne 600 mg 8-18 TABLET BY ity o f tablet 00:00: MOUTH [place] 00 EVERY Medical MORNING Branch AND TAKE TWO TABLETS BY MOUTH EVERY NIGHT AT BEDTIME OXcarbazepi 2021-0 Yes [id number] TAKE ONE [facility] ne 600 mg 8-18 TABLET BY ity o f tablet 00:00: MOUTH [place] 00 EVERY Medical MORNING Branch AND TAKE TWO TABLETS BY MOUTH EVERY NIGHT AT BEDTIME OXcarbazepi 2021-0 Yes [id number] TAKE ONE [facility] ne 600 mg 8-18 TABLET BY ity o f tablet 00:00: MOUTH [place] 00 EVERY Medical MORNING Branch AND TAKE TWO TABLETS BY MOUTH EVERY NIGHT AT BEDTIME OXcarbazepi 2021-0 Yes [id number] TAKE ONE [facility] ne 600 mg 8-18 TABLET BY ity o f tablet 00:00: MOUTH [place] 00 EVERY Medical MORNING Branch AND TAKE TWO TABLETS BY MOUTH EVERY NIGHT AT BEDTIME OXcarbazepi 2021-0 Yes [id number] TAKE ONE [facility] ne 600 mg 8-18 TABLET BY ity o f tablet 00:00: MOUTH [place] 00 EVERY Medical MORNING Branch AND TAKE TWO TABLETS BY MOUTH EVERY NIGHT AT BEDTIME OXcarbazepi 2021-0 Yes [id number] TAKE ONE [facility] ne 600 mg 8-18 TABLET BY ity o f tablet 00:00: MOUTH [place] 00 EVERY Medical MORNING Branch AND TAKE TWO TABLETS BY MOUTH EVERY NIGHT AT BEDTIME OXcarbazepi 2021-0 Yes [id number] TAKE ONE [facility] ne 600 mg 8-18 TABLET BY ity o f tablet 00:00: MOUTH [place] 00 EVERY Medical MORNING Branch AND TAKE TWO TABLETS BY MOUTH EVERY NIGHT AT BEDTIME OXcarbazepi 2021-0 Yes [id number] TAKE ONE [facility] ne 600 mg 8-18 TABLET BY ity o f tablet 00:00: MOUTH [place] 00 EVERY Medical MORNING Branch AND TAKE TWO TABLETS BY MOUTH EVERY NIGHT AT BEDTIME OXcarbazepi 2021-0 Yes [id number] TAKE ONE [facility] ne 600 mg 8-18 TABLET BY ity o f tablet 00:00: MOUTH [place] 00 EVERY Medical MORNING Branch AND TAKE TWO TABLETS BY MOUTH EVERY NIGHT AT BEDTIME OXcarbazepi 2021-0 Yes [id number] TAKE ONE [facility] ne 600 mg 8-18 TABLET BY ity o f tablet 00:00: MOUTH [place] 00 EVERY Medical MORNING Branch AND TAKE TWO TABLETS BY MOUTH EVERY NIGHT AT BEDTIME OXcarbazepi 2021-0 Yes [id number] TAKE ONE [facility] ne 600 mg 8-18 TABLET BY ity o f tablet 00:00: MOUTH [place] 00 EVERY Medical MORNING Branch AND TAKE TWO TABLETS BY MOUTH EVERY NIGHT AT BEDTIME OXcarbazepi 2021-0 Yes [id number] TAKE ONE [facility] ne 600 mg 8-18 TABLET BY ity o f tablet 00:00: MOUTH [place] 00 EVERY Medical MORNING Branch AND TAKE TWO TABLETS BY MOUTH EVERY NIGHT AT BEDTIME OXcarbazepi 2021-0 Yes [id number] TAKE ONE [facility] ne 600 mg 8-18 TABLET BY ity o f tablet 00:00: MOUTH [place] 00 EVERY Medical MORNING Branch AND TAKE TWO TABLETS BY MOUTH EVERY NIGHT AT BEDTIME OXcarbazepi 2021-0 Yes [id number] TAKE ONE [facility] ne 600 mg 8-18 TABLET BY ity o f tablet 00:00: MOUTH [place] 00 EVERY Medical MORNING Branch AND TAKE TWO TABLETS BY MOUTH EVERY NIGHT AT BEDTIME OXcarbazepi 2021-0 Yes [id number] TAKE ONE [facility] ne 600 mg 8-18 TABLET BY ity o f tablet 00:00: MOUTH [place] 00 EVERY Medical MORNING Branch AND TAKE TWO TABLETS BY MOUTH EVERY NIGHT AT BEDTIME OXcarbazepi 2021-0 Yes [id number] TAKE ONE [facility] ne 600 mg 8-18 TABLET BY ity o f tablet 00:00: MOUTH [place] 00 EVERY Medical MORNING Branch AND TAKE TWO TABLETS BY MOUTH EVERY NIGHT AT BEDTIME OXcarbazepi 2020-0 Yes [id number] TAKE ONE [facility] ne 600 mg 8-18 TABLET BY ity o f tablet 00:00: MOUTH 00 EVERY Medical MORNING Branch AND TAKE TWO TABLETS BY MOUTH EVERY NIGHT AT BEDTIME amitriptyli 2020-0 Yes [id number] 50mg Take 2 [facility] ne 25 mg 7-07 tablets by ity o f tablet 00:00: mouth at [place] 00 bedtime. Medical Branch amitriptyli 2020-0 Yes [id number] 50mg Take 2 [facility] ne 25 mg 7-07 tablets by ity o f tablet 00:00: mouth at [place] 00 bedtime. Medical Branch amitriptyli 2020-0 Yes [id number] 50mg Take 2 [facility] ne 25 mg 7-07 tablets by ity o f tablet 00:00: mouth at [place] [address] bedtime. Medical Branch amitriptyli 2020-0 Yes [id number] 50mg Take 2 [facility] ne 25 mg 7-07 tablets by ity o f tablet 00:00: mouth at [place] [address] bedtime. Medical Branch amitriptyli 2020-0 Yes [id number] 50mg Take 2 [facility] ne 25 mg 7-07 tablets by ity o f tablet 00:00: mouth at [place] [address] bedtime. Medical Branch amitriptyli 2020-0 Yes [id number] 50mg Take 2 [facility] ne 25 mg 7-07 tablets by ity o f tablet 00:00: mouth at [place] [address] bedtime. Medical Branch amitriptyli 2020-0 Yes [id number] 50mg Take 2 [facility] ne 25 mg 7-07 tablets by ity o f tablet 00:00: mouth at [place] [address] bedtime. Medical Branch amitriptyli 2020-0 Yes [id number] 50mg Take 2 [facility] ne 25 mg 7-07 tablets by ity o f tablet 00:00: mouth at [place] 00 bedtime. Medical Branch amitriptyli 2020-0 Yes [id number] 50mg Take 2 Univers ne 25 mg 7-07 tablets by ity o f tablet 00:00: mouth at [place] [address] bedtime. [facility] Branch amitriptyli 2020-0 Yes [id number] 50mg Take 2 Univers ne 25 mg 7-07 tablets by ity o f tablet 00:00: mouth at [place] 00 bedtime. [facility] amitriptyli 2020-0 Yes [id number] 50mg Take 2 Univers ne 25 mg 7-07 tablets by ity o f tablet 00:00: mouth at [place] 00 bedtime. [facility] amitriptyli 2020-0 Yes [id number] 50mg Take 2 Univers ne 25 mg 7-07 tablets by ity o f tablet 00:00: mouth at [place] 00 bedtime. [facility] amitriptyli 2020-0 Yes [id number] 50mg Take 2 Univers ne 25 mg 7-07 tablets by ity o f tablet 00:00: mouth at [place] 00 bedtime. [facility] amitriptyli Yes [id number] 50mg Take 2 Univers ne 25 mg 7-07 tablets by ity o f tablet 00:00: mouth at [place] [address] bedtime. [facility] amitriptyli Yes [id number] 50mg Take 2 Univers ne 25 mg 7-07 tablets by ity o f tablet 00:00: mouth at [place] [address] bedtime. [facility] amitriptyli 0 Yes [id number] 50mg Take 2 Univers ne 25 mg 7-07 tablets by ity o f tablet 00:00: mouth at [place] [address] bedtime. [facility] amitriptyli 0 Yes [id number] 50mg Take 2 Univers ne 25 mg 7-07 tablets by ity o f tablet 00:00: mouth at [place] [address] bedtime. [facility] amitriptyli Yes [id number] 50mg Take 2 Univers ne 25 mg 7-07 tablets by ity o f tablet 00:00: mouth at [place] [address] bedtime. [facility] amitriptyli 2020-0 Yes [id number] 50mg Take 2 Univers ne 25 mg 7-07 tablets by ity o f tablet 00:00: mouth at [place] 00 bedtime. [facility] amitriptyli 0 Yes [id number] 50mg Take 2 Univers ne 25 mg 7-07 tablets by ity o f tablet 00:00: mouth at [place] [address] bedtime. [facility] amitriptyli 2020-0 Yes [id number] 50mg Take 2 Univers ne 25 mg 7-07 tablets by ity o f tablet 00:00: mouth at [place] 00 bedtime. [facility] amitriptyli 2020-0 Yes [id number] 50mg Take 2 Univers ne 25 mg 7-07 tablets by ity o f tablet 00:00: mouth at [place] 00 bedtime. [facility] amitriptyli 2020-0 Yes [id number] 50mg Take 2 [facility] ne 25 mg 7-07 tablets by ity o f tablet 00:00: mouth at [place] 00 bedtime. [facility] amitriptyli 2020-0 Yes [id number] 50mg Take 2 [facility] ne 25 mg 7-07 tablets by ity o f tablet 00:00: mouth at [place] 00 bedtime. [facility] amitriptyli 2020-0 Yes [id number] 50mg Take 2 [facility] ne 25 mg 7-07 tablets by ity o f tablet 00:00: mouth at [place] 00 bedtime. [facility] amitriptyli 2020-0 Yes [id number] 50mg Take 2 [facility] ne 25 mg 7-07 tablets by ity o f tablet 00:00: mouth at [place] 00 bedtime. [facility] amitriptyli 2020-0 Yes [id number] 50mg Take 2 [facility] ne 25 mg 7-07 tablets by ity o f tablet 00:00: mouth at [place] 00 bedtime. [facility] amitriptyli 2020-0 Yes [id number] 50mg Take 2 [facility] ne 25 mg 7-07 tablets by ity o f tablet 00:00: mouth at [place] 00 bedtime. [facility] amitriptyli 2020-0 Yes [id number] 50mg Take 2 [facility] ne 25 mg 7-07 tablets by ity o f tablet 00:00: mouth at [place] 00 bedtime. [facility] amitriptyli 2020-0 Yes [id number] 50mg Take 2 [facility] ne 25 mg 7-07 tablets by ity o f tablet 00:00: mouth at [place] 00 bedtime. [facility] amitriptyli 2020-0 Yes [id number] 50mg Take 2 [facility] ne 25 mg 7-07 tablets by ity o f tablet 00:00: mouth at [place] 00 bedtime. [facility] amitriptyli 2020-0 Yes [id number] 50mg Take 2 [facility] ne 25 mg 7-07 tablets by ity o f tablet 00:00: mouth at [place] 00 bedtime. [facility] amitriptyli 2020-0 Yes [id number] 50mg Take 2 [facility] ne 25 mg 7-07 tablets by ity o f tablet 00:00: mouth at [place] [address] bedtime. [facility] amitriptyli 2020-0 Yes [id number] 50mg Take 2 [facility] ne 25 mg 7-07 tablets by ity o f tablet 00:00: mouth at [place] 00 bedtime. [facility] amitriptyli 2020-0 Yes [id number] 50mg Take 2 [facility] ne 25 mg 7-07 tablets by ity o f tablet 00:00: mouth at [place] [address] bedtime. [facility] amitriptyli 2020-0 Yes [id number] 50mg Take 2 [facility] ne 25 mg 7-07 tablets by ity o f tablet 00:00: mouth at [place] [address] bedtime. [facility] amitriptyli 2020-0 Yes [id number] 50mg Take 2 [facility] ne 25 mg 7-07 tablets by ity o f tablet 00:00: mouth at [place] [address] bedtime. [facility] amitriptyli 2020-0 3- No [id number] 50mg Take 2 [facility] ne 25 mg 7-07 04-19 tablets by ity of tablet 00:00: 00:00 mouth at [place] 00 :00 bedtime. [facility] amitriptyli 2020-0 3- No [id number] 50mg Take 2 [facility] ne 25 mg 7-07 04-19 tablets by ity of tablet 00:00: 00:00 mouth at [place] 00 :00 bedtime. [facility] topiramate 1-0 Yes Univers 100 mg 4-12 ity of tablet 00:00: [place] 00 [facility] topiramate 1-0 Yes Univers 100 mg 4-12 ity of tablet 00:00: [place] 00 [facility] topiramate 1-0 Yes Univers 100 mg 4-12 ity of tablet 00:00: [place] 00 [facility] topiramate 1-0 Yes Univers 100 mg 4-12 ity of tablet 00:00: [place] 00 [facility] topiramate 2021-0 Yes [facility] 100 mg 4-12 ity of tablet 00:00: [place] 00 [facility] topiramate 1-0 Yes Univers 100 mg 4-12 ity of tablet 00:00: [place] 00 [facility] topiramate 2021-0 Yes Univers 100 mg 4-12 ity of tablet 00:00: [place] 00 [facility] topiramate 2021-0 Yes Univers 100 mg 4-12 ity of tablet 00:00: [place] [facility] topiramate 2021-0 Yes [facility] 100 mg 4-12 ity of tablet 00:00: [place] [facility] topiramate 2021-0 Yes [facility] 100 mg 4-12 ity of tablet 00:00: [place] [facility] topiramate 2021-0 Yes [facility] 100 mg 4-12 ity of tablet 00:00: [place] [facility] topiramate 2021-0 Yes [facility] 100 mg 4-12 ity of tablet 00:00: [place] [facility] topiramate 2021-0 Yes [facility] 100 mg 4-12 ity of tablet 00:00: [place] [facility] topiramate 2021-0 Yes [facility] 100 mg 4-12 ity of tablet 00:00: [place] [facility] topiramate 2021-0 Yes [facility] 100 mg 4-12 ity of tablet 00:00: [place] [facility] topiramate 2021-0 Yes [facility] 100 mg 4-12 ity of tablet 00:00: [place] [facility] topiramate 2021-0 Yes [facility] 100 mg 4-12 ity of tablet 00:00: [place] [facility] topiramate 2021-0 Yes [facility] 100 mg 4-12 ity of tablet 00:00: [place] [facility] topiramate 2021-0 Yes [facility] 100 mg 4-12 ity of tablet 00:00: [place] [facility] topiramate 2021-0 Yes [facility] 100 mg 4-12 ity of tablet 00:00: [place] [facility] topiramate 2021-0 Yes [facility] 100 mg 4-12 ity of tablet 00:00: [place] [facility] topiramate 2021-0 Yes [facility] 100 mg 4-12 ity of tablet 00:00: [place] [facility] topiramate 2021-0 Yes [facility] 100 mg 4-12 ity of tablet 00:00: [place] [facility] topiramate 2021-0 Yes [facility] 100 mg 4-12 ity of tablet 00:00: [place] [facility] topiramate 2021-0 Yes [facility] 100 mg 4-12 ity of tablet 00:00: [place] [facility] topiramate 2021-0 Yes [facility] 100 mg 4-12 ity of tablet 00:00: [place] [facility] topiramate 2021-0 Yes [facility] 100 mg 4-12 ity of tablet 00:00: [place] [address] [facility] Branch topiramate 2021-0 Yes [facility] 100 mg 4-12 ity of tablet 00:00: [place] [facility] topiramate 2021-0 Yes [facility] 100 mg 4-12 ity of tablet 00:00: [place] [facility] topiramate 2021-0 Yes [facility] 100 mg 4-12 ity of tablet 00:00: [place] [facility] topiramate 2021-0 Yes [facility] 100 mg 4-12 ity of tablet 00:00: [place] [facility] topiramate 2021-0 Yes [facility] 100 mg 4-12 ity of tablet 00:00: [place] [facility] topiramate 2021-0 Yes [facility] 100 mg 4-12 ity of tablet 00:00: [place] [facility] topiramate 2021-0 Yes [facility] 100 mg 4-12 ity of tablet 00:00: [place] [facility] topiramate 2021-0 Yes [facility] 100 mg 4-12 ity of tablet 00:00: [place] [facility] topiramate 2021-0 Yes [facility] 100 mg 4-12 ity of tablet 00:00: [place] [facility] topiramate 2021-0 Yes [facility] 100 mg 4-12 ity of tablet 00:00: [place] [facility] topiramate 2021-0 Yes [facility] 100 mg 4-12 ity of tablet 00:00: [place] [facility] topiramate 2021-0 Yes [facility] 100 mg 4-12 ity of tablet 00:00: [place] [facility] topiramate 2021-0 Yes [facility] 100 mg 4-12 ity of tablet 00:00: [place] [facility] topiramate 2021-0 Yes [facility] 100 mg 4-12 ity of tablet 00:00: [place] [facility] topiramate 2021-0 Yes [facility] 100 mg 4-12 ity of tablet 00:00: [place] [facility] topiramate 2021-0 Yes [facility] 100 mg 4-12 ity of tablet 00:00: [place] [facility] topiramate 2021-0 Yes [facility] 100 mg 4-12 ity of tablet 00:00: [place] [facility] topiramate 2021-0 Yes [facility] 100 mg 4-12 ity of tablet 00:00: [place] [facility] topiramate 2021-0 Yes [facility] 100 mg 4-12 ity of tablet 00:00: [place] [address] [facility] Branch topiramate 2021-0 Yes [facility] 100 mg 4-12 ity of tablet 00:00: [place] [facility] topiramate 202-0 Yes [facility] 100 mg 4-12 ity of tablet 00:00: [facility] Branch topiramate 2020-0 Yes [facility] 100 mg 4-12 ity of tablet 00:00: [place] [facility] topiramate 2020-0 Yes [facility] 100 mg 4-12 ity of tablet 00:00: [place] [facility] topiramate 2020-0 Yes [facility] 100 mg 4-12 ity of tablet 00:00: [place] [facility] topiramate 2020-0 Yes [facility] 100 mg 4-12 ity of tablet 00:00: [place] [facility] topiramate 2020-0 Yes [facility] 100 mg 4-12 ity of tablet 00:00: [place] [facility] topiramate 2020-0 Yes [facility] 100 mg 4-12 ity of tablet 00:00: [place] [facility] atorvastati 2020-0 Yes Univer s n 40 mg 4-09 ity of tablet 00:00: [place] [facility] atorvastati 2020-0 Yes Univer s n 40 mg 4-09 ity of tablet 00:00: [place] [facility] atorvastati 2020-0 Yes Univer s n 40 mg 4-09 ity of tablet 00:00: [place] [facility] atorvastati 2020-0 Yes Univer s n 40 mg 4-09 ity of tablet 00:00: [place] [address] [facility] Branch atorvastati 2020-0 Yes Univer s n 40 mg 4-09 ity of tablet 00:00: [place] [facility] atorvastati 2020-0 Yes Univer s n 40 mg 4-09 ity of tablet 00:00: [place] [facility] atorvastati 2020-0 Yes Univer s n 40 mg 4-09 ity of tablet 00:00: [place] [facility] atorvastati 2020-0 Yes Univer s n 40 mg 4-09 ity of tablet 00:00: [place] [facility] atorvastati 2020-0 Yes Univer s n 40 mg 4-09 ity of tablet 00:00: [place] [facility] atorvastati 2020-0 Yes Univer s n 40 mg 4-09 ity of tablet 00:00: [place] [address] [facility] Branch atorvastati 2020-0 Yes Univer s n 40 mg 4-09 ity of tablet 00:00: [place] [facility] atorvastati 2020-0 Yes Univer s n 40 mg 4-09 ity of tablet 00:00: [facility] Branch atorvastati 2020-0 Yes Univer s n 40 mg 4-09 ity of tablet 00:00: [place] [facility] atorvastati 2020-0 Yes Univer s n 40 mg 4-09 ity of tablet 00:00: [place] [facility] atorvastati 2020-0 Yes Univer s n 40 mg 4-09 ity of tablet 00:00: [place] [facility] atorvastati 2020-0 Yes Univer s n 40 mg 4-09 ity of tablet 00:00: [place] [facility] atorvastati 2020-0 Yes Univer s n 40 mg 4-09 ity of tablet 00:00: [place] [facility] atorvastati 2020-0 Yes Univer s n 40 mg 4-09 ity of tablet 00:00: [place] [facility] atorvastati 2020-0 Yes Univer s n 40 mg 4-09 ity of tablet 00:00: [place] [facility] atorvastati 2020-0 Yes Univer s n 40 mg 4-09 ity of tablet 00:00: [place] [facility] atorvastati 2020-0 Yes Univer s n 40 mg 4-09 ity of tablet 00:00: [place] [facility] atorvastati 2020-0 Yes Univer s n 40 mg 4-09 ity of tablet 00:00: [place] [facility] atorvastati 2020-0 Yes Univer s n 40 mg 4-09 ity of tablet 00:00: [place] [facility] atorvastati 2020-0 Yes Univer s n 40 mg 4-09 ity of tablet 00:00: [place] [facility] atorvastati 2020-0 Yes Univer s n 40 mg 4-09 ity of tablet 00:00: [place] [facility] atorvastati 2020-0 Yes Univer s n 40 mg 4-09 ity of tablet 00:00: [place] [facility] atorvastati 2020-0 Yes Univer s n 40 mg 4-09 ity of tablet 00:00: [place] 00 [facility] atorvastati 2020-0 Yes Univer s n 40 mg 4-09 ity of tablet 00:00: [place] [facility] atorvastati 2020-0 Yes Univer s n 40 mg 4-09 ity of tablet 00:00: [place] [facility] atorvastati 2020-0 Yes Univer s n 40 mg 4-09 ity of tablet 00:00: [place] [facility] atorvastati 2020-0 Yes Univer s n 40 mg 4-09 ity of tablet 00:00: [place] [facility] atorvastati 2020-0 Yes Univer s n 40 mg 4-09 ity of tablet 00:00: [place] [facility] atorvastati 2020-0 Yes Univer s n 40 mg 4-09 ity of tablet 00:00: [place] [facility] atorvastati 2020-0 Yes Univer s n 40 mg 4-09 ity of tablet 00:00: [place] [facility] atorvastati 2020-0 Yes Univer s n 40 mg 4-09 ity of tablet 00:00: [place] [facility] atorvastati 2020-0 Yes Univer s n 40 mg 4-09 ity of tablet 00:00: [place] [facility] atorvastati 2020-0 Yes Univer s n 40 mg 4-09 ity of tablet 00:00: [place] [facility] atorvastati 2020-0 Yes Univer s n 40 mg 4-09 ity of tablet 00:00: [place] [facility] atorvastati 2020-0 Yes Univer s n 40 mg 4-09 ity of tablet 00:00: [place] [facility] atorvastati 2020-0 Yes Univer s n 40 mg 4-09 ity of tablet 00:00: [place] [facility] atorvastati 2020-0 Yes Univer s n 40 mg 4-09 ity of tablet 00:00: [place] [facility] atorvastati 2020-0 Yes Univer s n 40 mg 4-09 ity of tablet 00:00: [place] [facility] atorvastati 2020-0 Yes Univer s n 40 mg 4-09 ity of tablet 00:00: [place] [facility] atorvastati 2020-0 Yes Univer s [...] BY it y of EN-CAFF 00:00: MOUTH [place] 50-300-40 00 EVERY 6 Medical mg per HOURS Branch capsule NEEDED FOR PAIN (SCALE 7-10) BUTALBITAL- 2020-0 2022- No TAKE ONE U nivers ACETAMINOPH 1-11 03-07 CAPSULE BY i ty of EN-CAFF 00:00: 00:00 MOUTH [place] 50-300-40 00 :00 EVERY 6 Medical mg per HOURS Branch capsule NEEDED FOR PAIN (SCALE 7-10) topiramate 0 Yes Univers 25 mg 8-28 ity of tablet 00:00: [place] 00 [facility] Branch topiramate 2018-0 Yes Univers 25 mg 8-28 ity of tablet 00:00: [place] 00 [facility] topiramate 2019-0 2021- No Univer s 25 mg 8-28 11-15 ity of tablet 00:00: 00:00 [place] 00 :00 [facility] Branch topiramate 2019-0 2021- No Univer s 25 mg 8-28 11-15 ity of tablet 00:00: 00:00 [place] 00 :00 Medical Branch topiramate 2019-0 2021- No Univer s 25 mg 8-28 11-15 ity of tablet 00:00: 00:00 [place] 00 :00 Medical Branch topiramate 2019-0 2021- No Univer s 25 mg 8-28 11-15 ity of tablet 00:00: 00:00 [place] 00 :00 Medical Branch topiramate 2019-0 2021- No Univer s 25 mg 8-28 11-15 ity of tablet 00:00: 00:00 [place] 00 :00 Medical Branch docusate Yes 240mg Take 1 Cap Un keerthi calcium 9-03 by mouth ity of (SURFAK) 00:00: once daily Vivke as 240 mg 00 as needed Medical [...] Medical capsule for Branch Constipati on. docusate 2013-0 Yes 240mg Take 1 Cap Un keerthi calcium 9-03 by mouth ity of (SURFAK) 00:00: once daily Vivek as 240 mg 00 as needed Medical capsule for Branch Constipati on. docusate 2013-0 Yes 240mg Take 1 Cap Un keerthi [...] Source Systolic blood 2023-02-16 13:00:00 119 mm[Hg] [facility] Diastolic blood 2023-02-16 13:00:00 76 mm[Hg] [facility] Body temperature 2023-02-16 13:00:00 36.5 Rocio [facility] Respiratory rate 2023-02-16 13:00:00 18 /min [facility] Oxygen saturation 2023-02-16 13:00:00 100 /min Uni versity of in Arterial blood [facility] by Pulse oximetry Branch Heart rate 2023-02-16 02:00:00 92 /min Universi ty of [facility] Body height 2023-02-14 08:18:00 162.6 cm Universi ty of [facility] Branch Body weight 2023-02-14 08:18:00 74.844 kg Universi ty of [facility] Branch BMI 2023-02-14 08:18:00 28.32 kg/m2 Universi ty of [facility] Branch Systolic blood 2023-02-09 21:19:00 108 mm[Hg] Univer sity of pressure [facility] Branch Diastolic blood 2023-02-09 21:19:00 68 mm[Hg] Unive rsity of pressure [facility] Heart rate 2023-02-09 21:19:00 89 /min Universi ty of [facility] Branch Respiratory rate 2023-02-09 21:19:00 19 /min Univ ersity of [facility] Branch Body height 2023-02-09 21:19:00 162.6 cm Universi ty of [facility] Branch Systolic blood 2023-01-24 18:38:00 111 mm[Hg] Univer sity of pressure [place] [facility] Diastolic blood 2023-01-24 18:38:00 65 mm[Hg] Unive rsity of pressure [facility] Branch Heart rate 2023-01-24 18:38:00 112 /min Universi ty of [facility] Branch Respiratory rate 2023-01-24 18:38:00 18 /min Univ ersity of [facility] Branch Body height 2023-01-24 18:38:00 162.6 cm Universi ty of [facility] Branch Body weight 2023-01-24 18:38:00 73.029 kg Universi ty of [place] [facility] BMI 2023-01-24 18:38:00 27.64 kg/m2 Universi ty of [facility] Branch Systolic blood 2023-01-03 18:25:00 128 mm[Hg] Univer sity of pressure [place] [facility] Diastolic blood 2023-01-03 18:25:00 73 mm[Hg] Unive rsity of pressure [facility] Branch Heart rate 2023-01-03 18:25:00 93 /min Universi ty of [place] [facility] Respiratory rate 2023-01-03 18:25:00 18 /min Univ ersity of [facility] Branch Systolic blood 2022-12-19 18:02:00 102 mm[Hg] Univer sity of pressure [place] [facility] Diastolic blood 2022-12-19 18:02:00 68 mm[Hg] Unive rsity of pressure [facility] Branch Heart rate 2022-12-19 18:02:00 89 /min Universi ty of [facility] Branch Respiratory rate 2022-12-19 18:02:00 16 /min Univ ersity of [facility] Branch Body height 2022-12-19 18:02:00 162.6 cm Universi ty of [facility] Oxygen saturation 2022-12-19 18:02:00 96 /min Uni versity of in Arterial blood [facility] by Pulse oximetry Branch Systolic blood 2022-12-05 16:08:00 102 mm[Hg] Univer sity of pressure [facility] Diastolic blood 2022-12-05 16:08:00 60 mm[Hg] Unive rsity of pressure [facility] Branch Heart rate 2022-12-05 16:08:00 93 /min Universi ty of [place] [facility] Body temperature 2022-12-05 16:08:00 36.72 Rocio Univ ersity of [facility] Branch Respiratory rate 2022-12-05 16:08:00 16 /min Univ ersity of [facility] Branch Body height 2022-12-05 16:08:00 162.6 cm Universi ty of [facility] Body weight 2022-12-05 16:08:00 67.132 kg Universi ty of [place] [facility] BMI 2022-12-05 16:08:00 25.40 kg/m2 Universi ty of [facility] Branch Systolic blood 2022-11-01 17:05:00 128 mm[Hg] Univer sity of pressure [facility] Branch Diastolic blood 2022-11-01 17:05:00 78 mm[Hg] Unive rsity of pressure [facility] Branch Heart rate 2022-11-01 17:05:00 85 /min Universi ty of [place] [facility] Body temperature 2022-11-01 17:05:00 36.72 Rocio Univ ersity of [facility] Branch Respiratory rate 2022-11-01 17:05:00 18 /min Univ ersity of [facility] Body height 2022-11-01 17:05:00 162.6 cm Universi ty of [place] [facility] Systolic blood 2022-09-26 16:36:00 122 mm[Hg] Univer sity of pressure [facility] Branch Diastolic blood 2022-09-26 16:36:00 66 mm[Hg] Unive rsity of pressure [facility] Branch Heart rate 2022-09-26 16:36:00 92 /min Universi ty of [facility] Body temperature 2022-09-26 16:36:00 36.67 Rocio Univ ersity of [facility] Branch Respiratory rate 2022-09-26 16:36:00 18 /min Univ ersity of [facility] Branch Body height 2022-09-26 16:36:00 162.6 cm Universi ty of [facility] Systolic blood 2022-08-29 17:24:00 110 mm[Hg] Univer sity of pressure [facility] Diastolic blood 2022-08-29 17:24:00 66 mm[Hg] Unive rsity of pressure [facility] Heart rate 2022-08-29 17:24:00 95 /min Universi ty of [facility] Body temperature 2022-08-29 17:24:00 36.94 Rocio Univ ersity of [facility] Branch Respiratory rate 2022-08-29 17:24:00 16 /min Univ ersity of [facility] Body height 2022-08-29 17:24:00 162.6 cm Universi ty of [facility] Body weight 2022-08-29 17:24:00 60.419 kg Universi ty of [facility] BMI 2022-08-29 17:24:00 22.86 kg/m2 Universi ty of [facility] Oxygen saturation 2022-08-29 17:24:00 99 /min Uni versity of in Arterial blood [facility] by Pulse oximetry Branch Systolic blood 2022-08-28 19:31:00 116 mm[Hg] Univer sity of pressure [facility] Branch Diastolic blood 2022-08-28 19:31:00 71 mm[Hg] Unive rsity of pressure [facility] Heart rate 2022-08-28 19:31:00 90 /min Universi ty of [facility] Body temperature 2022-08-28 19:31:00 36.56 Rocio Univ ersity of [facility] Respiratory rate 2022-08-28 19:31:00 18 /min [facility] height 2022-08-28 19:31:00 162.6 cm [facility] Systolic blood 2022-08-01 20:45:00 115 mm[Hg] Univer sity of pressure [facility] Diastolic blood 2022-08-01 20:45:00 74 mm[facility]Hg[facility] Heart rate 2022-08-01 20:45:00 94 /min [facility] Body temperature 2022-08-01 20:45:[address] [facility] 2022-08-01 20:45:00 18 /min [facility] Body height 2022-08-01 20:45:00 162.6 cm [facility] Body weight 2022-08-01 20:45:00 68.04 kg per partner [facility] BMI 2022-08-01 20:45:00 25.75 kg/m2 [facility] Procedures Procedure Date / Time Performing Clinician Source Performed CBC WITH DIFF 2023-02-15 11:13:00 Adum, Marisol [facility]ua [facility] CENTRAL NEURAXIAL BLOCK 2023-02-14 11:00:00 [facility] 2023-02-14 10:05:00 Adum, Marisol Lua [facility] SCREEN CBC WITH DIFF 2023-02-14 09:25:00 Adum, Marisol Lua [facility] HEPATITIS B SURFACE 2023-02-14 09:25:00 Adum, Marisol Lua [facility] ANTIGEN [facility] HB ABO GROUPING 2023-02-14 09:25:00 Adum, Marisol Lua [facility] ADC OR BAKARI ONLY - 2023-02-14 09:25:00 Adum, Marisol Lua [facility] HIV 1/2 AG-AB WITH 2023-02-14 09:25:00 Adum, Marisol Lua [facility] REFLEX Medical Branch POCT URINALYSIS W/O 2023-02-09 21:24:00 [facility] SPECIFIC [facility]SU PRE-OP 2023-02-09 05:01:00 Doctor Unassigned, Ely kaur [facility] POCT URINALYSIS W/O 2023-01-24 00:00:00 Adum, Marisol Lua [facility] SPECIFIC [facility] URINE CULTURE 2023-01-03 21:31:00 Adum, Marisol Lua [place] [facility] POCT URINALYSIS W/O 2023-01-03 21:30:00 Adum, [facility] SPECIFIC [place] [facility] POCT URINALYSIS W/O 2023-01-03 19:21:00 Adum, [facility] SPECIFIC [facility] POCT URINALYSIS W/O 2022-12-19 00:00:00 Adum, Marisol Lua [facility] ty [facility] SPECIFIC [facility] 3 HR GLUCOSE TOLERANCE 2022-12-12 16:55:00 [facility] 2 HR GLUCOSE TOLERANCE 2022-12-12 15:53:00 [facility] HB ABO GROUPING 2022-12-12 15:00:00 Adum, Marisol Lua [place] [facility] 1 HR GLUCOSE TOLERANCE 2022-12-12 15:00:00 [facility] [facility] GLUCOSE FASTING 2022-12-12 13:49:00 [facility] CBC WITH DIFF 2022-12-12 13:49:00 Brittany Hansen [facility]i ty [facility] 3 HR GLUCOSE TOLERANCE 2022-12-12 13:49:00 [facility] HIV 1/2 AG-AB WITH 2022-12-12 13:49:00 Brittany [facility] POCT URINALYSIS W/O 2022-12-05 00:00:00 Adum, [facility] SPECIFIC [facility] POCT URINALYSIS W/O 2022-11-01 00:00:00 Brittany Hansen [facility] SPECIFIC GRAVITY [facility] AUTHORIZATION FOR 2022-10-09 06:01:00 Doctor Unassigned, No Univ [facility] RELEASE OF PHI Name Medical Branch POCT URINALYSIS W/O 2022-09-26 00:00:00 Adum, Marisol Lua [facility] SPECIFIC [facility] 1 HR GLUCOSE TOLERANCE 2022-08-28 16:55:00 Adum, [facility] TEST [facility] GLUCOSE FASTING 2022-08-28 15:49:00 Adum, Marisol [facility] CONSENT/REFUSAL FOR 2022-08-28 14:58:00 Doctor Unassigned, No [facility] DIAGNOSIS AND TREATMENT Name [facility] GLUCOSE 1 HOUR POST 2022-08-03 19:22:00 Adum, Marisol Lua [facility] URINE CULTURE 2022-08-03 19:18:00 Adum, Marisol Lua [facility] CREATININE U 24 HR 2022-08-03 18:16:00 Adum, Marisol Lua [facility] PROTEIN QUANT U/24H 2022-08-03 18:16:00 Adum, Marisol Lua [facility] CBC WITH DIFF 2022-08-03 18:16:00 Adum, Marisol [facility] LACTATE DEHYDROGENASE 2022-08-03 18:16:00 Adum, Marisol Lua [facility] URIC ACID 2022-08-03 18:16:00 Adum, Marisol [facility] COMP. METABOLIC PANEL 2022-08-03 18:16:00 Adum, Marisol Lua [facility] ([id number]) [facility] URINE DRUG (IMMUNOASSAY) 2022-08-03 18:16:00 Adum, Marisol Lua [facility] DRUG Medical [facility] SCREEN RUBELLA SCREEN IGG 2022-08-03 18:16:00 Adum, Marisol Lua [facility] VZV ANTIBODY SCREEN 2022-08-03 18:16:00 Adum, Marisol Lua [facility] HEPATITIS B SURFACE 2022-08-03 18:16:00 Adum, Marisol Lua [facility] ANTIGEN [facility] HCV ANTIBODY 2022-08-03 18:16:00 Adum, Marisol Chanell [place] [facility] ADC OR BAKARI ONLY - 2022-08-03 18:16:00 Adum, Marisol Lua [facility] RPR [facility] HIV 1/2 AG-AB WITH 2022-08-03 18:16:00 Adum, Marisol Lua [facility] REFLEX [facility] HB ABO GROUPING 2022-08-03 18:11:00 Adum, Marisol Lua [place] [facility] US OB TRANSVAGINAL 2022-08-01 23:58:59 Adum, Marisol Lua [facility] GC & CHLAMYDIA AMPLIFIED 2022-08-01 22:24:00 Adum, Marisol [facility] TRICHOMONAS AMPLIFIED 2022-08-01 22:24:00 Adum, Marisol Lua [facility] REMOTE RECRUITER CLINIC ULTRASOUND 2022-08-01 06:01:00 Doctor Unassigned, No [facility] POCT TEST 2022-08-01 00:00:00 Adum, Marisol Lua [facility] POCT URINALYSIS W/O 2022-08-01 00:00:00 Adum, Marisol Lua [facility] SPECIFIC GRAVITY [facility] Encounters Start End Encounter Admission Attending Care Care Encounter Source Date/Time Date/Time Type Type Clinicians Facility Department ID 2023-03-09 2023-03-09 Outpatient SFA MOON [id number] [place] 14:09:31 14:09:31 [id number] F Wilder 2023-02-23 2023-02-23 Telephone Ad, [facility] 1.2.974.471 [id number] Univers 00:00:00 00:00:00 Marisol DAVIS 350.1.13.10 Ranjan 4.2.7.2.686 Juliann ZARATE [id number] N[place] dical [address] 2023-02-20 2023-02-20 Refill Adum, [facility] 1.2.346.619 [id number] Univers 00:00:00 00:00:00 Marisol Lua BROCK 350.1.13.10 i ty of WOMEN'S 4.2.7.2.686 [facility] [id number] [facility] 134 Cardinal 2023-02-14 2023-02-16 [facility] [id number] Univers 02:39:00 13:30:00 MARISOL ity of [facility] 2023-02-14 2023-02-16 [facility] 1.2.840.114 [id number] Univers 02:39:00 13:30:00 Encounter Marisol Lua SUSAN 350.1.13.10 ity of [facility] 4.2.7.2.686 [facility] [id number] [place] [id number] Cardinal 2023-02-14 2023-02-14 Anesthesia Griffin Thompson [facility] 1.2.840.114 [id number] Univers 05:35:00 18:10:00 Event Sergo Mueller 350.1.13. 10 ity of [facility] 4.2.7.2.686 [facility] [id number] [place] [id number] [facility] 2023-02-09 2023-02-09 Leadership Intern Margy, Chip Lab Main [facility] 1.2.8 40.114 [id number] Univers 17:15:00 17:30:00 Visit Adum, Marisol CHRISTIANKAILEE 350.1.13.10 ity of [facility] 4.2.7.2.686 [facility] [id number] Nc dical NAL [facility] 2023-02-09 2023-02-09 [facility] [id number] Univers 16:00:00 17:07:46 MARISOL itnancy [facility] 2023-02-09 2023-02-09 [facility] 1.2.840.114 [id number] Univers 16:00:00 17:07:46 Marisol Lua SUSAN 350.1.13.10 ity of Visit [place] 4.2.7.2.686 [facility] [id number] Nc dical [address] 2023-02-09 2023-02-09 Orders Doctor REGAAN 1.2.840.114 [id number] Univers 00:00:00 00:00:00 Only Unassigned, MISAEL 350.1.13.10 ity of [place] [facility] 4.2.7.2.686 Vivek as [id number] [address] 2023-01-24 2023-01-24 Outpatient [facility] [id number] Univers 13:15:00 14:06:27 MARISOL ity [facility] 2023-01-24 2023-01-24 Routine [facility] 1.2.765.752 [id number] Univers 13:15:00 14:06:27 Marisol GUTIÉRREZ 350.1.13.10 ity of [place] [id number] [address] 2023-01-17 2023-01-17 Outpatient [facility] [id number] Univers 10:00:00 10:00:00 [facility] 2023-01-16 2023-01-16 Telephone [facility] 1.2.840.11 4 [id number] Univers 00:00:00 00:00:00 Brittany GUTIÉRREZ 350.1.13.10 it y of [place] [id number] [address] 2023-01-08 2023-01-08 Leadership Intern Ultrasound, Mirza [facility] 1.2 .840.114 [id number] Univers 08:00:00 08:45:00 Visit Venkata Crandall REMOTE RECRUITER 350.1.13.10 ity of REGIONAL 4.2.7.2.686 Vivek as MATERNAL [id number] Med ical & CHILD [address] [place] [address] 2023-01-08 2023-01-08 Outpatient P VENKATA CRANDALL [facility] [id number] Univers 08:00:00 08:00:00 VENKATA CRANDALL itnancy [facility] 2023-01-08 2023-01-08 Telephone [facility] 1.2.840.114 10 [id number] Univers 00:00:00 00:00:00 Marisol GUTIÉRREZ 350.1.13.10 i ty of [place] [id number] [address] 2023-01-03 2023-01-03 Out[facility] [id number] Univers 13:15:00 14:20:40 MARISOL ity [facility] 2023-01-03 2023-01-03 [facility] 1.2.216.665 [id number] Univers 13:15:00 14:20:40 Marisol GUTIÉRREZ 350.1.13.10 ity of [place] [id number] [address] 2022-12-29 2022-12-29 Refill [facility] 1.2.840.114 [id number] Univers 00:00:00 00:00:00 Karleyaurelia BROCK 350.1.13.10 it y of [place] 4[place] [id number] [address] 2022-12-19 2022-12-19 Outpatient [facility] [id number] Univers 13:15:00 14:05:06 MARISOL álvarez [facility] 2022-12-19 2022-12-19 Routine [facility] 1.2.452.973 [id number] Univers 13:15:00 14:05:06 Marisol GUTIÉRREZ 350.1.13.10 ity of [place] [id number] [address] 2022-12-14 2022-12-14 Telephone [place] 24400.840.11 4 [id number] Univers 00:00:00 00:00:00 Karleyaurelia BROCK 350.1.13.10 it y of [place] [id number] [address] 2022-12-14 2022-12-14 Telephone [facility] 1.2.840.11 4 [id number] Univers 00:00:00 00:00:00 Brittany GUTIÉRREZ 350.1.13.10 it y of [place] [id number] [address] 2022-12-12 2022-12-12 Leadership Intern Margy, Chip Lab Main [facility] 1.2.8 40.114 [id number] Univers 08:45:00 09:00:00 Visit Adum, Marisol DAVIS 350.1.13.10 ity of [place].2.7.2.[place] [id number] Nc dical [address] 2022-12-12 2022-12-12 Outpatient [facility] [id number] Univers 08:45:00 08:45:00 MARISOL álvarez [facility] 2022-12-06 2022-12-06 Telephone [facility] 1.2.840.114 [id number] Univers 00:00:00 00:00:00 Marisol GUTIÉRREZ 350.1.13.10 i [place] [facility] [id number] [address] 2022-12-05 2022-12-05 Outpatient [facility] [id number] Univers 11:00:00 11:40:54 MARISOL álvarez [facility] 2022-12-05 2022-12-05 Routine [facility] 1.2.875.451 [id number] Univers 11:00:00 11:40:54 Marisol GUTIÉRREZ 350.1.13.10 ity of [place] [id number] [address] 2022-11-29 2022-11-29 Outpatient [facility] [id number] Univers 10:30:00 10:30:00 MARISOL álvarez [facility] 2022-11-01 2022-11-01 [facility] 1.2. 840.114 [id number] Univers 10:45:00 11:52:50 Adum, Marisol GUTIÉRREZ 350.1.13.10 ity of [place] [id number] [address] 2022-11-01 2022-11-01 Outpatient R AD, [facility] [id number] Univers 10:45:00 11:52:50 MARISOL ity [facility] 2022-11-01 2022-11-01 Telephone [facility] 1.2.840.11 4 [id number] Univers 00:00:00 00:00:00 Brittany GUTIÉRREZ 350.1.13.10 it y of WOMEN'S 4.2.7.2.686 [facility] HEALTH [id number] [address] 2022-10-25 2022-10-25 Outpatient R ADUM, [facility] [id number] Univers 10:30:00 10:30:00 MARISOL ity [facility] 2022-10-09 2022-10-09 Telemedici Faculty, Emilio Arguellorosette [facility] 1.2.840.114 [id number] Univers 13:00:00 13:30:00 ne Visit Marcus Chu REMOTE RECRUITER 350.1.13.10 ity of [facility] 4.2.7.2.686 Vivek as MATERNAL [id number] Med ical & CHILD 107 [facility] 2022-10-09 2022-10-09 Outpatient R MARCUS CHU [facility] [id number] Univers 13:00:00 13:00:00 MARCUS CHU [facility] 2022-10-09 2022-10-09 Leadership Intern Ultrasound, [facility] 1.2 .840.114 [id number] Univers 10:00:00 11:15:00 Visit Marcus Chu REMOTE RECRUITER 350.1.13.10 ity of Abe Blas [facility] 4.2.7.2.686 [place] MATERNAL [id number] Med ical & CHILD 369 [facility] 2022-10-09 2022-10-09 Orders Doctor KIRK 1.2.840.114 [id number] Univers 00:00:00 00:00:00 Only Unassigned, MISAEL 350.1.13.10 ity of [place] [facility] 4.2.7.2.686 Vivek as [id number] [address] 2022-09-28 2022-09-28 Refill [facility] 1.2.443.219 [id number] Univers 00:00:00 00:00:00 Marisol GUTIÉRREZ 350.1.13.10 i ty of [place] 4[place] [id number] [address] 2022-09-26 2022-09-26 Outpatient [facility] [id number] Univers 10:45:00 11:17:04 MARISOL ity of [facility] 2022-09-26 2022-09-26 Routine [facility] 1.2.506.972 [id number] Univers 10:45:00 11:17:04 Marisol GUTIÉRREZ 350.1.13.10 ity of Visit [facility] 4.2.7.2.686 [facility] [id number] [address] 2022-09-20 2022-09-20 Telephone [facility] 1.2.840.114 [id number] Univers 00:00:00 00:00:00 Marisol GUTIÉRREZ 350.1.13.10 i ty [place] [id number] [address] 2022-09-13 2022-09-13 Telephone [facility] 1.2.840.114 [id number] Univers 00:00:00 00:00:00 Marisol GUTIÉRREZ 350.1.13.10 i ty [place] [id number] [address] 2022-09-06 2022-09-06 Telephone [facility] 1.2.669.871 [id number] Univers 00:00:00 00:00:00 Viktoria REMOTE RECRUITER 350.1.13.10 it y of REGIONAL 4.2.7.2.686 Vivek as MATERNAL [id number] [facility] & CHILD [address] [place] [address] 2022-09-04 2022-09-04 Leadership Intern 2, Adc Lab [facility] 1.2.840.114 [id number] Univers 10:45:00 10:52:52 Visit Adreginald, Marisol DAVIS 350.1.13.10 ity of [facility] 4.2.7.2.[place] [id number] [address] 2022-09-04 2022-09-04 Outpatient R ADUM, [facility] [id number] Univers 10:45:00 10:45:00 MARISOL álvarez [facility] 2022-09-01 2022-09-01 Telephone BrandoRUST 1.2.082.073 [id number] Univers 00:00:00 00:00:00 Viktoria REMOTE RECRUITER 350.1.13.10 it y of [facility] 4.2.7.2.686 Vivek as MATERNAL [id number] [facility] & CHILD [address] [place] [address] 2022-08-29 2022-08-29 Outpatient R ADUM, [facility] [id number] Univers 10:30:00 11:57:49 MARISOL álvarez [facility] 2022-08-29 2022-08-29 Routine Adum, [facility] 1.2.237.820 [id number] Univers 10:30:00 11:57:49 Marisol GUTIÉRREZ 350.1.13.10 ity of [place] [id number] [address] 2022-08-28 2022-08-28 Outpatient R ERNESTINA, [facility] [id number] Univers 13:00:00 14:38:27 MAHSA álvarez [facility] 2022-08-28 2022-08-28 Office Faculty, Emilio Naranjo [facility] 1.2 .840.114 [id number] Univers 13:00:00 14:38:27 Visit Mahsa Do REMOTE RECRUITER 350.1. 13.10 ity of [facility] 4.2.7.2.686 Vivek as MATERNAL [id number] Med ical & CHILD 107 [facility] 2022-08-28 2022-08-28 Leadership Intern Margy, Adc Lab Main [facility] 1.2.8 40.114 [id number] Univers 09:00:00 09:15:00 Visit Adum, Marisol Lua SUSAN 350.1.13.10 ity of [facility] 4.2.7.2.[place] [id number] Nc dical NAL 353 [facility] 2022-08-28 2022-08-28 Orders Doctor REAGAN 1.2.840.114 [id number] Univers 00:00:00 00:00:00 Only Unassigned, MISAEL 350.1.13.10 ity of [place] [facility] 4.2.7.2.686 Vivek as [id number] [address] 2022-08-18 2022-08-18 [facility] 1.2.840.114 [id number] Univers 00:00:00 00:00:00 Management Marisol DAVIS 350.1.13.10 ity of [facility] 4.2.7.2.[place] [id number] Nc dical NAL [address] [place] [address] 2022-08-18 2022-08-18 Telephone [facility] 1.2.840.114 [id number] Univers 00:00:00 00:00:00 Marisol GUTIÉRREZ 350.1.13.10 i ty of [place] [id number] [address] 2022-08-03 2022-08-03 Leadership Intern Margy, Adc Lab Main [facility] 1.2.8 40.114 [id number] Univers 12:15:00 12:30:00 Visit Adum, Marisol DAVIS 350.1.13.10 ity of [facility] 4.2.7.2.686 [place] [id number] Nc dical NAL [address] [place] [address] 2022-08-03 2022-08-03 Outpatient R ADUM, [facility] [id number] Univers 12:15:00 12:15:00 MARISOL álvarez [facility] 2022-08-01 2022-08-01 [facility] [id number] Univers 14:30:00 16:17:41 MARISOL álvarez [facility] 2022-08-01 2022-08-01 Initial [facility] 1.2.446.019 [id number] Univers 14:30:00 16:17:41 Marisol L BROCK 350.1.13.10 ity of [place] [id number] [address] 2022-08-01 2022-08-01 Orders Doctor REAGAN 1.2.840.114 [id number] Univers 00:00:00 00:00:00 Only Unassigned, MISAEL 350.1.13.10 ity of [place] [facility] 4.2.7.2.686 Vivek as [id number] [address] 2022-07-26 2022-07-26 Outpatient [facility] [id number] Univers 14:00:00 14:00:00 MARISOL álvarez [facility] 2022-04-29 2022-04-29 Refill Stacey Floyd [facility] 1.2.840.114 [id number] Univers 00:00:00 00:00:00 BROCK 350.1.13.10 it y [place] 129.3375147 [address] 2022-04-10 2022-04-10 Refill Stacey Floyd [facility] 1.2.840.114 [id number] Univers 00:00:00 00:00:00 BROCK 350.1.13.10 it y of [place] 4[place] [id number] [address] 2022-04-10 2022-04-10 Abstract Stacey Floyd [facility] 1.2.840.114 [id number] Univers 00:00:00 00:00:00 BROCK 350.1.13.10 it y [place] 4[place]2.[place] [id number] [address] 2022-04-10 2022-04-10 Stacey Segal 1.2.840.11 4 [id number] Univers 00:00:00 00:00:00 BROCK 350.1.13.10 it y of [place] 4[place]2.[place] [id number] [address] 2022-04-07 2022-04-07 Stacey Segal 1.2.840.11 4 [id number] Univers 00:00:00 00:00:00 BROCK 350.1.13.10 it y of [place] 4[place] [id number] [address] 2022-04-06 2022-04-06 Case Stacey Floyd 1.2.840.114 [id number] Univers 00:00:00 00:00:00 Management BROCK 350.1.13.10 it[place] [id number] [address] 2022-04-06 2022-04-06 Telephone Stacey Flody 1.2.840.11 4 [id number] Univers 00:00:00 00:00:00 BROCK 350.1.13.10 it y of [place] [id number] [address] 2022-04-05 2022-04-05 Telephone Aleksandar ALJULIET 1.2.840.114 [id number] Univers 00:00:00 00:00:00 [facility] 350.1.13.10 ity of [place] 4.2.7.2.686 Vivek as JOSHUA?BLEA [id number] Nc maya [address] MEDICAL OFFICE BUILDING 2022-04-03 2022-04-03 Outpatient [facility] [id number] Univers 09:30:00 10:18:14 ity of [facility] 2022-04-03 2022-04-03 Initial Stacey Floyd 1.2.840.114 [id number] Univers 09:30:00 10:18:14 GUNLOCK 350.1.13.10 i ty of Visit [place] [id number] [facility] [address] 2022-04-03 2022-04-03 Outpatient R STACEY FLOYD [facility] [id number] Univers 09:30:00 10:18:14 ity of [facility] 2022-04-03 2022-04-03 Orders Doctor KIRK 1.2.840.114 [id number] Univers 00:00:00 00:00:00 Only Unassigned, MISAEL 350.1.13.10 [facility] 4.2.7.2.686 Vivek as [id number] [place] [address] [address] 2021-05-04 2021-05-04 Refkarsten Huertas [facility] 1.2.840.114 [id number] Univers 00:00:00 00:00:00 Haim Davis 350.1.13.10 ity of [place] [id number] [address] 2021-03-17 2021-03-17 Refill Aleksandar [facility] 1.2.840.114 [id number] Univers 00:00:00 00:00:00 Haim Davis 350.1.13.10 it[place] of [place] [id number] [address] 2021-01-03 2021-01-03 Office Aleksandar [facility] 1.2.840.114 [id number] Univers 10:48:34 11:40:47 Visit Haim Davis 350.1.13.10 it[place] of [place] [id number] [address] 2021-01-03 2021-01-03 Outpatient HAIM WATERS [facility] [id number] Univers 11:00:00 11:00:00 HAIM HUERTAS ity [facility] 2020-12-31 2020-12-31 Refkarsten Huertas [facility] 1.2.840.114 [id number] Univers 00:00:00 00:00:00 Haim Corbin Susan 350.1.13.10 it[place] [id number] [address] 2020-12-28 2020-12-28 Outpatient HAIM WATERS [facility] [id number] Univers 11:00:00 11:00:00 HAIM HUERTAS [facility] 2020-12-21 2020-12-21 Outpatient HAIM WATERS [facility] [id number] Univers 15:40:00 15:40:00 HAIM HUERTAS [facility] 2020-12-15 2020-12-15 Refkarsten Huertas [facility] 1.2.840.114 [id number] Univers 00:00:00 00:00:00 Haim Davis 350.1.13.10 it[place] [id number] [address] 2020-09-26 2020-09-26 [facility]asR[facility] 1.2.840.114 [id number] Univers 00:00:00 00:00:00 Haim Davis 350.1.13.10 it[place]2.[place] [id number] [address] 2020-04-14 2020-04-14 Cal HuertasRUST 1.2.840.114 [id number] Univers 00:00:00 00:00:00 Haim Shaquille Susan 350.1.13.10 it[place] [id number] [address] 2020-04-13 2020-04-13 Cal HuertasRUST 1.2.840.114 [id number] [facility] 00:00:00 00:00:00 Haim Davis [id number] [place]2.[place] [phone] [address] 2020-02-20 2020-02-20 Telemedici Aleksandar [facility] 1.2.840.114 [id number] Univers 09:53:16 10:13:16 ne Visit Haim Davis 350.1.13.10 [place] [phone] [address] 2020-02-20 2020-02-20 Outpatient R HAIM HUERTAS [facility] [id number] Univers 09:40:00 09:40:00 HAIM HUERTAS ity of [facility] 2020-02-13 2020-02-13 Telephone Aleksandar [facility] 1.2.840.114 [id number] Univers 00:00:00 00:00:00 Haim Christianton [id number] [place] 4[place]2.[place] [phone] [address] 2020-02-13 2020-02-13 Refill AleksandarRUST 1.2.840.114 [id number] [facility] 00:00:00 00:00:00 Haim Davis 350.1.13.10 [place]2.[place] [phone] [address] 2019-12-05 2019-12-05 Refkarsten AleksandarRUST 1.2.840.114 [id number] [facility] 00:00:00 00:00:00 Haim Davis [id number] [place]2.[place] [phone] [address] 2019-10-03 2019-10-03 Refkarsten AleksandarRUST 1.2.840.114 [id number] [facility] 00:00:00 00:00:00 Haim Christianton 350.1.13.10 [place] 4[place]2.[place] [phone] [address] Results Test Description Test Time Test Comments Results Result Comments Source CBC with Differential 2023-02-15 11:44:36 Test Item Value Reference Range Interpretation Comme nts WBC (test code = 6690-2) 16.75 See_Comment H [A utomated message] The system which YOHO nerated this result transmit junie reference range: 4.30 - 1 1.10 10*3/?L. The reference r julia was not used to interpr et this result as normal/abnor mal. RBC (test code = 789-8) 2.99 See_Comment L [Au tomated message] The system which YOHO nerated this result transmit junie reference range: [...] 32.6 g/dL 31.6-35.1 RDW-SD (test code = 26518-0) 49.9 fL 39.0-49.9 RDW-CV (test code = 788-0) 14.2 % 12.0-15.5 PLT (test code = 777-3) 359 See_Comment H [Au tomated message] The system which YOHO nerated this result transmit junie reference range: 166 - 35 8 10*3/?L. The reference range was not used to interpret th is result as normal/abnormal . MPV (test code = 20404-3) 10.9 fL 9.5-12.9 NRBC/100 WBC (test code = 0.0 See_Comment [ Automated message] The [id number]) system which YOHO nerated this result transmit junie reference range: 0.0 - 10 .0 /100 WBCs. The reference r julia was not used to interpr et this result as normal/abnor mal. NRBC x10^3 (test code = See_Comment [Au tomated message] The 3683025253) system which ge nerated this result transmit junie reference range: 10*3/?L. The reference range was not u sed to interpret this result as normal/abnormal . GRAN MAT (NEUT) % (test code 71.7 % = 770-8) IMM GRAN % (test code = 0.70 % 2773922844) LYMPH % (test code = 736-9) 18.0 % MONO % (test code = 5905-5) 7.8 % EOS % (test code = 713-8) 1.3 % BASO % (test code = 706-2) 0.5 % GRAN MAT x10^3(ANC) (test 12.02 10*3/uL 1.88-7.09 H code = 4297775775) IMM GRAN x10^3 (test code = 0.11 10*3/uL 0.00-0.06 H 6776020601) LYMPH x10^3 (test code = 3.02 10*3/uL 1.32-3.29 731-0) MONO x10^3 (test code = 1.30 10*3/uL 0.33-0.92 H 742-7) EOS x10^3 (test code = 0.21 10*3/uL 0.03-0.39 711-2) BASO x10^3 (test code = 0.09 10*3/uL 0.01-0.07 H 704-7) Lab Interpretation (test Abnormal code = 82978-6) [facility] OR BAKARI CARLOS - [id number] 09:36:38 Test Item Value Reference Range Interpretation Comments RPR (Qualitative) (test code = Nonreactive Nonreactive 95148-0) Lab Interpretation (test code = Normal 72439-5) [facility] [id number] 15:51:25 Test Item Value Reference Range Interpretation Comments HBsAg Semi-Quantitative (test code = 0.05 Negative 5195-3) [facility]2 AG-AB WITH [id number] 11:40:44 Test Item Value Reference Range Interpretation Comments HIV 0.10 Negative Semi-quantitative (test code = 60626-4) PILAR (test code = Non-reactive for HIV-1 PILAR) antigen and HIV-1/HIV-2 antibodies. ?No laboratory evidence of HIV infection. ?Repeat in 2-4 weeks if acute HIV infection is suspected. [facility] with [id number] 09:53:55 Test Item Value Reference Range Interpretation [...] (test code = 53.7 fL 39.0-49.9 H 23546-0) RDW-CV (test code = 14.5 % 12.0-15.5 788-0) PLT (test code = 369 See_Comment H [Automated 777-3) message] The sy stem which generated this result transmitted reference range : 166 - 358 10*3/ ?L. The reference r julia was not used to interpret this result as normal/abnormal . MPV (test code = 10.5 fL 9.5-12.9 47671-0) NRBC/100 WBC (test 0.2 See_Comment [Automat ed code = 3070953180) message] The system which generated this result transmitted reference range : 0.0 - 10.0 /100 WBCs. The refer ence range was not u sed to interpret th is result as normal/abnormal . NRBC x10^3 (test code 0.02 See_Comment [Auto mated = 1528098793) message] The s ystem which generated this result transmitted reference range : 10*3/?L. The reference range was not used to interpret this result as normal/abnormal . GRAN MAT (NEUT) % 67.1 % (test code = 770-8) IMM GRAN % (test code 1.20 % = 4120499272) LYMPH % (test code = 22.3 % 736-9) MONO % (test code = 7.9 % 5905-5) EOS % (test code = 1.0 % 713-8) BASO % (test code = 0.5 % 706-2) GRAN MAT x10^3(ANC) 7.26 10*3/uL 1.88-7.09 H (test code = 5980848861) IMM GRAN x10^3 (test 0.13 10*3/uL 0.00-0.06 H code = 4174399325) LYMPH x10^3 (test code 2.41 10*3/uL 1.32-3.29 = 731-0) MONO x10^3 (test code 0.86 10*3/uL 0.33-0.92 = 742-7) EOS x10^3 (test code = 0.11 10*3/uL 0.03-0.39 711-2) BASO x10^3 (test code 0.05 10*3/uL 0.01-0.07 = 704-7) Lab Interpretation Abnormal (test code = 89337-7) [facility] - ONCE [id number] 09:51:00 Test Item Value Reference Range Interpretation Comments ABO & RH (test code = 20) O Positive IAT (test code = 1185) Negative [facility] W/O SPECIFIC [id number] 21:30:00 Test Item Value Reference Range Interpretation [...] Negative Lab Interpretation (test code = Normal 63476-5) [facility] URINALYSIS W/O SPECIFIC [id number] 19:03:00 Test Item Value Reference Range Interpretation [...] code = 3257) N/A Negative - Negative [facility] URINALYSIS W/O SPECIFIC [id number] 21:30:00 Test Item Value Reference Range Interpretation [...] controls' Lab Interpretation Abnormal (test code = 79870-3) [facility] URINALYSIS W/O SPECIFIC [id number] 19:22:00 Test Item Value Reference Range Interpretation [...] controls Lab Interpretation Normal (test code = 51341-1) [facility] W/O SPECIFIC [id number] 18:12:00 Test Item Value Reference Range Interpretation [...] code = 3257) n/a Negative - Negative [facility] HR GLUCOSE TOLERANCE [id number] 18:01:01 Test Item Value Reference Range Interpretation Comments GLUC 3 HR (test code = 0158811998) 106 mg/dL 70-110 Lab Interpretation (test code = Normal 49722-3) [facility] HR GLUCOSE TOLERANCE [id number] 17:15:55 Test Item Value Reference Range Interpretation Comments GLUC 2 HR (test code = 4024143648) 103 mg/dL 70-120 Lab Interpretation (test code = Normal 10318-4) [facility] HR GLUCOSE TOLERANCE [id number] 16:22:51 Test Item Value Reference Range Interpretation Comments GLUC 1 HR (test code = 7682608175) 153 mg/dL 120-170 Lab Interpretation (test code = Normal 10852-6) [facility]2 AG-AB WITH [id number] 16:06:07 Test Item Value Reference Range Interpretation Comments HIV 0.09 Negative Semi-quantitative (test code = 29599-9) PILAR (test code = Non-reactive for HIV-1 PILAR) antigen and HIV-1/HIV-2 antibodies. ?No laboratory evidence of HIV infection. ?Repeat in 2-4 weeks if acute HIV infection is suspected. [facility] SystemCBC WITH [id number] 15:56:44 Test Item Value Reference Range Interpretation Comments WBC (test code = 17.52 See_Comment H [Automated 6690-2) message] The system which generated this result [...] RDW-SD (test code = 43.8 fL 39.0-49.9 96022-3) RDW-CV (test code = 12.7 % 12.0-15.5 788-0) PLT (test code = 460 See_Comment H [Automated 777-3) message] The system which generated this result transmit junie reference range : 166 - 358 10*3/ ?L. The reference range was not u sed to interpret th is result as normal/abnormal . MPV (test code = 9.1 fL 9.5-12.9 L 89455-1) NRBC/100 WBC (test 0.0 See_Comment [Automat ed code = 4549951515) message] The system which generated this result transmit junie reference range : 0.0 - 10.0 /100 WBCs. The reference range was not used to interpret this result as normal/abnormal . NRBC x10^3 (test code See_Comment [Auto mated = 7390562828) message] The system which generated this result transmit junie reference range : 10*3/?L. The reference range was not used to interpret this result as normal/abnormal . GRAN MAT (NEUT) % 69.1 % (test code = 770-8) IMM GRAN % (test code 1.00 % = 2743506246) LYMPH % (test code = 19.3 % 736-9) MONO % (test code = 8.7 % 5905-5) EOS % (test code = 1.3 % 713-8) BASO % (test code = 0.6 % 706-2) GRAN MAT x10^3(ANC) 12.11 10*3/uL 1.88-7.09 H (test code = 8680508715) IMM GRAN x10^3 (test 0.17 10*3/uL 0.00-0.06 H code = 2495187564) LYMPH x10^3 (test code 3.39 10*3/uL 1.32-3.29 [...] code 2+ See_Comment A [Auto mated = 2490-9) message] The system which generated this result transmit junie reference range : (none). The reference range was not used to interpret this result as normal/abnormal . BANDS (test code = Increased A 1183659162) REACT LYMPHS (test Rare code = 1505090318) TOXIC CHANGES (test Present A code = 803-7) GIANT PLATELETS (test Present See_Comment A [Auto mated code = 5908-9) message] The system which generated this result transmit junie reference range : (none). The reference range was not used to interpret this result as normal/abnormal . Lab Interpretation Abnormal (test code = 17450-9) [facility] SystemGLUCOSE [id number] 15:27:02 Test Item Value Reference Range Interpretation Comments GLU FASTNG (test code = 8656536835) 81 mg/dL 70-110 Lab Interpretation (test code = Normal 97071-8) [facility] SystemPRENATAL WORKUP, BLOOD [id number] 15:00:00 Test Item Value Reference Range Interpretation Comments ABO & RH (test code = 20) O Positive IAT (test code = 1185) Negative [facility] W/O SPECIFIC [id number] 16:31:00 Test Item Value Reference Range Interpretation [...] code = 3257) n/a Negative - Negative [facility] URINALYSIS W/O SPECIFIC [id number] 17:09:00 Test Item Value Reference Range Interpretation [...] code = 3257) negative Negative - Negative [facility] W/O SPECIFIC [id number] 16:35:00 Test Item Value Reference Range Interpretation [...] code = 3257) N/A Negative - Negative [facility] HR GLUCOSE TOLERANCE [id number] 18:07:41 Test Item Value Reference Range Interpretation Comments GLUC 1 HR (test code = 4505161025) 178 mg/dL 120-170 H Lab Interpretation (test code = Abnormal 65987-8) [facility] SystemGLUCOSE [id number] 16:53:30 Test Item Value Reference Range Interpretation Comments GLU FASTNG (test code = 2264012433) 88 mg/dL 70-110 Lab Interpretation (test code = Normal 49331-2) [facility] SystemRUBELLA SCREEN [id number] 17:44:14 Test Item Value Reference Range Interpretation Comments Rubella screen IgG Negative Negative (test code = 2220561979) PILAR (test code = PILAR) Positive - Indicates the patient was exposed to Rubella through infection or vaccination.Negative - Indicates the patient could be susceptible to Rubella infection.Equivocal - A second specimen should be sent. [facility] SystemVZV ANTIBODY [id number] 17:44:14 Test Item Value Reference Range Interpretation Comments VZV IgG antibody Negative Negative (test code = 26654-9) PILAR (test code = PILAR) Positive - Indicates the patient was exposed to VZV through infection or vaccination.Negative - Indicates the patient could be susceptible to VZV infection.Equivocal - A second specimen should be sent for testing. [facility] System[facility] OR [facility] - [id number] 09:25:53 Test Item Value Reference Range Interpretation Comments RPR (Qualitative) (test code = Nonreactive Nonreactive 71555-5) Lab Interpretation (test code = Normal 53345-8) [facility] SystemHCV [id number] 22:43:11 Test Item Value Reference Range Interpretation Comments HCV Ab (test code = 60033-5) Negative HCV Semi-Quantitative (test code = 01021-3) [facility] SystemHEPATITIS B SURFACE [id number] 22:26:11 Test Item Value Reference Range Interpretation Comments HBsAg Semi-Quantitative (test code = Negative Negative 5195-3) [facility]2 AG-AB WITH [id number] 20:40:15 Test Item Value Reference Range Interpretation Comments HIV Negative Negative Semi-quantitative (test code = 30931-1) PILAR (test code = Non-reactive for HIV-1 PILAR) antigen and HIV-1/HIV-2 antibodies. ?No laboratory evidence of HIV infection. ?Repeat in 2-4 weeks if acute HIV infection is suspected. [facility] SystemPREN[facility]AL WORKUP, BLOOD [id number] 20:17:21 Test Item Value Reference Range Interpretation Comments ABO & RH (test code O Positive Performe d at [facility] = 20) Laboratory Serv [facility] [address] [place], [place] [address]Toll Free: [phone] A No. [id number] IAT (test code = Negative Performed a t [facility] 1185) Laboratory Serv [facility] [address] [place] [address] Free: [phone] A No. [id number] [facility] SystemCOMP. METABOLIC PANEL ([id number] 20:01:30 Test Item Value Reference Range Interpretation Comments NA (test code = 139 mmol/L 135-145 9514474221) K (test code = 4.7 mmol/L 3.5-5.0 0446873745) CL (test code = 109 mmol/L 98-108 H 6999684218) CO2 TOTAL (test code = 22 mmol/L 23-31 L 8470838482) AGAP (test code = 2-16 2393892538) BUN (test code = 7 mg/dL 7-23 4414263476) GLUCOSE (test code = 87 mg/dL 70-110 2571073809) CREATININE (test code = 0.45 mg/dL 0.50-1.04 L 8281276526) TOTAL BILI (test code = 0.3 mg/dL 0.1-1.8 2054590489) CALCIUM (test code = 10.3 mg/dL 8.6-10.6 9363719023) T PROTEIN (test code = 7.2 g/dL 6.3-8.2 9468039756) ALBUMIN (test code = 4.3 g/dL 3.5-5.0 7951579111) ALK PHOS (test code = 69 U/L 34-122 7516047424) ALTv (test code = 17 U/L 5-35 1742-6) AST(SGOT) (test code = 17 U/L 13-40 3395515545) eGFR (test code = mL/min/1.73m2 9234077170) PILAR (test code = PILAR) Association of [...] tests). Lab Interpretation Abnormal (test code = 42156-8) [facility] SystemURIC [id number] 20:01:10 Test Item Value Reference Range Interpretation Comments URIC ACID (test code = 1545200268) 1.6 mg/dL 2.9-6.0 L Lab Interpretation (test code = Abnormal 07687-9) [facility] SystemLACTATE [id number] 19:59:29 Test Item Value Reference Range Interpretation Comments LDH (test code = 8448894287) 144 U/L 120-246 Lab Interpretation (test code = Normal 85850-3) [facility] WITH [id number] 18:37:17 Test Item Value Reference Range Interpretation Comments WBC (test code = See_Comment H [Automated 6690-2) message] The sy stem which [...] RDW-SD (test code = 46.0 fL 39.0-49.9 05984-3) RDW-CV (test code = 13.5 % 12.0-15.5 788-0) PLT (test code = See_Comment H [Automated 777-3) message] The sy stem which generated this result transmitted reference range : 166 - 358 10*3/ ?L. The reference r julia was not used to interpret this result as normal/abnormal . MPV (test code = 9.1 fL 9.5-12.9 L 37549-8) NRBC/100 WBC (test See_Comment [Automat ed code = 8131048189) message] The system which generated this result transmitted reference range : 0.0 - 10.0 /100 WBCs. The refer ence range was not u sed to interpret th is result as normal/abnormal . NRBC x10^3 (test code See_Comment [Auto mated = 7008656142) message] The s ystem which generated this result transmitted reference range : 10*3/?L. The reference range was not used to interpret this result as normal/abnormal . GRAN MAT (NEUT) % 68.1 % (test code = 770-8) IMM GRAN % (test code 0.40 % = 4073717408) LYMPH % (test code = 23.3 % 736-9) MONO % (test code = 6.6 % 5905-5) EOS % (test code = 1.0 % 713-8) BASO % (test code = 0.6 % 706-2) GRAN MAT x10^3(ANC) 8.86 10*3/uL 1.88-7.09 H (test code = 2143135247) IMM GRAN x10^3 (test 0.05 10*3/uL 0.00-0.06 code = 8348731658) LYMPH x10^3 (test code 3.04 10*3/uL 1.32-3.29 = 731-0) MONO x10^3 (test code 0.86 10*3/uL 0.33-0.92 = 742-7) EOS x10^3 (test code = 0.13 10*3/uL 0.03-0.39 711-2) BASO x10^3 (test code 0.08 10*3/uL 0.01-0.07 H = 704-7) Lab Interpretation Abnormal (test code = 93473-1) [facility] WITH [id number] 18:37:17 Test Item Value Reference Range Interpretation Comments WBC (test code = See_Comment H [Automated 1490-2) message] The sy stem which generated this result transmitted reference range : 4.30 - 11.10 10*3/?L. The reference range was not used to interpret this result as normal/abnormal . RBC (test code = See_Comment [Automated 589-8) message] The sy stem which generated this [...] RDW-SD (test code = 46.0 fL 39.0-49.9 51952-0) RDW-CV (test code = 13.5 % 12.0-15.5 788-0) PLT (test code = See_Comment H [Automated 777-3) message] The sy stem which generated this result transmitted reference range : 166 - 358 10*3/ ?L. The reference r julia was not used to interpret this result as normal/abnormal . MPV (test code = 9.1 fL 9.5-12.9 L 44264-8) NRBC/100 WBC (test See_Comment [Automat ed code = 4605686408) message] The system which generated this result transmitted reference range : 0.0 - 10.0 /100 WBCs. The refer ence range was not u sed to interpret th is result as normal/abnormal . NRBC x10^3 (test code See_Comment [Auto mated = 6494180123) message] The s ystem which generated this result transmitted reference range : 10*3/?L. The reference range was not used to interpret this result as normal/abnormal . GRAN MAT (NEUT) % 68.1 % (test code = 770-8) IMM GRAN % (test code 0.40 % = 5765527848) LYMPH % (test code = 23.3 % 736-9) MONO % (test code = 6.6 % 5905-5) EOS % (test code = 1.0 % 713-8) BASO % (test code = 0.6 % 706-2) GRAN MAT x10^3(ANC) 8.86 10*3/uL 1.88-7.09 H (test code = 1275165547) IMM GRAN x10^3 (test 0.05 10*3/uL 0.00-0.06 code = 5701471754) LYMPH x10^3 (test code 3.04 10*3/uL 1.32-3.29 = 731-0) MONO x10^3 (test code 0.86 10*3/uL 0.33-0.92 = 742-7) EOS x10^3 (test code = 0.13 10*3/uL 0.03-0.39 711-2) BASO x10^3 (test code 0.08 10*3/uL 0.01-0.07 H = 704-7) Lab Interpretation Abnormal (test code = 12156-8) [facility] [id number] 21:11:00 Test Item Value Reference Range Interpretation Comments POCT PREG (test code = 1605) Positive On board controls acceptable with C No Line (test code = 3574) POCT PREG LOT # (test code = 3575) POCT PREG TEST DATE (test code = 3576) [facility] [id number] 21:11:00 Test Item Value Reference Range Interpretation Comments POCT PREG (test code = 1605) Positive On board controls acceptable with C No Line (test code = 3574) POCT PREG LOT # (test code = 3575) POCT PREG TEST DATE (test code = 3576) [facility] [id number] 21:11:00 Test Item Value Reference Range Interpretation Comments POCT PREG (test code = 1605) Positive On board controls acceptable with C No Line (test code = 3574) POCT PREG LOT # (test code = 3575) POCT PREG TEST DATE (test code = 3576) [facility] [id number] 21:11:00 Test Item Value Reference Range Interpretation Comments POCT PREG (test code = 1605) Positive On board controls acceptable with C No Line (test code = 3574) POCT PREG LOT # (test code = 3575) POCT PREG TEST DATE (test code = 3576) [facility] [id number] 21:11:00 Test Item Value Reference Range Interpretation Comments POCT PREG (test code = 1605) Positive On board controls acceptable with C No Line (test code = 3574) POCT PREG LOT # (test code = 3575) POCT PREG TEST DATE (test code = 3576) [facility] URINALYSIS W/O SPECIFIC [id number] 21:10:00 Test Item Value Reference Range Interpretation [...] code = 3257) N/A Negative - [facility] [id number] 21:10:00 Test Item Value Reference Range Interpretation [...] code = 3257) N/A Negative - Negative [facility] [id number] 21:10:00 Test Item Value Reference Range Interpretation [...] code = 3257) N/A Negative - Negative [facility] [id number] 21:10:00 Test Item Value Reference Range Interpretation [...] code = 3257) N/A Negative - Negative [facility] [id number] 21:10:00 Test Item Value Reference Range Interpretation [...] code = 3257) N/A Negative - Negative [facility]"
[2023-03-11] MEDS ORDERED: ACETAMINOPHEN 325 MG TABLET ONE (18:13)
--- NOTE | 2023-03-11 18:37 | RAD REPORT ---
EXAM DESCRIPTION: CT - CTHCSPWOC - 03/11/2023 6:27 pm CLINICAL HISTORY: Trauma, head and neck injury. PAIN COMPARISON: No comparisons TECHNIQUE: Axial 5 mm thick images of the head were obtained. Axial 2 mm thick images of the cervical spine were obtained with sagittal and coronal reconstruction images generated and reviewed. All CT scans are performed using dose optimization technique as appropriate and may include automated exposure control or mA/KV adjustment according to patient size. FINDINGS: CT HEAD WITHOUT CONTRAST: No acute hemorrhage, hydrocephalus or extra-axial collection is identified.Large area of gliosis in t he right cerebral hemisphere noted. Moderate gliosis left cerebral hemisphere. No areas of brain roge a or midline shift. Opacification left maxillary antrum is seen with postsurgical changes present.Right-sided prior crani otomy. CT CERVICAL SPINE WITHOUT CONTRAST: No fracture or subluxation.No prevertebral soft tissues swelling is identified. IMPRESSION: No acute intracranial or cervical spine findings. Large areas of gliosis are seen in both cerebral hemispheres, greater on the right. This is presumabl y related to prior trauma.
--- NOTE | 2023-03-11 18:41 | EDPHYS ---
Physician Documentation [facility] Name: Lauren Chand Age: 42 yrs Sex: Female : 1980 Arrival Date: 03/11/2023 Time: 16:21 Bed 7 Private MD: ANANYA Physician Venkata Barry HPI: 03/11 17:50 This 42 yrs old Female presents to ER via Wheelchair with complaints of Head froy Injury-Adult, Arm Injury. 17:50 The patient or guardian reports pain, tenderness. The complaints affect the top of froy head, right cheek, right religious, right occipital area and right base of the skull. Context of injury: The problem was sustained at home, resulted from a fall, from a standing position. Onset: The symptoms/episode began/occurred today. Associated signs and symptoms: Loss of consciousness: This patient did not experience any loss of consciousness. Severity of symptoms: At their worst the symptoms were mild, moderate, in the emergency department the symptoms are unchanged. The patient has not experienced similar symptoms in the past. Historical: - Allergies: 16:45 Aspirin; ll1 16:45 Darvocet-N 100; ll1 16:45 Ibuprofen; ll1 - PMHx: 16:45 CVA; Seizures; TBI; ll1 - PSHx: 16:45 Broken legs; Drop foot L; facial reconstruction; Splenectomy; ll1 - Immunization history:: Adult Immunizations up to date, Client reports having NOT received the Covid vaccine. - Social history:: Smoking status: Smoking status: Patient reports the use of cigarette tobacco products, smokes one-half pack cigarettes per day. ROS: 17:51 Constitutional: Negative for fever, chills, and weight loss, Eyes: Negative for injury, froy pain, redness, and discharge, ENT: Negative for injury, pain, and discharge, Neck: Negative for injury, pain, and swelling, Cardiovascular: Negative for chest pain, palpitations, and edema, Respiratory: Negative for shortness of breath, cough, wheezing, and pleuritic chest pain, Abdomen/GI: Negative for abdominal pain, nausea, vomiting, diarrhea, and constipation, Back: Negative for injury and pain, : Negative for injury, bleeding, discharge, and swelling, Skin: Negative for injury, rash, and discoloration, Psych: Negative for depression, anxiety, suicide ideation, homicidal ideation, and hallucinations, Allergy/Immunology: Negative for hives, rash, and allergies, Endocrine: Negative for neck swelling, polydipsia, polyuria, polyphagia, and marked weight changes, Hematologic/Lymphatic: Negative for swollen nodes, abnormal bleeding, and unusual bruising. 17:51 MS/extremity: Positive for injury or acute deformity, decreased range of motion, pain, tenderness, of the right bicep and right tricep. 17:51 Neuro: Positive for headache. Exam: 17:51 Constitutional: This is a well developed, well nourished patient who is awake, alert, froy and in no acute distress. Eyes: Pupils equal round and reactive to light, extra-ocular motions intact. Lids and lashes normal. Conjunctiva and sclera are non-icteric and not injected. Cornea within normal limits. Periorbital areas with no swelling, redness, or edema. ENT: Nares patent. No nasal discharge, no septal abnormalities noted. Tympanic membranes are normal and external auditory canals are clear. Oropharynx with no redness, swelling, or masses, exudates, or evidence of obstruction, uvula midline. Mucous membranes moist. Neck: Trachea midline, no thyromegaly or masses palpated, and no cervical lymphadenopathy. Supple, full range of motion without nuchal rigidity, or vertebral point tenderness. No Meningismus. Chest/axilla: Normal chest wall appearance and motion. Nontender with no deformity. No lesions are appreciated. Cardiovascular: Regular rate and rhythm with a normal S1 and S2. No gallops, murmurs, or rubs. Normal PMI, no JVD. No pulse deficits. Respiratory: Lungs have equal breath sounds bilaterally, clear to auscultation and percussion. No rales, rhonchi or wheezes noted. No increased work of breathing, no retractions or nasal flaring. Abdomen/GI: Soft, non-tender, with normal bowel sounds. No distension or tympany. No guarding or rebound. No evidence of tenderness throughout. Back: No spinal tenderness. No costovertebral tenderness. Full range of motion. Skin: Warm, dry with normal turgor. Normal color with no rashes, no lesions, and no evidence of cellulitis. MS/ Extremity: Pulses equal, no cyanosis. Neurovascular intact. Full, normal range of motion. Neuro: Awake and alert, GCS 15, oriented to person, place, time, and situation. Cranial nerves II-XII grossly intact. Motor strength 5/5 in all extremities. Sensory grossly intact. Cerebellar exam normal. Normal gait. Psych: Awake, alert, with orientation to person, place and time. Behavior, mood, and affect are within normal limits. 17:51 Head/face: Noted is contusion, swelling, tenderness. 17:51 Musculoskeletal/extremity: ROM: limited active range of motion due to pain, limited passive range of motion due to pain, Circulation is intact in all extremities. Sensation intact. Compartment Syndrome exam of affected extremity: is normal. Weight bearing: is unable to bear weight, DVT Exam: negative Homans' sign noted on exam, no appreciated bluish discoloration, no erythema, no increased warmth, pain, swelling, tenderness. 17:51 Skin: injury, abrasion(s), contusion(s), that are superficial, of the right bicep and right tricep. Vital Signs: 16:46 BP 138 / 86; Pulse 100; Resp 17; Temp 97.4; Pulse Ox 98% ; Weight 65.77 kg; Height 5 ll1 ft. 4 in. ; Pain 10/10; 18:45 BP 133 / 98; Pulse 80; Resp 18; Pulse Ox 97% on R/A; Pain 10/10; aa5 16:46 Body Mass Index 24.89 (65.77 kg, 162.56 cm) ll1 16:46 Pain Scale: Adult ll1 18:45 Pain Scale: Adult aa5 Vianca Coma Score: 16:46 Eye Response: spontaneous(4). Motor Response: obeys commands(6). Verbal Response: ll1 oriented(5). Total: 15. 17:50 Eye Response: spontaneous(4). Motor Response: obeys commands(6). Verbal Response: froy oriented(5). Total: 15. 17:53 Eye Response: spontaneous(4). Motor Response: obeys commands(6). Verbal Response: froy oriented(5). Total: 15. MDM: 17:00 Patient medically screened. froy 17:53 Differential diagnosis: Contusion of Hematoma on Intracranial bleed- Concussion without froy LOC. cerebral contusion. Data reviewed: vital signs, nurses notes, radiologic studies, CT scan, plain films. Consideration of Admission/Observation Escalation of care including admission/observation considered. I considered the following discharge prescriptions or medication management in the emergency department Medications were administered in the Emergency Department. See MAR. Test considered but Not performed: Labs: no labs. Care significantly affected by the following chronic conditions: seizures, cva, tbi. Care significantly affected by the following Social Determinants of Health: Poor access to transportation. Counseling: I had a detailed discussion with the patient and/or guardian regarding: the historical points, exam findings, and any diagnostic results supporting the discharge/admit diagnosis, radiology results, the need for outpatient follow up, for definitive care, a family practitioner. 03/11 17:50 Order name: CT Head C Spine [facility] 03/11 17:50 Order name: Humerus Right XRAY [facility] 03/11 17:50 Order name: Elbow Right 3 View XRAY [facility] 03/11 17:50 Order name: Ice pack; Complete Time: 18:16 [facility] 03/11 18:21 Order name: PO challenge: juice; Complete Time: 18:45 froy Administered Medications: 18:10 Drug: Acetaminophen PO 650 mg Route: PO; aa5 18:45 Follow up: Response: No adverse reaction aa5 19:10 Drug: Ketorolac IM 30 mg Route: IM; Site: right vastus lateralis; aa5 19:20 Follow up: Response: No adverse reaction aa5 Disposition Summary: 03/11/23 18:40 Discharge Ordered Location: Home froy Problem: new froy Symptoms: have improved froy Condition: Stable froy Diagnosis - Fall on same level, unspecified froy - Unspecified injury of head, initial encounter froy - Strain of muscle, fascia and tendon at neck level, initial encounter froy - Contusion of right forearm froy Followup: froy - With: Private Physician - When: 2 - 3 days - Reason: Recheck today's complaints, Continuance of care, Re-evaluation by your physician Discharge Instructions: - Discharge Summary Sheet froy - Head Injury, Adult froy - Muscle Strain froy - RICE Therapy for Routine Care of Injuries froy - RICE Therapy for Routine Care of Injuries, [id number] froy - Neck Contusion froy - Muscle Strain, [id number] froy - Head Injury, Adult, [id number] froy - Neck Contusion, [id number] froy Forms: - Medication Reconciliation Form froy - Thank You Letter froy - Antibiotic Education froy - Prescription Opioid Use froy Signatures: Dispatcher [employer] Venkata Lopez MD MD froy Moy, Maria Ines, RN RN aa5 Joe Muñoz RN RN ll1
--- NOTE | 2023-03-11 18:41 | ER ---
Nurse's Notes [facility] Name: Lauren Chand Age: 42 yrs Sex: Female : 1980 Arrival Date: 03/11/2023 Time: 16:21 Bed 7 Private MD: Diagnosis: Fall on same level, unspecified;Unspecified injury of head, initial encounter;Strain of muscle, fascia and tendon at neck level, initial encounter;Contusion of right forearm Presentation: 03/11 16:46 Chief complaint: Patient states: Hit R side of head and R upper arm on bookcase around ll1 1430 today. Abrasion noted R upper arm. Coronavirus screen: Client denies travel out of the [place] in the last 14 days. At this time, the client does not indicate any symptoms associated with coronavirus-19. Ebola Screen: Patient denies travel to an Ebola-affected area in the 21 days before illness onset. Mechanism of Injury: The problem was sustained at home, resulted from a direct blow. Initial Sepsis Screen: Does the patient meet any 2 criteria? No. Patient's initial sepsis screen is negative. Does the patient have a suspected source of infection? Yes: Skin breakdown/wound. Risk Assessment: Do you want to hurt yourself or someone else? Patient reports no desire to harm self or others. Onset of symptoms was March 11, 2023. 16:46 Method Of Arrival: Wheelchair ll1 16:46 Acuity: CHRISTINE 3 ll1 Triage Assessment: 16:50 General: Appears in no apparent distress. Behavior is calm, cooperative, appropriate ll1 for age. Pain: Complains of pain in R side of head Quality of pain is described as aching. Neuro: Reports headache. Musculoskeletal: Reports pain in right arm. Historical: - Allergies: 16:45 Aspirin; ll1 16:45 Darvocet-N 100; ll1 16:45 Ibuprofen; ll1 - PMHx: 16:45 CVA; Seizures; TBI; ll1 - PSHx: 16:45 Broken legs; Drop foot L; facial reconstruction; Splenectomy; ll1 - Immunization history:: Adult Immunizations up to date, Client reports having NOT received the Covid vaccine. - Social history:: Smoking status: Smoking status: Patient reports the use of cigarette tobacco products, smokes one-half pack cigarettes per day. Screenin:10 [facility] ED Fall Risk Assessment (Adult) History of falling in the last 3 months, aa5 including since admission Yes- single mechanical fall (1 pt) Confusion or Disorientation No (0 pts) Intoxicated or Sedated No (0 pts) Impaired Gait Yes (1 pt) Mobility Assist Device Used Yes (1 pt) Altered Elimination No (0 pt) Score/Fall Risk Level 3 or more points = High Risk Oriented to surroundings, Maintained a safe environment, Hourly rounding (assess needs \T\ fall precautionary measures) done, Used ambulatory aids as needed (educated on \T\ assisted with), Utilized family, sitter, or virtual mortgage processing clerk as indicated. Abuse screen: Denies threats or abuse. Denies injuries from another. Nutritional screening: No deficits noted. Tuberculosis screening: No symptoms or risk factors identified. Assessment: 18:10 General: Appears in no apparent distress. comfortable, Behavior is calm, cooperative, aa5 appropriate for age. Pain: Complains of pain in anterior aspect of right shoulder and right bicep Pain currently is 10 out of 10 on a pain scale. Neuro: Level of Consciousness is awake, alert, obeys commands, Oriented to person, place, time, situation. Cardiovascular: Patient's skin is warm and dry. Respiratory: Airway is patent Respiratory effort is even, unlabored. Injury Description: Abrasion Bruise sustained to right bicep. 19:20 Reassessment: Patient appears in no apparent distress at this time. Patient and/or aa5 family updated on plan of care and expected duration. Pain level reassessed. Patient is alert, oriented x 3, equal unlabored respirations, skin warm/dry/pink. Pain: Complains of pain in right bicep Pain currently is 9 out of 10 on a pain scale. Vital Signs: 16:46 BP 138 / 86; Pulse 100; Resp 17; Temp 97.4; Pulse Ox 98% ; Weight 65.77 kg; Height 5 ll1 ft. 4 in. ; Pain 10/10; 18:45 BP 133 / 98; Pulse 80; Resp 18; Pulse Ox 97% on R/A; Pain 10/10; aa5 16:46 Body Mass Index 24.89 (65.77 kg, 162.56 cm) ll1 16:46 Pain Scale: Adult ll1 18:45 Pain Scale: Adult aa5 Dillon Coma Score: 16:46 Eye Response: spontaneous(4). Motor Response: obeys commands(6). Verbal Response: ll1 oriented(5). Total: 15. 17:50 Eye Response: spontaneous(4). Motor Response: obeys commands(6). Verbal Response: froy oriented(5). Total: 15. 17:53 Eye Response: spontaneous(4). Motor Response: obeys commands(6). Verbal Response: froy oriented(5). Total: 15. ED Course: 16:26 Patient arrived in ED. im 16:50 Triage completed. ll1 17:00 Venkata Barry MD is Attending Physician. froy 17:52 Brenna Reich, MARIE is Primary Nurse. nj1 18:10 Arm band placed on. aa5 18:10 Patient has correct armband on for positive identification. Bed in low position. Call aa5 light in reach. Side rails up X 1. Adult w/ patient. 18:29 CT Head C Spine In Process Unspecified. EDMS 18:41 Humerus Right XRAY In Process Unspecified. EDMS 18:41 Elbow Right 3 View XRAY In Process Unspecified. EDMS 19:20 No provider procedures requiring assistance completed. Patient did not have IV access aa5 during this emergency room visit. Administered Medications: 18:10 Drug: Acetaminophen PO 650 mg Route: PO; aa5 18:45 Follow up: Response: No adverse reaction aa5 19:10 Drug: Ketorolac IM 30 mg Route: IM; Site: right vastus lateralis; aa5 19:20 Follow up: Response: No adverse reaction aa5 Medication: 19:20 VIS not applicable for this client. aa5 Outcome: 18:40 Discharge ordered by . froy 19:20 Discharged to home via wheelchair, with family. aa5 19:20 Condition: stable 19:20 Discharge instructions given to patient, family, Instructed on discharge instructions, follow up and referral plans. Demonstrated understanding of instructions, follow-up care. 19:25 Patient left the ED. aa5 Signatures: Dispatcher [employer] EDVenkata Ojeda MD MD cha Calderon, Audri RN RN amna5 Joe Muñoz RN RN 1 Brenna Reich, MARIE RN nj1 Romina Floyd im Corrections: (The following items were deleted from the chart) 19:16 18:45 BP 133 / 98; Pulse 80bpm; Resp 18bpm; Pain 06/26, Adult; aa5 aa5 19:46 19:45 Patient left the ED. aa5 aa5
--- NOTE | 2023-03-11 19:00 | RAD REPORT ---
EXAM DESCRIPTION: RAD - Humerus Right - 03/11/2023 6:39 pm CLINICAL HISTORY: PAIN COMPARISON: No comparisons FINDINGS: No acute fracture or dislocation seen.
--- NOTE | 2023-03-11 19:06 | RAD REPORT ---
EXAM DESCRIPTION: RAD - Elbow Right 3 View - 03/11/2023 6:39 pm CLINICAL HISTORY: PAIN COMPARISON: No comparisons FINDINGS: Small olecranon spur. No acute fracture or dislocation.
[2023-03-11] MEDS ORDERED: KETOROLAC 30 MG/ML INJ ONE (19:10)
[2023-03-11 19:55] VITALS: TEMP 97.4
[2023-03-11 19:56] VITALS: BP 133/98; O2SAT 97
== END 2023-03-11 19:45 | disposition home or self-care (01) ==
LOC: ER 16:21
DX: S16.1XXA Strain of muscle, fascia and tendon at neck level, initial encounter (principal); S09.90XA Unspecified injury of head, initial encounter; S50.11XA Contusion of right forearm, initial encounter; G44.89 Other headache syndrome; W18.30XA Fall on same level, unspecified, initial encounter; Z88.8 Allergy status to other drugs, medicaments and biological substances; Z72.0 Tobacco use
CPT/HCPCS: 70450; 72125; 96372; 99284

== ENCOUNTER 2023-05-23 01:47 | Inpatient (IN) | payer OTHER ==
--- OUTSIDE RECORDS SUMMARY | 2023-05-23 01:55 | XMS REPORT | Continuity of Care Document ---
:1980 Author Organization [facility] t Address [address] [place] [address] Care Team Providers Name Role Phone AbhinavMaxxDee Dee C Primary Care Physician Marisol Crespo MD Attending Clinician Nurse, [facility] Attending Clinician Unavailable MARISOL CRESPO Attending Clinician Unavailable Doctor Unassigned, [place] Attending Clinician Unavailable Griffin Thompson MD Attending Clinician [phone] Sergo Mueller MD Attending Clinician Pob, [facility] Main Attending Clinician Unavailable Tyrone VIGIL, Brittany Attending Clinician Ultrasound, Emilio-Mfsharon Attending Clinician Unavailable Venkata Crandall DO Attending Clinician VENKATA CRANDALL Attending Clinician Unavailable Faculty, Emilio [facility] Attending Clinician Unavailable Marcus Chu MD Attending Clinician MARCUS CHU Attending Clinician Unavailable MARCUS CHU Attending Clinician Unavailable Abe Blas MD Attending Clinician Viktoria Michaels DO Attending Clinician 2, [facility] Attending Clinician Unavailable MAHSA DO Attending Clinician Unavailable Mahsa Do MD Attending Clinician [phone] Stacey Floyd MD Attending Clinician Haim Huertas MD Attending Clinician STACEY FLOYD Attending Clinician Unavailable HAIM HUERTAS Attending Clinician Unavailable HAIM HUERTAS Attending Clinician Unavailable MARISOL CRESPO Admitting Clinician Unavailable Marisol Crespo MD Admitting Clinician Payers Payer Name Policy Type Policy Number Effective Date Expiration Date Radha mora [facility] [id number] 2022 STAR PLUS 00:00:00 Problems Condition Condition Condition Status Onset Resolution Last Treating Co mments Source Name Details Category Date Date Treatment Clinician Date Normal Normal Disease Active Univers labor labor 02-14 ity of 00:00: [place] 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 02-14 ity of 00:00: [address] Maternal Maternal Disease Active Unive rs tobacco tobacco 02-14 ity of use in use in 00:00: [place] third third 00 Medical trimester trimester Bran ch Chronic Chronic Disease Active Univers post-traum post-traum 02-14 it y of atic atic 00:00: [place] headache, headache, 00 [facility] not not [place] intractabl intractabl e e Liveborn Liveborn Disease Active Unive rs infant of infant of 5-31 ity of se[place] 00:[place] [facility] born in born in [facility] hospital by vaginal by vaginal delivery delivery Low lying Low lying Disease Active Uni vers placenta placenta 3-21 ity of nos or nos or 00:00: [place] without without 00 Medical hemorrhage hemorrhage Br anch , second , second trimester trimester 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 Screened positive for intermedi ate allele size detected on Member Desk carrier screening Pre-eclamp Pre-eclamp Disease Active U nivers emre in emre in 05-18 ity of third third 00:00: [place] trimester trimester 00 [place] Branch Elevated Elevated Disease Active Unive rs blood blood 05-14 ity of pressure pressure 00:00: Medical Branch [...] different from the original. 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 Alcohol intake 2023-03-26 2023-03-26 Current University of 00:00:00 00:00:00 non-drinker of [facility] alcohol Branch (finding) Exposure to 2023-02-04 2023-02-14 Not sure University of SARS-CoV-2 (event) 00:00:00 09:21:00 [facility] Cigarettes smoked 2023-02-14 2023-02-14 Univers ity of current (pack per 00:00:00 00:00:00 [facility] ed) - Reported Branch Cigarette 2023-02-14 2023-02-14 University of pack-years 00:00:00 00:00:00 [facility] Tobacco use and 2023-02-14 2023-02-14 Smokeless Universit y of exposure 00:00:00 00:00:00 tobacco non-user [facility] dical [place] History of Social 2023-02-09 2023-02-09 Univers ity of function 00:00:00 00:00:00 [facility] History of tobacco 2022-04-02 Passive smoker Un iversity of use 00:00:00 [facility] Sex [birth year] Universit y of 00:00:00 00:00:00 [facility] Smoking Status Start Date Stop Date Source Smokes tobacco daily 2023-02-14 00:00:00 Univers ity of [facility] Ex-smoker 2022-04-03 00:00:00 2022-04-03 00:00:00 Universi ty [facility] Medications Ordered Filled Start Stop Current Ordering Indication Dosage Frequency Signature Comments Components Source Medication Medication Date Date Medication? Clinician (SIG) Name Name medroxyPROG 2022- No [id number] 150mg Univers ESTERone -06 23- ity of (DEPO-PROVE 18:45: 17:59 [place] RA) 00 :00 Medical injection Branch 150 mg medroxyPROG 2022- No [id number] 150mg 150 mg, Univers ESTERone -06 23- Intramuscu ity of (DEPO-PROVE 18:45: 17:59 lar, ONCE, [place] RA) 00 :00 1 dose, On Medical injection Mon Branch 150 mg 03/26/23 at 1345, Routine SERTraline 2022-0 Yes Univers 25 mg 6-30 ity of tablet 00:00: [place] [facility] SERTraline 2022-0 Yes Univers 25 mg 6-30 ity of tablet 00:00: [place] [facility] SERTraline 2022-0 Yes Univers 25 mg 6-30 ity of tablet 00:00: [place] [facility] meloxicam 2022-0 Yes Univers 15 mg 6-23 ity of tablet 00:00: [place] [facility] cyclobenzap 2022-0 Yes Univer s rine 10 mg 6-23 ity of tablet 00:00: [place] [address] Medical Branch meloxicam 2022-0 Yes Univers 15 mg 6-23 ity of tablet 00:00: [place] [address] Medical Branch cyclobenzap 2022-0 Yes Univer s rine 10 mg 6-23 ity of tablet 00:00: [place] [address] Medical Branch meloxicam 2022-0 Yes Univers 15 mg 6-23 ity of tablet 00:00: [place] [address] Medical Branch cyclobenzap 2022-0 Yes Univer s rine 10 mg 6-23 ity of tablet 00:00: [place] [address] Medical Branch famotidine 2022-0 Yes Univers 20 mg 6-21 ity of tablet 00:00: [place] [address] Medical Branch famotidine 2022-0 Yes Univers 20 mg 6-21 ity of tablet 00:00: [place] [address] Medical Branch famotidine 2022-0 Yes Univers 20 mg 6-21 ity of tablet 00:00: [place] [address] Medical Branch BUTALBITAL- 2023-0 Yes [id number] TAKE ONE Univers ACETAMINOPH 6-08 TABLET BY ity of EN-CAFF 00:00: MOUTH [place] 50-325-40 00 EVERY 4 Medical mg tablet HOURS Branch NEEDED FOR HEADACHES BUTALBITAL- 2023-0 Yes [id number] TAKE ONE Univers ACETAMINOPH 6-08 TABLET BY ity of EN-CAFF 00:00: MOUTH [place] 50-325-40 00 EVERY 4 Medical mg tablet HOURS Branch NEEDED FOR HEADACHES BUTALBITAL- 2023-0 Yes [id number] TAKE ONE Univers ACETAMINOPH 6-08 TABLET BY ity of EN-CAFF 00:00: MOUTH [place] 50-325-40 00 EVERY 4 Medical mg tablet HOURS Branch NEEDED FOR HEADACHES BUTALBITAL- 2023-0 Yes [id number] TAKE ONE Univers ACETAMINOPH 6-08 TABLET BY ity of EN-CAFF 00:00: MOUTH [place] 50-325-40 00 EVERY 4 Medical mg tablet HOURS Branch NEEDED FOR HEADACHES BUTALBITAL- 2022-0 Yes [id number] TAKE ONE Univers ACETAMINOPH 6-08 TABLET BY ity of EN-CAFF 00:00: MOUTH [place] 50-325-40 00 EVERY 4 Medical mg tablet HOURS Branch NEEDED FOR HEADACHES BUTALBITAL- 2022-0 Yes [id number] TAKE ONE Univers ACETAMINOPH 6-08 TABLET BY ity of EN-CAFF 00:00: MOUTH [place] 50-325-40 00 EVERY 4 Medical mg tablet HOURS Branch NEEDED FOR HEADACHES BUTALBITAL- 2022-0 Yes [id number] TAKE ONE Univers ACETAMINOPH 6-08 TABLET BY ity of EN-CAFF 00:00: MOUTH [place] 50-325-40 00 EVERY 4 Medical mg tablet HOURS Branch NEEDED FOR HEADACHES enoxaparin 2022-0 Yes [id number] 40mg inject 0.4 Univers 40 mg/0.4 6-02 mL under ity of mL 00:00: the skin [place] injection 00 in the Medical morning. Branch 2022-0 Yes [id number] 1{tbl} Take 1 Univers vitamin 6-02 tablet by ity of w/FA tablet 00:00: mouth in [facility] 00 the Medical morning. Branch docusate 2022-0 Yes [id number] 200mg Take 2 U nivers 100 mg 6-02 capsules ity of capsule 00:00: by mouth [place] 00 once daily Medical as needed Branch for Constipati on. ferrous 2022-0 Yes [id number] 325mg Take 1 Un keerthi sulfate 325 6-02 tablet by ity of mg (65 mg 00:00: mouth in [facility] s iron) 00 the Medical tablet morning Branch and 1 tablet in the evening. ibuprofen 2022-0 Yes [id number] 600mg Take 1 Univers 600 mg 6-02 tablet by ity of tablet 00:00: mouth [place] 00 every 6 Medical (six) Branch hours as needed (Pain). Take with food or milk. norethindro 2022-0 Yes [id number] .35mg Take 1 Univers ne 0.35 mg 6-02 tablet by ity of tablet 00:00: mouth in [place] 00 the Medical morning. Branch enoxaparin 2022-0 Yes [id number] 40mg inject 0.4 Univers 40 mg/0.4 6-02 mL under ity of mL 00:00: the skin [place] injection 00 in the Medical morning. Branch 2022-0 Yes [id number] 1{tbl} Take 1 Univers vitamin 6-02 tablet by ity of w/FA tablet 00:00: mouth in [place] 00 the Medical morning. Branch docusate 2022-0 Yes [id number] 200mg Take 2 U nivers 100 mg 6-02 capsules ity of capsule 00:00: by mouth [place] 00 once daily Medical as needed Branch for Constipati on. ferrous 2022-0 Yes [id number] 325mg Take 1 Un keerthi sulfate 325 6-02 tablet by ity of mg (65 mg 00:00: mouth [facility] [place] [facility] 00 the Medical tablet morning Branch and 1 tablet in the evening. ibuprofen Yes [id number] 600mg Take 1 Univers 600 mg 6-02 tablet by ity of tablet 00:00: mouth [place] 00 every 6 Medical (six) Branch hours as needed (Pain). Take with food or milk. norethindro Yes [id number] .35mg Take 1 Univers ne 0.35 mg 6-02 tablet by ity of tablet 00:00: mouth in [place] 00 the Medical morning. Branch enoxaparin 2022-0 Yes [id number] 40mg inject 0.4 Univers 40 mg/0.4 6-02 mL under ity of mL 00:00: the skin [place] injection 00 in the Medical morning. Branch 2022-0 Yes [id number] 1{tbl} Take 1 Univers vitamin 6-02 tablet by ity of w/FA tablet 00:00: mouth in [place] 00 the Medical morning. Branch docusate 2022-0 Yes [id number] 200mg Take 2 U nivers 100 mg 6-02 capsules ity of capsule 00:00: by mouth [place] 00 once daily Medical as needed Branch for Constipati on. ferrous 2022-0 Yes [id number] 325mg Take 1 Un ke[place] sulfate 325 6-02 tablet by ity of mg (65 mg 00:00: [place] iron[place] 00 the Medical tablet morning Branch and 1 tablet in the evening. ibuprofen 2022-0 Yes [id number] 600mg Take 1 Univers 600 mg 6-02 tablet by ity of tablet 00:00: mouth [place] 00 every 6 Medical (six) Branch hours as needed (Pain). Take with food or milk. norethindro 2022-0 Yes [id number] .35mg Take 1 Univers ne 0.35 mg 6-02 tablet by ity of tablet 00:00: mouth in [place] 00 the Medical morning. Branch enoxaparin 2022-0 Yes [id number] 40mg inject 0.4 Univers 40 mg/0.4 6-02 mL under ity of mL 00:00: the skin [place] injection 00 in the Medical morning. Branch 2022-0 Yes [id number] 1{tbl} Take 1 Univers vitamin 6-02 tablet by ity of w/FA tablet 00:00: mouth in [place] 00 the Medical morning. Branch docusate 2022-0 Yes [id number] 200mg Take 2 U nivers 100 mg 6-02 capsules ity of capsule 00:00: by mouth [place] 00 once daily Medical as needed Branch for Constipati on. ferrous 2022-0 Yes [id number] 325mg Take 1 Un keerthi sulfate 325 6-02 tablet by ity of mg (65 mg 00:00: mouth in [facility] s iron) 00 the Medical tablet morning Branch and 1 tablet in the evening. ibuprofen 2022-0 Yes [id number] 600mg Take 1 Univers 600 mg 6-02 tablet by ity of tablet 00:00: mouth [place] 00 every 6 Medical (six) Branch hours as needed (Pain). Take with food or milk. norethindro 2022-0 Yes [id number] .35mg Take 1 Univers ne 0.35 mg 6-02 tablet by ity of tablet 00:00: mouth in [place] 00 the Medical morning. Branch enoxaparin 2022-0 Yes [id number] 40mg inject 0.4 Univers 40 mg/0.4 6-02 mL under ity of mL 00:00: the skin [place] injection 00 in the Medical morning. Branch 2022-0 Yes [id number] 1{tbl} Take 1 Univers vitamin 6-02 tablet by ity of w/FA tablet 00:00: mouth in [place] 00 the Medical morning. Branch docusate 2022-0 Yes [id number] 200mg Take 2 U nivers 100 mg 6-02 capsules ity of capsule 00:00: by mouth [place] 00 once daily Medical as needed Branch for Constipati on. ferrous 2022-0 Yes [id number] 325mg Take 1 Un keer[place] sulfate 325 6-02 tablet by ity of mg (65 mg 00:00: [place] iron[place] 00 the Medical tablet morning Branch and 1 tablet in the evening. ibuprofen 2022-0 Yes [id number] 600mg Take 1 Univers 600 mg 6-02 tablet by ity of tablet 00:00: mouth [place] 00 every 6 Medical (six) Branch hours as needed (Pain). Take with food or milk. enoxaparin 0 Yes [id number] 40mg inject 0.4 Univers 40 mg/0.4 6-02 mL under ity of mL 00:00: the skin [place] injection 00 in the Medical morning. Branch 0 Yes [id number] 1{tbl} Take 1 Univers vitamin 6-02 tablet by ity of w/FA tablet 00:00: mouth in [place] 00 the Medical morning. Branch docusate 0 Yes [id number] 200mg Take 2 U nivers 100 mg 6-02 capsules ity of capsule 00:00: by mouth [place] 00 once daily Medical as needed Branch for Constipati on. ferrous 2022-0 Yes [id number] 325mg Take 1 Un [place] sulfate 325 6-02 tablet by ity of mg (65 mg 00:00: [place] iron[place] 00 the Medical tablet morning Branch and 1 tablet in the evening. ibuprofen 2022-0 Yes [id number] 600mg Take 1 Univers 600 mg 6-02 tablet by ity of tablet 00:00: mouth [place] 00 every 6 Medical (six) Branch hours as needed (Pain). Take with food or milk. enoxaparin 0 Yes [id number] 40mg inject 0.4 Univers 40 mg/0.4 6-02 mL under ity of mL 00:00: the skin [place] injection 00 in the Medical morning. Branch 2022-0 Yes [id number] 1{tbl} Take 1 Univers vitamin 6-02 tablet by ity of w/FA tablet 00:00: mouth in [place] 00 the Medical morning. Branch docusate 0 Yes [id number] 200mg Take 2 U nivers 100 mg 6-02 capsules ity of capsule 00:00: by mouth [place] 00 once daily Medical as needed Branch for Constipati on. ferrous 2022-0 Yes [id number] 325mg Take 1 Un keerthi sulfate 325 6-02 tablet by ity of mg (65 mg 00:00: mouth in [facility] iron) 00 the Medical tablet morning Branch and 1 tablet in the evening. ibuprofen 2022-0 Yes [id number] 600mg Take 1 Univers 600 mg 6-02 tablet by ity of tablet 00:00: mouth [place] 00 every 6 Medical (six) Branch hours as needed (Pain). Take with food or milk. enoxaparin 0 Yes [id number] 40mg inject 0.4 Univers 40 mg/0.4 6-02 mL under ity of mL 00:00: the skin [place] injection 00 in the Medical morning. Branch 0 Yes [id number] 1{tbl} Take 1 Univers vitamin 6-02 tablet by ity of w/FA tablet 00:00: mouth [place] 00 the Medical morning. Branch docusate Yes [id number] 200mg Take 2 U nivers 100 mg 6-02 capsules ity of capsule 00:00: by mouth [place] 00 once daily Medical as needed Branch for Constipati on. ferrous 0 Yes [id number] 325mg Take 1 Un keerthi sulfate 325 6-02 tablet by ity of mg (65 mg 00:00: mouth in [facility]) 00 the Medical tablet morning Branch and 1 tablet in the evening. ibuprofen 0 Yes [id number] 600mg Take 1 Univers 600 mg 6-02 tablet by ity of tablet 00:00: mouth [place] 00 every 6 Medical (six) Branch hours as needed (Pain). Take with food or milk. norethindro 2022-0 2022- No [id number] .35mg Take 1 Univers ne 0.35 mg 6-02 -05 tablet by ity of tablet 00:00: 00:00 mouth in [place] 00 :00 the Medical morning. Branch sodium 0 2022- No 30mL 30 mL, Univers citrate-cit 02-15 Oral, ONCE i ty of anju acid 23:15: 23:17 NOW, 1 [place] (BICITRA) 00 :00 dose, On Medica l 500-334 [facility] 02/15/23 [place] mg/5 mL at 1815, solution 30 Routine mL enoxaparin 0 Yes 40mg 40 mg, Unive rs (LOVENOX) 02-15 Subcutaneo ity of injection 23:00: us, DAILY, [place] 40 mg 00 First dose Medical on Sun Branch 02/15/23 at 1800, Until Discontinu ed, Routine pantoprazol 0 Yes 40mg 40 mg, [facility] ers e 02-15 Oral, ity of (PROTONIX) 14:00: DAILY, [place] EC tablet 00 First dose Medi [place] 40 mg on Sun Branch 02/15/23 at 0900, Until Discontinu ed, Routine amitriptyli Yes 50mg 50 mg, [facility] ers ne (ELAVIL) 02-15 Oral, QHS, it y of tablet 50 02:00: First dose [place] mg 00 on Sun02/14/23 at Branch 2100, Until Discontinu ed, Routine ferrous 0 Yes 325mg 325 mg, Univer s sulfate 02-15 Oral, BID, ity of tablet 325 01:00: First dose [place] mg 00 on Sun Medical 02/14/23 at Branch 2000, Until Discontinu ed, Routine ascorbic 0 Yes 500mg 500 mg, [facility] 02-15 Oral, BID, ity of (vitamin C) 01:00: First dose [place] (VITAMIN C) 00 on Sun Medica l tablet 500 02/14/23 at [facility] mg 2000, Until Discontinu ed, Routine topiramate 0 Yes 100mg 100 mg, Uni vers (TOPAMAX) 02-14 Oral, BID, ity of tablet 100 23:00: First dose [place] mg 00 on Sun Medical 02/14/23 at Branch 1800, Until Discontinu ed, Routine
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 acetaminoph Yes 1{tbl} 1 tablet, [facility] en-codeine 02-14 Oral, ity of (TYLENOL 22:53: Q4HPRN, [place] #3) 300-30 35 Starting Medic al mg tablet 1 on Sun Branch tablet 02/14/23 at 1753, Until Discontinu ed, Routine, Pain (scale 7-10) OXcarbazepi 2023-0 Yes 600mg 600 mg, Un keerthi ne 02-14 Oral, TID, ity of (TRILEPTAL) 20:30: First dose [place] tablet 600 00 on Sun Medical mg 02/14/23 at Branch 1530, Until Discontinu ed, Routine ibuprofen 3-0 Yes 600mg 600 mg, Univ ers (IBU) 02-14 Oral, ity of tablet 600 20:15: Q6HPRN, [place] mg 23 Starting Medical on Sun Branch 02/14/23 at 1515, Until Discontinu ed, Routine, Pain (scale 4-6) acetaminoph 2022-0 Yes 650mg 650 mg, Un keerthi en 02-14 Oral, ity of (TYLENOL) 20:15: Q6HPRN, [place] tablet 650 23 Starting Medic al mg [...] IV Push, ity of (PF)) 20:15: Q8HPRN, [place] injection 4 23 Starting Medi [place] mg on Sun Branch 02/14/23 at 1515, Until Discontinu ed, Routine, Nausea and Vomiting (N/V) simethicone 2022-0 Yes 160mg 160 mg, Un keerthi (GAS RELIEF 02-14 Oral, ity of (SIMETHICON 20:15: PC+HSPRN, [place] E)) 23 Starting Medical chewable on Sun Branch tablet 160 02/14/23 at mg 1515, Until Discontinu ed, Routine, Gas docusate 3-0 Yes 200mg 200 mg, Unive rs (COLACE) 02-14 Oral, ity of capsule 200 20:15: QDAILYPRN, [place] mg 23 Starting Medical on Sun Branch 02/14/23 at 1515, Until Discontinu ed, Routine, Constipati on magnesium Yes 30mL 30 mL, Univer s hydroxide 02-14 Oral, ity of (MILK OF 20:15: QDAILYPRN, [place] as MAGNESIA) 23 Starting Medica l 400 mg/5 mL on Sun Branch suspension 02/14/23 at 30 mL 1515, Until Discontinu ed, Routine, Constipati on benzocaine- Yes Topical, Un keerthi menthol 02-14 PRN, ity of (DERMOPLAST 20:15: Starting [place] ) 20-0.5 % 23 on Sun Medical topical 02/14/23 at Branch spray 1515, Until Discontinu ed, Routine, Perineum discomfort butalbital- Yes 1{tbl} 1 tablet, Univers acetaminoph 02-14 Oral, ity of en-caff 20:12: Q4HPRNNatchez, [place] (ESGIC) 31 Starting Medical 50-325-40 on Sun Branch mg tablet 1 02/14/23 at tablet 1512, Until Discontinu ed, Routine, Headaches butalbital- 2022- No 1{tbl} 1 tablet, Univers acetaminoph 02-14 Oral, ity of en-caff 15:21: 20:18 Q4HPRNNatchez, [place] (ESGIC) 01 :23 Starting Medical 50-325-40 on Sun Branch mg tablet 1 02/14/23 at tablet 1021, Until Sun02/14/23 at 1518, Routine, Pain (scale 4-6) oxytocin 2022- No 2mU/min at 2-40 Un keerthi (PITOCIN) 02-14 mL/hr, IV ity of 30 units in 13:15: 20:18 Infusion, [place] NS 500 mL 00 :23 TITRATE, Medica l IV infusion Starting Bran ch on Sun02/14/23 at 0815, Until Sun02/14/23 at 1518, YOLANDA fentaNYL-ro 2022- No Epidural, Univers pivacaine 2 02-14 ONCE INTRA i ty of mcg/mL-0.1 11:29: 23:18 PROCEDURE, [place] % (PF) in 00 :36 Starting Medica l NS 200 mL on Sun Branch epidural 02/14/23 at infusion 0629, RTU Until Discontinu ed, Routine, Intra-op fentaNYL-ro 2022-2022- No Epidural, Univers pivacaine 2 02-14 CONTINUOUS i ty of mcg/mL-0.1 11:29: 23:18 PRN, [place] % (PF) in 00 :36 Starting Medica l NS 200 mL on Wed Branch epidural 02/14/23 at infusion 0629, RTU Until Discontinu ed, Routine, Intra-op fentaNYL-ro 2022- No Epidural, Univers pivacaine 2 02-14 ONCE INTRA i ty of mcg/mL-0.1 11:29: 23:18 PROCEDURE, [place] % (PF) in 00 :36 Starting Medica l NS 200 mL on Wed Branch epidural 02/14/23 at infusion 0629, RTU Until Discontinu ed, Routine, Intra-op fentaNYL-ro 2022- No Epidural, Univers pivacaine 2 02-14 CONTINUOUS i ty of mcg/mL-0.1 11:29: 23:18 PRN, [place] % (PF) in 00 :36 Starting Medica l NS 200 mL on Wed Branch epidural 02/14/23 at infusion 0629, RTU Until Discontinu ed, Routine, Intra-op lidocaine-e 2022- No Intraderma Univers pinephrine 02-14 l, ONCE ity o f (XYLOCAINE 11:22: 23:18 INTRA [place] W/EPINEPHRI 00 :36 PROCEDURE, Me dical NE) 1.5 Starting Branch %-1:200,000 on Wed injection 02/14/23 at 0622, Until Discontinu ed, Routine, Intra-op lidocaine-e 2022- No Intraderma Univers pinephrine 02-14 l, ONCE ity o f (XYLOCAINE 11:22: 23:18 INTRA [place] W/EPINEPHRI 00 :36 PROCEDURE, Me dical NE) 1.5 Starting Branch %-1:200,000 on Wed injection 02/14/23 at 0622, Until Discontinu ed, Routine, Intra-op FENTanyl PF 2022- No 100ug 100 mcg, Univers (SUBLIMAZE 02-14 Slow IV ity o f (PF)) 09:27: 20:18 Push, [place] injection 15 :23 Q1HPRN, Medical 100 mcg Starting Branch on Sun02/14/23 at 0427, Until Sun02/14/23 at 151, Routine, Pain (scale 4-6), Pain (scale 7-10) lactated 2022- No 500mL at 999 Unive rs ringers IV 02-14 05-31 mL/hr, 500 it y of infusion 08:15: 20:18 mL, IV [place] 500 mL 33 :23 Infusion, Medical PRN - SEE Branch INSTRUCTIO NS, Starting on Sun02/14/23 at 0315, Until Sun02/14/23 at 151, Routine D5W-LR IV 2022- No 1000mL at 1-125 U nivers infusion 02-14 05-31 mL/hr, IV ity o f 1,000 mL 08:15: 20:18 Infusion, [place] as 33 :23 TITRATE, Medical Starting Branch on Sun02/14/23 at 0315, Until Sun02/14/23 at 151, Routine butalbital- Yes [id number] 1{tbl} Take 1 Univers acetaminoph 5-10 tablet by ity of en-caff 00:00: mouth [place] (ESGIC) 00 every 4 Medical 50-325-40 (four) Branch mg tablet hours as needed (Headaches ). butalbital- Yes [id number] 1{tbl} Take 1 Univers acetaminoph 5-10 tablet by ity of en-caff 00:00: mouth [place] (ESGIC) 00 every 4 Medical 50-325-40 (four) Branch mg tablet hours as needed (Headaches ). butalbital- Yes [id number] 1{tbl} Take 1 Univers acetaminoph 5-10 tablet by ity of en-caff 00:00: mouth [place] (ESGIC) 00 every 4 Medical 50-325-40 (four) Branch mg tablet hours as needed (Headaches ). butalbital- Yes [id number] 1{tbl} Take 1 Univers acetaminoph 5-10 tablet by ity of en-caff 00:00: mouth [place] (ESGIC) 00 every 4 Medical 50-325-40 (four) Branch mg tablet hours as needed (Headaches ). butalbital- Yes [id number] 1{tbl} Take 1 Univers acetaminoph 5-10 tablet by ity of en-caff 00:00: mouth [place] (ESGIC) 00 every 4 Medical 50-325-40 (four) Branch mg tablet hours as needed (Headaches ). butalbital- Yes [id number] 1{tbl} Take 1 Univers acetaminoph 5-10 tablet by ity of en-caff 00:00: mouth [place] (ESGIC) 00 every 4 Medical 50-325-40 (four) Branch mg tablet hours as needed (Headaches ). butalbital- Yes [id number] 1{tbl} Take 1 Univers acetaminoph 5-10 tablet by ity of en-caff 00:00: mouth [place] (ESGIC) 00 every 4 Medical 50-325-40 (four) Branch mg tablet hours as needed (Headaches ). butalbital- 2022- No [id number] 1{tbl} Take 1 Univers acetaminoph 5-10 06-08 tablet by it y of en-caff 00:00: 00:00 mouth [place] (ESGIC) 00 :00 every 4 Medical 50-325-40 (four) Branch mg tablet hours as needed (Headaches ). butalbital- 2022- No [id number] 1{tbl} Take 1 Univers acetaminoph 5-10 06-08 tablet by it y of en-caff 00:00: 00:00 mouth [place] (ESGIC) 00 :00 every 4 Medical 50-325-40 (four) Branch mg tablet hours as needed (Headaches ). butalbital- Yes [id number] 1{tbl} Take 1 [facility] acetaminoph 4-20 tablet by [facility] of en-caff 00:00: mouth [place] (ESGIC) 00 every 4 Medical 50-325-40 (four) Branch mg tablet hours as needed (Headaches ). butalbital- Yes [id number] 1{tbl} Take 1 [facility] acetaminoph 4-20 tablet by ity of en-caff 00:00: mouth [place] (ESGIC) 00 every 4 Medical 50-325-40 (four) Branch mg tablet hours as needed (Headaches ). butalbital- Yes [id number] 1{tbl} Take 1 [facility] acetaminoph 4-20 tablet by ity of en-caff 00:00: mouth [place] (ESGIC) 00 every 4 Medical 50-325-40 (four) Branch mg tablet hours as needed (Headaches ). butalbital- Yes [id number] 1{tbl} Take 1 [facility] acetaminoph 4-20 tablet by [facility] of en-caff 00:00: mouth [place] (ESGIC) 00 every 4 Medical 50-325-40 (four) Branch mg tablet hours as needed (Headaches ). butalbital- 2022- Yes [id number] 1{tbl} Take 1 [facility] acetaminoph 4-20 tablet by ity of en-caff 00:00: mouth [place] (ESGIC) 00 every 4 Medical 50-325-40 (four) Branch mg tablet hours as needed (Headaches ). butalbital- Yes [id number] 1{tbl} Take 1 [facility] acetaminoph 4-20 tablet by ity of en-caff 00:00: mouth [place] (ESGIC) 00 every 4 Medical 50-325-40 (four) Branch mg tablet hours as needed (Headaches ). butalbital- 2022- No [id number] 1{tbl} Take 1 [facility] acetaminoph 4-20 05-10 tablet by it y of en-caff 00:00: 00:00 mouth [place] (ESGIC) 00 :00 every 4 Medical 50-325-40 (four) Branch mg tablet hours as needed (Headaches ). AMITRIPTYLI 2022-0 Yes [id number] TAKE TWO [facility] 25 mg 4-19 TABLETS BY ity o f tablet 00:00: MOUTH AT [place] 00 BEDTIME Medical Branch AMITRIPTYLI 2022-0 Yes [id number] TAKE TWO [facility] NE 25 mg 4-19 TABLETS BY ity o f tablet 00:00: MOUTH AT [place] 00 BEDTIME Medical Branch AMITRIPTYLI 2022-0 Yes [id number] TAKE TWO [facility] 25 mg 4-19 TABLETS BY ity o f tablet 00:00: MOUTH AT [place] 00 BEDTIME Medical Branch AMITRIPTYLI 2022-0 Yes [id number] TAKE TWO [facility] 25 mg 4-19 TABLETS BY ity o f tablet 00:00: MOUTH AT [place] BEDTIME Medical Branch AMITRIPTYLI 2022-0 Yes [id number] TAKE TWO [facility] 25 mg 4-19 TABLETS BY ity o f tablet 00:00: MOUTH AT [place] BEDTIME Medical Branch AMITRIPTYLI 2022-0 Yes [id number] TAKE TWO [facility] 25 mg 4-19 TABLETS BY ity o f tablet 00:00: MOUTH AT [place] BEDTIME Medical Branch AMITRIPTYLI 2022-0 Yes [id number] TAKE TWO [facility] 25 mg 4-19 TABLETS BY ity o f tablet 00:00: MOUTH AT [place] BEDTIME Medical Branch AMITRIPTYLI 2022-0 Yes [id number] TAKE TWO [facility] 25 mg 4-19 TABLETS BY ity o f tablet 00:00: MOUTH AT [place] [facility] AMITRIPTYLI 2022-0 Yes [id number] TAKE TWO [facility] NE 25 mg 4-19 TABLETS BY ity o f tablet 00:00: MOUTH AT [place] [facility] Medical Branch AMITRIPTYLI 2022-0 Yes [id number] TAKE TWO [facility] NE 25 mg 4-19 TABLETS BY ity o f tablet 00:00: MOUTH AT [place] BEDTIME Medical Branch AMITRIPTYLI 2022-0 Yes [id number] TAKE TWO [facility] 25 mg 4-19 TABLETS BY ity o f tablet 00:00: MOUTH AT [place] [facility] Medical Branch AMITRIPTYLI 2022-0 Yes [id number] TAKE TWO [facility] NE 25 mg 4-19 TABLETS BY ity o f tablet 00:00: MOUTH AT [place] [facility] Medical Branch AMITRIPTYLI 2022-0 Yes [id number] TAKE TWO [facility] NE 25 mg 4-19 TABLETS BY ity o f tablet 00:00: MOUTH AT [place] [facility] AMITRIPTYLI 2022-0 Yes [id number] TAKE TWO [facility] 25 mg 4-19 TABLETS BY ity o f tablet 00:00: MOUTH AT [place] BEDTIME Medical Branch AMITRIPTYLI 2022-0 Yes [id number] TAKE TWO [facility] 25 mg 4-19 TABLETS BY ity o f tablet 00:00: MOUTH AT [place] BEDTIME Medical Branch AMITRIPTYLI 2022-0 Yes [id number] TAKE TWO [facility] 25 mg 4-19 TABLETS BY ity o f tablet 00:00: MOUTH AT [place] BEDTIME Medical Branch AMITRIPTYLI 2023-0 Yes [id number] TAKE TWO [facility] 25 mg 4-19 TABLETS BY ity o f tablet 00:00: MOUTH AT [place] BEDTIME Medical Branch AMITRIPTYLI 3-0 Yes [id number] TAKE TWO [facility] 25 mg 4-19 TABLETS BY ity o f tablet 00:00: MOUTH AT [place] BEDTIME Medical Branch AMITRIPTYLI 3-0 Yes [id number] TAKE TWO [facility] 25 mg 4-19 TABLETS BY ity o f tablet 00:00: MOUTH AT [place] BEDTIME Medical Branch AMITRIPTYLI 2022-0 Yes [id number] TAKE TWO [facility] 25 mg 4-19 TABLETS BY ity o f tablet 00:00: MOUTH AT [place] BEDTIME Medical Branch ferrous 3-0 Yes [id number] 325mg Take 1 Un keerthi sulfate 3-30 tablet by ity of (IRON, 00:00: mouth in [place] FERROUS 00 the Medical SULFATE,) morning Branch 325 mg (65 and 1 mg iron) tablet in tablet the evening. ascorbic 2022-0 Yes [id number] 500mg Take 1 U nivers acid, 3-30 tablet by ity of vitamin C, 00:00: mouth in [place] [facility] as 500 mg 00 the Medical tablet morning Branch and 1 tablet in the evening. ferrous 2022-0 Yes [id number] 325mg Take 1 Un keerthi sulfate 3-30 tablet by ity of (IRON, 00:00: mouth in [place] FERROUS 00 the Medical SULFATE,) morning Branch 325 mg (65 and 1 mg iron) tablet in tablet the evening. ascorbic 2022-0 Yes [id number] 500mg Take 1 U nivers acid, 3-30 tablet by ity of vitamin C, 00:00: mouth in [place] as 500 mg 00 the Medical tablet morning Branch and 1 tablet in the evening. ferrous 2023-0 Yes [id number] 325mg Take 1 Un keerthi sulfate 3-30 tablet by ity of (IRON, 00:00: mouth in [place] FERROUS 00 the Medical SULFATE,) morning Branch 325 mg (65 and 1 mg iron) tablet in tablet the evening. ascorbic 2023-0 Yes [id number] 500mg Take 1 U nivers acid, 3-30 tablet by ity of vitamin C, 00:00: mouth in [place] as 500 mg 00 the Medical tablet morning Branch and 1 tablet in the evening. ferrous 2022-0 Yes [id number] 325mg Take 1 Un keerthi sulfate 3-30 tablet by ity of (IRON, 00:00: mouth in [place] FERROUS 00 the Medical SULFATE,) morning Branch 325 mg (65 and 1 mg iron) tablet in tablet the evening. ascorbic 2022-0 Yes [id number] 500mg Take 1 U nivers acid, 3-30 tablet by ity of vitamin C, 00:00: mouth in [place] as 500 mg 00 the Medical tablet morning Branch and 1 tablet in the evening. ferrous 2022-0 Yes [id number] 325mg Take 1 Un keerthi sulfate 3-30 tablet by ity of (IRON, 00:00: mouth in [place] FERROUS 00 the Medical SULFATE,) morning Branch 325 mg (65 and 1 mg iron) tablet in tablet the evening. ascorbic 2022-0 Yes [id number] 500mg Take 1 U nivers acid, 3-30 tablet by ity of vitamin C, 00:00: mouth in [place] as 500 mg 00 the Medical tablet morning Branch and 1 tablet in the evening. ferrous 2022-0 Yes [id number] 325mg Take 1 Un keerthi sulfate 3-30 tablet by ity of (IRON, 00:00: mouth in [place] FERROUS 00 the Medical SULFATE,) morning Branch 325 mg (65 and 1 mg iron) tablet in tablet the evening. ascorbic 2022-0 Yes [id number] 500mg Take 1 U nivers acid, 3-30 tablet by ity of vitamin C, 00:00: mouth in [place] as 500 mg 00 the Medical tablet morning Branch and 1 tablet in the evening. ferrous 2022-0 Yes [id number] 325mg Take 1 Un keerthi sulfate 3-30 tablet by ity of (IRON, 00:00: mouth in [place] FERROUS 00 the Medical SULFATE,) morning Branch 325 mg (65 and 1 mg iron) tablet in tablet the evening. ascorbic 2022-0 Yes [id number] 500mg Take 1 U nivers acid, 3-30 tablet by ity of vitamin C, 00:00: mouth in [place] as 500 mg 00 the Medical tablet morning Branch and 1 tablet in the evening. ferrous 2022-0 Yes [id number] 325mg Take 1 Un keerthi sulfate 3-30 tablet by ity of (IRON, 00:00: mouth in [place] FERROUS 00 the Medical SULFATE,) morning Branch 325 mg (65 and 1 mg iron) tablet in tablet the evening. ascorbic 2023-0 Yes [id number] 500mg Take 1 U nivers acid, 3-30 tablet by ity of vitamin C, 00:00: mouth in [place] as 500 mg 00 the Medical tablet morning Branch and 1 tablet in the evening. ferrous 2023-0 Yes [id number] 325mg Take 1 Un keerthi sulfate 3-30 tablet by ity of (IRON, 00:00: mouth in [place] FERROUS 00 the Medical SULFATE,) morning Branch 325 mg (65 and 1 mg iron) tablet in tablet the evening. ascorbic 2022-0 Yes [id number] 500mg Take 1 U nivers acid, 3-30 tablet by ity of vitamin C, 00:00: mouth in [place] as 500 mg 00 the Medical tablet morning Branch and 1 tablet in the evening. ferrous 2022-0 Yes [id number] 325mg Take 1 Un keerthi sulfate 3-30 tablet by ity of (IRON, 00:00: mouth in [place] FERROUS 00 the Medical SULFATE,) morning Branch 325 mg (65 and 1 mg iron) tablet in tablet the evening. ascorbic 2022-0 Yes [id number] 500mg Take 1 U nivers acid, 3-30 tablet by ity of vitamin C, 00:00: mouth in [place] as 500 mg 00 the Medical tablet morning Branch and 1 tablet in the evening. ferrous 2022-0 Yes [id number] 325mg Take 1 Un keerthi sulfate 3-30 tablet by ity of (IRON, 00:00: mouth in [place] FERROUS 00 the Medical SULFATE,) morning Branch 325 mg (65 and 1 mg iron) tablet in tablet the evening. ascorbic 2022-0 Yes [id number] 500mg Take 1 U nivers acid, 3-30 tablet by ity of vitamin C, 00:00: mouth in [place] as 500 mg 00 the Medical tablet morning Branch and 1 tablet in the evening. ferrous 2023-0 Yes [id number] 325mg Take 1 Un keerthi sulfate 3-30 tablet by ity of (IRON, 00:00: mouth in [place] FERROUS 00 the Medical SULFATE,) morning Branch 325 mg (65 and 1 mg iron) tablet in tablet the evening. ascorbic 202-0 Yes [id number] 500mg Take 1 U nivers acid, 3-30 tablet by ity of vitamin C, 00:00: mouth in [place] as 500 mg 00 the Medical tablet morning Branch and 1 tablet in the evening. ferrous 2022-0 Yes [id number] 325mg Take 1 Un keerthi sulfate 3-30 tablet by ity of (IRON, 00:00: mouth in [place] FERROUS 00 the Medical SULFATE,) morning Branch 325 mg (65 and 1 mg iron) tablet in tablet the evening. ascorbic 2022-0 Yes [id number] 500mg Take 1 U nivers acid, 3-30 tablet by ity of vitamin C, 00:00: mouth in [place] as 500 mg 00 the Medical tablet morning Branch and 1 tablet in the evening. ferrous 2022-0 Yes [id number] 325mg Take 1 Un keerthi sulfate 3-30 tablet by ity of (IRON, 00:00: mouth in [place] FERROUS 00 the Medical SULFATE,) morning Branch 325 mg (65 and 1 mg iron) tablet in tablet the evening. ascorbic 2022-0 Yes [id number] 500mg Take 1 U nivers acid, 3-30 tablet by ity of vitamin C, 00:00: mouth in [place] as 500 mg 00 the Medical tablet morning Branch and 1 tablet in the evening. ferrous 2022-0 Yes [id number] 325mg Take 1 Un keerthi sulfate 3-30 tablet by ity of (IRON, 00:00: mouth in [place] FERROUS 00 the Medical SULFATE,) morning Branch 325 mg (65 and 1 mg iron) tablet in tablet the evening. ascorbic 2022-0 Yes [id number] 500mg Take 1 U nivers acid, 3-30 tablet by ity of vitamin C, 00:00: mouth in [place] as 500 mg 00 the Medical tablet morning Branch and 1 tablet in the evening. ferrous 2022-0 Yes [id number] 325mg Take 1 Un keerthi sulfate 3-30 tablet by ity of (IRON, 00:00: mouth in [place] FERROUS 00 the Medical SULFATE,) morning Branch 325 mg (65 and 1 mg iron) tablet in tablet the evening. ascorbic 2022-0 Yes [id number] 500mg Take 1 U nivers acid, 3-30 tablet by ity of vitamin C, 00:00: mouth in [place] as 500 mg 00 the Medical tablet morning Branch and 1 tablet in the evening. ferrous 2022-0 Yes [id number] 325mg Take 1 Un keerthi sulfate 3-30 tablet by ity of (IRON, 00:00: mouth in [place] FERROUS 00 the Medical SULFATE,) morning Branch 325 mg (65 and 1 mg iron) tablet in tablet the evening. ascorbic 2023-0 Yes [id number] 500mg Take 1 U nivers acid, 3-30 tablet by ity of vitamin C, 00:00: mouth in [place] as 500 mg 00 the Medical tablet morning Branch and 1 tablet in the evening. ferrous 202-0 Yes [id number] 325mg Take 1 Un keerthi sulfate 3-30 tablet by ity of (IRON, 00:00: mouth in [place] FERROUS 00 the Medical SULFATE,) morning Branch 325 mg (65 and 1 mg iron) tablet in tablet the evening. ascorbic 2022-0 Yes [id number] 500mg Take 1 U nivers acid, 3-30 tablet by ity of vitamin C, 00:00: mouth in [place] as 500 mg 00 the Medical tablet morning Branch and 1 tablet in the evening. ferrous 2022-0 Yes [id number] 325mg Take 1 Un keerthi sulfate 3-30 tablet by ity of (IRON, 00:00: mouth in [place] FERROUS 00 the Medical SULFATE,) morning Branch 325 mg (65 and 1 mg iron) tablet in tablet the evening. ascorbic 2022-0 Yes [id number] 500mg Take 1 U nivers acid, 3-30 tablet by ity of vitamin C, 00:00: mouth in [place] as 500 mg 00 the Medical tablet morning Branch and 1 tablet in the evening. ferrous 2022-0 Yes [id number] 325mg Take 1 Un keerthi sulfate 3-30 tablet by ity of (IRON, 00:00: mouth in [place] FERROUS 00 the Medical SULFATE,) morning Branch 325 mg (65 and 1 mg iron) tablet in tablet the evening. ascorbic 2022-0 Yes [id number] 500mg Take 1 U nivers acid, 3-30 tablet by ity of vitamin C, 00:00: mouth in [place] as 500 mg 00 the Medical tablet morning Branch and 1 tablet in the evening. ferrous 202-0 Yes [id number] 325mg Take 1 Un keerthi sulfate 3-30 tablet by ity of (IRON, 00:00: mouth in [place] FERROUS 00 the Medical SULFATE,) morning Branch 325 mg (65 and 1 mg iron) tablet in tablet the evening. ascorbic 202-0 Yes [id number] 500mg Take 1 U nivers acid, 3-30 tablet by ity of vitamin C, 00:00: mouth in [place] as 500 mg 00 the Medical tablet morning Branch and 1 tablet in the evening. ferrous 2022-0 Yes [id number] 325mg Take 1 Un keerthi sulfate 3-30 tablet by ity of (IRON, 00:00: mouth in [place] FERROUS 00 the Medical SULFATE,) morning Branch 325 mg (65 and 1 mg iron) tablet in tablet the evening. ascorbic 2022-0 Yes [id number] 500mg Take 1 U nivers acid, 3-30 tablet by ity of vitamin C, 00:00: mouth in [place] as 500 mg 00 the Medical tablet morning Branch and 1 tablet in the evening. ferrous 2022-0 Yes [id number] 325mg Take 1 Un keerthi sulfate 3-30 tablet by ity of (IRON, 00:00: mouth in [place] FERROUS 00 the Medical SULFATE,) morning Branch 325 mg (65 and 1 mg iron) tablet in tablet the evening. ascorbic 2022-0 Yes [id number] 500mg Take 1 U nivers acid, 3-30 tablet by ity of vitamin C, 00:00: mouth in [place] as 500 mg 00 the Medical tablet morning Branch and 1 tablet in the evening. ferrous 2022-0 Yes [id number] 325mg Take 1 Un keerthi sulfate 3-30 tablet by ity of (IRON, 00:00: mouth in [place] FERROUS 00 the Medical SULFATE,) morning Branch 325 mg (65 and 1 mg iron) tablet in tablet the evening. ascorbic 2022- Yes [id number] 500mg Take 1 U nivers acid, 3-30 tablet by ity of vitamin C, 00:00: mouth in [place] as 500 mg 00 the Medical tablet morning Branch and 1 tablet in the evening. amitriptyli 2022- No [id number] 50mg Take 2 [facility] ne 25 mg 2-17 04-19 tablets by ity of tablet 00:00: 04:59 mouth at [place] 00 :00 bedtime Medical for 60 Branch days. amitriptyli 2022- No [id number] 50mg Take 2 [facility] ne 25 mg 2-17 04-19 tablets by ity of tablet 00:00: 04:59 mouth at [place] 00 :00 bedtime Medical for 60 Branch days. amitriptyli 2022- No [id number] 50mg Take 2 [facility] ne 25 mg 2-17 04-19 tablets by ity of tablet 00:00: 04:59 mouth at [place] 00 :00 bedtime Medical for 60 Branch days. amitriptyli 2022- No [id number] 50mg Take 2 [facility] ne 25 mg 2-17 04-19 tablets by ity of tablet 00:00: 04:59 mouth at [place] 00 :00 bedtime Medical for 60 Branch days. amitriptyli 2022- No [id number] 50mg Take 2 [facility] ne 25 mg 2-17 04-19 tablets by ity of tablet 00:00: 04:59 mouth at [place] 00 :00 bedtime Medical for 60 Branch days. amitriptyli 2022- No [id number] 50mg Take 2 [facility] ne 25 mg 2-17 04-19 tablets by ity of tablet 00:00: 04:59 mouth at [place] 00 :00 bedtime Medical for 60 Branch days. amitriptyli 2022- No [id number] 50mg Take 2 [facility] ne 25 mg 2-17 04-05 tablets by ity of tablet 00:00: 00:00 mouth at [place] 00 :00 bedtime Medical for 60 Branch days. PROMETHAZIN 2022-0 Yes [id number] TAKE ONE [facility] E 25 mg 1-17 TABLET BY ity of tablet 00:00: MOUTH [place] 00 EVERY 6 Medical HOURS Branch NEEDED FOR NAUSEA AND VOMITING PROMETHAZIN 2022-0 Yes [id number] TAKE ONE [facility] E 25 mg 1-17 TABLET BY ity of tablet 00:00: MOUTH [place] 00 EVERY 6 Medical HOURS Branch NEEDED FOR NAUSEA AND VOMITING PROMETHAZIN 2022-0 Yes [id number] TAKE ONE [facility] E 25 mg 1-17 TABLET BY ity of tablet 00:00: MOUTH [place] 00 EVERY 6 Medical HOURS Branch NEEDED FOR NAUSEA AND VOMITING PROMETHAZIN 2022-0 Yes [id number] TAKE ONE [facility] E 25 mg 1-17 TABLET BY ity of tablet 00:00: MOUTH [place] 00 EVERY 6 Medical HOURS Branch NEEDED FOR NAUSEA AND VOMITING PROMETHAZIN 2022-0 Yes [id number] TAKE ONE [facility] E 25 mg 1-17 TABLET BY ity of tablet 00:00: MOUTH [place] 00 EVERY 6 Medical HOURS Branch NEEDED FOR NAUSEA AND VOMITING PROMETHAZIN 2022-0 Yes [id number] TAKE ONE [facility] E 25 mg 1-17 TABLET BY ity of tablet 00:00: MOUTH [place] 00 EVERY 6 Medical HOURS Branch NEEDED FOR NAUSEA AND VOMITING PROMETHAZIN 2023-0 Yes [id number] TAKE ONE [facility] E 25 mg 1-17 TABLET BY ity of tablet 00:00: MOUTH [place] 00 EVERY 6 Medical HOURS Branch NEEDED FOR NAUSEA AND VOMITING PROMETHAZIN 2023-0 Yes [id number] TAKE ONE [facility] E 25 mg 1-17 TABLET BY ity of tablet 00:00: MOUTH [place] 00 EVERY 6 Medical HOURS Branch NEEDED FOR NAUSEA AND VOMITING PROMETHAZIN 2023-0 Yes [id number] TAKE ONE [facility] E 25 mg 1-17 TABLET BY ity of tablet 00:00: MOUTH [place] 00 EVERY 6 Medical HOURS Branch NEEDED FOR NAUSEA AND VOMITING PROMETHAZIN 3-0 Yes [id number] TAKE ONE [facility] E 25 mg 1-17 TABLET BY ity of tablet 00:00: MOUTH [place] 00 EVERY 6 Medical HOURS Branch NEEDED FOR NAUSEA AND VOMITING PROMETHAZIN 2023-0 Yes [id number] TAKE ONE [facility] E 25 mg 1-17 TABLET BY ity of tablet 00:00: MOUTH [place] 00 EVERY 6 Medical HOURS Branch NEEDED FOR NAUSEA AND VOMITING PROMETHAZIN 2023-0 Yes [id number] TAKE ONE [facility] E 25 mg 1-17 TABLET BY ity of tablet 00:00: MOUTH [place] 00 EVERY 6 Medical HOURS Branch NEEDED FOR NAUSEA AND VOMITING PROMETHAZIN 3-0 Yes [id number] TAKE ONE [facility] E 25 mg 1-17 TABLET BY ity of tablet 00:00: MOUTH [place] 00 EVERY 6 Medical HOURS Branch NEEDED FOR NAUSEA AND VOMITING PROMETHAZIN 3-0 Yes [id number] TAKE ONE [facility] E 25 mg 1-17 TABLET BY ity of tablet 00:00: MOUTH [place] 00 EVERY 6 Medical HOURS Branch NEEDED FOR NAUSEA AND VOMITING PROMETHAZIN 2023-0 Yes [id number] TAKE ONE [facility] E 25 mg 1-17 TABLET BY ity of tablet 00:00: MOUTH [place] 00 EVERY 6 Medical HOURS Branch NEEDED FOR NAUSEA AND VOMITING PROMETHAZIN 2023-0 Yes [id number] TAKE ONE [facility] E 25 mg 1-17 TABLET BY ity of tablet 00:00: MOUTH [place] 00 EVERY 6 Medical HOURS Branch NEEDED FOR NAUSEA AND VOMITING PROMETHAZIN 2023-0 Yes [id number] TAKE ONE [facility] E 25 mg 1-17 TABLET BY ity of tablet 00:00: MOUTH [place] 00 EVERY 6 Medical HOURS Branch NEEDED FOR NAUSEA AND VOMITING PROMETHAZIN 2023-0 Yes [id number] TAKE ONE [facility] E 25 mg 1-17 TABLET BY ity of tablet 00:00: MOUTH [place] 00 EVERY 6 Medical HOURS Branch NEEDED FOR NAUSEA AND VOMITING PROMETHAZIN 2023-0 Yes [id number] TAKE ONE [facility] E 25 mg 1-17 TABLET BY ity of tablet 00:00: MOUTH [place] 00 EVERY 6 Medical HOURS Branch NEEDED FOR NAUSEA AND VOMITING PROMETHAZIN 3-0 Yes [id number] TAKE ONE [facility] E 25 mg 1-17 TABLET BY ity of tablet 00:00: MOUTH [place] 00 EVERY 6 Medical HOURS Branch NEEDED FOR NAUSEA AND VOMITING PROMETHAZIN 3-0 Yes [id number] TAKE ONE [facility] E 25 mg 1-17 TABLET BY ity of tablet 00:00: MOUTH [place] 00 EVERY 6 Medical HOURS Branch NEEDED FOR NAUSEA AND VOMITING PROMETHAZIN 2022-0 Yes [id number] TAKE ONE [facility] E 25 mg 1-17 TABLET BY ity of tablet 00:00: MOUTH [place] 00 EVERY 6 Medical HOURS Branch NEEDED FOR NAUSEA AND VOMITING PROMETHAZIN 3-0 Yes [id number] TAKE ONE [facility] E 25 mg 1-17 TABLET BY ity of tablet 00:00: MOUTH [place] 00 EVERY 6 Medical HOURS Branch NEEDED FOR NAUSEA AND VOMITING PROMETHAZIN 3-0 Yes [id number] TAKE ONE [facility] E 25 mg 1-17 TABLET BY ity of tablet 00:00: MOUTH [place] 00 EVERY 6 Medical HOURS Branch NEEDED FOR NAUSEA AND VOMITING PROMETHAZIN 3-0 Yes [id number] TAKE ONE [facility] E 25 mg 1-17 TABLET BY ity of tablet 00:00: MOUTH [place] 00 EVERY 6 Medical HOURS Branch NEEDED FOR NAUSEA AND VOMITING PROMETHAZIN 3-0 Yes [id number] TAKE ONE [facility] E 25 mg 1-17 TABLET BY ity of tablet 00:00: MOUTH [place] 00 EVERY 6 Medical HOURS Branch NEEDED FOR NAUSEA AND VOMITING PROMETHAZIN 3-0 Yes [id number] TAKE ONE [facility] E 25 mg 1-17 TABLET BY ity of tablet 00:00: MOUTH [place] 00 EVERY 6 Medical HOURS Branch NEEDED FOR NAUSEA AND VOMITING PROMETHAZIN 3-0 Yes [id number] TAKE ONE [facility] E 25 mg 1-17 TABLET BY ity of tablet 00:00: MOUTH [place] 00 EVERY 6 Medical HOURS Branch NEEDED FOR NAUSEA AND VOMITING PROMETHAZIN 3-0 Yes [id number] TAKE ONE [facility] E 25 mg 1-17 TABLET BY ity of tablet 00:00: MOUTH [place] 00 EVERY 6 Medical HOURS Branch NEEDED FOR NAUSEA AND VOMITING PROMETHAZIN 2023-0 Yes [id number] TAKE ONE [facility] E 25 mg 1-17 TABLET BY ity of tablet 00:00: MOUTH [place] 00 EVERY 6 Medical HOURS Branch NEEDED FOR NAUSEA AND VOMITING PROMETHAZIN 2023-0 Yes [id number] TAKE ONE [facility] E 25 mg 1-17 TABLET BY ity of tablet 00:00: MOUTH [place] 00 EVERY 6 Medical HOURS Branch NEEDED FOR NAUSEA AND VOMITING PROMETHAZIN 2023-0 Yes [id number] TAKE ONE [facility] E 25 mg 1-17 TABLET BY ity of tablet 00:00: MOUTH [place] 00 EVERY 6 Medical HOURS Branch NEEDED FOR NAUSEA AND VOMITING PROMETHAZIN 2023-0 Yes [id number] TAKE ONE [facility] E 25 mg 1-17 TABLET BY ity of tablet 00:00: MOUTH [place] 00 EVERY 6 Medical HOURS Branch NEEDED FOR NAUSEA AND VOMITING PROMETHAZIN 2023-0 Yes [id number] TAKE ONE [facility] E 25 mg 1-17 TABLET BY ity of tablet 00:00: MOUTH [place] 00 EVERY 6 Medical HOURS Branch NEEDED FOR NAUSEA AND VOMITING PROMETHAZIN 2023-0 Yes [id number] TAKE ONE [facility] E 25 mg 1-17 TABLET BY ity of tablet 00:00: MOUTH [place] 00 EVERY 6 Medical HOURS Branch NEEDED FOR NAUSEA AND VOMITING enoxaparin 2023-0 Yes [id number] 40mg inject 0.4 [facility] 40 mg/0.4 1-10 mL under ity of mL 00:00: the skin [place] injection 00 in the Medical morning. Branch enoxaparin 2023-0 Yes [id number] 40mg inject 0.4 [facility] 40 mg/0.4 1-10 mL under ity of mL 00:00: the skin [place] injection 00 in the Medical morning. Branch enoxaparin 2023-0 Yes [id number] 40mg inject 0.4 [facility] 40 mg/0.4 1-10 mL under ity of mL 00:00: the skin [place] injection 00 in the Medical morning. Branch enoxaparin 2023-0 Yes [id number] 40mg inject 0.4 [facility] 40 mg/0.4 1-10 mL under ity of mL 00:00: the skin [place] injection 00 in the Medical morning. Branch enoxaparin 2023-0 Yes [id number] 40mg inject 0.4 [facility] 40 mg/0.4 1-10 mL under ity of mL 00:00: the skin [place] injection 00 in the Medical morning. Branch enoxaparin 2023-0 Yes [id number] 40mg inject 0.4 [facility] 40 mg/0.4 1-10 mL under ity of mL 00:00: the skin [place] injection 00 in the Medical morning. Branch enoxaparin 2023-0 Yes [id number] 40mg inject 0.4 [facility] 40 mg/0.4 1-10 mL under ity of mL 00:00: the skin [place] injection 00 in the Medical morning. Branch enoxaparin 2023-0 Yes [id number] 40mg inject 0.4 [facility] 40 mg/0.4 1-10 mL under ity of mL 00:00: the skin [place] injection 00 in the Medical morning. Branch enoxaparin 2023-0 Yes [id number] 40mg inject 0.4 [facility] 40 mg/0.4 1-10 mL under ity of mL 00:00: the skin [place] injection 00 in the Medical morning. Branch enoxaparin 2023-0 Yes [id number] 40mg inject 0.4 [facility] 40 mg/0.4 1-10 mL under ity of mL 00:00: the skin [place] injection 00 in the Medical morning. Branch enoxaparin 2023-0 Yes [id number] 40mg inject 0.4 [facility] 40 mg/0.4 1-10 mL under ity of mL 00:00: the skin [place] injection 00 in the Medical morning. Branch enoxaparin 2023-0 Yes [id number] 40mg inject 0.4 [facility] 40 mg/0.4 1-10 mL under ity of mL 00:00: the skin [place] injection 00 in the Medical morning. Branch enoxaparin 2023-0 Yes [id number] 40mg inject 0.4 [facility] 40 mg/0.4 1-10 mL under ity of mL 00:00: the skin [place] injection 00 in the Medical morning. Branch enoxaparin 2023-0 Yes [id number] 40mg inject 0.4 [facility] 40 mg/0.4 1-10 mL under ity of mL 00:00: the skin [place] injection 00 in the Medical morning. Branch enoxaparin 2023-0 Yes [id number] 40mg inject 0.4 [facility] 40 mg/0.4 1-10 mL under ity of mL 00:00: the skin [place] injection 00 in the Medical morning. Branch enoxaparin 2023-0 Yes [id number] 40mg inject 0.4 [facility] 40 mg/0.4 1-10 mL under ity of mL 00:00: the skin [place] injection 00 in the Medical morning. Branch enoxaparin 2023-0 Yes [id number] 40mg inject 0.4 [facility] 40 mg/0.4 1-10 mL under ity of mL 00:00: the skin [place] injection 00 in the Medical morning. Branch enoxaparin 2023-0 Yes [id number] 40mg inject 0.4 [facility] 40 mg/0.4 1-10 mL under ity of mL 00:00: the skin [place] injection 00 in the Medical morning. Branch enoxaparin 2023-0 Yes [id number] 40mg inject 0.4 [facility] 40 mg/0.4 1-10 mL under ity of mL 00:00: the skin [place] injection 00 in the Medical morning. Branch enoxaparin 2023-0 Yes [id number] 40mg inject 0.4 [facility] 40 mg/0.4 1-10 mL under ity of mL 00:00: the skin [place] injection 00 in the Medical morning. Branch enoxaparin 2023-0 Yes [id number] 40mg inject 0.4 [facility] 40 mg/0.4 1-10 mL under ity of mL 00:00: the skin [place] injection 00 in the Medical morning. Branch enoxaparin 2023-0 Yes [id number] 40mg inject 0.4 [facility] 40 mg/0.4 1-10 mL under ity of mL 00:00: the skin [place] injection 00 in the Medical morning. Branch enoxaparin 2023-0 Yes [id number] 40mg inject 0.4 [facility] 40 mg/0.4 1-10 mL under ity of mL 00:00: the skin [place] injection 00 in the Medical morning. Branch enoxaparin 2023-0 Yes [id number] 40mg inject 0.4 [facility] 40 mg/0.4 1-10 mL under ity of mL 00:00: the skin [place] injection 00 in the Medical morning. Branch enoxaparin 2023-0 Yes [id number] 40mg inject 0.4 [facility] 40 mg/0.4 1-10 mL under ity of mL 00:00: the skin [place] injection 00 in the Medical morning. Branch enoxaparin 2022-0 Yes [id number] 40mg inject 0.4 [facility] 40 mg/0.4 1-10 mL under ity of mL 00:00: the skin [place] injection 00 in the Medical morning. Branch enoxaparin 2022-0 Yes [id number] 40mg inject 0.4 [facility] 40 mg/0.4 1-10 mL under ity of mL 00:00: the skin [place] injection 00 in the Medical morning. Branch enoxaparin 2022-0 Yes [id number] 40mg inject 0.4 [facility] 40 mg/0.4 1-10 mL under ity of mL 00:00: the skin [place] injection 00 in the Medical morning. Branch enoxaparin 2022-0 2022- No [id number] 40mg inject 0.4 [facility] 40 mg/0.4 1-10 06-02 mL under ity o f mL 00:00: 00:00 the skin [place] injection 00 :00 in the Medical morning. Branch meningococc 2022- No [id number] .5mL 0.5 mL by [facility] al B 09-26 Intramuscu ity of vaccine,4-c 00:00: 05:59 lar route [place] omp 00 :00 once now Medical 50-50-50-25 for 1 Branch mcg/0.5 mL dose. injection pneumoc 2022- No [id number] .5mL 0.5 mL by [facility] 20-trinity 09-26 Intramuscu ity of conj-dip 00:00: 05:59 lar route [place] [facility] cr,PF, 0.5 00 :00 once now Medic al mL for 1 Branch injection dose. Diphenhydra 2021-09- No Take by [facility] mine-Acetam 1-15 11-15 mouth. ity o f inophen 17:55: 00:00 [place] 25-500 mg 22 :00 Medical Tab Branch Diphenhydra 2021-09- No Take by Un [facility] mine-Acetam 1-15 11-15 mouth. ity o f inophen 17:55: 00:00 [place] 25-500 mg 22 :00 Medical Tab Branch Diphenhydra 2021-09- No Take by Un [facility] mine-Acetam 1-15 11-15 mouth. ity o f inophen 17:55: 00:00 [place] 25-500 mg 22 :00 Medical Tab Branch Diphenhydra 2021-09- No Take by [facility] mine-Acetam 1-15 11-15 mouth. ity o f inophen 17:55: 00:00 [place] 25-500 mg 22 :00 Medical Tab Branch Diphenhydra 2021-09- No Take by Un [facility] mine-Acetam 1-15 11-15 mouth. ity o f inophen 17:55: 00:00 [place] 25-500 mg 22 :00 Medical Tab Branch PNV 67-iron 2021-09 Yes [id number] 1{capsu Take 1 [facility] ps-folate 1-15 le} capsule by ity of no.1-dha 00:00: mouth [place] (VITAFOL 00 daily. Medical ULTRA) 29 Branch mg iron- 1 mg-200 mg Cap PNV 67-iron 2021-09 Yes [id number] 1{capsu Take 1 [facility] ps-folate 1-15 le} capsule by ity of no.1-dha 00:00: mouth [place] (VITAFOL 00 daily. Medical ULTRA) 29 Branch mg iron- 1 mg-200 mg Cap PNV 67-iron 2021-09 Yes [id number] 1{capsu Take 1 [facility] ps-folate 1-15 le} capsule by ity of no.1-dha 00:00: mouth [place] (VITAFOL 00 daily. Medical ULTRA) 29 Branch mg iron- 1 mg-200 mg Cap PNV 67-iron 2021-09 Yes [id number] 1{capsu Take 1 [facility] ps-folate 1-15 le} capsule by ity of no.1-dha 00:00: mouth [place] (VITAFOL 00 daily. Medical ULTRA) 29 Branch mg iron- 1 mg-200 mg Cap PNV 67-iron 2021-09 Yes [id number] 1{capsu Take 1 [facility] ps-folate 1-15 le} capsule by ity of no.1-dha 00:00: mouth [place] (VITAFOL 00 daily. Medical ULTRA) 29 Branch mg iron- 1 mg-200 mg Cap PNV 67-iron 2022-1 Yes [id number] 1{capsu Take 1 [facility] ps-folate 1-15 le} capsule by ity of no.1-dha 00:00: mouth [place] (VITAFOL 00 daily. Medical ULTRA) 29 Branch mg iron- 1 mg-200 mg Cap PNV 67-iron 2021-09 Yes [id number] 1{capsu Take 1 [facility] ps-folate 1-15 le} capsule by ity of no.1-dha 00:00: mouth [place] (VITAFOL 00 daily. Medical ULTRA) 29 Branch mg iron- 1 mg-200 mg Cap PNV 67-iron 2021-09 Yes [id number] 1{capsu Take 1 [facility] ps-folate 1-15 le} capsule by ity of no.1-dha 00:00: mouth [place] (VITAFOL 00 daily. Medical ULTRA) 29 Branch mg iron- 1 mg-200 mg Cap PNV 67-iron 2021-09 Yes [id number] 1{capsu Take 1 [facility] ps-folate 1-15 le} capsule by ity of no.1-dha 00:00: mouth [place] (VITAFOL 00 daily. Medical ULTRA) 29 Branch mg iron- 1 mg-200 mg Cap PNV 67-iron 2021-09 Yes [id number] 1{capsu Take 1 [facility] ps-folate 1-15 le} capsule by ity of no.1-dha 00:00: mouth [place] (VITAFOL 00 daily. Medical ULTRA) 29 Branch mg iron- 1 mg-200 mg Cap PNV 67-iron 2021-09 Yes [id number] 1{capsu Take 1 [facility] ps-folate 1-15 le} capsule by ity of no.1-dha 00:00: mouth [place] (VITAFOL 00 daily. Medical ULTRA) 29 Branch mg iron- 1 mg-200 mg Cap PNV 67-iron 2021-09 Yes [id number] 1{capsu Take 1 [facility] ps-folate 1-15 le} capsule by ity of no.1-dha 00:00: mouth [place] (VITAFOL 00 daily. Medical ULTRA) 29 Branch mg iron- 1 mg-200 mg Cap PNV 67-iron 2021-09 Yes [id number] 1{capsu Take 1 [facility] ps-folate 1-15 le} capsule by ity of no.1-dha 00:00: mouth [place] (VITAFOL 00 daily. Medical ULTRA) 29 Branch mg iron- 1 mg-200 mg Cap PNV 67-iron 2021-09 Yes [id number] 1{capsu Take 1 [facility] ps-folate 1-15 le} capsule by ity of no.1-dha 00:00: mouth [place] (VITAFOL 00 daily. Medical ULTRA) 29 Branch mg iron- 1 mg-200 mg Cap PNV 67-iron 2021-09 Yes [id number] 1{capsu Take 1 [facility] ps-folate 1-15 le} capsule by ity of no.1-dha 00:00: mouth [place] (VITAFOL 00 daily. Medical ULTRA) 29 Branch mg iron- 1 mg-200 mg Cap PNV 67-iron 2021-09 Yes [id number] 1{capsu Take 1 [facility] ps-folate 1-15 le} capsule by ity of no.1-dha 00:00: mouth [place] (VITAFOL 00 daily. Medical ULTRA) 29 Branch mg iron- 1 mg-200 mg Cap PNV 67-iron 2021-09 Yes [id number] 1{capsu Take 1 [facility] ps-folate 1-15 le} capsule by ity of no.1-dha 00:00: mouth [place] (VITAFOL 00 daily. Medical ULTRA) 29 Branch mg iron- 1 mg-200 mg Cap PNV 67-iron 2021-09 Yes [id number] 1{capsu Take 1 [facility] ps-folate 1-15 le} capsule by ity of no.1-dha 00:00: mouth [place] (VITAFOL 00 daily. Medical ULTRA) 29 Branch mg iron- 1 mg-200 mg Cap PNV 67-iron 2021-09 Yes [id number] 1{capsu Take 1 [facility] ps-folate 1-15 le} capsule by ity of no.1-dha 00:00: mouth [place] (VITAFOL 00 daily. Medical ULTRA) 29 Branch mg iron- 1 mg-200 mg Cap PNV 67-iron 2021-09 Yes [id number] 1{capsu Take 1 [facility] ps-folate 1-15 le} capsule by ity of no.1-dha 00:00: mouth [place] (VITAFOL 00 daily. Medical ULTRA) 29 Branch mg iron- 1 mg-200 mg Cap PNV 67-iron 2021-09 Yes [id number] 1{capsu Take 1 [facility] ps-folate 1-15 le} capsule by ity of no.1-dha 00:00: mouth [place] (VITAFOL 00 daily. Medical ULTRA) 29 Branch mg iron- 1 mg-200 mg Cap PNV 67-iron 2021-09 Yes [id number] 1{capsu Take 1 [facility] ps-folate 1-15 le} capsule by ity of no.1-dha 00:00: mouth [place] (VITAFOL 00 daily. Medical ULTRA) 29 Branch mg iron- 1 mg-200 mg Cap PNV 67-iron 2021-09 Yes [id number] 1{capsu Take 1 [facility] ps-folate 1-15 le} capsule by ity of no.1-dha 00:00: mouth [place] (VITAFOL 00 daily. Medical ULTRA) 29 Branch mg iron- 1 mg-200 mg Cap PNV 67-iron 2021-09 Yes [id number] 1{capsu Take 1 [facility] ps-folate 1-15 le} capsule by ity of no.1-dha 00:00: mouth [place] (VITAFOL 00 daily. Medical ULTRA) 29 Branch mg iron- 1 mg-200 mg Cap PNV 67-iron 2021-09 Yes [id number] 1{capsu Take 1 [facility] ps-folate 1-15 le} capsule by ity of no.1-dha 00:00: mouth [place] (VITAFOL 00 daily. Medical ULTRA) 29 Branch mg iron- 1 mg-200 mg Cap PNV 67-iron 2021-09 Yes [id number] 1{capsu Take 1 [facility] ps-folate 1-15 le} capsule by ity of no.1-dha 00:00: mouth [place] (VITAFOL 00 daily. Medical ULTRA) 29 Branch mg iron- 1 mg-200 mg Cap PNV 67-iron 2021-09 Yes [id number] 1{capsu Take 1 [facility] ps-folate 1-15 le} capsule by ity of no.1-dha 00:00: mouth [place] (VITAFOL 00 daily. Medical ULTRA) 29 Branch mg iron- 1 mg-200 mg Cap PNV 67-iron 2021-09 Yes [id number] 1{capsu Take 1 [facility] ps-folate 1-15 le} capsule by ity of no.1-dha 00:00: mouth [place] (VITAFOL 00 daily. Medical ULTRA) 29 Branch mg iron- 1 mg-200 mg Cap PNV 67-iron 2021-09 Yes [id number] 1{capsu Take 1 [facility] ps-folate 1-15 le} capsule by ity of no.1-dha 00:00: mouth [place] (VITAFOL 00 daily. Medical ULTRA) 29 Branch mg iron- 1 mg-200 mg Cap PNV 67-iron 2021-09 Yes [id number] 1{capsu Take 1 [facility] ps-folate 1-15 le} capsule by ity of no.1-dha 00:00: mouth [place] (VITAFOL 00 daily. Medical ULTRA) 29 Branch mg iron- 1 mg-200 mg Cap PNV 67-iron 2021-09 Yes [id number] 1{capsu Take 1 [facility] ps-folate 1-15 le} capsule by ity of no.1-dha 00:00: mouth [place] (VITAFOL 00 daily. Medical ULTRA) 29 Branch mg iron- 1 mg-200 mg Cap proMETHazin 2021-09 Yes [id number] 25mg Take 1 Univers e 25 mg 1-15 tablet by ity of tablet 00:00: mouth [place] 00 every 6 Medical (six) Branch hours as needed for Nausea and Vomiting (N/V). PNV 67-iron 2021-09 Yes [id number] 1{capsu Take 1 [facility] ps-folate 1-15 le} capsule by ity of no.1-dha 00:00: mouth [place] (VITAFOL 00 daily. Medical ULTRA) 29 Branch mg iron- 1 mg-200 mg Cap proMETHazin 2021-09 Yes [id number] 25mg Take 1 [facility] e 25 mg 1-15 tablet by ity of tablet 00:00: mouth [place] 00 every 6 Medical (six) Branch hours as needed for Nausea and Vomiting (N/V). PNV 67-iron 2021-09 Yes [id number] 1{capsu Take 1 [facility] ps-folate 1-15 le} capsule by ity of no.1-dha 00:00: mouth [place] (VITAFOL 00 daily. Medical ULTRA) 29 Branch mg iron- 1 mg-200 mg Cap proMETHazin 2021-09 Yes [id number] 25mg Take 1 [facility] e 25 mg 1-15 tablet by ity of tablet 00:00: mouth [place] 00 every 6 Medical (six) Branch hours as needed for Nausea and Vomiting (N/V). PNV 67-iron 2021-09 Yes [id number] 1{capsu Take 1 [facility] ps-folate 1-15 le} capsule by ity of no.1-dha 00:00: mouth [place] (VITAFOL 00 daily. Medical ULTRA) 29 Branch mg iron- 1 mg-200 mg Cap proMETHazin 2021-09 Yes [id number] 25mg Take 1 [facility] e 25 mg 1-15 tablet by ity of tablet 00:00: mouth [place] 00 every 6 Medical (six) Branch hours as needed for Nausea and Vomiting (N/V). PNV 67-iron 2021-09 Yes [id number] 1{capsu Take 1 [facility] ps-folate 1-15 le} capsule by ity of no.1-dha 00:00: mouth [place] (VITAFOL 00 daily. Medical ULTRA) 29 Branch mg iron- 1 mg-200 mg Cap proMETHazin 2021-09 Yes [id number] 25mg Take 1 [facility] e 25 mg 1-15 tablet by ity of tablet 00:00: mouth [place] 00 every 6 Medical (six) Branch hours as needed for Nausea and Vomiting (N/V). PNV 67-iron 2021-09 Yes [id number] 1{capsu Take 1 [facility] ps-folate 1-15 le} capsule by ity of no.1-dha 00:00: mouth [place] (VITAFOL 00 daily. Medical ULTRA) 29 Branch mg iron- 1 mg-200 mg Cap proMETHazin 2021-09 Yes [id number] 25mg Take 1 [facility] e 25 mg 1-15 tablet by ity of tablet 00:00: mouth [place] 00 every 6 Medical (six) Branch hours as needed for Nausea and Vomiting (N/V). PNV 67-iron 2021-09 Yes [id number] 1{capsu Take 1 [facility] ps-folate 1-15 le} capsule by ity of no.1-dha 00:00: mouth [place] (VITAFOL 00 daily. Medical ULTRA) 29 Branch mg iron- 1 mg-200 mg Cap proMETHazin 2021-09 Yes [id number] 25mg Take 1 [facility] e 25 mg 1-15 tablet by ity of tablet 00:00: mouth [place] 00 every 6 Medical (six) Branch hours as needed for Nausea and Vomiting (N/V). PNV 67-iron 2021-09 Yes [id number] 1{capsu Take 1 [facility] ps-folate 1-15 le} capsule by ity of no.1-dha 00:00: mouth [place] (VITAFOL 00 daily. Medical ULTRA) 29 Branch mg iron- 1 mg-200 mg Cap proMETHazin 2021-09 Yes [id number] 25mg Take 1 [facility] e 25 mg 1-15 tablet by ity of tablet 00:00: mouth [place] 00 every 6 Medical (six) Branch hours as needed for Nausea and Vomiting (N/V). PNV 67-iron 2021-09 Yes [id number] 1{capsu Take 1 [facility] ps-folate 1-15 le} capsule by ity of no.1-dha 00:00: mouth [place] (VITAFOL 00 daily. Medical ULTRA) 29 Branch mg iron- 1 mg-200 mg Cap proMETHazin 2021-09 Yes [id number] 25mg Take 1 [facility] e 25 mg 1-15 tablet by ity of tablet 00:00: mouth [place] 00 every 6 Medical (six) Branch hours as needed for Nausea and Vomiting (N/V). PNV 67-iron 2021-09 Yes [id number] 1{capsu Take 1 [facility] ps-folate 1-15 le} capsule by ity of no.1-dha 00:00: mouth [place] (VITAFOL 00 daily. Medical ULTRA) 29 Branch mg iron- 1 mg-200 mg Cap proMETHazin 2021-09 Yes [id number] 25mg Take 1 [facility] e 25 mg 1-15 tablet by ity of tablet 00:00: mouth [place] 00 every 6 Medical (six) Branch hours as needed for Nausea and Vomiting (N/V). PNV 67-iron 2021-09 Yes [id number] 1{capsu Take 1 [facility] ps-folate 1-15 le} capsule by ity of no.1-dha 00:00: mouth [place] (VITAFOL 00 daily. Medical ULTRA) 29 Branch mg iron- 1 mg-200 mg Cap proMETHazin 2021-09 Yes [id number] 25mg Take 1 [facility] e 25 mg 1-15 tablet by ity of tablet 00:00: mouth [place] 00 every 6 Medical (six) Branch hours as needed for Nausea and Vomiting (N/V). PNV 67-iron 2021-09 Yes [id number] 1{capsu Take 1 [facility] ps-folate 1-15 le} capsule by ity of no.1-dha 00:00: mouth [place] (VITAFOL 00 daily. Medical ULTRA) 29 Branch mg iron- 1 mg-200 mg Cap proMETHazin 2021-09 Yes [id number] 25mg Take 1 [facility] e 25 mg 1-15 tablet by ity of tablet 00:00: mouth [place] 00 every 6 Medical (six) Branch hours as needed for Nausea and Vomiting (N/V). PNV 67-iron 2021-09 Yes [id number] 1{capsu Take 1 [facility] ps-folate 1-15 le} capsule by ity of no.1-dha 00:00: mouth [place] (VITAFOL 00 daily. Medical ULTRA) 29 Branch mg iron- 1 mg-200 mg Cap proMETHazin 2021-09 Yes [id number] 25mg Take 1 [facility] e 25 mg 1-15 tablet by ity of tablet 00:00: mouth [place] 00 every 6 Medical (six) Branch hours as needed for Nausea and Vomiting (N/V). PNV 67-iron 2021-09 Yes [id number] 1{capsu Take 1 [facility] ps-folate 1-15 le} capsule by ity of no.1-dha 00:00: mouth [place] (VITAFOL 00 daily. Medical ULTRA) 29 Branch mg iron- 1 mg-200 mg Cap proMETHazin 2021-09 Yes [id number] 25mg Take 1 [facility] e 25 mg 1-15 tablet by ity of tablet 00:00: mouth [place] 00 every 6 Medical (six) Branch hours as needed for Nausea and Vomiting (N/V). PNV 67-iron 2021-09 Yes [id number] 1{capsu Take 1 [facility] ps-folate 1-15 le} capsule by ity of no.1-dha 00:00: mouth [place] (VITAFOL 00 daily. Medical ULTRA) 29 Branch mg iron- 1 mg-200 mg Cap proMETHazin 2021-09 Yes [id number] 25mg Take 1 [facility] e 25 mg 1-15 tablet by ity of tablet 00:00: mouth [place] 00 every 6 Medical (six) Branch hours as needed for Nausea and Vomiting (N/V). PNV 67-iron 2021-09 Yes [id number] 1{capsu Take 1 [facility] ps-folate 1-15 le} capsule by ity of no.1-dha 00:00: mouth [place] (VITAFOL 00 daily. Medical ULTRA) 29 Branch mg iron- 1 mg-200 mg Cap proMETHazin 2021-09 Yes [id number] 25mg Take 1 [facility] e 25 mg 1-15 tablet by ity of tablet 00:00: mouth [place] 00 every 6 Medical (six) Branch hours as needed for Nausea and Vomiting (N/V). PNV 67-iron 2021-09 Yes [id number] 1{capsu Take 1 [facility] ps-folate 1-15 le} capsule by ity of no.1-dha 00:00: mouth [place] (VITAFOL 00 daily. Medical ULTRA) 29 Branch mg iron- 1 mg-200 mg Cap proMETHazin 2021-09 Yes [id number] 25mg Take 1 [facility] e 25 mg 1-15 tablet by ity of tablet 00:00: mouth [place] 00 every 6 Medical (six) Branch hours as needed for Nausea and Vomiting (N/V). PNV 67-iron 2021-09 Yes [id number] 1{capsu Take 1 [facility] ps-folate 1-15 le} capsule by ity of no.1-dha 00:00: mouth [place] (VITAFOL 00 daily. Medical ULTRA) 29 Branch mg iron- 1 mg-200 mg Cap proMETHazin 2021-09 Yes [id number] 25mg Take 1 [facility] e 25 mg 1-15 tablet by ity of tablet 00:00: mouth [place] 00 every 6 Medical (six) Branch hours as needed for Nausea and Vomiting (N/V). PNV 67-iron 2021-09 Yes [id number] 1{capsu Take 1 [facility] ps-folate 1-15 le} capsule by ity of no.1-dha 00:00: mouth [place] (VITAFOL 00 daily. Medical ULTRA) 29 Branch mg iron- 1 mg-200 mg Cap proMETHazin 2021-09 Yes [id number] 25mg Take 1 [facility] e 25 mg 1-15 tablet by ity of tablet 00:00: mouth [place] 00 every 6 Medical (six) Branch hours as needed for Nausea and Vomiting (N/V). PNV 67-iron 2021-09 Yes [id number] 1{capsu Take 1 [facility] ps-folate 1-15 le} capsule by ity of no.1-dha 00:00: mouth [place] (VITAFOL 00 daily. Medical ULTRA) 29 Branch mg iron- 1 mg-200 mg Cap proMETHazin 2021-09 Yes [id number] 25mg Take 1 [facility] e 25 mg 1-15 tablet by ity of tablet 00:00: mouth [place] 00 every 6 Medical (six) Branch hours as needed for Nausea and Vomiting (N/V). PNV 67-iron 2021-09 Yes [id number] 1{capsu Take 1 [facility] ps-folate 1-15 le} capsule by ity of no.1-dha 00:00: mouth [place] (VITAFOL 00 daily. Medical ULTRA) 29 Branch mg iron- 1 mg-200 mg Cap proMETHazin 2021-09 Yes [id number] 25mg Take 1 [facility] e 25 mg 1-15 tablet by ity of tablet 00:00: mouth [place] 00 every 6 Medical (six) Branch hours as needed for Nausea and Vomiting (N/V). PNV 67-iron 2021-09 Yes [id number] 1{capsu Take 1 [facility] ps-folate 1-15 le} capsule by ity of no.1-dha 00:00: mouth [place] (VITAFOL 00 daily. Medical ULTRA) 29 Branch mg iron- 1 mg-200 mg Cap PNV 67-iron 2021-09 Yes [id number] 1{capsu Take 1 [facility] ps-folate 1-15 le} capsule by ity of no.1-dha 00:00: mouth [place] (VITAFOL 00 daily. Medical ULTRA) 29 Branch mg iron- 1 mg-200 mg Cap PNV 67-iron 2021-09 Yes [id number] 1{capsu Take 1 [facility] ps-folate 1-15 le} capsule by ity of no.1-dha 00:00: mouth [place] (VITAFOL 00 daily. Medical ULTRA) 29 Branch mg iron- 1 mg-200 mg Cap PNV 67-iron 2021-09 Yes [id number] 1{capsu Take 1 [facility] ps-folate 1-15 le} capsule by ity of no.1-dha 00:00: mouth [place] (VITAFOL 00 daily. Medical ULTRA) 29 Branch mg iron- 1 mg-200 mg Cap PNV 67-iron 2021-09 Yes [id number] 1{capsu Take 1 [facility] ps-folate 1-15 le} capsule by ity of no.1-dha 00:00: mouth [place] (VITAFOL 00 daily. Medical ULTRA) 29 Branch mg iron- 1 mg-200 mg Cap proMETHazin 2021-09 2023- No [id number] 25mg Take 1 [facility] e 25 mg 1-15 01-17 tablet by ity of tablet 00:00: 00:00 mouth [place] 00 :00 every 6 Medical (six) Branch hours as needed for Nausea and Vomiting (N/V). ibuprofen 0 Yes [id number] 600mg Take 1 [facility] nivers 600 mg 7-22 tablet by ity of tablet 00:00: mouth [place] 00 every 6 Medical (six) Branch hours as needed for Pain (scale 1-3). ibuprofen 2021-0 Yes [id number] 600mg Take 1 U nivers 600 mg 7-22 tablet by ity of tablet 00:00: mouth [place] 00 every 6 Medical (six) Branch hours as needed for Pain (scale 1-3). ibuprofen 2021- No [id number] 600mg Take 1 [facility] 600 mg 7-22 11-15 tablet by ity of tablet 00:00: 00:00 mouth [place] 00 :00 every 6 Medical (six) Branch hours as needed for Pain (scale 1-3). ibuprofen 2021- No [id number] 600mg Take 1 [facility] 600 mg 7-22 11-15 tablet by ity of tablet 00:00: 00:00 mouth [place] 00 :00 every 6 Medical (six) Branch hours as needed for Pain (scale 1-3). ibuprofen 2021- No [id number] 600mg Take 1 [facility] 600 mg 7-22 11-15 tablet by ity of tablet 00:00: 00:00 mouth [place] 00 :00 every 6 Medical (six) Branch hours as needed for Pain (scale 1-3). ibuprofen 2021-2021- No [id number] 600mg Take 1 [facility] 600 mg 7-22 11-15 tablet by ity of tablet 00:00: 00:00 mouth [place] 00 :00 every 6 Medical (six) Branch hours as needed for Pain (scale 1-3). ibuprofen 2021- No [id number] 600mg Take 1 [facility] 600 mg 7-22 11-15 tablet by ity of tablet 00:00: 00:00 mouth [place] 00 :00 every 6 Medical (six) Branch hours as needed for Pain (scale 1-3). acetaminoph 2021- No [id number] 1{tbl} Take 1 U nivers en-codeine 7-22 07-30 tablet by ity of (TYLENOL-CO 00:00: [...] Branch STRENGTH) 25-500 mg Tab pyridoxine, Yes [id number] 25mg Take 1 [facility] VITAMIN 7-18 tablet by ity of B-6, 25 mg 00:00: mouth in [place] tablet 00 the Medical morning Branch and 1 tablet at noon and 1 tablet in the evening. doxylamine Yes [id number] 25mg Take 1 [facility] nivers 25 mg 7-18 tablet by ity of tablet 00:00: mouth at [place] 00 bedtime. Medical Branch pyridoxine, Yes [id number] 25mg Take 1 [facility] VITAMIN 7-18 tablet by ity of B-6, 25 mg 00:00: mouth in [place] tablet 00 the Medical morning Branch and 1 tablet at noon and 1 tablet in the evening. doxylamine Yes [id number] 25mg Take 1 [facility] nivers 25 mg 7-18 tablet by ity of tablet 00:00: mouth at [place] 00 bedtime. Medical Branch pyridoxine, 2021- No [id number] 25mg Take 1 [facility] VITAMIN 7-18 11-15 tablet by ity of B-6, 25 mg 00:00: 00:00 mouth in [place] tablet 00 :00 the Medical morning Branch and 1 tablet at noon and 1 tablet in the evening. doxylamine 2021- No [id number] 25mg Take 1 [facility] 25 mg 7-18 11-15 tablet by ity of tablet 00:00: 00:00 mouth at [place] 00 :00 bedtime. Medical Branch pyridoxine, 2021- No [id number] 25mg Take 1 [facility] VITAMIN 7-18 11-15 tablet by ity of B-6, 25 mg 00:00: 00:00 mouth in [place] tablet 00 :00 the Medical morning Branch and 1 tablet at noon and 1 tablet in the evening. doxylamine 2021- No [id number] 25mg Take 1 [facility] 25 mg 7-18 11-15 tablet by ity of tablet 00:00: 00:00 mouth at [place] 00 :00 bedtime. Medical Branch pyridoxine, 2021- No [id number] 25mg Take 1 [facility] VITAMIN 7-18 11-15 tablet by ity of B-6, 25 mg 00:00: 00:00 mouth in [place] tablet 00 :00 the Medical morning Branch and 1 tablet at noon and 1 tablet in the evening. doxylamine 2021- No [id number] 25mg Take 1 [facility] 25 mg 7-18 11-15 tablet by ity of tablet 00:00: 00:00 mouth at [place] 00 :00 bedtime. Medical Branch pyridoxine, 2021- No [id number] 25mg Take 1 [facility] VITAMIN 7-18 11-15 tablet by ity of B-6, 25 mg 00:00: 00:00 mouth in [place] tablet 00 :00 the Medical morning Branch and 1 tablet at noon and 1 tablet in the evening. doxylamine 2021- No [id number] 25mg Take 1 [facility] 25 mg 7-18 11-15 tablet by ity of tablet 00:00: 00:00 mouth at [place] 00 :00 bedtime. Medical Branch pyridoxine, 2- No [id number] 25mg Take 1 [facility] VITAMIN 7-18 11-15 tablet by ity of B-6, 25 mg 00:00: 00:00 mouth in [place] tablet 00 :00 the Medical morning Branch and 1 tablet at noon and 1 tablet in the evening. doxylamine 2021- No [id number] 25mg Take 1 [facility] 25 mg 7-18 11-15 tablet by ity of tablet 00:00: 00:00 mouth at [place] 00 :00 bedtime. Medical Branch foLIC acid 2- No [id number] 4mg Take 4 [facility] 1 mg tablet 7-18 08-18 tablets by i ty of 00:00: 04:59 mouth in [place] 00 :00 the Medical morning Branch for 30 days. pantoprazol Yes Univer s e 40 mg EC 6-04 ity of tablet 00:00: [place] 00 Medical Branch pantoprazol 2022-0 Yes [facility] s e 40 mg EC 6-04 ity of tablet 00:00: [place] 00 Medical Branch pantoprazol 2022-0 Yes [facility] s e 40 mg EC 6-04 ity of tablet 00:00: [place] 00 Medical Branch pantoprazol 2022-0 Yes [facility] s e 40 mg EC 6-04 ity of tablet 00:00: [place] 00 Medical Branch pantoprazol 2022-0 Yes Un[facility] s e 40 mg EC 6-04 ity of tablet 00:00: [place] [facility] Branch pantoprazol 2022-0 Yes Univer s e 40 mg EC 6-04 ity of tablet 00:00: [place] [facility] Branch pantoprazol 2022-0 Yes Un[facility] s e 40 mg EC 6-04 ity of tablet 00:00: [place] [facility] Branch pantoprazol 2022-0 Yes Univer s e 40 mg EC 6-04 ity of tablet 00:00: [place] [facility] Branch pantoprazol 2022-0 Yes Univer s e 40 mg EC 6-04 ity of tablet 00:00: [place] [facility] pantoprazol 2022-0 Yes Un[facility] s e 40 mg EC 6-04 ity of tablet 00:00: [place] [facility] Branch pantoprazol 2022-0 Yes Un[facility] s e 40 mg EC 6-04 ity of tablet 00:00: [place] [facility] pantoprazol 2022-0 Yes Un[facility] s e 40 mg EC 6-04 ity of tablet 00:00: [place] [facility] pantoprazol 2022-0 Yes Un[facility] s e 40 mg EC 6-04 ity of tablet 00:00: [place] [facility] Branch pantoprazol 2022-0 Yes Un[facility] s e 40 mg EC 6-04 ity of tablet 00:00: [place] 00 Medical Branch pantoprazol 2022-0 Yes Un[facility] s e 40 mg EC 6-04 ity of tablet 00:00: [place] 00 Medical Branch pantoprazol 2022-0 Yes Univer s e 40 mg EC 6-04 ity of tablet 00:00: [place] [facility] Branch pantoprazol 2022-0 Yes Un[facility] s e 40 mg EC 6-04 ity of tablet 00:00: [place] 00 Medical Branch pantoprazol 2022-0 Yes Un[facility] s e 40 mg EC 6-04 ity of tablet 00:00: [place] 00 Medical Branch pantoprazol 2022-0 Yes Un[facility] s e 40 mg EC 6-04 ity of tablet 00:00: [place] [facility] Branch pantoprazol 2022-0 Yes Univer s e 40 mg EC 6-04 ity of tablet 00:00: [place] [facility] Branch pantoprazol 2022-0 Yes Univer s e 40 mg EC 6-04 ity of tablet 00:00: [place] [facility] pantoprazol 2022-0 Yes Univer s e 40 mg EC 6-04 ity of tablet 00:00: [place] [facility] Branch pantoprazol 2022-0 Yes Univer s e 40 mg EC 6-04 ity of tablet 00:00: [place] [facility] Branch pantoprazol 2022-0 Yes Univer s e 40 mg EC 6-04 ity of tablet 00:00: [facility] pantoprazol 2022-0 Yes Un[facility] 40 mg EC 6-04 ity of tablet 00:00: [facility] pantoprazol 2022-0 Yes [facility] 40 mg EC 6-04 ity of tablet 00:00: [facility] pantoprazol 2022-0 Yes [facility] 40 mg EC 6-04 ity of tablet 00:00: [facility] pantoprazol 2022-0 Yes [facility] 40 mg EC 6-04 ity of tablet 00:00: [facility] pantoprazol 2022-0 Yes [facility] 40 mg EC 6-04 ity of tablet 00:00: [facility] pantoprazol 2022-0 Yes [facility] 40 mg EC 6-04 ity of tablet 00:00: [facility] pantoprazol 2022-0 Yes [facility] 40 mg EC 6-04 ity of tablet 00:00: [facility] pantoprazol 2022-0 Yes [facility] 40 mg EC 6-04 ity of tablet 00:00: [facility] pantoprazol 2022-0 Yes [facility] 40 mg EC 6-04 ity of tablet 00:00: [facility] pantoprazol 2022-0 Yes [facility] 40 mg EC 6-04 ity of tablet 00:00: [place] [facility] pantoprazol 2022-0 Yes [facility] 40 mg EC 6-04 ity of tablet 00:00: [place] [facility] pantoprazol 2022-0 Yes [facility] 40 mg EC 6-04 ity of tablet 00:00: [facility] pantoprazol 2022-0 Yes [facility] 40 mg EC 6-04 ity of tablet 00:00: [facility] pantoprazol 2022-0 Yes [facility] 40 mg EC 6-04 ity of tablet 00:00: [facility] pantoprazol 2022-0 Yes [facility] 40 mg EC 6-04 ity of tablet 00:00: [facility] pantoprazol 2022-0 Yes [facility] 40 mg EC 6-04 ity of tablet 00:00: [facility] pantoprazol 2022-0 Yes [facility] 40 mg EC 6-04 ity of tablet 00:00: [facility] pantoprazol 2022-0 Yes [facility] 40 mg EC 6-04 ity of tablet 00:00: [facility] pantoprazol 2022-0 Yes [facility] 40 mg EC 6-04 ity of tablet 00:00: [facility] pantoprazol 2022-0 Yes [facility] 40 mg EC 6-04 ity of tablet 00:00: [facility] pantoprazol 2022-0 Yes [facility] 40 mg EC 6-04 ity of tablet 00:00: [facility] pantoprazol 2022-0 Yes [facility] 40 mg EC 6-04 ity of tablet 00:00: [facility] pantoprazol 2022-0 Yes [facility] 40 mg EC 6-04 ity of tablet 00:00: [facility] pantoprazol 2022-0 Yes [facility] 40 mg EC 6-04 ity of tablet 00:00: [facility] pantoprazol 2022-0 Yes [facility] 40 mg EC 6-04 ity of tablet 00:00: [facility] pantoprazol 2022-0 Yes [facility] 40 mg EC 6-04 ity of tablet 00:00: [place] [facility] pantoprazol 2022-0 Yes [facility] 40 mg EC 6-04 ity of tablet 00:00: [place] [facility] pantoprazol 2022-0 Yes [facility] 40 mg EC 6-04 ity of tablet 00:00: [facility] pantoprazol 2022-0 Yes [facility] 40 mg EC 6-04 ity of tablet 00:00: [facility] pantoprazol 2022-0 Yes [facility] 40 mg EC 6-04 ity of tablet 00:00: [facility] pantoprazol 2022-0 Yes [facility] 40 mg EC 6-04 ity of tablet 00:00: [facility] pantoprazol 2-0 Yes [facility] 40 mg EC 6-04 ity of tablet 00:00: [facility] pantoprazol 2-0 Yes [facility] 40 mg EC 6-04 ity of tablet 00:00: [facility] pantoprazol 2-0 Yes [facility] 40 mg EC 6-04 ity of tablet 00:00: [facility] OXcarbazepi 2021-0 Yes [id number] TAKE ONE [facility] 600 mg 8-18 TABLET BY ity o f tablet 00:00: [facility] EVERY Medical MORNING Branch AND TAKE TWO TABLETS BY MOUTH EVERY NIGHT AT BEDTIME OXcarbazepi 1-0 Yes [id number] TAKE ONE [facility] ne 600 mg 8-18 TABLET BY ity o f tablet 00:00: [facility] EVERY Medical MORNING Branch AND TAKE TWO TABLETS BY MOUTH EVERY NIGHT AT BEDTIME OXcarbazepi 1-0 Yes [id number] TAKE ONE [facility] 600 mg 8-18 TABLET BY ity o f tablet 00:00: [facility] EVERY Medical MORNING Branch AND TAKE TWO TABLETS BY MOUTH EVERY NIGHT AT BEDTIME OXcarbazepi 2021-0 Yes [id number] TAKE ONE [facility] 600 mg 8-18 TABLET BY ity o f tablet 00:00: [facility] EVERY Medical MORNING Branch AND TAKE TWO TABLETS BY MOUTH EVERY NIGHT AT BEDTIME OXcarbazepi 2021-0 Yes [id number] TAKE ONE [facility] 600 mg 8-18 TABLET BY ity o f tablet 00:00: [facility] EVERY Medical MORNING Branch AND TAKE TWO TABLETS BY MOUTH EVERY NIGHT AT BEDTIME OXcarbazepi 1-0 Yes [id number] TAKE ONE [facility] 600 mg 8-18 TABLET BY ity o f tablet 00:00: MOUTH [place] 00 EVERY Medical MORNING Branch AND TAKE TWO TABLETS BY MOUTH EVERY NIGHT AT BEDTIME OXcarbazepi 2021-0 Yes [id number] TAKE ONE [facility] 600 mg 8-18 TABLET BY ity o f tablet 00:00: MOUTH [place] 00 EVERY Medical MORNING Branch AND TAKE TWO TABLETS BY MOUTH EVERY NIGHT AT BEDTIME OXcarbazepi 2021-0 Yes [id number] TAKE ONE [facility] 600 mg 8-18 TABLET BY ity o f tablet 00:00: MOUTH [place] 00 EVERY Medical MORNING Branch AND TAKE TWO TABLETS BY MOUTH EVERY NIGHT AT BEDTIME OXcarbazepi 2021-0 Yes [id number] TAKE ONE [facility] 600 mg 8-18 TABLET BY ity o f tablet 00:00: MOUTH [place] 00 EVERY Medical MORNING Branch AND TAKE TWO TABLETS BY MOUTH EVERY NIGHT AT BEDTIME OXcarbazepi 2021-0 Yes [id number] TAKE ONE [facility] 600 mg 8-18 TABLET BY ity o f tablet 00:00: MOUTH [place] 00 EVERY Medical MORNING Branch AND TAKE TWO TABLETS BY MOUTH EVERY NIGHT AT BEDTIME OXcarbazepi 2021-0 Yes [id number] TAKE ONE [facility] 600 mg 8-18 TABLET BY ity o f tablet 00:00: MOUTH [place] 00 EVERY Medical MORNING Branch AND TAKE TWO TABLETS BY MOUTH EVERY NIGHT AT BEDTIME OXcarbazepi 2021-0 Yes [id number] TAKE ONE [facility] 600 mg 8-18 TABLET BY ity o f tablet 00:00: MOUTH [place] 00 EVERY Medical MORNING Branch AND TAKE TWO TABLETS BY MOUTH EVERY NIGHT AT BEDTIME OXcarbazepi 2021-0 Yes [id number] TAKE ONE [facility] 600 mg 8-18 TABLET BY ity o f tablet 00:00: MOUTH [place] 00 EVERY Medical MORNING Branch AND TAKE TWO TABLETS BY MOUTH EVERY NIGHT AT BEDTIME OXcarbazepi 2021-0 Yes [id number] TAKE ONE [facility] 600 mg 8-18 TABLET BY ity o f tablet 00:00: MOUTH [place] 00 EVERY Medical MORNING Branch AND TAKE TWO TABLETS BY MOUTH EVERY NIGHT AT BEDTIME OXcarbazepi 2021-0 Yes [id number] TAKE ONE [facility] 600 mg 8-18 TABLET BY ity o f tablet 00:00: MOUTH [place] 00 EVERY Medical MORNING Branch AND TAKE TWO TABLETS BY MOUTH EVERY NIGHT AT BEDTIME OXcarbazepi 2021-0 Yes [id number] TAKE ONE [facility] 600 mg 8-18 TABLET BY ity o f tablet 00:00: MOUTH [place] 00 EVERY Medical MORNING Branch AND TAKE TWO TABLETS BY MOUTH EVERY NIGHT AT BEDTIME OXcarbazepi 2021-0 Yes [id number] TAKE ONE [facility] 600 mg 8-18 TABLET BY ity o f tablet 00:00: MOUTH [place] 00 EVERY Medical MORNING Branch AND TAKE TWO TABLETS BY MOUTH EVERY NIGHT AT BEDTIME OXcarbazepi 2021-0 Yes [id number] TAKE ONE [facility] 600 mg 8-18 TABLET BY ity o f tablet 00:00: MOUTH [place] 00 EVERY Medical MORNING Branch AND TAKE TWO TABLETS BY MOUTH EVERY NIGHT AT BEDTIME OXcarbazepi 2021-0 Yes [id number] TAKE ONE [facility] 600 mg 8-18 TABLET BY ity o f tablet 00:00: MOUTH [place] 00 EVERY Medical MORNING Branch AND TAKE TWO TABLETS BY MOUTH EVERY NIGHT AT BEDTIME OXcarbazepi 2021-0 Yes [id number] TAKE ONE [facility] 600 mg 8-18 TABLET BY ity o f tablet 00:00: MOUTH [place] 00 EVERY Medical MORNING Branch AND TAKE TWO TABLETS BY MOUTH EVERY NIGHT AT BEDTIME OXcarbazepi 2021-0 Yes [id number] TAKE ONE [facility] 600 mg 8-18 TABLET BY ity o f tablet 00:00: MOUTH [place] 00 EVERY Medical MORNING Branch AND TAKE TWO TABLETS BY MOUTH EVERY NIGHT AT BEDTIME OXcarbazepi 2021-0 Yes [id number] TAKE ONE [facility] 600 mg 8-18 TABLET BY ity o f tablet 00:00: MOUTH [place] 00 EVERY Medical MORNING Branch AND TAKE TWO TABLETS BY MOUTH EVERY NIGHT AT BEDTIME OXcarbazepi 2021-0 Yes [id number] TAKE ONE [facility] 600 mg 8-18 TABLET BY ity o f tablet 00:00: MOUTH [place] 00 EVERY Medical MORNING Branch AND TAKE TWO TABLETS BY MOUTH EVERY NIGHT AT BEDTIME OXcarbazepi 2021-0 Yes [id number] TAKE ONE [facility] 600 mg 8-18 TABLET BY ity o f tablet 00:00: MOUTH [place] 00 EVERY Medical MORNING Branch AND TAKE TWO TABLETS BY MOUTH EVERY NIGHT AT BEDTIME OXcarbazepi 2021-0 Yes [id number] TAKE ONE [facility] 600 mg 8-18 TABLET BY ity o f tablet 00:00: MOUTH [place] 00 EVERY Medical MORNING Branch AND TAKE TWO TABLETS BY MOUTH EVERY NIGHT AT BEDTIME OXcarbazepi 2021-0 Yes [id number] TAKE ONE [facility] 600 mg 8-18 TABLET BY ity o f tablet 00:00: MOUTH [place] 00 EVERY Medical MORNING Branch AND TAKE TWO TABLETS BY MOUTH EVERY NIGHT AT BEDTIME OXcarbazepi 2021-0 Yes [id number] TAKE ONE [facility] 600 mg 8-18 TABLET BY ity o f tablet 00:00: MOUTH [place] 00 EVERY Medical MORNING Branch AND TAKE TWO TABLETS BY MOUTH EVERY NIGHT AT BEDTIME OXcarbazepi 2021-0 Yes [id number] TAKE ONE [facility] 600 mg 8-18 TABLET BY ity o f tablet 00:00: MOUTH [place] 00 EVERY Medical MORNING Branch AND TAKE TWO TABLETS BY MOUTH EVERY NIGHT AT BEDTIME OXcarbazepi 2021-0 Yes [id number] TAKE ONE [facility] 600 mg 8-18 TABLET BY ity o f tablet 00:00: MOUTH [place] 00 EVERY Medical MORNING Branch AND TAKE TWO TABLETS BY MOUTH EVERY NIGHT AT BEDTIME OXcarbazepi 2021-0 Yes [id number] TAKE ONE [facility] 600 mg 8-18 TABLET BY ity o f tablet 00:00: MOUTH [place] 00 EVERY Medical MORNING Branch AND TAKE TWO TABLETS BY MOUTH EVERY NIGHT AT BEDTIME OXcarbazepi 2021-0 Yes [id number] TAKE ONE [facility] 600 mg 8-18 TABLET BY ity o f tablet 00:00: MOUTH [place] 00 EVERY Medical MORNING Branch AND TAKE TWO TABLETS BY MOUTH EVERY NIGHT AT BEDTIME OXcarbazepi 2021-0 Yes [id number] TAKE ONE [facility] 600 mg 8-18 TABLET BY ity o f tablet 00:00: MOUTH [place] 00 EVERY Medical MORNING Branch AND TAKE TWO TABLETS BY MOUTH EVERY NIGHT AT BEDTIME OXcarbazepi 2021-0 Yes [id number] TAKE ONE [facility] 600 mg 8-18 TABLET BY ity o f tablet 00:00: MOUTH [place] 00 EVERY Medical MORNING Branch AND TAKE TWO TABLETS BY MOUTH EVERY NIGHT AT BEDTIME OXcarbazepi 2021-0 Yes [id number] TAKE ONE [facility] 600 mg 8-18 TABLET BY ity o f tablet 00:00: MOUTH [place] 00 EVERY Medical MORNING Branch AND TAKE TWO TABLETS BY MOUTH EVERY NIGHT AT BEDTIME OXcarbazepi 2021-0 Yes [id number] TAKE ONE [facility] 600 mg 8-18 TABLET BY ity o f tablet 00:00: MOUTH [place] 00 EVERY Medical MORNING Branch AND TAKE TWO TABLETS BY MOUTH EVERY NIGHT AT BEDTIME OXcarbazepi 2021-0 Yes [id number] TAKE ONE [facility] 600 mg 8-18 TABLET BY ity o f tablet 00:00: MOUTH [place] 00 EVERY Medical MORNING Branch AND TAKE TWO TABLETS BY MOUTH EVERY NIGHT AT BEDTIME OXcarbazepi 2021-0 Yes [id number] TAKE ONE [facility] 600 mg 8-18 TABLET BY ity o f tablet 00:00: MOUTH [place] 00 EVERY Medical MORNING Branch AND TAKE TWO TABLETS BY MOUTH EVERY NIGHT AT BEDTIME OXcarbazepi 2021-0 Yes [id number] TAKE ONE [facility] 600 mg 8-18 TABLET BY ity o f tablet 00:00: MOUTH [place] 00 EVERY Medical MORNING Branch AND TAKE TWO TABLETS BY MOUTH EVERY NIGHT AT BEDTIME OXcarbazepi 2021-0 Yes [id number] TAKE ONE [facility] 600 mg 8-18 TABLET BY ity o f tablet 00:00: MOUTH [place] 00 EVERY Medical MORNING Branch AND TAKE TWO TABLETS BY MOUTH EVERY NIGHT AT BEDTIME OXcarbazepi 2021-0 Yes [id number] TAKE ONE [facility] 600 mg 8-18 TABLET BY ity o f tablet 00:00: MOUTH [place] 00 EVERY Medical MORNING Branch AND TAKE TWO TABLETS BY MOUTH EVERY NIGHT AT BEDTIME OXcarbazepi 2021-0 Yes [id number] TAKE ONE [facility] 600 mg 8-18 TABLET BY ity o f tablet 00:00: MOUTH [place] 00 EVERY Medical MORNING Branch AND TAKE TWO TABLETS BY MOUTH EVERY NIGHT AT BEDTIME OXcarbazepi 2021-0 Yes [id number] TAKE ONE [facility] 600 mg 8-18 TABLET BY ity o f tablet 00:00: MOUTH [place] 00 EVERY Medical MORNING Branch AND TAKE TWO TABLETS BY MOUTH EVERY NIGHT AT BEDTIME OXcarbazepi 2021-0 Yes [id number] TAKE ONE [facility] 600 mg 8-18 TABLET BY ity o f tablet 00:00: MOUTH [place] 00 EVERY Medical MORNING Branch AND TAKE TWO TABLETS BY MOUTH EVERY NIGHT AT BEDTIME OXcarbazepi 2021-0 Yes [id number] TAKE ONE [facility] 600 mg 8-18 TABLET BY ity o f tablet 00:00: MOUTH [place] 00 EVERY Medical MORNING Branch AND TAKE TWO TABLETS BY MOUTH EVERY NIGHT AT BEDTIME OXcarbazepi 2021-0 Yes [id number] TAKE ONE [facility] 600 mg 8-18 TABLET BY ity o f tablet 00:00: MOUTH [place] 00 EVERY Medical MORNING Branch AND TAKE TWO TABLETS BY MOUTH EVERY NIGHT AT BEDTIME OXcarbazepi 2021-0 Yes [id number] TAKE ONE [facility] 600 mg 8-18 TABLET BY ity o f tablet 00:00: MOUTH [place] 00 EVERY Medical MORNING Branch AND TAKE TWO TABLETS BY MOUTH EVERY NIGHT AT BEDTIME OXcarbazepi 2021-0 Yes [id number] TAKE ONE [facility] 600 mg 8-18 TABLET BY ity o f tablet 00:00: MOUTH [place] 00 EVERY Medical MORNING Branch AND TAKE TWO TABLETS BY MOUTH EVERY NIGHT AT BEDTIME OXcarbazepi 2021-0 Yes [id number] TAKE ONE [facility] 600 mg 8-18 TABLET BY ity o f tablet 00:00: MOUTH [place] 00 EVERY Medical MORNING Branch AND TAKE TWO TABLETS BY MOUTH EVERY NIGHT AT BEDTIME OXcarbazepi 2021-0 Yes [id number] TAKE ONE [facility] 600 mg 8-18 TABLET BY ity o f tablet 00:00: MOUTH [place] 00 EVERY Medical MORNING Branch AND TAKE TWO TABLETS BY MOUTH EVERY NIGHT AT BEDTIME OXcarbazepi 2021-0 Yes [id number] TAKE ONE [facility] 600 mg 8-18 TABLET BY ity o f tablet 00:00: MOUTH [place] 00 EVERY Medical MORNING Branch AND TAKE TWO TABLETS BY MOUTH EVERY NIGHT AT BEDTIME OXcarbazepi 2021-0 Yes [id number] TAKE ONE [facility] 600 mg 8-18 TABLET BY ity o f tablet 00:00: MOUTH [place] 00 EVERY Medical MORNING Branch AND TAKE TWO TABLETS BY MOUTH EVERY NIGHT AT BEDTIME OXcarbazepi 2021-0 Yes [id number] TAKE ONE [facility] 600 mg 8-18 TABLET BY ity o f tablet 00:00: MOUTH [place] 00 EVERY Medical MORNING Branch AND TAKE TWO TABLETS BY MOUTH EVERY NIGHT AT BEDTIME OXcarbazepi 2021-0 Yes [id number] TAKE ONE [facility] 600 mg 8-18 TABLET BY ity o f tablet 00:00: MOUTH [place] 00 EVERY Medical MORNING Branch AND TAKE TWO TABLETS BY MOUTH EVERY NIGHT AT BEDTIME OXcarbazepi 2021-0 Yes [id number] TAKE ONE [facility] 600 mg 8-18 TABLET BY ity o f tablet 00:00: MOUTH [place] 00 EVERY Medical MORNING Branch AND TAKE TWO TABLETS BY MOUTH EVERY NIGHT AT BEDTIME OXcarbazepi 1-0 Yes [id number] TAKE ONE [facility] 600 mg 8-18 TABLET BY ity o f tablet 00:00: MOUTH [place] 00 EVERY Medical MORNING Branch AND TAKE TWO TABLETS BY MOUTH EVERY NIGHT AT BEDTIME OXcarbazepi 1-0 Yes [id number] TAKE ONE [facility] 600 mg 8-18 TABLET BY ity o f tablet 00:00: MOUTH [place] 00 EVERY Medical MORNING Branch AND TAKE TWO TABLETS BY MOUTH EVERY NIGHT AT BEDTIME OXcarbazepi 2020-0 Yes [id number] TAKE ONE [facility] 600 mg 8-18 TABLET BY ity o f tablet 00:00: MOUTH [place] 00 EVERY Medical MORNING Branch AND TAKE TWO TABLETS BY MOUTH EVERY NIGHT AT BEDTIME OXcarbazepi 2020-0 Yes [id number] TAKE ONE [facility] 600 mg 8-18 TABLET BY ity o f tablet 00:00: MOUTH [place] EVERY Medical MORNING Branch AND TAKE TWO TABLETS BY MOUTH EVERY NIGHT AT BEDTIME amitriptyli 2020-0 Yes [id number] 50mg Take 2 [facility] ne 25 mg 7-07 tablets by ity o f tablet 00:00: mouth at [place] [address] bedtime. [facility] amitriptyli 2020-0 Yes [id number] 50mg Take 2 [facility] ne 25 mg 7-07 tablets by ity o f tablet 00:00: mouth at [place] [address] bedtime. [facility] amitriptyli 2020-0 Yes [id number] 50mg Take 2 [facility] 25 mg 7-07 tablets by ity o f tablet 00:00: mouth at [place] [address] bedtime. [facility] amitriptyli 2020-0 Yes [id number] 50mg Take 2 [facility] 25 mg 7-07 tablets by ity o f tablet 00:00: mouth at [place] [address] bedtime. [facility] amitriptyli 2020-0 Yes [id number] 50mg Take 2 [facility] 25 mg 7-07 tablets by ity o f tablet 00:00: mouth at [place] [address] bedtime. [facility] amitriptyli 2020-0 Yes [id number] 50mg Take 2 [facility] 25 mg 7-07 tablets by ity o f tablet 00:00: mouth at [place] 00 bedtime. [facility] amitriptyli 2020-0 Yes [id number] 50mg Take 2 [facility] 25 mg 7-07 tablets by ity o f tablet 00:00: mouth at [place] 00 bedtime. [facility] amitriptyli 2020-0 Yes [id number] 50mg Take 2 [facility] 25 mg 7-07 tablets by ity o f tablet 00:00: mouth at [place] 00 bedtime. [facility] amitriptyli 2020-0 Yes [id number] 50mg Take 2 [facility] 25 mg 7-07 tablets by ity o f tablet 00:00: mouth at [place] 00 bedtime. [facility] amitriptyli 2020-0 Yes [id number] 50mg Take 2 [facility] 25 mg 7-07 tablets by ity o f tablet 00:00: mouth at [place] 00 bedtime. [facility] amitriptyli 2020-0 Yes [id number] 50mg Take 2 [facility] 25 mg 7-07 tablets by ity o f tablet 00:00: mouth at [place] 00 bedtime. [facility] amitriptyli 2020-0 Yes [id number] 50mg Take 2 [facility] 25 mg 7-07 tablets by ity o f tablet 00:00: mouth at [place] 00 bedtime. [facility] amitriptyli 2020-0 Yes [id number] 50mg Take 2 [facility] 25 mg 7-07 tablets by ity o f tablet 00:00: mouth at [place] 00 bedtime. [facility] amitriptyli 2020-0 Yes [id number] 50mg Take 2 [facility] 25 mg 7-07 tablets by ity o f tablet 00:00: mouth at [place] 00 bedtime. [facility] amitriptyli 2020-0 Yes [id number] 50mg Take 2 [facility] 25 mg 7-07 tablets by ity o f tablet 00:00: mouth at [place] 00 bedtime. [facility] amitriptyli 2020-0 Yes [id number] 50mg Take 2 [facility] 25 mg 7-07 tablets by ity o f tablet 00:00: mouth at [place] 00 bedtime. [facility] amitriptyli 2020-0 Yes [id number] 50mg Take 2 [facility] 25 mg 7-07 tablets by ity o f tablet 00:00: mouth at [place] 00 bedtime. [facility] amitriptyli 0 Yes [id number] 50mg Take 2 [facility] 25 mg 7-07 tablets by ity o f tablet 00:00: mouth at [place] 00 bedtime. [facility] amitriptyli 0 Yes [id number] 50mg Take 2 [facility] 25 mg 7-07 tablets by ity o f tablet 00:00: mouth at [place] 00 bedtime. [facility] amitriptyli 2020-0 Yes [id number] 50mg Take 2 [facility] 25 mg 7-07 tablets by ity o f tablet 00:00: mouth at [place] 00 bedtime. [facility] amitriptyli Yes [id number] 50mg Take 2 [facility] 25 mg 7-07 tablets by ity o f tablet 00:00: mouth at [place] 00 bedtime. [facility] amitriptyli Yes [id number] 50mg Take 2 [facility] 25 mg 7-07 tablets by ity o f tablet 00:00: mouth at [place] 00 bedtime. [facility] amitriptyli Yes [id number] 50mg Take 2 [facility] 25 mg 7-07 tablets by ity o f tablet 00:00: mouth at [place] 00 bedtime. [facility] amitriptyli Yes [id number] 50mg Take 2 [facility] 25 mg 7-07 tablets by ity o f tablet 00:00: mouth at [place] 00 bedtime. [facility] amitriptyli Yes [id number] 50mg Take 2 [facility] 25 mg 7-07 tablets by ity o f tablet 00:00: mouth at [place] 00 bedtime. [facility] amitriptyli Yes [id number] 50mg Take 2 [facility] 25 mg 7-07 tablets by ity o f tablet 00:00: mouth at [place] 00 bedtime. [facility] amitriptyli 0 Yes [id number] 50mg Take 2 [facility] 25 mg 7-07 tablets by ity o f tablet 00:00: mouth at [place] 00 bedtime. [facility] amitriptyli Yes [id number] 50mg Take 2 [facility] 25 mg 7-07 tablets by ity o f tablet 00:00: mouth at [place] 00 bedtime. [facility] amitriptyli 0 Yes [id number] 50mg Take 2 [facility] 25 mg 7-07 tablets by ity o f tablet 00:00: mouth at [place] 00 bedtime. [facility] amitriptyli Yes [id number] 50mg Take 2 [facility] 25 mg 7-07 tablets by ity o f tablet 00:00: mouth at [place] 00 bedtime. [facility] amitriptyli Yes [id number] 50mg Take 2 [facility] 25 mg 7-07 tablets by ity o f tablet 00:00: mouth at [place] 00 bedtime. [facility] amitriptyli Yes [id number] 50mg Take 2 [facility] 25 mg 7-07 tablets by ity o f tablet 00:00: mouth at [place] 00 bedtime. [facility] amitriptyli Yes [id number] 50mg Take 2 [facility] 25 mg 7-07 tablets by ity o f tablet 00:00: mouth at [place] [address] bedtime. [facility] amitriptyli Yes [id number] 50mg Take 2 [facility] 25 mg 7-07 tablets by ity o f tablet 00:00: mouth at [place] [address] bedtime. [facility] amitriptyli Yes [id number] 50mg Take 2 [facility] ne 25 mg 7-07 tablets by ity o f tablet 00:00: mouth at [place] [address] bedtime. [facility] amitriptyli Yes [id number] 50mg Take 2 [facility] 25 mg 7-07 tablets by ity o f tablet 00:00: mouth at [place] [address] bedtime. [facility] amitriptyli Yes [id number] 50mg Take 2 [facility] ne 25 mg 7-07 tablets by ity o f tablet 00:00: mouth at [place] 00 bedtime. [facility] amitriptyli 2022- No [id number] 50mg Take 2 [facility] ne 25 mg 7-07 04-19 tablets by ity of tablet 00:00: 00:00 mouth at [place] 00 :00 bedtime. [facility] amitriptyli 3- No [id number] 50mg Take 2 [facility] ne 25 mg 7-07 04-19 tablets by ity of tablet 00:00: 00:00 mouth at [place] 00 :00 bedtime. [facility] topiramate Yes [facility] 100 mg 4-12 ity of tablet 00:00: [place] [facility] topiramate 2021-0 Yes [facility] 100 mg 4-12 ity of tablet 00:00: [place] [facility] topiramate 2021-0 Yes [facility] 100 mg 4-12 ity of tablet 00:00: [place] [facility] topiramate 2021-0 Yes [facility] 100 mg 4-12 ity of tablet 00:00: [place] [facility] topiramate 2021-0 Yes [facility] 100 mg 4-12 ity of tablet 00:00: [place] [facility] topiramate 2021-0 Yes [facility] 100 mg 4-12 ity of tablet 00:00: [place] [facility] topiramate 2021-0 Yes [facility] 100 mg 4-12 ity of tablet 00:00: [place] [facility] topiramate 2021-0 Yes [facility] 100 mg 4-12 ity of tablet 00:00: [place] [facility] topiramate 2021-0 Yes [facility] 100 mg 4-12 ity of tablet 00:00: [place] [facility] topiramate 2021-0 Yes [facility] 100 mg 4-12 ity of tablet 00:00: [place] [facility] topiramate 2021-0 Yes [facility] 100 mg 4-12 ity of tablet 00:00: [place] [facility] topiramate 2021-0 Yes [facility] 100 mg 4-12 ity of tablet 00:00: [place] [facility] topiramate 2021-0 Yes [facility] 100 mg 4-12 ity of tablet 00:00: [place] [address] [facility] topiramate 2021-0 Yes [facility] 100 mg 4-12 ity of tablet 00:00: [place] [facility] topiramate 2021-0 Yes [facility] 100 mg 4-12 ity of tablet 00:00: [place] [facility] topiramate 2021-0 Yes [facility] 100 mg 4-12 ity of tablet 00:00: [place] [facility] topiramate 2021-0 Yes [facility] 100 mg 4-12 ity of tablet 00:00: [place] [facility] topiramate 2021-0 Yes [facility] 100 mg 4-12 ity of tablet 00:00: [place] [facility] topiramate 2021-0 Yes [facility] 100 mg 4-12 ity of tablet 00:00: [place] [facility] topiramate 2021-0 Yes [facility] 100 mg 4-12 ity of tablet 00:00: [place] 00 [facility] topiramate 2021-0 Yes [facility] 100 mg 4-12 ity of tablet 00:00: [place] [facility] topiramate 2021-0 Yes [facility] 100 mg 4-12 ity of tablet 00:00: [place] [facility] topiramate 2021-0 Yes [facility] 100 mg 4-12 ity of tablet 00:00: [place] [facility] topiramate 2021-0 Yes [facility] 100 mg 4-12 ity of tablet 00:00: [place] [facility] topiramate 2021-0 Yes [facility] 100 mg 4-12 ity of tablet 00:00: [place] [facility] topiramate 2021-0 Yes [facility] 100 mg 4-12 ity of tablet 00:00: [place] [facility] topiramate 2021-0 Yes [facility] 100 mg 4-12 ity of tablet 00:00: [place] [facility] topiramate 2021-0 Yes [facility] 100 mg 4-12 ity of tablet 00:00: [place] [facility] topiramate 2021-0 Yes [facility] 100 mg 4-12 ity of tablet 00:00: [place] [facility] topiramate 2021-0 Yes [facility] 100 mg 4-12 ity of tablet 00:00: [place] [facility] topiramate 2021-0 Yes [facility] 100 mg 4-12 ity of tablet 00:00: [place] [facility] topiramate 2021-0 Yes [facility] 100 mg 4-12 ity of tablet 00:00: [place] [address] [facility] topiramate 2021-0 Yes [facility] 100 mg 4-12 ity of tablet 00:00: [place] [facility] topiramate 2021-0 Yes [facility] 100 mg 4-12 ity of tablet 00:00: [place] [facility] topiramate 2021-0 Yes [facility] 100 mg 4-12 ity of tablet 00:00: [place] [facility] topiramate 2021-0 Yes [facility] 100 mg 4-12 ity of tablet 00:00: [place] [facility] topiramate 2021-0 Yes [facility] 100 mg 4-12 ity of tablet 00:00: [place] [facility] topiramate 2021-0 Yes [facility] 100 mg 4-12 ity of tablet 00:00: [place] [facility] topiramate 2021-0 Yes [facility] 100 mg 4-12 ity of tablet 00:00: [place] [address] [facility] topiramate 2021-0 Yes [facility] 100 mg 4-12 ity of tablet 00:00: [place] [facility] topiramate 2021-0 Yes [facility] 100 mg 4-12 ity of tablet 00:00: [place] [facility] topiramate 2021-0 Yes [facility] 100 mg 4-12 ity of tablet 00:00: [place] [facility] topiramate 2021-0 Yes [facility] 100 mg 4-12 ity of tablet 00:00: [place] [facility] topiramate 2021-0 Yes [facility] 100 mg 4-12 ity of tablet 00:00: [facility] topiramate 2021-0 Yes Univers 100 mg 4-12 ity of tablet 00:00: [facility] topiramate 1-0 Yes Univers 100 mg 4-12 ity of tablet 00:00: [facility] topiramate 2021-0 Yes Univers 100 mg 4-12 ity of tablet 00:00: [place] [facility] topiramate 2021-0 Yes Univers 100 mg 4-12 ity of tablet 00:00: [place] [facility] topiramate 2021-0 Yes Univers 100 mg 4-12 ity of tablet 00:00: [place] [facility] topiramate 2021-0 Yes Univers 100 mg 4-12 ity of tablet 00:00: [place] [facility] topiramate 2021-0 Yes Univers 100 mg 4-12 ity of tablet 00:00: [place] [facility] topiramate 2021-0 Yes Univers 100 mg 4-12 ity of tablet 00:00: [facility] topiramate 2021-0 Yes Univers 100 mg 4-12 ity of tablet 00:00: [facility] topiramate 2021-0 Yes Univers 100 mg 4-12 ity of tablet 00:00: [facility] topiramate 2021-0 Yes Univers 100 mg 4-12 ity of tablet 00:00: [place] [facility] topiramate 2021-0 Yes Univers 100 mg 4-12 ity of tablet 00:00: [place] [facility] topiramate 2021-0 Yes Univers 100 mg 4-12 ity of tablet 00:00: [facility] topiramate 2021-0 Yes Univers 100 mg 4-12 ity of tablet 00:00: [place] [facility] [place] atorvastati 2021-0 Yes Univer s n 40 mg 4-09 ity of tablet 00:00: [facility] atorvastati 2020-0 Yes Univer s n 40 mg 4-09 ity of tablet 00:00: [facility] atorvastati 2020-0 Yes Univer s n 40 mg 4-09 ity of tablet 00:00: [facility] atorvastati 2020-0 Yes Univer s n 40 mg 4-09 ity of tablet 00:00: [facility] atorvastati 2020-0 Yes Univer s n 40 mg 4-09 ity of tablet 00:00: [facility] atorvastati 2020-0 Yes Univer s n 40 mg 4-09 ity of tablet 00:00: [facility] atorvastati 2020-0 Yes Univer s n 40 mg 4-09 ity of tablet 00:00: [facility] atorvastati 2020-0 Yes Univer s n 40 mg 4-09 ity of tablet 00:00: [facility] atorvastati 2020-0 Yes Univer s n 40 mg 4-09 ity of tablet 00:00: [facility] atorvastati 2020-0 Yes Univer s n 40 mg 4-09 ity of tablet 00:00: [facility] atorvastati 2020-0 Yes Univer s n 40 mg 4-09 ity of tablet 00:00: [facility] atorvastati 2020-0 Yes Univer s n 40 mg 4-09 ity of tablet 00:00: [facility] atorvastati 2020-0 Yes Univer s n 40 mg 4-09 ity of tablet 00:00: [facility] atorvastati 2020-0 Yes Univer s n 40 mg 4-09 ity of tablet 00:00: [facility] atorvastati 2020-0 Yes Univer s n 40 mg 4-09 ity of tablet 00:00: [facility] atorvastati 2020-0 Yes Univer s n 40 mg 4-09 ity of tablet 00:00: [facility] atorvastati 2020-0 Yes Univer s n 40 mg 4-09 ity of tablet 00:00: [facility] atorvastati 2020-0 Yes Univer s n 40 mg 4-09 ity of tablet 00:00: [facility] atorvastati 2020-0 Yes Univer s n 40 mg 4-09 ity of tablet 00:00: [facility] atorvastati 2020-0 Yes Univer s n 40 mg 4-09 ity of tablet 00:00: [facility] atorvastati 2020-0 Yes Univer s n 40 mg 4-09 ity of tablet 00:00: [facility] atorvastati 2020-0 Yes Univer s n 40 mg 4-09 ity of tablet 00:00: [facility] atorvastati 2020-0 Yes Univer s n 40 mg 4-09 ity of tablet 00:00: [facility] atorvastati 2020-0 Yes Univer s n 40 mg 4-09 ity of tablet 00:00: [facility] atorvastati 2020-0 Yes Univer s n 40 mg 4-09 ity of tablet 00:00: [facility] atorvastati 2020-0 Yes Univer s n 40 mg 4-09 ity of tablet 00:00: [facility] atorvastati 2020-0 Yes Univer s n 40 mg 4-09 ity of tablet 00:00: [facility] atorvastati 2020-0 Yes Univer s n 40 mg 4-09 ity of tablet 00:00: [facility] atorvastati 2020-0 Yes Univer s n 40 mg 4-09 ity of tablet 00:00: [facility] atorvastati 2020-0 Yes Univer s n 40 mg 4-09 ity of tablet 00:00: [facility] atorvastati 2020-0 Yes Univer s n 40 mg 4-09 ity of tablet 00:00: [facility] atorvastati 2020-0 Yes Univer s n 40 mg 4-09 ity of tablet 00:00: [facility] atorvastati 2020-0 Yes Univer s n 40 mg 4-09 ity of tablet 00:00: [facility] atorvastati 2020-0 Yes Univer s n 40 mg 4-09 ity of tablet 00:00: [place] [facility] atorvastati 2020-0 Yes Univer s n 40 mg 4-09 ity of tablet 00:00: [facility] atorvastati 2020-0 Yes Univer s n 40 mg 4-09 ity of tablet 00:00: [facility] atorvastati 2020-0 Yes Univer s n 40 mg 4-09 ity of tablet 00:00: [facility] atorvastati 2020-0 Yes Univer s n 40 mg 4-09 ity of tablet 00:00: [facility] atorvastati 2020-0 Yes Univer s n 40 mg 4-09 ity of tablet 00:00: [facility] atorvastati 2020-0 Yes Univer s n 40 mg 4-09 ity of tablet 00:00: [facility] atorvastati 2020-0 Yes Univer s n 40 mg 4-09 ity of tablet 00:00: [facility] atorvastati 2020-0 Yes Univer s n 40 mg 4-09 ity of tablet 00:00: [facility] atorvastati 2020-0 Yes Univer s n 40 mg 4-09 ity of tablet 00:00: [facility] atorvastati 2020-0 Yes Univer s n 40 mg 4-09 ity of tablet 00:00: [facility] atorvastati 2020-0 Yes Univer s n 40 mg 4-09 ity of tablet 00:00: [facility] atorvastati 2020-0 Yes Univer s n 40 mg 4-09 ity of tablet 00:00: [facility] atorvastati 2020-0 Yes Univer s n 40 mg 4-09 ity of tablet 00:00: [facility] atorvastati 2020-0 Yes Univer s n 40 mg 4-09 ity of tablet 00:00: [facility] atorvastati 2020-0 Yes Univer s n 40 mg 4-09 ity of tablet 00:00: [facility] atorvastati 2020-0 Yes Univer s n 40 mg 4-09 ity of tablet 00:00: [facility] atorvastati 2022- No Unive rs n 40 mg 12-24 ity of tablet 00:00: 00:00 [place] 00 :00 [facility] BUTALBITAL- Yes TAKE ONE Un keerthi ACETAMINOPH [...] capsule NEEDED FOR PAIN (SCALE 7-10) BUTALBITAL- 2020- Yes TAKE ONE Un keerthi ACETAMINOPH 1-11 [...] capsule NEEDED FOR PAIN (SCALE 7-10) BUTALBITAL- 2020- Yes TAKE ONE Un keerthi ACETAMINOPH 1-11 CAPSULE BY it y of EN-CAFF 00:00: MOUTH [place] 50-300-40 00 EVERY 6 Medical mg per HOURS Branch capsule NEEDED FOR PAIN (SCALE 7-10) BUTALBITAL- 2020- Yes TAKE ONE Un ke[place]thi ACETAMINOPH 1-11 CAPSULE BY it y of EN-CAFF 00:00: MOUTH [place] 50-300-40 00 EVERY 6 Medical mg per HOURS Branch capsule NEEDED FOR PAIN (SCALE 7-10) BUTALBITAL- 2021-0 Yes TAKE ONE Un ke[place]thi ACETAMINOPH 1-11 CAPSULE BY it y of EN-CAFF 00:00: MOUTH [place] 50-300-40 00 EVERY 6 Medical mg per HOURS Branch capsule NEEDED FOR PAIN (SCALE 7-10) BUTALBITAL- 2021-0 Yes TAKE ONE Un [place] ACETAMINOPH 1-11 [...] capsule NEEDED FOR PAIN (SCALE 7-10) BUTALBITAL- 2021-0 Yes TAKE ONE Un [place] ACETAMINOPH 1-11 [...] capsule NEEDED FOR PAIN (SCALE 7-10) BUTALBITAL- 2021-0 Yes TAKE ONE Un [place] ACETAMINOPH 1-11 CAPSULE BY it y of EN-CAFF 00:00: MOUTH [place] 50-300-40 00 EVERY 6 Medical mg per HOURS Branch capsule NEEDED FOR PAIN (SCALE 7-10) BUTALBITAL- 2021-0 Yes TAKE ONE Un keerthi ACETAMINOPH 1-11 CAPSULE BY it y of EN-CAFF 00:00: MOUTH [place] 50-300-40 00 EVERY 6 Medical mg per HOURS Branch capsule NEEDED FOR PAIN (SCALE 7-10) BUTALBITAL- 2021-0 Yes TAKE ONE Un [place] ACETAMINOPH 1-11 [...] NEEDED FOR PAIN (SCALE 7-10) BUTALBITAL- 0 2022- No TAKE ONE U nivers ACETAMINOPH 1-11 03-07 CAPSULE BY i ty of EN-CAFF 00:00: 00:00 MOUTH [place] 50-300-40 00 :00 EVERY 6 Medical mg per HOURS Branch capsule NEEDED FOR PAIN (SCALE 7-10) topiramate 2018- Yes Univers 25 mg 8-28 ity of tablet 00:00: [place] 00 [facility] topiramate 2018- Yes Univers 25 mg 8-28 ity of tablet 00:00: [place] 00 [facility] topiramate 2018-0 2021- No Univer s 25 mg 8-28 11-15 ity of tablet 00:00: 00:00 [place] 00 :00 [facility] topiramate 2018-2021- No Univer s 25 mg 8-28 11-15 ity of tablet 00:00: 00:00 [place] 00 :00 [facility] topiramate 2018-2021- No Univer s 25 mg 8-28 11-15 ity of tablet 00:00: 00:00 [place] 00 :00 [facility] topiramate 2018-2021- No Univer s 25 mg 8-28 11-15 ity of tablet 00:00: 00:00 [place] 00 :00 [facility] topiramate 2018-2021- No Univer s 25 mg 8-28 11-15 ity of tablet 00:00: 00:00 [place] 00 :00 [facility] docusate Yes 240mg [...] Time Observation Value Comments Source Systolic blood 2023-03-26 17:49:00 134 mm[Hg] Univer sity of [facility] Diastolic blood 2023-03-26 17:49:00 72 mm[Hg] Unive rsity of [facility] Heart rate 2023-03-26 17:49:00 97 /min [facility] Body temperature 2023-03-26 17:49:00 36.83 Rocio [facility] Respiratory rate 2023-03-26 17:49:00 16 /min [facility] Body weight 2023-03-26 17:49:00 74.844 kg [facility] BMI 2023-03-26 17:49:00 28.32 kg/m2 [facility] Oxygen saturation 2023-03-26 17:49:00 97 /min Uni versity of in Arterial blood [facility] Branch Systolic blood 2023-03-21 18:22:00 136 mm[Hg] Univer sity of [facility] Diastolic blood 2023-03-21 18:22:00 88 mm[Hg] Unive rsity of [facility] Heart rate 2023-03-21 18:22:00 101 /min [facility] Body temperature 2023-03-21 18:22:00 36.94 Rocio [facility] Respiratory rate 2023-03-21 18:22:00 18 /min Univ ersity of [facility] Systolic blood 2023-02-16 13:00:00 119 mm[Hg] Univer sity of pressure [facility] Diastolic blood 2023-02-16 13:00:00 76 mm[Hg] Unive rsity of pressure [facility] Body temperature 2023-02-16 13:00:00 36.5 Rocio Univ ersity of [facility] Respiratory rate 2023-02-16 13:00:00 18 /min Univ ersity of [facility] Oxygen saturation 2023-02-16 13:00:00 100 /min Uni versity of in Arterial blood [facility] Heart rate 2023-02-16 02:00:00 92 /min Universi ty of [facility] Body height 2023-02-14 08:18:00 162.6 cm Universi ty of [facility] Body weight 2023-02-14 08:18:00 74.844 kg Universi ty of [facility] BMI 2023-02-14 08:18:00 28.32 kg/m2 Universi ty of [facility] Systolic blood 2023-02-09 21:19:00 108 mm[Hg] Univer sity of pressure [facility] Diastolic blood 2023-02-09 21:19:00 68 mm[Hg] Unive rsity of pressure [facility] Heart rate 2023-02-09 21:19:00 89 /min Universi ty of [facility] Respiratory rate 2023-02-09 21:19:00 19 /min Univ ersity of [facility] Body height 2023-02-09 21:19:00 162.6 cm Universi ty of [facility] Systolic blood 2023-01-24 18:38:00 111 mm[Hg] Univer sity of pressure [facility] Diastolic blood 2023-01-24 18:38:00 65 mm[Hg] Unive rsity of pressure [facility] Heart rate 2023-01-24 18:38:00 112 /min Universi ty of [facility] Respiratory rate 2023-01-24 18:38:00 18 /min Univ ersity of [facility] Body height 2023-01-24 18:38:00 162.6 cm Universi ty of [facility] Body weight 2023-01-24 18:38:00 73.029 kg Universi ty of [facility] BMI 2023-01-24 18:38:00 27.64 kg/m2 Universi ty of [facility] Systolic blood 2023-01-03 18:25:00 128 mm[Hg] Univer sity of pressure [facility] Diastolic blood 2023-01-03 18:25:00 73 mm[Hg] Unive rsity of pressure [facility] Heart rate 2023-01-03 18:25:00 93 /min Universi ty of [facility] Respiratory rate 2023-01-03 18:25:00 18 /min Univ ersity of [facility] Systolic blood 2022-12-19 18:02:00 102 mm[Hg] Univer sity of pressure [facility] Diastolic blood 2022-12-19 18:02:00 68 mm[Hg] Unive rsity of pressure [facility] Heart rate 2022-12-19 18:02:00 89 /min Universi ty of [facility] Respiratory rate 2022-12-19 18:02:00 16 /min Univ ersity of [facility] Body height 2022-12-19 18:02:00 162.6 cm Universi ty of [facility] Oxygen saturation 2022-12-19 18:02:00 96 /min Uni versity of in Arterial blood [facility] Systolic blood 2022-12-05 16:08:00 102 mm[Hg] Univer sity of pressure [facility] Diastolic blood 2022-12-05 16:08:00 60 mm[Hg] Unive rsity of pressure [facility] Heart rate 2022-12-05 16:08:00 93 /min Universi ty of [facility] Body temperature 2022-12-05 16:08:00 36.72 Rocio Univ ersity of [facility] Respiratory rate 2022-12-05 16:08:00 16 /min Univ ersity of [facility] Body height 2022-12-05 16:08:00 162.6 cm Universi ty of [facility] Body weight 2022-12-05 16:08:00 67.132 kg Universi ty of [facility] BMI 2022-12-05 16:08:00 25.40 kg/m2 Universi ty of [facility] Systolic blood 2022-11-01 17:05:00 128 mm[Hg] Univer sity of pressure [facility] Diastolic blood 2022-11-01 17:05:00 78 mm[Hg] Unive rsity of pressure [place] [facility] Heart rate 2022-11-01 17:05:00 85 /min Universi ty of [place] [facility] Body temperature 2022-11-01 17:05:00 36.72 Rocio Univ ersity of [place] [facility] Respiratory rate 2022-11-01 17:05:00 18 /min Univ ersity of [place] [facility] Body height 2022-11-01 17:05:00 162.6 cm Universi ty of [place] [facility] Systolic blood 2022-09-26 16:36:00 122 mm[Hg] Univer sity of pressure [place] [facility] Diastolic blood 2022-09-26 16:36:00 66 mm[Hg] Unive rsity of pressure [place] [facility] Heart rate 2022-09-26 16:36:00 92 /min Universi ty of [place] [facility] Body temperature 2022-09-26 16:36:00 36.67 Rocio Univ ersity of [place] [facility] Respiratory rate 2022-09-26 16:36:00 18 /min Univ ersity of [place] [facility] Body height 2022-09-26 16:36:00 162.6 cm Universi ty of [place] [facility] Systolic blood 2022-08-29 17:24:00 110 mm[Hg] Univer sity of pressure [place] [facility] Diastolic blood 2022-08-29 17:24:00 66 mm[Hg] Unive rsity of pressure [facility] Heart rate 2022-08-29 17:24:00 95 /min Universi ty of [place] [facility] Body temperature 2022-08-29 17:24:00 36.94 Rocio Univ ersity of [place] [facility] Respiratory rate 2022-08-29 17:24:00 16 /min Univ ersity of [place] [facility] Body height 2022-08-29 17:24:00 162.6 cm Universi ty of [place] [facility] Body weight 2022-08-29 17:24:00 60.419 kg Universi ty of [place] [facility] BMI 2022-08-29 17:24:00 22.86 kg/m2 Universi ty of [place] [facility] Oxygen saturation 2022-08-29 17:24:00 99 /min Uni versity of in Arterial blood [facility] Systolic blood 2022-08-28 19:31:00 116 mm[Hg] Univer sity of pressure [facility] Diastolic blood 2022-08-28 19:31:00 71 mm[Hg] Unive rsity of pressure [facility] Heart rate 2022-08-28 19:31:00 90 /min [facility] Body temperature 2022-08-28 19:31:00 36.56 [facility] Respiratory rate 2022-08-28 19:31:00 18 /min [facility] Body height 2022-08-28 19:31:00 162.6 cm [facility] Systolic blood 2022-08-01 20:45:00 115 mm[Hg] Univer sity of [facility] Diastolic blood 2022-08-01 20:45:00 74 mm[Hg] Unive rsity of [facility] Heart rate 2022-08-01 20:45:00 94 /min [facility] Body temperature 2022-08-01 20:45:00 36.67 Rocio [facility] 2022-08-01 20:45:00 18 /min [facility] Body height 2022-08-01 20:45:00 162.6 cm [facility] Body weight 2022-08-01 20:45:00 68.04 kg per partner [facility] BMI 2022-08-01 20:45:00 25.75 kg/m2 [facility] Procedures Procedure Date / Time Performing Clinician Source Performed CONSENT FOR 2023-03-26 05:01:00 Doctor Unassigned, No [facility] CONTRACEPTION [facility] POCT TEST 2023-03-26 00:00:00 Adum, Marisol Lua [facility] CBC WITH DIFF 2023-02-15 11:13:00 Adum, Marisol Lua Ethel o f [facility] CENTRAL NEURAXIAL BLOCK 2023-02-14 11:00:00 Sean Thompson iverspreeti [facility] URINE DRUG (IMMUNOASSAY) 2023-02-14 10:05:00 Adum, Marisol Lua [facility] [place] SCREEN CBC WITH DIFF 2023-02-14 09:25:00 Adum, Marisol Lua [facility] HEPATITIS B SURFACE 2023-02-14 09:25:00 Adum, Marisol Lua [facility] ANTIGEN [facility] HB ABO GROUPING 2023-02-14 09:25:00 Adum, Marisol Lua [facility] ADC OR BAKARI ONLY - 2023-02-14 09:25:00 Adum, Marisol Lua [facility] RPR [facility] [place] HIV 1/2 AG-AB WITH 2023-02-14 09:25:00 Adum, Marisol Lua [facility] REFLEX [facility] POCT URINALYSIS W/O 2023-02-09 21:24:00 Adum, Marisol Lua [facility] SPECIFIC GRAVITY [facility] [place] DSU PRE-OP 2023-02-09 05:01:00 Doctor Unassigned, Ely [facility] Name [facility] POCT URINALYSIS W/O 2023-01-24 00:00:00 Adum, Marisol Lua [facility] SPECIFIC GRAVITY [facility] [place] URINE CULTURE 2023-01-03 21:31:00 Adum, Marisol Lua [facility] POCT URINALYSIS W/O 2023-01-03 21:30:00 Adum, Marisol Lua [facility] SPECIFIC GRAVITY [facility] [place] POCT URINALYSIS W/O 2023-01-03 19:21:00 Adum, Marisol Lua [facility] SPECIFIC GRAVITY [facility] [place] POCT URINALYSIS W/O 2022-12-19 00:00:00 Adum, Marisol Lua [facility] SPECIFIC GRAVITY [facility] [place] 3 HR GLUCOSE TOLERANCE 2022-12-12 16:55:00 Brittany Hansen [facility] 2 HR GLUCOSE TOLERANCE 2022-12-12 15:53:00 Brittany Hansen [facility] HB ABO GROUPING 2022-12-12 15:00:00 Adum, Marisol Lua [facility] 1 HR GLUCOSE TOLERANCE 2022-12-12 15:00:00 [facility] GLUCOSE FASTING 2022-12-12 13:49:00 Brittany Hansen [facility] ty [facility] CBC WITH DIFF 2022-12-12 13:49:00 Brittany Hansen [facility] 3 HR GLUCOSE TOLERANCE 2022-12-12 13:49:00 Brittany Hansen [facility] PANEL [facility] HIV 1/2 AG-AB WITH 2022-12-12 13:49:00 Brittany Hansen [facility] REFLEX [facility] POCT URINALYSIS W/O 2022-12-05 00:00:00 Adum, Marisol Lua [facility] SPECIFIC GRAVITY [facility] [place] POCT URINALYSIS W/O 2022-11-01 00:00:00 Brittany Hansen [facility] SPECIFIC [place] [facility] [place] AUTHORIZATION FOR 2022-10-09 06:01:00 Doctor Unassigned, No Univ [facility] RE[facility] Name Medical Branch POCT URINALYSIS W/O 2022-09-26 00:00:00 Adum, [facility] [place] [facility] [place] 1 HR GLUCOSE TOLERANCE 2022-08-28 16:55:00 Adum, Marisol Esteban [facility] GLUCOSE FASTING 2022-08-28 15:49:00 Adum, Marisol Lua [facility] CONSENT/REFUSAL FOR 2022-08-28 14:58:00 Doctor Unassigned, No [facility] DIAGNOSIS AND TREATMENT [facility] [place] GLUCOSE 1 HOUR POST 2022-08-03 19:22:00 Adum, Marisol Gomes [facility] 2022-08-03 19:18:00 Adum, Marisol Lua [facility] CREATININE U 24 HR 2022-08-03 18:16:00 Adum, Marisol Lua [facility] y [facility] PROTEIN QUANT U/24H 2022-08-03 18:16:00 [facility]um[facility] CBC WITH DIFF 2022-08-03 18:16:00 Adum, Marisol Lua [facility] LACTATE DEHYDROGENASE 2022-08-03 18:16:00 Adum, [facility] URIC ACID 2022-08-03 18:16:00 Adum, [facility] COMP. METABOLIC PANEL 2022-08-03 18:16:00 Adum, Marisol Lua [facility] ([id number]) [facility] URINE DRUG (IMMUNOASSAY) 2022-08-03 18:16:00 Adum, Marisol Lua [facility] DRUG Medical [facility] SCREEN RUBELLA SCREEN IGG 2022-08-03 18:16:00 Adum, Marisol [facility] VZV ANTIBODY SCREEN 2022-08-03 18:16:00 Adum, [facility] HEPATITIS B SURFACE 2022-08-03 18:16:00 Adum, Marisol Lua [facility] ANTIGEN [facility] HCV ANTIBODY 2022-08-03 18:16:00 Adum, [place] [facility] ADC OR BAKARI ONLY - 2022-08-03 18:16:00 Adum, Marisol Lua [facility] HIV 1/2 AG-AB WITH 2022-08-03 18:16:00 Adum, Marisol [facility] REFLEX [facility] HB ABO GROUPING 2022-08-03 18:11:00 Adum, Marisol Lua [facility] US OB TRANSVAGINAL 2022-08-01 23:58:59 Adum, Marisol [facility] GC & CHLAMYDIA AMPLIFIED 2022-08-01 22:24:00 Adum, Marisol Lua [facility] TRICHOMONAS AMPLIFIED 2022-08-01 22:24:00 Adum, Marisol Lua [facility] ULTRASOUND 2022-08-01 06:01:00 Doctor Unassigned, No [facility] POCT TEST 2022-08-01 00:00:00 Adum, Marisol Lua [facility] POCT URINALYSIS W/O 2022-08-01 00:00:00 Adum, Marisol [facility] SPECIFIC [facility] Encounters Start End Encounter Admission Attending Care Care Encounter Source Date/Time Date/Time Type Type Clinicians Facility Department ID 2023-06-18 2023-06-18 Outpatient R [facility] [id number] Univers 09:30:00 09:30:00 ity of [facility] 2023-05-04 2023-05-04 Outpatient [facility] [id number] Dilan 11:30:45 11:30:45 [id number] F [place] 2023-04-26 2023-04-26 Outpatient [facility] Dilan 13:15:52 13:15:52 [id number] F [place] 2023-04-16 2023-04-16 Outpatient [facility] Dilan 09:21:35 09:21:35 [id number] F [place] 2023-04-11 2023-04-11 Outpatient [facility] Dilan 17:48:56 17:48:56 [id number] [facility] [place] 2023-04-09 2023-04-09 [facility] [id number] Univers 00:00:00 00:00:00 Marisol GUTIÉRREZ [id number] i ty of [id number] [id number] [address] 2023-03-26 2023-03-26 Nurse Nurse, [facility] [id number] Univers 13:30:00 13:30:00 Visit AdMarisol montelongo [id number] [id number] [id number] [address] 2023-03-26 2023-03-26 Outpatient R ADUM, [facility] [id number] Univers 13:30:00 12:56:48 MARISOL álvarez of [facility] 2023-03-26 2023-03-26 Orders Doctor KIRK [id number] Univers 00:00:00 00:00:00 Only Unassigned, MISAEL [id number] ity of [place] [facility] [id number] Vivek as [id number] [address] 2023-03-21 2023-03-21 Outpatient R AD, [facility] [id number] Univers 13:15:00 15:01:49 MARISOL ity of [facility] 2023-03-21 2023-03-21 [facility] [id number] Univers 13:15:00 15:01:49 Marisol GUTIÉRREZ [id number] ity of [id number] [facility] [id number] [address] 2023-03-16 2023-03-16 Outpatient [facility] CENTER [id number] Dilan 11:39:16 11:39:16 [id number] F [place] 2023-03-09 2023-03-09 Outpatient [facility] [id number] [place] 14:09:31 14:09:31 25916 F [place] 2023-02-23 2023-02-23 Telephone [facility] 1.2.289.641 [id number] Univers 00:00:00 00:00:00 Marisol DAVIS 350.1.13.10 ity of [place] 4.2.7.2.686 [facility] [id number] Ar dic[address] 2023-02-20 2023-02-20 Refill [facility] 1.2.361.973 [id number] Univers 00:00:00 00:00:00 Marisol GUTIÉRREZ 350.1.13.10 i ty of WOMEN'S 4.2.7.2.686 [facility] [id number] [address] 2023-02-14 2023-02-16 Inpatient X [facility] REZA [id number] Univers 02:39:00 13:30:00 MARISOL ity of [facility] 2023-02-14 2023-02-16 Hospital [facility] 1.2.840.114 [id number] Univers 02:39:00 13:30:00 Encounter Marisol DAVIS 350.1.13.10 ity of [facility] 4.2.7.2.686 [facility] s [place] [id number] [address] 2023-02-14 2023-02-14 Anesthesia Sergioleagrey-Griffin Graham [place] 1.2.840.114 [id number] Univers 05:35:00 18:10:00 Event Sergo MuellerKAILEE 350.1.13. 10 [place].2.7.2.[place] [id number] [facility] [address] 2023-02-09 2023-02-09 Health Outreach Worker Margy, [facility] [place] 1.2.8 40.114 [id number] Univers 17:15:00 17:30:00 Visit Adum, Marisol Lua SUSAN 350.1.13.10 it[place] of [place] 4.2.7.2.686 [place] [id number] Ar dical NAL 353 [facility] 2023-02-09 2023-02-09 [facility] [id number] Univers 16:00:00 17:07:46 MARISOL ity [facility] 2023-02-09 2023-02-09 Routine Ad, [place] 1.2.840.114 [id number] Univers 16:00:00 17:07:46 Marisol Lua SUSAN 350.1.13.10 ity of Visit [place] 4.2.7.2.686 [place] [facility] [id number] Ar dical NAL 134 [facility] 2023-02-09 2023-02-09 Orders Doctor REAGAN 1.2.840.114 [id number] Univers 00:00:00 00:00:00 Only Unassigned, MISAEL 350.1.13.10 ity of [place] [facility] 4.2.7.2.686 Vivek as [id number] [facility] [address] 2023-01-24 2023-01-24 Outpatient R AD, [facility] [id number] Univers 13:15:00 14:06:27 MARISOL ity [facility] 2023-01-24 2023-01-24 Routine Adum, [facility] 1.2.553.980 [id number] Univers 13:15:00 14:06:27 Marisol GUTIÉRREZ 350.1.13.10 ity of Visit [place].2.[place].2.[place] [id number] [address] 2023-01-17 2023-01-17 Outpatient R ADUM, [facility] [id number] Univers 10:00:00 10:00:00 MARISOL álvarez [facility] 2023-01-16 2023-01-16 Telephone [facility] 1.2.840.11 4 [id number] Univers 00:00:00 00:00:00 Brittany GUTIÉRREZ 350.1.13.10 it y of [place] 4.2.7.2.[place] [id number] [address] 2023-01-08 2023-01-08 Health Outreach Worker Ultrasound, Mirza [place] 1.2 .840.114 [id number] Univers 08:00:00 08:45:00 Visit Venkata Crandall RIG BUILDER HELPER 350.1.13.10 ity of REGIONAL 4.2.7.2.686 Vivek as MATERNAL [id number] [facility] ical & CHILD [address] [place] [address] 2023-01-08 2023-01-08 Outpatient P VENKATA CRANDALL [facility] [id number] Univers 08:00:00 08:00:00 VENKATA CRANDALL ity [facility] 2023-01-08 2023-01-08 Telephone [facility] 1.2.840.114 10 [id number] Univers 00:00:00 00:00:00 Marisol GUTIÉRREZ 350.1.13.10 i ty of [place] 4.2.[place].2.[place] [id number] [address] 2023-01-03 2023-01-03 Outpatient R ADUM, [facility] [id number] Univers 13:15:00 14:20:40 MARISOL álvarez [facility] 2023-01-03 2023-01-03 Routine Adum, [facility] 1.2.659.941 [id number] Univers 13:15:00 14:20:40 Marisol GUTIÉRREZ 350.1.13.10 ity of [place] 4.2.[place].2.[place] [id number] [address] 2022-12-29 2022-12-29 Refill [facility] 1.2.840.114 [id number] Univers 00:00:00 00:00:00 Brittany GUTIÉRREZ 350.1.13.10 it y of [place] 4.2.[place].2.[place] [id number] [address] 2022-12-19 2022-12-19 Out[facility] [id number] [facility] 13:15:00 14:05:06 MARIOSL ity of [facility] 2022-12-19 2022-12-19 Routine [facility] 1.2.773.069 [id number] Univers 13:15:00 14:05:06 Marisol GUTIÉRREZ 350.1.13.10 ity of [place] 4.2.[place] [id number] [address] 2022-12-14 2022-12-14 Telephone [facility] 1.2.840.11 4 [id number] Univers 00:00:00 00:00:00 Brittany BROCK 350.1.13.10 it y of [place] 4.2.[place] [id number] [address] 2022-12-14 2022-12-14 Telephone [facility] 1.2.840.11 4 [id number] Univers 00:00:00 00:00:00 Karleyaurelia GUTIÉRREZ 350.1.13.10 it y of [place] 4.2.[place] [id number] [address] 2022-12-12 2022-12-12 Health Outreach Worker Margy, [facility] [place] 1.2.8 40.114 [id number] Univers 08:45:00 09:00:00 Visit AdMarisol montelongo 350.1.13.10 ity of [place] 4.2.7.2.[place] PROF[place] [id number] Ar dical [address] 2022-12-12 2022-12-12 Outpatient R ADUM, [facility] [id number] Univers 08:45:00 08:45:00 MARISOL crystalnancy [facility] 2022-12-06 2022-12-06 Telephone [facility] 1.2.840.114 10 [id number] Univers 00:00:00 00:00:00 Marisol GUTIÉRREZ 350.1.13.10 i ty of PEDIATRIC [place].7.2.[place] [facility] [id number] [address] 2022-12-05 2022-12-05 Outpatient R ADUM, [facility] [id number] Univers 11:00:00 11:40:54 MARISOL álvarez [facility] 2022-12-05 2022-12-05 [facility] 1.2.745.152 [id number] Univers 11:00:00 11:40:54 Marisol GUTIÉRREZ 350.1.13.10 ity of Visit WOMEN'S 4.2.7.2.686 [facility] [id number] [address] 2022-11-29 2022-11-29 Outpatient R ADUM, [facility] [id number] Univers 10:30:00 10:30:00 MARISOL álvarez [facility] 2022-11-01 2022-11-[address] [facility], [facility] 1.2. 840.114 [id number] Univers 10:45:00 11:52:50 Adum, Marisol GUTIÉRREZ 350.1.13.10 ity of Visit WOMEN'S 4.2.7.2.686 [facility] [id number] [address] 2022-11-01 2022-11-01 Outpatient R ADUM, [facility] [id number] Univers 10:45:00 11:52:50 MARISOL álvarez [facility] 2022-11-01 2022-11-01 [facility]phone [facility] 1.2.840.11 4 [id number] Univers 00:00:00 00:00:00 Brittany GUTIÉRREZ 350.1.13.10 it y of WOMEN'S 4.2.7.2.686 [facility] [id number] [address] 2022-10-25 2022-10-25 Outpatient R ZAK [facility] [id number] Univers 10:30:00 10:30:00 MARISOL álvarez [facility] 2022-10-09 2022-10-09 Telemedici Faculty, Emilio Naranjo [facility] 1.2.840.114 [id number] Univers 13:00:00 13:30:00 ne Visit Marcus Chu RIG BUILDER HELPER 350.1.13.10 ity [facility] 4.2.7.2.686 Vivek as MATERNAL [id number] Med ical & CHILD 107 [facility] 2022-10-09 2022-10-09 Outpatient R MARCUS CHU [facility] [id number] Univers 13:00:00 13:00:00 MARCUS CHU [facility] 2022-10-09 2022-10-09 Health Outreach Worker Ultrasound, [facility] 1.2 .840.114 [id number] Univers 10:00:00 11:15:00 Visit Marcus Chu RIG BUILDER HELPER 350.1.13.10 ity of [place] Blas [facility] 4.2.7.2.686 [place] MATERNAL [id number] [facility] ical & CHILD 369 [facility] 2022-10-09 2022-10-09 Orders Doctor REAGAN 1.2.840.114 [id number] Univers 00:00:00 00:00:00 Only Unassigned, MISAEL 350.1.13.10 ity of [place] [facility] 4.2.7.2.686 Vivek as [id number] [address] 2022-09-28 2022-09-28 Refill [facility] 1.2.440.443 [id number] Univers 00:00:00 00:00:00 Marisol GUTIÉRREZ 350.1.13.10 i ty of [place] 4.2.7.2.686 [place] [id number] [address] 2022-09-26 2022-09-26 Outpatient R ZAK [facility] [id number] Univers 10:45:00 11:17:04 MARISOL álvarez [facility] 2022-09-26 2022-09-26 Routine [facility] 1.2.832.492 [id number] Univers 10:45:00 11:17:04 Marisol GUTIÉRREZ 350.1.13.10 ity of [place]2.[place].2.[place] [id number] [address] 2022-09-20 2022-09-20 [facility]phone [facility] 1.2.840.114 [id number] Univers 00:00:00 00:00:00 Marisol GUTIÉRREZ 350.1.13.10 i ty of PEDIATRIC 4.2.7.2.686 [facility] [id number] [address] 2022-09-13 2022-09-13 Telephone [facility] 1.2.840.114 99 [id number] Univers 00:00:00 00:00:00 Marisol GUTIÉRREZ 350.1.13.10 i ty of PEDIATRIC 4.2.7.2.686 [facility] [id number] [address] 2022-09-06 2022-09-06 Telephone [facility] 1.2.393.867 [id number] Univers 00:00:00 00:00:00 Viktoria RIG BUILDER HELPER 350.1.13.10 it y of [facility] 4.2.7.2.686 Vivek as MATERNAL [id number] [facility] ical & CHILD [address] [place] [address] 2022-09-04 2022-09-04 Health Outreach Worker 2, [facility] 1.2.840.114 [id number] Univers 10:45:00 10:52:52 Visit Adum, Marisol DAVIS 350.1.13.10 ity of [place].2.[place].2.[place] [id number] Ar dical [address] 2022-09-04 2022-09-04 Outpatient R AD, [facility] [id number] Univers 10:45:00 10:45:00 MARISOL álvarez [facility] 2022-09-01 2022-09-01 Telephone [facility] 1.2.494.013 [id number] Univers 00:00:00 00:00:00 Viktoria RIG BUILDER HELPER 350.1.13.10 it y of REGIONAL 4.2.7.2.686 Vivek as MATERNAL [id number] Med ical & CHILD 124 [facility] 2022-08-29 2022-08-29 Outpatient R ADALEXIA, [facility] [id number] Univers 10:30:00 11:57:49 MARISOL ity [facility] 2022-08-29 2022-08-29 Routine Adum, [facility] 1.2.801.027 [id number] Univers 10:30:00 11:57:49 Marisol GUTIÉRREZ 350.1.13.10 ity of Visit [place] 4.2.7.2.[place] [facility] [id number] [address] 2022-08-28 2022-08-28 Outpatient R ERNESTINA [facility] [id number] Univers 13:00:00 14:38:27 MAHSA ity [facility] 2022-08-28 2022-08-28 Office Faculty, Emilio Naranjo [facility] 1.2 .840.114 [id number] Univers 13:00:00 14:38:27 Visit Mahsa Do RIG BUILDER HELPER 350.1. 13.10 ity of [facility] 4.2.7.2.686 Vivek as MATERNAL [id number] Med ical & CHILD 107 [facility] 2022-08-28 2022-08-28 Health Outreach Worker Margy, [facility] [place] 1.2.8 40.114 [id number] Univers 09:00:00 09:15:00 Visit AdumMarisol 350.1.13.10 ity of [place] 4.2.7.2.[place] [id number] Ar dic[address] 2022-08-28 2022-08-28 Orders Doctor REAGAN 1.2.840.114 [id number] Univers 00:00:00 00:00:00 Only Unassigned, MISAEL 350.1.13.10 ity of [place] [facility] 4.2.7.2.686 Vivek as [id number] [address] 2022-08-18 2022-08-18 Case [facility] 1.2.840.114 [id number] Univers 00:00:00 00:00:00 Management Marisol DAVIS 350.1.13.10 ity of [facility] 4.2.7[place]2.[place] [id number] Me dical NAL 134 [facility] 2022-08-18 2022-08-18 Telephone [facility] 1.2.840.114 [id number] Univers 00:00:00 00:00:00 Marisol GUTIÉRREZ 350.1.13.10 i ty of [place] 4[place]2.[place].2.[place] [id number] [address] 2022-08-03 2022-08-03 Health Outreach Worker Margy, [facility] [place] 1.2.8 40.114 [id number] Univers 12:15:00 12:30:00 Visit Adum, Marisol DAVIS 350.1.13.10 ity of [facility] 4.2.7.2.[place] 610.2340657 Ar dical NAL 353 [facility] 2022-08-03 2022-08-03 Outpatient [facility] [id number] Univers 12:15:00 12:15:00 MARISOL rojasnanyc [facility] 2022-08-01 2022-08-01 Outpatient R ADUM, [facility] [id number] Univers 14:30:00 16:17:41 MARISOL itnancy [facility] 2022-08-01 2022-08-01 Initial Adum, [facility] 1.2.772.830 [id number] Univers 14:30:00 16:17:41 Marisol GUTIÉRREZ 350.1.13.10 ity of [place] [id number] [address] 2022-08-01 2022-08-01 Orders Doctor KIRK 1.2.840.114 [id number] Univers 00:00:00 00:00:00 Only Unassigned, MISAEL 350.1.13.10 [facility] 4.2.7.2.686 Vivek as [id number] [address] 2022-07-26 2022-07-26 Outpatient R ZAK, [facility] [id number] Univers 14:00:00 14:00:00 MARISOL álvarez of [facility] 2022-04-29 2022-04-29 Refill Stacey Floyd 1.2.840.114 [id number] Univers 00:00:00 00:00:00 BROCK 350.1.13.10 it y of [place] 4[place].2.[place] [id number] [address] 2022-04-10 2022-04-10 Refill Stacey Floyd 1.2.840.114 [id number] Univers 00:00:00 00:00:00 BROCK 350.1.13.10 it y of [place] 4[place]2.[place].2.[place] [id number] [address] 2022-04-10 2022-04-10 Abstract FishStacey 1.2.840.114 [id number] Univers 00:00:00 00:00:00 BROCK 350.1.13.10 it y of [place] 4[place].2.[place] [id number] [address] 2022-04-10 2022-04-10 Telephone Stacey Floyd 1.2.840.11 4 [id number] Univers 00:00:00 00:00:00 BROCK 350.1.13.10 it y of [place] 4[place]2.[place].2.[place] 458.1733214 [address] 2022-04-07 2022-04-07 Telephone Stacey Floyd 1.2.840.11 4 [id number] Univers 00:00:00 00:00:00 BROCK 350.1.13.10 it y of [place] 4[place].2.[place] 119.9373299 [address] 2022-04-06 2022-04-06 Case FishStacey 1.2.840.114 [id number] Univers 00:00:00 00:00:00 Management BROCK 350.1.13.10 it[place].2.[place] [facility] [id number] [address] 2022-04-06 2022-04-06 Telephone Stacey Floyd [facility] 1.2.840.11 4 [id number] Univers 00:00:00 00:00:00 BROCK 350.1.13.10 it y of [place].2.[place] [id number] [address] 2022-04-05 2022-04-05 Telephone Aleksandar RUST 1.2.840.114 [id number] Univers 00:00:00 00:00:00 [facility] 350.1.13.10 ity of [place] 4.2.7.2.686 Vivek as JOSHUA?BLEA 666.1515893 Ar maya [address] MEDICAL OFFICE BUILDING 2022-04-03 2022-04-03 Outpatient R STACEY FLOYD [facility] [id number] Univers 09:30:00 10:18:14 ity of [facility] 2022-04-03 2022-04-03 Initial Stacey Floyd [facility] 1.2.840.114 [id number] Univers 09:30:00 10:18:14 BROCK 350.1.13.10 i ty of [place] 4[place].2.[place] [id number] [address] 2022-04-03 2022-04-03 Outpatient R STACEY FLOYD [facility] [id number] Univers 09:30:00 10:18:14 ity of [facility] 2022-04-03 2022-04-03 Orders Doctor KIRK 1.2.840.114 [id number] Univers 00:00:00 00:00:00 Only Unassigned, MISAEL 350.1.13.10 ity of [place] [facility] 4.2.7.2.686 Vivek as [id number] [address] 2021-05-04 2021-05-04 [facility] 1.2.840.114 [id number] Univers 00:00:00 00:00:00 Haim Davis 350.1.13.10 ity of [place].2.[place] [id number] [address] 2021-03-17 2021-03-17 Refkarsten [facility] 1.2.840.114 [id number] Univers 00:00:00 00:00:00 Haim Davis 350.1.13.10 ity of [place].2.[place] 462.7663893 [address] 2021-01-03 2021-01-03 Office Aleksandar R[place] 1.2.840.114 [id number] Univers 10:48:34 11:40:47 Visit Haim Davis 350.1.13.10 ity of [place].2.[place] [id number] [address] 2021-01-03 2021-01-03 Outpatient HAIM WATERS [facility] [id number] Univers 11:00:00 11:00:00 HAIM HUERTAS [facility] 2020-12-31 2020-12-31 Refkarsten Huertas [facility] 1.2.840.114 [id number] Univers 00:00:00 00:00:00 Haim Davis 350.1.13.10 ity of [place].2.[place] [id number] [address] 2020-12-28 2020-12-28 Outpatient HAIM WATERS [facility] [id number] Univers 11:00:00 11:00:00 HAIM HUERTAS [facility] 2020-12-21 2020-12-21 Outpatient HAIM WATERS [facility] [id number] Univers 15:40:00 15:40:00 HAIM HUERTAS [facility] 2020-12-15 2020-12-15 [facility] 1.2.840.114 [id number] Univers 00:00:00 00:00:00 Haim Christianton 350.1.13.10 ity of [place].2.[place] [id number] [address] 2020-09-26 2020-09-26 Refkarsten [facility]asPRES[facility] 1.2.840.114 [id number] Univers 00:00:00 00:00:00 Haim Davis 350.1.13.10 ity of [place].2.[place] [id number] [address] 2020-04-14 2020-04-14 Refkarsten MongeochePRESBYTERIAN [facility] 1.2.840.114 [id number] Univers 00:00:00 00:00:00 Haim Christianton 350.1.13.10 ity of [place] 4.2.[place].2.[place] [id number] [address] 2020-04-13 2020-04-13 Refkarsten Aleksandar R[place] 1.2.840.114 [id number] Univers 00:00:00 00:00:00 Haim Christianton 350.1.13.10 ity of [place] 4[place].2.[place] 378.5224925 [address] 2020-02-20 2020-02-20 Telemedici Aleksandar RUST 1.2.840.114 [id number] Univers 09:53:16 10:13:16 ne Visit Haim Davis 350.1.13.10 ity of [place] 4.[place].2.[place] 347.9418149 [address] 2020-02-20 2020-02-20 Outpatient R HAIM HUERTAS [facility] [id number] Univers 09:40:00 09:40:00 HAIM HUERTAS ity [facility] 2020-02-13 2020-02-13 Telephone Aleksandar RUST 1.2.840.114 [id number] Univers 00:00:00 00:00:00 Haim Davis 350.1.13.10 ity of [place] [id number] [address] 2020-02-13 2020-02-13 [facility] 1.2.840.114 [id number] Univers 00:00:00 00:00:00 Haim Davis 350.1.13.10 ity of [place] 4.[place].2.[place] [id number] [address] 2019-12-05 2019-12-05 [facility]ochePRES[facility] 1.2.840.114 [id number] Univers 00:00:00 00:00:00 Haim Davis 350.1.13.10 ity of [place].2.[place] 206.0094467 [address] 2019-10-03 2019-10-03 [facility] 1.2.840.114 [id number] Univers 00:00:00 00:00:00 Haim Davis 350.1.13.10 ity of [place] 517.3928199 [address] Results Test Description Test Time Test Comments Results Result Comments Source POCT TEST 2023-03-26 17:57:00 Test Item Value Reference Range Interpretation Comme nts POCT PREG (test code = 1605) Negative On board controls acceptable with C Line (test code = 3574) Yes POCT PREG LOT # (test code = 3575) POCT PREG TEST DATE (test code = 3576) [facility] with [id number] 11:44:36 Test Item Value Reference Range Interpretation Comments WBC (test code = 16.75 See_Comment H [Automated 9840-2) message] The system which generated this result transmit junie reference range : 4.30 - 11.10 10*3/?L. The reference range was not used to interpret this result as normal/abnormal . RBC (test code = 2.99 See_Comment L [Automated 789-8) message] The system which generated this result transmit junie reference range : 3.93 - 5.25 10*6/?L. The reference range was not used to interpret this result as normal/abnormal . HGB (test code = 9.4 g/dL 11.6-15.0 L 718-7) HCT (test code = 28.8 % 35.7-45.2 L 4544-3) MCV (test code = 96.3 fL 80.6-95.5 H 787-2) MCH (test code = 31.4 pg 25.9-32.8 785-6) MCHC (test code = 32.6 g/dL 31.6-35.1 786-4) RDW-SD (test code = 49.9 fL 39.0-49.9 24716-3) RDW-CV (test code = 14.2 % 12.0-15.5 788-0) PLT (test code = 359 See_Comment H [Automated 777-3) message] The system which generated this result transmit junie reference range : 166 - 358 10*3/ ?L. The reference range was not u sed to interpret th is result as normal/abnormal . MPV (test code = 10.9 fL 9.5-12.9 80429-4) NRBC/100 WBC (test 0.0 See_Comment [Automat ed code = 8960112190) message] The system which generated this result transmit junie reference range : 0.0 - 10.0 /100 WBCs. The reference range was not used to interpret this result as normal/abnormal . NRBC x10^3 (test code See_Comment [Auto mated = [id number]) message] The system which generated this result transmit junie reference range : 10*3/?L. The reference range was not used to interpret this result as normal/abnormal . GRAN MAT (NEUT) % 71.7 % (test code = 770-8) IMM GRAN % (test code 0.70 % = [id number]) LYMPH % (test code = 18.0 % 736-9) MONO % (test code = 7.8 % 5905-5) EOS % (test code = 1.3 % 713-8) BASO % (test code = 0.5 % 706-2) GRAN MAT x10^3(ANC) 12.02 10*3/uL 1.88-7.09 H (test code = [id number]) IMM GRAN x10^3 (test 0.11 10*3/uL 0.00-0.06 H code = [id number]) LYMPH x10^3 (test code 3.02 10*3/uL 1.32-3.29 = 731-0) MONO x10^3 (test code 1.30 10*3/uL 0.33-0.92 H = 742-7) EOS x10^3 (test code = 0.21 10*3/uL 0.03-0.39 711-2) BASO x10^3 (test code 0.09 10*3/uL 0.01-0.07 H = 704-7) Lab Interpretation Abnormal (test code = 98478-6) [facility] OR BAKARI CARLOS - [id number] 09:36:38 Test Item Value Reference Range Interpretation Comments RPR (Qualitative) (test code = Nonreactive Nonreactive 05050-5) Lab Interpretation (test code = Normal 46320-4) [facility] [id number] 15:51:25 Test Item Value Reference Range Interpretation Comments HBsAg Semi-Quantitative (test code = 0.05 Negative 5195-3) [facility]-AB WITH [id number] 11:40:44 Test Item Value Reference Range Interpretation Comments HIV 0.10 Negative Semi-quantitative (test code = 27877-8) PILAR (test code = Non-reactive for HIV-1 PILAR) antigen and HIV-1/HIV-2 antibodies. ?No laboratory evidence of HIV infection. ?Repeat in 2-4 weeks if acute HIV infection is suspected. [facility] with [id number] 09:53:55 Test Item Value Reference Range Interpretation [...] (test code = 53.7 fL 39.0-49.9 H 83953-6) RDW-CV (test code = 14.5 % 12.0-15.5 788-0) PLT (test code = 369 See_Comment H [Automated 777-3) message] The sy stem which generated this result transmitted reference range : 166 - 358 10*3/ ?L. The reference r julia was not used to interpret this result as normal/abnormal . MPV (test code = 10.5 fL 9.5-12.9 18276-9) NRBC/100 WBC (test 0.2 See_Comment [Automat ed code = [id number]) message] The system which generated this result transmitted reference range : 0.0 - 10.0 /100 WBCs. The refer ence range was not u sed to interpret th is result as normal/abnormal . NRBC x10^3 (test code 0.02 See_Comment [Auto mated = [id number]) message] The s ystem which generated this result transmitted reference range : 10*3/?L. The reference range was not used to interpret this result as normal/abnormal . GRAN MAT (NEUT) % 67.1 % (test code = 770-8) IMM GRAN % (test code 1.20 % = [id number]) LYMPH % (test code = 22.3 % 736-9) MONO % (test code = 7.9 % 5905-5) EOS % (test code = 1.0 % 713-8) BASO % (test code = 0.5 % 706-2) GRAN MAT x10^3(ANC) 7.26 10*3/uL 1.88-7.09 H (test code = 0436208561) IMM GRAN x10^3 (test 0.13 10*3/uL 0.00-0.06 H code = 0559573858) LYMPH x10^3 (test code 2.41 10*3/uL 1.32-3.29 = 731-0) MONO x10^3 (test code 0.86 10*3/uL 0.33-0.92 = 742-7) EOS x10^3 (test code = 0.11 10*3/uL 0.03-0.39 711-2) BASO x10^3 (test code 0.05 10*3/uL 0.01-0.07 = 704-7) Lab Interpretation Abnormal (test code = 28742-8) [facility] - ONCE [id number] 09:51:00 Test Item Value Reference Range Interpretation Comments ABO & RH (test code = 20) O Positive IAT (test code = 1185) Negative [facility] CenterPONE URINALYSIS W/O SPECIFIC [id number] 21:30:00 Test Item Value Reference Range Interpretation [...] Negative Lab Interpretation (test code = Normal 65296-2) [facility]PO[facility] W/O SPECIFIC [id number] 19:03:00 Test Item Value Reference Range Interpretation [...] code = 3257) N/A Negative - Negative [facility] URINALYSIS W/O SPECIFIC [id number] 21:30:00 Test Item Value Reference Range Interpretation [...] controls' Lab Interpretation Abnormal (test code = 37595-1) [facility] URINALYSIS W/O SPECIFIC [id number] 19:22:00 Test Item Value Reference Range Interpretation [...] controls Lab Interpretation Normal (test code = 24388-3) [facility] URINALYSIS W/O SPECIFIC [id number] 18:12:00 Test Item Value Reference Range Interpretation [...] code = 3257) n/a Negative - Negative [facility] HR GLUCOSE TOLERANCE [id number] 18:01:01 Test Item Value Reference Range Interpretation Comments GLUC 3 HR (test code = 7627191018) 106 mg/dL 70-110 Lab Interpretation (test code = Normal 74251-1) [facility] HR GLUCOSE TOLERANCE [id number] 17:15:55 Test Item Value Reference Range Interpretation Comments GLUC 2 HR (test code = 9452077434) 103 mg/dL 70-120 Lab Interpretation (test code = Normal 71519-1) [facility] HR GLUCOSE TOLERANCE [id number] 16:22:51 Test Item Value Reference Range Interpretation Comments GLUC 1 HR (test code = 2314790085) 153 mg/dL 120-170 Lab Interpretation (test code = Normal 39013-8) [facility] CenterHIV 1/2 AG-AB WITH [id number] 16:06:07 Test Item Value Reference Range Interpretation Comments HIV 0.09 Negative Semi-quantitative (test code = 13716-0) PILAR (test code = Non-reactive for HIV-1 PILAR) antigen and HIV-1/HIV-2 antibodies. ?No laboratory evidence of HIV infection. ?Repeat in 2-4 weeks if acute HIV infection is suspected. [facility] CenterCBC WITH [id number] 15:56:44 Test Item Value Reference Range Interpretation Comments WBC (test code = 17.52 See_Comment H [Automated 6537-2) message] The system which generated this result transmit junie reference range : 4.30 - 11.10 10*3/?L. The reference range was not used to interpret this result as normal/abnormal . RBC (test code = 3.06 See_Comment L [Automated 697-8) message] The system which generated this result [...] RDW-SD (test code = 43.8 fL 39.0-49.9 42960-7) RDW-CV (test code = 12.7 % 12.0-15.5 788-0) PLT (test code = 460 See_Comment H [Automated 777-3) message] The system which generated this result transmit junie reference range : 166 - 358 10*3/ ?L. The reference range was not u sed to interpret th is result as normal/abnormal . MPV (test code = 9.1 fL 9.5-12.9 L 69583-8) NRBC/100 WBC (test 0.0 See_Comment [Automat ed code = 0198476342) message] The system which generated this result transmit junie reference range : 0.0 - 10.0 /100 WBCs. The reference range was not used to interpret this result as normal/abnormal . NRBC x10^3 (test code See_Comment [Auto mated = 6660035364) message] The system which generated this result transmit junie reference range : 10*3/?L. The reference range was not used to interpret this result as normal/abnormal . GRAN MAT (NEUT) % 69.1 % (test code = 770-8) IMM GRAN % (test code 1.00 % = 7596402860) LYMPH % (test code = 19.3 % 736-9) MONO % (test code = 8.7 % 5905-5) EOS % (test code = 1.3 % 713-8) BASO % (test code = 0.6 % 706-2) GRAN MAT x10^3(ANC) 12.11 10*3/uL 1.88-7.09 H (test code = 4947237346) IMM GRAN x10^3 (test 0.17 10*3/uL 0.00-0.06 H code = 9896122656) LYMPH x10^3 (test code 3.39 10*3/uL 1.32-3.29 [...] . BANDS (test code = Increased A 0658776029) REACT LYMPHS (test Rare code = 4154464885) TOXIC CHANGES (test Present A code = 803-7) GIANT PLATELETS (test Present See_Comment A [Auto mated code = 5908-9) message] The system which generated this result transmit junie reference range : (none). The reference range was not used to interpret this result as normal/abnormal . Lab Interpretation Abnormal (test code = 43021-9) [facility] CenterGLUCOSE [id number] 15:27:02 Test Item Value Reference Range Interpretation Comments GLU FASTNG (test code = 1547488948) 81 mg/dL 70-110 Lab Interpretation (test code = Normal 17552-3) [facility] CenterPRENATAL WORKUP, BLOOD [id number] 15:00:00 Test Item Value Reference Range Interpretation Comments ABO & RH (test code = 20) O Positive IAT (test code = 1185) Negative [facility] CenterPOCT URINALYSIS W/O SPECIFIC [id number] 16:31:00 Test Item Value Reference Range Interpretation [...] code = 3257) n/a Negative - Negative [facility] CenterPOCT URINALYSIS W/O SPECIFIC [id number] 17:09:00 Test Item Value Reference Range Interpretation [...] code = 3257) negative Negative - Negative [facility] CenterPOCT URINALYSIS W/O SPECIFIC [id number] 16:35:00 Test Item Value Reference Range Interpretation [...] code = 3257) N/A Negative - Negative [facility]1 HR GLUCOSE TOLERANCE [id number] 18:07:41 Test Item Value Reference Range Interpretation Comments GLUC 1 HR (test code = 2472536542) 178 mg/dL 120-170 H Lab Interpretation (test code = Abnormal 11346-4) [facility] CenterGLUCOSE [id number] 16:53:30 Test Item Value Reference Range Interpretation Comments GLU FASTNG (test code = 6106317257) 88 mg/dL 70-110 Lab Interpretation (test code = Normal 85748-1) [facility] CenterRUBELLA SCREEN [id number] 17:44:14 Test Item Value Reference Range Interpretation Comments Rubella screen IgG Negative Negative (test code = 3035591789) PILAR (test code = PILAR) Positive - Indicates the patient was exposed to Rubella through infection or vaccination.Negative - Indicates the patient could be susceptible to Rubella infection.Equivocal - A second specimen should be sent. [facility] CenterVZV ANTIBODY [id number] 17:44:14 Test Item Value Reference Range Interpretation Comments VZV IgG antibody Negative Negative (test code = 24078-9) PILAR (test code = PILAR) Positive - Indicates the patient was exposed to VZV through infection or vaccination.Negative - Indicates the patient could be susceptible to VZV infection.Equivocal - A second specimen should be sent for testing. [facility] CenterADC OR BAKARI ONLY - [id number] 09:25:53 Test Item Value Reference Range Interpretation Comments RPR (Qualitative) (test code = Nonreactive Nonreactive 31231-1) Lab Interpretation (test code = Normal 22580-4) [facility] CenterHCV [id number] 22:43:11 Test Item Value Reference Range Interpretation Comments HCV Ab (test code = 29388-4) Negative HCV Semi-Quantitative (test code = 23038-8) [facility] CenterHEPATITIS B SURFACE [id number] 22:26:11 Test Item Value Reference Range Interpretation Comments HBsAg Semi-Quantitative (test code = Negative Negative 5195-3) [facility] CenterHI 1/2 AG-AB WITH [id number] 20:40:15 Test Item Value Reference Range Interpretation Comments HIV Negative Negative Semi-quantitative (test code = 99280-9) PILAR (test code = Non-reactive for HIV-1 PILAR) antigen and HIV-1/HIV-2 antibodies. ?No laboratory evidence of HIV infection. ?Repeat in 2-4 weeks if acute HIV infection is suspected. [facility] CenterPRENATAL WORKUP, BLOOD [id number] 20:17:21 Test Item Value Reference Range Interpretation Comments ABO & RH (test code O Positive Performe d at [facility] = 20) [facility] [address] [place] [address]Rrsr Free: [phone] A No. [id number] IAT (test code = Negative Performed a t RUST 1185) Laboratory Serv [facility] [address] [place] [phone] Free: [phone] A No. [id number] [facility]. METABOLIC PANEL (68137)2022-08-03 20:01:30 Test Item Value Reference Range Interpretation Comments NA (test code = 139 mmol/L 135-145 3426075356) K (test code = 4.7 mmol/L 3.5-5.0 4347656605) CL (test code = 109 mmol/L 98-108 H 1323093950) CO2 TOTAL (test code = 22 mmol/L 23-31 L 5654083677) AGAP (test code = 2-16 2761118376) BUN (test code = 7 mg/dL 7-23 2522425358) GLUCOSE (test code = 87 mg/dL 70-110 8247033843) CREATININE (test code = 0.45 mg/dL 0.50-1.04 L 1091124449) TOTAL BILI (test code = 0.3 mg/dL 0.1-1.9 7720351028) CALCIUM (test code = 10.3 mg/dL 8.6-10.6 2359810395) T PROTEIN (test code = 7.2 g/dL 6.3-8.2 1428114513) ALBUMIN (test code = 4.3 g/dL 3.5-5.0 1522391009) ALK PHOS (test code = 69 U/L 34-122 5056791880) ALTv (test code = 17 U/L 5-35 1742-6) AST(SGOT) (test code = 17 U/L 13-40 2206820663) eGFR (test code = mL/min/1.73m2 9132555988) PILAR (test code = PILAR) Association of [...] tests). Lab Interpretation Abnormal (test code = 83437-3) [facility] CenterURIC [id number] 20:01:10 Test Item Value Reference Range Interpretation Comments URIC ACID (test code = 4636515312) 1.6 mg/dL 2.9-6.0 L Lab Interpretation (test code = Abnormal 62684-1) [facility] CenterLACTATE [id number] 19:59:29 Test Item Value Reference Range Interpretation Comments LDH (test code = 7981316237) 144 U/L 120-246 Lab Interpretation (test code = Normal 66777-1) [facility] WITH [id number] 18:37:17 Test Item Value Reference Range Interpretation Comments WBC (test code = See_Comment H [Automated 3768-2) message] The sy stem which generated this result transmitted reference range : 4.30 - 11.10 10*3/?L. The reference range was not used to interpret this result as normal/abnormal . RBC (test code = See_Comment [Automated 238-8) message] The sy stem which generated this [...] RDW-SD (test code = 46.0 fL 39.0-49.9 11558-1) RDW-CV (test code = 13.5 % 12.0-15.5 788-0) PLT (test code = See_Comment H [Automated 777-3) message] The sy stem which generated this result transmitted reference range : 166 - 358 10*3/ ?L. The reference r julia was not used to interpret this result as normal/abnormal . MPV (test code = 9.1 fL 9.5-12.9 L 98853-9) NRBC/100 WBC (test See_Comment [Automat ed code = 6760277507) message] The system which generated this result transmitted reference range : 0.0 - 10.0 /100 WBCs. The refer ence range was not u sed to interpret th is result as normal/abnormal . NRBC x10^3 (test code See_Comment [Auto mated = 7077910525) message] The s ystem which generated this result transmitted reference range : 10*3/?L. The reference range was not used to interpret this result as normal/abnormal . GRAN MAT (NEUT) % 68.1 % (test code = 770-8) IMM GRAN % (test code 0.40 % = 6073833397) LYMPH % (test code = 23.3 % 736-9) MONO % (test code = 6.6 % 5905-5) EOS % (test code = 1.0 % 713-8) BASO % (test code = 0.6 % 706-2) GRAN MAT x10^3(ANC) 8.86 10*3/uL 1.88-7.09 H (test code = 6979426867) IMM GRAN x10^3 (test 0.05 10*3/uL 0.00-0.06 code = 0022938553) LYMPH x10^3 (test code 3.04 10*3/uL 1.32-3.29 = 731-0) MONO x10^3 (test code 0.86 10*3/uL 0.33-0.92 = 742-7) EOS x10^3 (test code = 0.13 10*3/uL 0.03-0.39 711-2) BASO x10^3 (test code 0.08 10*3/uL 0.01-0.07 H = 704-7) Lab Interpretation Abnormal (test code = 35068-9) [facility] WITH [id number] 18:37:17 Test Item Value Reference Range Interpretation Comments WBC (test code = See_Comment H [Automated 2690-2) message] The sy stem which generated this result transmitted reference range : 4.30 - 11.10 10*3/?L. The reference range was not used to interpret this result as normal/abnormal . RBC (test code = See_Comment [Automated 329-8) message] The sy stem which generated this [...] RDW-SD (test code = 46.0 fL 39.0-49.9 48024-4) RDW-CV (test code = 13.5 % 12.0-15.5 788-0) PLT (test code = See_Comment H [Automated 777-3) message] The sy stem which generated this result transmitted reference range : 166 - 358 10*3/ ?L. The reference r julia was not used to interpret this result as normal/abnormal . MPV (test code = 9.1 fL 9.5-12.9 L 73221-8) NRBC/100 WBC (test See_Comment [Automat ed code = 6950358568) message] The system which generated this result transmitted reference range : 0.0 - 10.0 /100 WBCs. The refer ence range was not u sed to interpret th is result as normal/abnormal . NRBC x10^3 (test code See_Comment [Auto mated = 5719924280) message] The s ystem which generated this result transmitted reference range : 10*3/?L. The reference range was not used to interpret this result as normal/abnormal . GRAN MAT (NEUT) % 68.1 % (test code = 770-8) IMM GRAN % (test code 0.40 % = 2929696660) LYMPH % (test code = 23.3 % 736-9) MONO % (test code = 6.6 % 5905-5) EOS % (test code = 1.0 % 713-8) BASO % (test code = 0.6 % 706-2) GRAN MAT x10^3(ANC) 8.86 10*3/uL 1.88-7.09 H (test code = 6172988451) IMM GRAN x10^3 (test 0.05 10*3/uL 0.00-0.06 code = 4778561340) LYMPH x10^3 (test code 3.04 10*3/uL 1.32-3.29 = 731-0) MONO x10^3 (test code 0.86 10*3/uL 0.33-0.92 = 742-7) EOS x10^3 (test code = 0.13 10*3/uL 0.03-0.39 711-2) BASO x10^3 (test code 0.08 10*3/uL 0.01-0.07 H = 704-7) Lab Interpretation Abnormal (test code = 48726-2) [facility] [id number] 21:11:00 Test Item Value Reference Range Interpretation Comments POCT PREG (test code = 1605) Positive On board controls acceptable with C No Line (test code = 3574) POCT PREG LOT # (test code = 3575) POCT PREG TEST DATE (test code = 3576) [facility] [id number] 21:11:00 Test Item Value Reference Range Interpretation Comments POCT PREG (test code = 1605) Positive On board controls acceptable with C No Line (test code = 3574) POCT PREG LOT # (test code = 3575) POCT PREG TEST DATE (test code = 3576) [facility] [id number] 21:11:00 Test Item Value Reference Range Interpretation Comments POCT PREG (test code = 1605) Positive On board controls acceptable with C No Line (test code = 3574) POCT PREG LOT # (test code = 3575) POCT PREG TEST DATE (test code = 3576) [facility] [id number] 21:11:00 Test Item Value Reference Range Interpretation Comments POCT PREG (test code = 1605) Positive On board controls acceptable with C No Line (test code = 3574) POCT PREG LOT # (test code = 3575) POCT PREG TEST DATE (test code = 3576) [facility] [id number] 21:11:00 Test Item Value Reference Range Interpretation Comments POCT PREG (test code = 1605) Positive On board controls acceptable with C No Line (test code = 3574) POCT PREG LOT # (test code = 3575) POCT PREG TEST DATE (test code = 3576) [facility] URINALYSIS W/O SPECIFIC [id number] 21:10:00 Test Item Value Reference Range Interpretation [...] code = 3257) N/A Negative - Negative [facility] URINALYSIS W/O SPECIFIC [id number] 21:10:00 Test Item Value Reference Range Interpretation [...] code = 3257) N/A Negative - Negative [facility] URINALYSIS W/O SPECIFIC [id number] 21:10:00 Test Item Value Reference Range Interpretation [...] code = 3257) N/A [facility] - [facility] [id number] 21:10:00 Test Item Value Reference Range Interpretation [...] code = 3257) N/A Negative - [facility] [id number] 21:10:00 Test Item Value Reference Range Interpretation [...] code = 3257) N/A Negative - Negative [facility] Notes Date/Time Note Provider Source 2023-04-10 10:57:57-00:00 Formatting of this note migh t be different from the original. [facility] Name and verified. Pt advised of below and v erbalized understanding. 2023-04-10 10:32:25-00:00 Formatting of this note migh t be different from the original. [facility] She needs to talk to her PCP or neurologist abou t refills Marisol Crespo MD Electronically signed by Marisol Crespo MD at 0 04/10/2023 10:33 AM CDT 2023-04-09 14:35:40-00:00 Formatting of this note migh t be different from the original. Radha Montes [facility] Pt is calling for refill AMITRIPTYLINE 25 mg tablet [facility] [id number] [place] [address] Electronically signed by Radha Montes at 2:36 PM CDT"
[2023-05-23] MEDS ORDERED: NA CHLORIDE 0.9% 1,000 ML ONE (02:17)
[2023-05-23 02:48] LABS: ALT/SGPT 21 U/L (13-56); AST/SGOT 6 U/L (15-37); Albumin 3.4 g/dL (3.4-5.0); Alkaline Phosphatase 89 U/L (45-117); BUN Blood Urea Nitrogen 22 mg/dL (7-18); Bicarbonate 20 mEq/L (21-32); Bilirubin Total 0.2 mg/dL (0.2-1.0); Glomerular Filtration Rate 88 ml/min (=/>90); Glucose Level 119 mg/dL (74-106); Potassium 3.4 mEq/L (3.5-5.1); Protein, Total 7.7 g/dL (6.4-8.2); Sodium Level 139 mEq/L (136-145)
[2023-05-23 02:50] LABS: Bilirubin Direct < 0.1 mg/dL (0-0.2); Bilirubin Indirect, Calculated ND mg/dL (0.2-0.8)
[2023-05-23 02:55] LABS: Barbiturates NEGATIVE (NEGATIVE); Benzodiazepines NEGATIVE (NEGATIVE); Cocaine NEGATIVE (NEGATIVE); METHAMPHETAM NEGATIVE (NEGATIVE); Methadone NEGATIVE (NEGATIVE); Opiates NEGATIVE (NEGATIVE); Phencyclidine NEGATIVE (NEGATIVE); THC Cannibis NEGATIVE (NEGATIVE)
[2023-05-23 03:00] LABS: Specific Gravity 1.015 (1.005-1.030); Urine Bilirubin NEGATIVE (Negative); Urine Blood Negative (Negative); Urine Clarity Clear (Clear); Urine Color Light-Yellow (Yellow); Urine Glucose NEGATIVE (Negative); Urine Protein NEGATIVE (Negative); Urine Urobilinogen Normal (Normal)
[2023-05-23 03:01] LABS: Specific Gravity 1.015 (1.005-1.030)
[2023-05-23 03:10] LABS: Absolute Lymphocytes (CBC) 1.9 K/uL (0.7-4.9); Hematocrit 35.1 % (36.0-45.0); Lymphocytes % 22.1 % (15.3-44.8); MCV 90.4 fL (80-100); MPV 6.7 fL (7.6-11.3); Platelets 617 thou/uL (152-406); RBC Red Blood Cell Count 3.89 M/uL (3.86-4.86)
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
--- NOTE | 2023-05-23 05:28 | ER ---
Nurse's Notes [facility] Name: Lauren Chand Age: 43 yrs Sex: Female : 1980 Arrival Date: 05/23/2023 Time: 01:47 Bed 5 Private MD: Diagnosis: Encephalopathy, unspecified;Acute agitated delirium, altered mental status, acute undifferentiated encephalopathy Presentation: 05/23 01:49 Chief complaint: EMS states: PER PT'S PARTNER, PT HAS BEEN ACTING OFF ,AND WOULD rv SOMETIME SCREAM, ALL DAY. CALLED AT 2300 TODAY FOR POSSIBLE SEIZURE/STROKE. PT IS LETHARGIC AT THE SCENE, UNABLE TO FOLLOW SIMPLE COMMANDS. HX: STROKE, SEIZURE. Coronavirus screen: At this time, the client does not indicate any symptoms associated with coronavirus-19. Ebola Screen: No symptoms or risks identified at this time. Initial Sepsis Screen: Does the patient meet any 2 criteria? No. Patient's initial sepsis screen is negative. Does the patient have a suspected source of infection? No. Patient's initial sepsis screen is negative. Risk Assessment: Do you want to hurt yourself or someone else? Unable to obtain. Onset of symptoms is unknown. 01:49 Method Of Arrival: EMS: [facility] rv 01:49 Acuity: CHRISTINE 2 rv Triage Assessment: 01:52 General: Appears unkempt, Behavior is uncooperative. Neuro: Level of Consciousness is rv lethargic, Oriented to none. Cardiovascular: Capillary refill < 3 seconds Patient's skin is warm and dry. Respiratory: Airway is patent Respiratory effort is even, unlabored. GI: No signs and/or symptoms were reported involving the gastrointestinal system. : No signs and/or symptoms were reported regarding the genitourinary system. Derm: Skin is intact. Historical: - Allergies: 01:52 Aspirin; rv 01:52 Darvocet-N 100; rv 01:52 Ibuprofen; rv - PMHx: :52 CVA; Seizures; TBI; rv - PSHx: 01:52 Broken legs; Drop foot L; facial reconstruction; Splenectomy; rv - Immunization history:: Adult Immunizations unknown. - Social history:: Smoking status: unknown. - Family history:: not pertinent. Screenin:54 [facility] ED Fall Risk Assessment (Adult) History of falling in the last 3 months, rv including since admission No falls in past 3 months (0 pts) Confusion or Disorientation Yes (5 pts) Intoxicated or Sedated Impaired Gait Yes (1 pt) Score/Fall Risk Level 3 or more points = High Risk Oriented to surroundings, Maintained a safe environment, Educated pt \\T\\ family on fall prevention, incl call for assistance when getting out of bed, Assessed \\T\\ reinforced patient's understanding of fall precautions, Provided non-skid footwear, Hourly rounding (assess needs \\T\\ fall precautionary measures) done, Used ambulatory aids as needed (educated on \\T\\ assisted with), Used gait belt as appropriate Implemented a Fall Risk Plan of Care, Apply high fall risk patient identification: yellow non skid footwear/ fall signage, Placed fall mat w/ non beveled edge next to bed, Activated bed/chair alarm, Remained w/in arm's length of patient and in sight while toileting, Offered frequent toileting (1:1 observation), Remained with patient while ambulating, Utilized family, sitter, or virtual color buffer as indicated. Abuse screen: UNKNOWN. Nutritional screening: No deficits noted. Tuberculosis screening: No symptoms or risk factors identified. Assessment: 01:54 Reassessment: SEE TRIAGE NOTES. rv 02:22 Reassessment: PT IS AROUSABLE, ABLE TO COMMUNICATE WITH PARTNER AT BEDSIDE. rv 03:30 Reassessment: Patient appears in no apparent distress at this time. Patient and/or pf1 family updated on plan of care and expected duration. Pain level reassessed. 04:30 Reassessment: Patient appears in no apparent distress at this time. Patient and/or pf1 family updated on plan of care and expected duration. Pain level reassessed. 05:45 Reassessment: Patient appears in no apparent distress at this time. No changes from jw7 previously documented assessment. Patient and/or family updated on plan of care and expected duration. Pain level reassessed. 06:33 Reassessment: Patient appears in no apparent distress at this time. No changes from jw7 previously documented assessment. Patient and/or family updated on plan of care and expected duration. Pain level reassessed. 07:00 Reassessment: Per Dr. Nance - pt reports SI ideation. "Took a lot of pills." SI ld1 precautions in initiated at this time. Sitter at bedside. Vital Signs: 01:49 BP 132 / 94; Pulse 95; Resp 18; Temp 98.5; Pulse Ox 100% ; Weight 67.13 kg; rv 02:30 BP 128 / 93; Pulse 89; Resp 18; Pulse Ox 100% on R/A; pf1 03:22 BP 119 / 78; Pulse 87; Resp 18; Pulse Ox 100% on R/A; rv 04:30 BP 127 / 96; Pulse 84; Resp 19 S; Pulse Ox 100% on R/A; jw7 05:30 BP 129 / 81; Pulse 78; Resp 17 S; Pulse Ox 100% on R/A; jw7 06:33 BP 115 / 75; Pulse 81; Resp 17 S; Pulse Ox 99% on R/A; jw7 06:51 Height 5 ft. 5 in. ; pf1 09:21 BP 121 / 70; Pulse 86; Resp 18; Pulse Ox 98% on R/A; ld1 12:25 BP 140 / 80; Pulse 92; Resp 18; Pulse Ox 94% on R/A; ld1 14:41 BP 119 / 85; Pulse 80; Resp 18; Pulse Ox 100% on R/A; ld1 06:51 Body Mass Index 24.63 (67.13 kg, 165.1 cm) pf1 ED Course: 01:48 Patient arrived in ED. rv1 01:49 Cr Crisostomo, MARIE is Primary Nurse. rv 01:52 Triage completed. rv 01:53 Arm band placed on right wrist. rv 01:54 Humberto Goel MD is Attending Physician. sp4 01:54 Patient has correct armband on for positive identification. Placed in gown. Bed in low rv position. Call light in reach. Side rails up X2. Seizure precautions initiated. Provided Education on: SEIZURE, STROKE. Client placed on continuous cardiac and pulse oximetry monitoring. NIBP monitoring applied. tower erector on. 02:13 EKG done, by ED staff, reviewed by Humberto Goel MD. jw7 02:14 Acetaminophen Sent. jw7 02:14 Basic Metabolic Panel Sent. jw7 02:14 CBC with Diff Sent. jw7 02:14 ETOH Level Sent. jw7 02:14 Hepatic Function Sent. jw7 02:14 PT-INR Sent. jw7 02:14 Ptt, Activated Sent. jw7 02:14 Salicylate Sent. jw7 02:30 Assisted with bedpan. Cleaned of incontinence. Linen changed. pf1 02:36 CT Head Brain wo Cont In Process Unspecified. EDMS 02:48 Urinalysis w/ reflexes Sent. pf1 02:48 Urine Drug Screen Sent. pf1 02:48 Test, Urine Sent. pf1 05:27 Anthony Mittal is Hospitalizing Provider. sp4 05:30 Influenza Screen (a \\T\\ B) Sent. jw7 05:30 SARS RAPID Sent. jw7 05:33 Warm blanket given. Cleaned of incontinence. Linen changed. jw7 05:52 AMMONIA Sent. jw7 05:52 CRP Sent. jw7 05:52 T4 Free Sent. jw7 05:52 TSH Sent. jw7 06:39 No provider procedures requiring assistance completed. Patient admitted, IV remains in rv place. Administered Medications: 02:14 Drug: NS 0.9% IV 1000 ml Route: IV; Rate: 125 ml/hr; Site: right antecubital; jw7 02:58 Follow up: Response: No adverse reaction; Marked relief of symptoms pf1 06:34 Follow up: Response: No adverse reaction; IV Status: Order to discontinue infusion; IV jw7 Intake: 300ml 05:52 Drug: D5-1/2 NS with KCl IV 20 mEq/L 1000 ml Route: IV; Rate: 125 ml/hr; Site: left jw7 antecubital; Medication: 01:54 VIS not applicable for this client. rv Intake: 06:34 IV: 300ml; Total: 300ml. jw7 Outcome: 05:27 Decision to Hospitalize by Provider. sp4 06:39 Admitted to ER Hold. Please see [facility] for further documentation. rv 06:39 Condition: stable 06:39 Instructed on the need for admit. 16:59 Patient left the ED. ld1 Signatures: Dispatcher [employer] EDMS Cr Crisostomo RN RN rv Zeinab Llanos RN RN ld1 Katherin Mccray RN RN jw7 Chela Knutson RN RN pf1 Sola Ureña rv1 Humberto Goel MD MD sp4
[2023-05-23 05:49] LABS: SARS-CoV-2 Antigen Rapid Res Negative (Negative)
[2023-05-23] MEDS ORDERED: D5.45NS W/KCL 20MEQ 1,000 ML IV ONE (05:50)
[2023-05-23 06:25] LABS: C-Reactive Protein < 2.90 mg/L (<3.00)
[2023-05-23 13:54] LABS: Absolute Lymphocytes (CBC) 2.5 K/uL (0.7-4.9); Hematocrit 36.1 % (36.0-45.0); Lymphocytes % 29.3 % (15.3-44.8); MCV 91.4 fL (80-100); MPV 6.7 fL (7.6-11.3); Platelets 607 thou/uL (152-406); RBC Red Blood Cell Count 3.95 M/uL (3.86-4.86)
[2023-05-23 14:10] LABS: ALT/SGPT 18 U/L (13-56); AST/SGOT 7 U/L (15-37); Albumin 3.2 g/dL (3.4-5.0); Alkaline Phosphatase 87 U/L (45-117); BUN Blood Urea Nitrogen 15 mg/dL (7-18); Bicarbonate 22 mEq/L (21-32); Bilirubin Total 0.2 mg/dL (0.2-1.0); Glomerular Filtration Rate 104 ml/min (=/>90); Glucose Level 82 mg/dL (74-106); Potassium 3.7 mEq/L (3.5-5.1); Protein, Total 7.1 g/dL (6.4-8.2); Sodium Level 143 mEq/L (136-145)
--- NOTE | 2023-05-23 18:43 | EKG ---
Test Date: 2023-05-23 Test Time: 02:06:07 Color Strainer: JUNI MEASUREMENT RESULTS: Intervals: Rate: 95 LA: 154 QRSD: 100 QT: 382 QTc: 480 [place]: P: 69 LA: 154 QRS: 88 T: 57 INTERPRETIVE STATEMENTS: Normal sinus rhythm Prolonged QT Abnormal ECG No previous ECG available for comparison Electronically Signed On 05-23-23 18:41:48 CDT by Devan Mota
[2023-05-23] MEDS: OXcarbazepine 150 MG TAB PO SCH (19:48)
[2023-05-23] MEDS: CYCLOBENZAPRINE 10 MG TAB PO SCH (22:26)
[2023-05-23] MEDS: gemfibroziL 600 MG TAB PO SCH (22:26)
[2023-05-23] MEDS: AMITRIPTYLINE 50 MG TAB PO SCH (22:26)
[2023-05-23] MEDS: TOPIRAMATE 100 MG TAB PO SCH (22:27)
[2023-05-23] MEDS: PANTOPRAZOLE 40MG TABLET PO SCH (22:27)
[2023-05-24 10:03] LABS: Absolute Lymphocytes (CBC) 2.6 K/uL (0.7-4.9); Hematocrit 38.2 % (36.0-45.0); Lymphocytes % 28.4 % (15.3-44.8); MPV 6.8 fL (7.6-11.3); Platelets 632 thou/uL (152-406); RBC Red Blood Cell Count 4.15 M/uL (3.86-4.86)
[2023-05-24 10:22] LABS: Magnesium 2.1 mg/dL (1.6-2.4); Potassium 3.8 mEq/L (3.5-5.1)
[2023-05-24] MEDS: gemfibroziL 600 MG TAB PO SCH ×2 (10:33→21:56)
[2023-05-24] MEDS: MELOXICAM 7.5 MG TAB PO SCH (10:33)
[2023-05-24] MEDS: TOPIRAMATE 100 MG TAB PO SCH ×2 (10:35→21:57)
[2023-05-24] MEDS: OXcarbazepine 150 MG TAB PO SCH ×2 (10:37→21:59)
[2023-05-24] MEDS: NICOTINE 21 MG/PAT TD SCH (12:48)
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
[2023-05-24] MEDS: CYCLOBENZAPRINE 10 MG TAB PO SCH (21:57)
[2023-05-24] MEDS: PANTOPRAZOLE 40MG TABLET PO SCH (21:58)
[2023-05-24] MEDS: AMITRIPTYLINE 50 MG TAB PO SCH (21:58)
[2023-05-24] MEDS: hydrOXYzine HCL 25 MG TAB PO PRN (22:04)
--- NOTE | 2023-05-24 22:15 | P.PN ---
Date of Service: 05/24/23 Subjective Pt is doing well with no new c/o; being suicidal at this time. Patient regrets taking her pills but since she is not really able to ambulate when her stated he was going to take her child away she had PTSD from the time 8 years ago when she had to give up her child for adoption. She was worried she was going to lose her baby so and her hates she took a handful of pills. She is regretful, and she persistently has denied being suicidal/homicidal. Physical Examination - Physical Exam Vitals: Reviewed General: Other (Confused, resting with eyes closed responds to verbal) HEENT: With cranial scars and facial scar; cartilage to the nares; reconstruction of the nares Respiratory: Clear to auscultation bilaterally, Normal air movement Cardiovascular: Regular rate/rhythm Gastrointestinal: Normal bowel sounds, Soft and benign Musculoskeletal: No clubbing, No swelling, Other (Left foot drop, wheelchair dependent) Neurological: Alert and oriented x1, recognize caregiver, Abnormal affect Assessment and Plan -Assessment/Plan History of a craniotomy Epilepsy History of a traumatic brain injury with lobectomy Left foot drop Wheelchair dependent Neurologically stable; reevaluation by psychiatry as patient denies being suicidal at this time; I feel like patient should be stable for discharge. 10 weeks depression Neuro eval to evaluate antidepressant therapy Hyperlipidemia Resume appropriate home meds on p.o. Diet n.p.o. Full code DVT Lovenox Discharge Plan: Home Plan to discharge in: 48 Hours - Advance Directives Does patient have a Living Will: No Does patient have a Durable POA for Healthcare: No - Code Status/Comfort Care Code Status: Full Code Physician Review: Patient Assessed, Agree with Above Assessment and Plan Critical Care: No Time Spent Managing Pts Care (In Minutes): 25
[2023-05-25 06:39] VITALS: BMI 24.4
[2023-05-25] MEDS: OXcarbazepine 150 MG TAB PO SCH ×2 (09:06→20:33)
[2023-05-25] MEDS: NICOTINE 21 MG/PAT TD SCH (09:07)
[2023-05-25] MEDS: MELOXICAM 7.5 MG TAB PO SCH (09:07)
[2023-05-25] MEDS: TOPIRAMATE 100 MG TAB PO SCH ×2 (09:07→20:33)
[2023-05-25] MEDS: gemfibroziL 600 MG TAB PO SCH ×2 (09:07→20:33)
[2023-05-25] MEDS ORDERED: HYDROCODONE/APAP 5/325 MG TAB PO ONE (09:09)
[2023-05-25 09:16] LABS: Hematocrit 35.3 % (36.0-45.0); Lymphocytes % 25.6 % (15.3-44.8); MCV 91.5 fL (80-100); MPV 6.7 fL (7.6-11.3); Platelets 585 thou/uL (152-406); RBC Red Blood Cell Count 3.86 M/uL (3.86-4.86)
[2023-05-25 09:26] VITALS: O2SAT 100
[2023-05-25 09:27] LABS: Potassium 3.6 mEq/L (3.5-5.1)
[2023-05-25] MEDS ORDERED: POTASSIUM CL SA 10 MEQ TAB PO ONE (09:35)
[2023-05-25 10:18] LABS: Blood Morphology Comment NOT SEEN (NOT SEEN); Platelet Estimate ADEQ; White Blood Cell Scan OK (OK)
[2023-05-25] MEDS: hydrOXYzine HCL 25 MG TAB PO PRN (10:40)
[2023-05-25] MEDS ORDERED: MELATONIN 5 MG TABLET PO PRN (20:16)
[2023-05-25] MEDS: PANTOPRAZOLE 40MG TABLET PO SCH (20:33)
[2023-05-25] MEDS: AMITRIPTYLINE 50 MG TAB PO SCH (20:33)
[2023-05-25] MEDS: CYCLOBENZAPRINE 10 MG TAB PO SCH (20:33)
[2023-05-26] MEDS: hydrOXYzine HCL 25 MG TAB PO PRN ×2 (00:46→11:05)
[2023-05-26] MEDS ORDERED: ACETAMINOPHEN 500 MG TAB PO ONE (08:31)
[2023-05-26] MEDS: NICOTINE 21 MG/PAT TD SCH (08:53)
[2023-05-26] MEDS: gemfibroziL 600 MG TAB PO SCH (08:54)
[2023-05-26] MEDS: OXcarbazepine 150 MG TAB PO SCH (08:56)
[2023-05-26] MEDS: TOPIRAMATE 100 MG TAB PO SCH (08:56)
[2023-05-26] MEDS: MELOXICAM 7.5 MG TAB PO SCH (08:56)
[2023-05-26 09:38] LABS: Absolute Lymphocytes (CBC) 2.7 K/uL (0.7-4.9); Hematocrit 37.8 % (36.0-45.0); Lymphocytes % 26.8 % (15.3-44.8); MCV 91.3 fL (80-100); MPV 6.8 fL (7.6-11.3); Platelets 587 thou/uL (152-406); RBC Red Blood Cell Count 4.14 M/uL (3.86-4.86)
[2023-05-26 11:30] LABS: Blood Morphology Comment NOT SEEN (NOT SEEN); Platelet Estimate INCR; White Blood Cell Scan OK (OK)
--- NOTE | 2023-05-26 16:40 | RAD REPORT ---
EXAM DESCRIPTION: CT - Head Brain Wo Cont - 05/23/2023 6:58 am CLINICAL HISTORY: The patient is 43 years old and is Female; CONFUSED TECHNIQUE: Axial computed tomography images of the head/brain without intravenous contrast. Sagitt al and coronal reformatted images were created and reviewed. This CT exam was performed using one o r more of the following dose reduction techniques: automated exposure control, adjustment of the mA and/or kV according to patient size, and/or use of iterative reconstruction technique. COMPARISON: March 11, 2023. FINDINGS: Brain: Large areas of prior infarction, right frontal, right parietal and posterior left frontal/left parietal lobes. No hemorrhage. No significant white matter disease. Ventricles: Unremarkable. No ventriculomegaly. Bones/joints: Previous right craniotomy. Previous ORIF anterior wall left maxillary sinus and left orbital floor fractures. Old fractu re lateral wall left orbit and nasal bones. No acute skull fracture. Soft tissues: Unremarkable. Sinuses: Mucosal thickening left maxillary sinus. Mastoid air cells: No significant mastoid fluid. IMPRESSION: 1. No acute intracranial findings. No hemorrhage. 2. Large areas of prior infarction bilaterally. 3. Previous right craniotomy. Old left facial/orbital fractures. 4. Mucosal thickening left maxillary sinus. Electronically signed by: Dee Dee Moseley MD 05/23/2023 4:39 AM CDT Due to temporary technical issues with the PACS/Fluency reporting system, reports are being signed by the in house radiologists without review as a courtesy to insure prompt reporting. The interpreting radiologist is fully responsible for the content of the report.
[2023-05-26 16:58] VITALS: BP 114/60; TEMP 98.4
== END 2023-05-26 17:56 | disposition home or self-care (01) | DRG 71 ==
LOC: ER 01:47 → ERHOLD 05:24 → 2ND 16:43
PROVIDERS: ADMIT Hospitalist; ATTEND Hospitalist
DX: G93.41 Metabolic encephalopathy (principal); F05 Delirium due to known physiological condition; F53.0 Postpartum depression; E87.6 Hypokalemia; M21.372 Foot drop, left foot; E78.5 Hyperlipidemia, unspecified; G40.909 Epilepsy, unspecified, not intractable, without status epilepticus; Z99.3 Dependence on wheelchair; Z88.5 Allergy status to narcotic agent; Z88.6 Allergy status to analgesic agent; Z90.81 Acquired absence of spleen; Z87.820 Personal history of traumatic brain injury; Z20.822 Contact with and (suspected) exposure to COVID-19
CPT/HCPCS: 36415; 70450; 80048; 80053; 80076; 80143; 80156; 80179; 80307; 81003; 81025; 82077; 82140; 82947; 83735; 84439; 84443; 85025; 85610; 85730; 86140; 87804; 87811; 92523; 93005; 96360; 96361; 99285; J7030